=== PATIENT | male | born 1980 | race Caucasian/White ===

== ENCOUNTER → 2016-10-10 | Outpatient (CLI) | payer OTHER ==
--- NOTE | 2016-10-10 14:10 | MR ---
EXAMINATION TYPE: MR shoulder RT wo con DATE OF EXAM: 10/10/2016 COMPARISON: NONE HISTORY: Rt. Shoulder pain, numbness in hand TECHNIQUE: Multiplanar, multisequence imaging of the right shoulder is performed without contrast. FINDINGS: Rotator Cuff: There is abnormal thickening of the rotator cuff compatible with tendinosis, fluid sign al is present at the inferior margin anteriorly compatible with a partial-thickness tear. Acromioclavicular Joint: Intact, there is arthropathy change present, hypertrophic change causes some mild mass effect on the musculotendinous junction of supraspinatus. Some minimal fluid signal presen t in the subacromial subdeltoid bursa Glenohumeral Joint: Intact Labrum: The labrum appears grossly intact given limitation of non-arthrogram study. Biceps Tendon: Small amount of fluid is present along the long head of biceps tendon, the tendon show s a normal position. Bone marrow signal: No focal abnormal marrow signal is appreciated. Other: No sizable joint effusion. IMPRESSION: Tendinosis, small partial undersurface tear of the rotator cuff is suspected.
== END | disposition home or self-care (01) ==
LOC: RADMRIMAIN 09:39
PROVIDERS: ATTEND Internal Medicine
DX: M67.813 Other specified disorders of tendon, right shoulder (principal); M25.511 Pain in right shoulder

== ENCOUNTER 2019-03-29 11:20 | Inpatient (IN) | payer OTHER ==
[2019-03-29] MEDS ORDERED: LORazepam 2 MG/ML INJ IM STA (11:48)
[2019-03-29] MEDS ORDERED: NICOTINE 21MG/24HR PATCH TRANSDERM STA (11:49)
--- NOTE | 2019-03-29 11:59 | ED ---
Psych HPI - General Chief Complaint: Psychiatric Symptoms Stated Complaint: Suicidal Time Seen by Provider: 03/29/19 11:38 Source: patient, police Mode of arrival: ambulatory - History of Present Illness Initial Comments: patient is a 38-year-old malewith history of alcohol intoxication and depression is presenting to emergency by with a chief complaint abscess thoughts and idea tions. Patient reports he "can't shut his mind down." Patient reports yesterday drink in order for go to sleep and even then he only gets a few hours of sleep. Patient reports to drinking beer last night and this morning. Patient reports currently he has let on his mind as he is getting evicted. Patient states he cannot afford presents for [facility] for shoulder. Patient reports his but is on disability and he is only source of income and cannot cope with the situation. Patient would like to be evaluated by psychiatry. Patient reports she attempted suicide today by cutting his left forearm and wrist. Patient states his knife was too dull.patient is a smoker. Patient denies chest pain shortness of breath. - Related Data Home Medications Medication Instructions Recorded Confirmed Cyclobenzaprine [Flexeril] 10 mg PO TID PRN 03/29/19 03/29/19 Loratadine [Claritin] 10 mg PO DAILY 03/29/19 03/29/19 Pregabalin [Lyrica] 150 mg PO BID 03/29/19 03/29/19 Zolpidem [Ambien] 5 mg PO HS PRN 03/29/19 03/29/19 Allergies Allergy/AdvReac Type Severity Reaction Status Date / Time No Known Allergies Allergy Verified 03/29/19 12:07 Review of Systems ROS Statement: Those systems with pertinent positive or pertinent negative responses have been documented in the HPI. ROS Other: All systems not noted in ROS Statement are negative. Past Medical History Past Medical History: No Reported History History of Any Multi-Drug Resistant Organisms: None Reported Past Surgical History: Orthopedic Surgery Past Psychological History: Depression Smoking Status: Current every day smoker Past Alcohol Use History: Occasional Past Drug Use History: None Reported General Exam Limitations: no limitations General appearance: alert, in no apparent distress, appears intoxicated Head exam: Present: atraumatic, normocephalic, normal inspection Eye exam: Present: normal appearance, PERRL, EOMI, conjunctival injection (bilateral) Pupils: Present: normal accommodation ENT exam: Present: normal exam, normal oropharynx, mucous membranes dry Neck exam: Present: normal inspection, full ROM Respiratory exam: Present: normal lung sounds bilaterally, wheezes (right lung base) Cardiovascular Exam: Present: normal rhythm, tachycardia, normal heart sounds Extremities exam: Present: full ROM. Absent: normal inspection (multiple superficial lacerations on the left forearm.) Back exam: Present: normal inspection, full ROM Neurological exam: Present: alert, oriented X3 Psychiatric exam: Present: normal affect, normal mood Skin exam: Present: warm, dry, intact, normal color Course Vital Signs 03/29/19 11:32 Temperature 97.9 F Pulse Rate 113 H Respiratory 18 Rate Blood Pressure 146/109 O2 Sat by Pulse 96 Oximetry Medical Decision Making - Medical Decision Making patient is a 38-year-old male with history of alcohol intoxication and depression ispresenting to the emergency department with a chief complaint of suicidal thoughts and ideations.BAT is .293 and will be sober at 20/200. On exam patient appears dehydrated with dry mucous members. Patient was given 1 mg of Ativan.mild wheezing on the right lung base. Multiple superficial lacerations on the left forearm. Suturing not required. Laceration site will be cleaned. Patient will be admitted for further management. Case discussed with physician. Admitting physician is Dr. Harrison. Disposition Clinical Impression: Suicidal ideation, Depression Disposition: ADMITTED IP TO THIS HOSP Condition: Stable Instructions (If sedation given, give patient instructions): Depression (DC) Additional Instructions: Patient will be admitted Is patient prescribed a controlled substance at d/c from ED?: No Referrals: Anahi Ribera MD [Primary Care Provider] - 1-2 days Time of Disposition: 12:40
[2019-03-29] MEDS ORDERED: ONDANSETRON 4 MG/2 ML VIAL IVP PRN (12:41)
[2019-03-29] MEDS ORDERED: NALOXONE 0.4 MG/ML 1 ML VIAL IV PRN (12:41)
[2019-03-29] MEDS ORDERED: LORazepam 0.5 MG TAB PO PRN (12:41)
[2019-03-29] MEDS ORDERED: MORPHINE SULFATE 4 MG/ML SYRINGE IV PRN (12:41)
[2019-03-29 13:21] LABS: ALT 69 U/L (4-49); AST 73 U/L (17-59); African American GFR (CKD) >90 (>60 ml/min/1.73 sqM); Albumin 4.3 g/dL (3.5-5.0); Alkaline Phosphatase 65 U/L (38-126); Anion Gap 12 mmol/L; Blood Urea Nitrogen 8 mg/dL (9-20); Calcium 8.7 mg/dL (8.4-10.2); Carbon Dioxide 23 mmol/L (22-30); Chloride 107 mmol/L (98-107); Glucose 92 mg/dL (74-99); Non-African American GFR(CKD) >90 (>60 ml/min/1.73 sqM); Potassium 4.4 mmol/L (3.5-5.1); Sodium 142 mmol/L (137-145); Total Bilirubin 0.5 mg/dL (0.2-1.3); Total Protein 6.7 g/dL (6.3-8.2)
[2019-03-29 13:22] LABS: Basophils % (A) 1 %; Eosinophils % (A) 1 %; HCT 47.9 % (39.0-53.0); Lymphocytes # (A) 1.5 k/uL (1.0-4.8); Lymphocytes % (A) 22 %; MCH 36.2 pg (25.0-35.0); MCHC 35.5 g/dL (31.0-37.0); MCV 102.1 fL (80.0-100.0); Macrocytosis Slight; Mean Platelet Volume 6.9; Monocytes # (A) 0.3 k/uL (0-1.0); Monocytes % (A) 5 %; Neutrophils # (A) 4.7 k/uL (1.3-7.7); Neutrophils % (A) 70 %; Platelet Count 232 k/uL (150-450); RDW 12.5 % (11.5-15.5); WBC 6.7 k/uL (3.8-10.6)
--- NOTE | 2019-03-29 14:45 | P.HPIM ---
History of Present Illness this is a pleasant 58 years old male with past medical history of depression and cigarette smoker, presents with alcohol intoxication and suicidal ideation. Patient says that he came to the hospital because he was hurt himself and his left forearmwith Marlex in mentation to cut himself " he wanted to sleep for ever" he states that he has history of depression which is getting worse lately. He cannot sleep only for 2-3 hours each day so he drinks alcohol everyday trying to sleep. He drinks about 3 cans of beer of 24 hours, with some wind and last night he had little whiskey. 2 PACKS PER DAY AND HE SMOKES MARIJUANA He has cough with some clear to yellow phlegm with no chest pain or dyspnea. He has loose bowel movement for a while but no abdominal pain or nausea vomiting. No urinary complaints Vitas looks stable except for mild tachycardia, CBC and BMP are unremarkable. Liver enzymes are slightly elevated. in the emergency room patient started on CIWA Ativan and nicotine patch, Zofran and normal saline at 100 mL per hour Review of Systems CONSTITUTIONAL: No fever, no malaise, no fatigue. HEENT: No recent visual problems or hearing problems. Denied any sore throat. CARDIOVASCULAR: No orthopnea, PND, no palpitations, no syncope. PULMONARY: No shortness of breath, no hemoptysis. GASTROINTESTINAL: No diarrhea, no nausea, no vomiting, no abdominal pain. Normoactive bowel sounds. NEUROLOGICAL: No headaches, no weakness, no numbness. HEMATOLOGICAL: Denies any bleeding or petechiae. GENITOURINARY: Denies any burning micturition, frequency, or urgency. MUSCULOSKELETAL/RHEUMATOLOGICAL: Denies any joint pain, swelling, or any muscle pain. ENDOCRINE: Denies any polyuria or polydipsia. Past Medical History Past Medical History: No Reported History History of Any Multi-Drug Resistant Organisms: None Reported Past Surgical History: Orthopedic Surgery Past Psychological History: Depression Smoking Status: Current every day smoker Past Alcohol Use History: Occasional Past Drug Use History: None Reported Medications and Allergies Home Medications Medication Instructions Recorded Confirmed Type Cyclobenzaprine [Flexeril] 10 mg PO TID PRN 03/29/19 03/29/19 History Loratadine [Claritin] 10 mg PO DAILY 03/29/19 03/29/19 History Pregabalin [Lyrica] 150 mg PO BID 03/29/19 03/29/19 History Zolpidem [Ambien] 5 mg PO HS PRN 03/29/19 03/29/19 History Allergies Allergy/AdvReac Type Severity Reaction Status Date / Time No Known Allergies Allergy Verified 03/29/19 12:07 Physical Exam Vitals: Vital Signs Temp Pulse Resp BP Pulse Ox 03/29/19 11:32 97.9 F 113 H 18 146/109 96 Intake and Output 03/28/19 03/29/19 03/29/19 22:59 06:59 14:59 Other: Weight 69.853 kg GENERAL: The patient is alert and oriented x3, not in any acute distress. Well developed, well nourished. HEENT: Pupils are round and equally reacting to light. EOMI. No scleral icterus. No conjunctival pallor. Normocephalic, atraumatic. No pharyngeal erythema. No thyromegaly. CARDIOVASCULAR: S1 and S2 present. No murmurs, rubs, or gallops. PULMONARY: Chest is clear to auscultation, no wheezing or crackles. ABDOMEN: Soft, nontender, nondistended, normoactive bowel sounds. No palpable organomegaly. MUSCULOSKELETAL: No joint swelling or deformity. -EXTREMITIES: No cyanosis, clubbing, or pedal edema.superficial cut MAYO on his left forearm NEUROLOGICAL: Gross neurological examination did not reveal any focal deficits. SKIN: No rashes. No petechiae -psychiatrist: Looks withdrawn and depressed Results CBC & Chem 7: 03/29/19 12:45 03/29/19 12:45 Labs: Abnormal Lab Results - Last 24 Hours (Table) 03/29/19 03/29/19 Range/Units 12:45 12:45 MCV 102.1 H (80.0-100.0) fL MCH 36.2 H (25.0-35.0) pg BUN 8 L (9-20) mg/dL AST 73 H (17-59) U/L ALT 69 H (4-49) U/L Assessment and Plan Assessment: Alcohol intoxication, risk of local withdrawal Depressions with suicidal ideation Nicotine dependence substance abuse, including marijuana Superficial cut wounds in his left forearm Plan: this is a pleasant 38 years old male who presents with alcoholism and depression. Continue with CIWA protocol, continue with thiamine, continue with vitamins, continue with IV fluids and antiacids.Consult psych services, continue with product safety technician with 1:1 observation. Patient currently a.m. a totally cleared by psychiatrist. We'll order also chest x-ray and EKG. Labs and medication were reviewed.. Continue same treatment. Continue with symptomatic treatment. Resume home medication. Monitor lytes and vitals. DVT and GI prophylaxis. Further recommendations of the clinical course of the patient DVT prophylaxis: Subcutaneous heparin GI Prophylaxis: Pepcid Prognosis is guarded
--- NOTE | 2019-03-29 15:17 | XR ---
EXAMINATION TYPE: XR chest 1V DATE OF EXAM: 03/29/2019 COMPARISON: None INDICATION: Aspiration risk, EtOH TECHNIQUE: Single frontal view of the chest is obtained. FINDINGS: The heart size is normal. The pulmonary vasculature is normal. The lungs are clear. IMPRESSION: 1. No acute pulmonary process.
[2019-03-29] MEDS: THIAMINE 100 MG/ML 2 ML VIAL IVP SCH (15:36)
[2019-03-29] MEDS: HEPARIN SODIUM,PORCINE 5,000 UNIT/ML 1 ML VIAL SQ SCH ×2 (15:36→20:56)
[2019-03-29] MEDS: SODIUM CHLORIDE 0.9% 1,000 ML IV SCH (17:28)
[2019-03-29] MEDS: HYDROmorphone 0.5 MG/0.5 ML SYRINGE IVP PRN ×2 (19:18→22:53)
[2019-03-29 19:19] LABS: Appearance,Urine Clear (Clear); Bilirubin,Urine Negative (Negative); Blood,Urine Negative (Negative); Color,Urine Yellow; Glucose,Urine (UA) Negative (Negative); Ketones,Urine 1+ (Negative); Leukocyte Esterase,Urine Negative (Negative); Nitrite,Urine Negative (Negative); PH, Urine 5.5 (5.0-8.0); Protein,Urine Negative (Negative); Specific Gravity,Urine 1.016 (1.001-1.035); Urobilinogen,Urine <2.0 mg/dL (<2.0)
[2019-03-29 19:35] LABS: Amphetamine Screen,Urine Not Detected (NotDetected); Barbiturate Screen,Urine Not Detected (NotDetected); Benzodiazepines Screen,Urine Detected (NotDetected); Cocaine Screen,Urine Not Detected (NotDetected); Methadone Screen, Urine Not Detected (NotDetected); Opiate Screen,Urine Not Detected (NotDetected); Oxycodone Screen, Urine Not Detected (NotDetected); Phencyclidine Screen,Urine Not Detected (NotDetected); Tricyclic Antidepressant,Urine Not Detected (NotDetected); Urn Cannabinoid Scrn Detected (NotDetected)
[2019-03-29] MEDS: FAMOTIDINE 20 MG/2 ML VIAL IV SCH (20:55)
[2019-03-29] MEDS: CLOTRIMAZOLE 1% CREAM 15 GM TUBE TOPICAL SCH (20:56)
[2019-03-29] MEDS: LORazepam 2 MG/ML INJ IV PRN (20:56)
[2019-03-29] MEDS: NICOTINE 21MG/24HR PATCH TRANSDERM SCH (21:15)
[2019-03-30] MEDS: LORazepam 2 MG/ML INJ IV PRN ×6 (01:18→23:26)
[2019-03-30] MEDS: SODIUM CHLORIDE 0.9% 1,000 ML IV SCH ×3 (01:19→20:49)
[2019-03-30 07:29] LABS: Basophils % (A) 1 %; Eosinophils # (A) 0.1 k/uL (0-0.7); Eosinophils % (A) 2 %; HCT 45.6 % (39.0-53.0); Lymphocytes % (A) 26 %; MCH 34.1 pg (25.0-35.0); MCHC 32.9 g/dL (31.0-37.0); MCV 103.6 fL (80.0-100.0); Macrocytosis Slight; Mean Platelet Volume 7.1; Monocytes # (A) 0.5 k/uL (0-1.0); Monocytes % (A) 7 %; Neutrophils # (A) 4.9 k/uL (1.3-7.7); Neutrophils % (A) 64 %; Platelet Count 201 k/uL (150-450); RDW 12.3 % (11.5-15.5); WBC 7.6 k/uL (3.8-10.6)
[2019-03-30 07:40] LABS: ALT 50 U/L (4-49); AST 51 U/L (17-59); African American GFR (CKD) >90 (>60 ml/min/1.73 sqM); Albumin 3.4 g/dL (3.5-5.0); Alkaline Phosphatase 53 U/L (38-126); Anion Gap 5 mmol/L; Blood Urea Nitrogen 12 mg/dL (9-20); Calcium 8.8 mg/dL (8.4-10.2); Carbon Dioxide 28 mmol/L (22-30); Chloride 105 mmol/L (98-107); Glucose 85 mg/dL (74-99); Non-African American GFR(CKD) >90 (>60 ml/min/1.73 sqM); Potassium 4.6 mmol/L (3.5-5.1); Sodium 138 mmol/L (137-145); Total Bilirubin 1.3 mg/dL (0.2-1.3); Total Protein 5.8 g/dL (6.3-8.2)
[2019-03-30] MEDS: NICOTINE 21MG/24HR PATCH TRANSDERM SCH (09:24)
[2019-03-30] MEDS: HEPARIN SODIUM,PORCINE 5,000 UNIT/ML 1 ML VIAL SQ SCH ×2 (09:24→20:47)
[2019-03-30] MEDS: FAMOTIDINE 20 MG/2 ML VIAL IV SCH (09:24)
[2019-03-30] MEDS: CLOTRIMAZOLE 1% CREAM 15 GM TUBE TOPICAL SCH ×2 (09:25→20:47)
[2019-03-30] MEDS: THIAMINE 100 MG/ML 2 ML VIAL IVP SCH (09:35)
[2019-03-30] MEDS: HYDROmorphone 0.5 MG/0.5 ML SYRINGE IVP PRN ×3 (11:21→20:57)
--- NOTE | 2019-03-30 14:47 | P.PN ---
Subjective this is a pleasant 58 years old male with past medical history of depression and cigarette smoker, presents with alcohol intoxication and suicidal ideation. Patient says that he came to the hospital because he was hurt himself and his left forearmwith Marlex in mentation to cut himself " he wanted to sleep for ever" he states that he has history of depression which is getting worse lately. He cannot sleep only for 2-3 hours each day so he drinks alcohol everyday trying to sleep. He drinks about 3 cans of beer of 24 hours, with some wind and last night he had little whiskey. 2 PACKS PER DAY AND HE SMOKES MARIJUANA He has cough with some clear to yellow phlegm with no chest pain or dyspnea. He has loose bowel movement for a while but no abdominal pain or nausea vomiting. No urinary complaints Vitas looks stable except for mild tachycardia, CBC and BMP are unremarkable. Liver enzymes are slightly elevated. in the emergency room patient started on CIWA Ativan and nicotine patch, Zofran and normal saline at 100 mL per hour 03/30/2019 today patient remains depressed although his more awake and alert as he is more sober from his alcohol effect however he looks anxious and he has shakiness in his and part of his alcohol withdrawal. History of some cough but his chest x- ray was negative for an acute process.labs are reviewed and they looked unremarkable.sitter at bedside. Psych consult has been called and pending. Most likely patient will need inpatient mental health evaluation and treatment. Discussed with staff review of systems: CONSTITUTIONAL: No fever, no malaise, no fatigue. HEENT: No recent visual problems or hearing problems. Denied any sore throat. CARDIOVASCULAR: No orthopnea, PND, no palpitations, no syncope. PULMONARY: No shortness of breath, no hemoptysis. GASTROINTESTINAL: No diarrhea, no nausea, no vomiting, no abdominal pain. Normoactive bowel sounds. NEUROLOGICAL: No headaches, no weakness, no numbness. HEMATOLOGICAL: Denies any bleeding or petechiae. GENITOURINARY: Denies any burning micturition, frequency, or urgency. MUSCULOSKELETAL/RHEUMATOLOGICAL: Denies any joint pain, swelling, or any muscle pain. ENDOCRINE: Denies any polyuria or polydipsia. Active Medications Generic Name Dose Route Start Last Admin Trade Name Freq PRN Reason Stop Dose Admin Acetaminophen/Codeine Phosphate 1 each 03/29/19 12:41 Tylenol #3 PO Q4HR PRN Moderate Pain Clotrimazole 1 applic 03/29/19 21:00 03/30/19 09:25 Lotrimin Cream TOPICAL Not Given BID [facility] Famotidine 20 mg 03/30/19 21:00 Pepcid PO BID [facility] Heparin Sodium (Porcine) 5,000 unit 03/29/19 14:45 03/30/19 09:24 Heparin SQ 5,000 unit Q12HR CHIDI Administration Hydromorphone HCl 0.5 mg 03/29/19 12:41 03/30/19 11:21 Dilaudid IVP 0.5 mg Q3HR PRN Administration Moderate Pain Sodium Chloride 1,000 mls @ 100 mls/hr 03/29/19 12:45 03/30/19 11:21 Saline 0.9% IV 100 mls/hr .Q10H CHIDI Administration Lorazepam 0.5 mg 03/29/19 12:41 03/29/19 17:27 Ativan PO 0.5 mg Q6HR PRN Administration Anxiety Lorazepam 1 mg 03/29/19 20:35 03/30/19 14:43 Ativan IV 1 mg Q4HR PRN Administration Anxiety Morphine Sulfate 4 mg 03/29/19 12:41 03/30/19 02:48 Morphine Sulfate (Inj) IV 4 mg Q4HR PRN Administration Severe Pain Naloxone HCl 0.2 mg 03/29/19 12:41 Narcan IV Q2M PRN Opioid Reversal Nicotine 1 patch 03/29/19 21:15 03/30/19 09:24 Habitrol 21mg/24hr Patch TRANSDERM 1 patch DAILY [facility] Administration Ondansetron HCl 4 mg 03/29/19 12:41 Zofran IVP Q8HR PRN Nausea And Vomiting Thiamine HCl 100 mg 03/29/19 15:00 03/30/19 09:35 Vitamin B-1 IVP 100 mg DAILY [facility] Administration Objective - Vital Signs Vital signs: Vital Signs Temp 96.6 F L 03/30/19 12:02 Pulse 85 03/30/19 12:02 Resp 16 03/30/19 12:02 BP 141/84 03/30/19 12:02 Pulse Ox 98 03/30/19 12:02 Intake & Output 03/29/19 03/30/19 03/30/19 18:59 06:59 18:59 Intake Total 700 1200 Balance 700 1200 Weight 69.853 kg Intake: Amount of Fluid Infused ( 700 ml) Intake, IV Titration 1200 Amount Sodium Chloride 0.9% 1, 1200 000 ml @ 100 mls/hr IV . Q10H [facility] Rx#:[id number] Other: Voiding Method Toilet Toilet Toilet Urinal Urinal Urinal # Voids 3 - Exam GENERAL: The patient is alert and oriented x3, not in any acute distress. Well developed, well nourished. HEENT: Pupils are round and equally reacting to light. EOMI. No scleral icterus. No conjunctival pallor. Normocephalic, atraumatic. No pharyngeal erythema. No thyromegaly. CARDIOVASCULAR: S1 and S2 present. No murmurs, rubs, or gallops. PULMONARY: Chest is clear to auscultation, no wheezing or crackles. ABDOMEN: Soft, nontender, nondistended, normoactive bowel sounds. No palpable organomegaly. MUSCULOSKELETAL: No joint swelling or deformity. -EXTREMITIES: No cyanosis, clubbing, or pedal edema.superficial cut MAYO on his left forearm NEUROLOGICAL: Gross neurological examination did not reveal any focal deficits. SKIN: No rashes. No petechiae -psychiatrist: Looks withdrawn and depressed - Labs CBC & Chem 7: 03/30/19 06:56 03/30/19 06:56 Labs: Abnormal Lab Results - Last 24 Hours (Table) 03/29/19 03/29/19 03/30/19 Range/Units 17:05 17:05 06:56 MCV 103.6 H (80.0-100.0) fL ALT (4-49) U/L Total Protein (6.3-8.2) g/dL Albumin (3.5-5.0) g/dL Urine Ketones 1+ H (Negative) U Benzodiazepines Scrn Detected H (NotDetected) U Marijuana (THC) Screen Detected H (NotDetected) 03/30/19 Range/Units 06:56 MCV (80.0-100.0) fL ALT 50 H (4-49) U/L Total Protein 5.8 L (6.3-8.2) g/dL Albumin 3.4 L (3.5-5.0) g/dL Urine Ketones (Negative) U Benzodiazepines Scrn (NotDetected) U Marijuana (THC) Screen (NotDetected) Assessment and Plan Assessment: Alcohol intoxication, risk of local withdrawal Depressions with suicidal ideation Nicotine dependence substance abuse, including marijuana Superficial cut wounds in his left forearm Plan: this is a pleasant 38 years old male who presents with alcoholism and depression. Continue with CIWA protocol, continue with thiamine, continue with vitamins, continue with IV fluids and antiacids.Consult psych services, continue with safety aide with 1:1 observation. Patient currently a.m. a totally cleared by psychiatrist. We'll order also chest x-ray and EKG. Labs and medication were reviewed.. Continue same treatment. Continue with symptomatic treatment. Resume home medication. Monitor lytes and vitals. DVT and GI prophylaxis. Further recommendations of the clinical course of the patient DVT prophylaxis: Subcutaneous heparin GI Prophylaxis: Pepcid Prognosis is guarded
[2019-03-30] MEDS: FAMOTIDINE 20 MG TAB PO SCH (20:46)
[2019-03-31] MEDS: HYDROmorphone 0.5 MG/0.5 ML SYRINGE IVP PRN ×3 (02:30→10:05)
[2019-03-31] MEDS: LORazepam 2 MG/ML INJ IV PRN ×2 (03:27→09:07)
[2019-03-31 06:53] LABS: Basophils % (A) 0 %; Eosinophils # (A) 0.2 k/uL (0-0.7); Eosinophils % (A) 2 %; HCT 43.9 % (39.0-53.0); HGB 14.9 gm/dL (13.0-17.5); Lymphocytes # (A) 2.2 k/uL (1.0-4.8); Lymphocytes % (A) 28 %; MCH 35.4 pg (25.0-35.0); MCHC 33.9 g/dL (31.0-37.0); MCV 104.4 fL (80.0-100.0); Macrocytosis Slight; Mean Platelet Volume 7.5; Monocytes # (A) 0.6 k/uL (0-1.0); Monocytes % (A) 7 %; Neutrophils # (A) 4.8 k/uL (1.3-7.7); Neutrophils % (A) 61 %; Platelet Count 221 k/uL (150-450); RDW 12.2 % (11.5-15.5); WBC 7.8 k/uL (3.8-10.6)
[2019-03-31 07:07] LABS: ALT 48 U/L (4-49); AST 51 U/L (17-59); African American GFR (CKD) >90 (>60 ml/min/1.73 sqM); Albumin 3.8 g/dL (3.5-5.0); Alkaline Phosphatase 58 U/L (38-126); Anion Gap 7 mmol/L; Blood Urea Nitrogen 8 mg/dL (9-20); Carbon Dioxide 27 mmol/L (22-30); Chloride 103 mmol/L (98-107); Glucose 105 mg/dL (74-99); Magnesium 2.1 mg/dL (1.6-2.3); Non-African American GFR(CKD) >90 (>60 ml/min/1.73 sqM); Potassium 3.9 mmol/L (3.5-5.1); Sodium 137 mmol/L (137-145); Total Bilirubin 0.8 mg/dL (0.2-1.3); Total Protein 6.2 g/dL (6.3-8.2)
[2019-03-31] MEDS: CLOTRIMAZOLE 1% CREAM 15 GM TUBE TOPICAL SCH ×2 (08:58→19:50)
[2019-03-31] MEDS: FAMOTIDINE 20 MG TAB PO SCH ×2 (08:58→19:50)
[2019-03-31] MEDS: SODIUM CHLORIDE 0.9% 1,000 ML IV SCH ×2 (09:07→21:08)
[2019-03-31] MEDS: THIAMINE 100 MG/ML 2 ML VIAL IVP SCH (09:08)
[2019-03-31] MEDS: HEPARIN SODIUM,PORCINE 5,000 UNIT/ML 1 ML VIAL SQ SCH ×2 (09:08→19:51)
[2019-03-31] MEDS ORDERED: LORazepam 2 MG/ML INJ IV STA (12:25)
[2019-03-31] MEDS: NICOTINE 21MG/24HR PATCH TRANSDERM SCH (12:53)
--- NOTE | 2019-03-31 14:09 | P.CN ---
Psychiatric Consult - . Consult date: 03/31/19 Consult:: 03/31/19 14:00 IDENTIFYING DATA: This patient is a 38-year-old male who is currently unemployed and lives with his is and has 2 kids and collects Social Security disability HISTORY OF PRESENT ILLNESS: The patient presented to the ED with suicidal ideations and intoxicated with alcohol. Patient's blood alcohol level was 293. Patient was complaining of drinking to help him sleep and claiming that "can't shut my mind down". Patient also had a cut on his forearm in his wrist upon presentation. Patient was admitted to the medical floors for alcohol withdrawal in monitoring. Psychiatry was asked to see patient for suicidal thoughts. Highway Design Engineer saw patient at the bedside who currently has a sitter and patient was attending to cooperate with advertising copy writer and was directable. Patient appeared anxious and depressed and states that he feels that he has been letting his family down. He claims that he has not worked since January and his disability and social aide has decreased and claims that his financial burden has been overwhelming for him. He claims that he is worried about a and addiction on his house. Patient also claims that he's been "hiding my feelings". He described "being a rock" for his familyand feeling overwhelmed. he claims to have fleeting thoughts of suicide and stated several times "sometimes it be better if I wasn't here". She admits to poor sleep and poor concentration with fair appetite. At this time patient denies any homical ideations, intent or plan. Patient denies any auditory, visual hallucinations and denies any paranoia or delusions. he states that he drinks alcohol approximately 3 beers a day, smokes marijuana approximately one joint a week and smokes cigarettes 2 packs per day. PAST PSYCHIATRIC HISTORY: he states that he has not followed up with a psychiatrist in the past however has been on trazodone and Vistaril and Ativan. He claims that he was once admitted to [facility] when he is 10 years old. Denies any previous suicide attempts. PAST MEDICAL HISTORY: denies ALLERGIES: as per EMR CHEMICAL DEPENDENCY HISTORY: as per HPI FAMILY PSYCHIATRIC/SUBSTANCE USE HISTORY:claims that his uncles suffered from depression. SOCIAL HISTORY: he states that he was born in [facility] and moved to [place] was raised. He claims that he dropped out school in ninth grade and eventually obtained his GED. He claims that he was working in an [employer] recently and stopped working in January of this year. Patient has 2 kids is and lives with them in the house. Currently collecting Social Security disability. MENTAL STATUS EXAM: General Appearance: Patient appears to be stated age is alert, directable and attempts to cooperate.] patient has poor hygiene and grooming. Behavior: Patient is calmly lying in bed without any agitated behavior. Speech: Patient's speech is fluent and nonpressured. soft tone. Mood/Affect: Patient reports their mood is "depressed", affect is congruent Suicidality/Homicidality: Patient denies having any suicidal or homicidal ideation intent or plan. Perceptions: Patient denies any auditory or visual hallucinations. Though content/process: There is no evidence of any delusional thought content and thought process is linear and goal-directed. Memory and concentration: AOX3, grossly intact for the purposes of this session. Can spell "WORLD" backwards Judgment and insight: poor IMPRESSIONS: depressive disorder unspecified rule out alcohol induced depressive disorder anxiety disorder unspecified Alcohol abuse Cannabis use disorder Nicotine dependence. PLAN: -At this time patient does meet criteria for inpatient psychiatric admission. patient was offered voluntary admission and claims that she will sign for it. -Would recommend the following medication changes/additions: Cymbalta 30 mg d aily for mood/anxiety/pain. We'll also start Vistaril 25 mg every 6 hours when necessary for anxiety. We'll also start Remeron 50 mg daily at bedtime for mood/insomnia. -Continue 1:1 sitter for safety -continue with CIWA q4hr for etoh w/d. with Ativan PRN. -When medically stable, patient is eligible for transfer to a psych bed when available. -Psychiatry will sign off at this point
[2019-03-31] MEDS: DULoxetine HCL 30 MG CAPSULE.DR PO SCH (15:30)
--- NOTE | 2019-03-31 17:14 | P.PN ---
Subjective this is a pleasant 58 years old male with past medical history of depression and cigarette smoker, presents with alcohol intoxication and suicidal ideation. Patient says that he came to the hospital because he was hurt himself and his left forearmwith Marlex in mentation to cut himself " he wanted to sleep for ever" he states that he has history of depression which is getting worse lately. He cannot sleep only for 2-3 hours each day so he drinks alcohol everyday trying to sleep. He drinks about 3 cans of beer of 24 hours, with some wind and last night he had little whiskey. 2 PACKS PER DAY AND HE SMOKES MARIJUANA He has cough with some clear to yellow phlegm with no chest pain or dyspnea. He has loose bowel movement for a while but no abdominal pain or nausea vomiting. No urinary complaints Vitas looks stable except for mild tachycardia, CBC and BMP are unremarkable. Liver enzymes are slightly elevated. in the emergency room patient started on CIWA Ativan and nicotine patch, Zofran and normal saline at 100 mL per hour 03/30/2019 today patient remains depressed although his more awake and alert as he is more sober from his alcohol effect however he looks anxious and he has shakiness in his and part of his alcohol withdrawal. History of some cough but his chest x- ray was negative for an acute process.labs are reviewed and they looked unremarkable.sitter at bedside. Psych consult has been called and pending. Most likely patient will need inpatient mental health evaluation and treatment. Discussed with staff 03/31/2019 patient is depressed and agitated today. His CIWA's score is ranging between 3- 15. He got several doses of Ativan every 3-4 hours,he is fully awake and oriented but agitated. No hallucination.psychiatrist evaluated the patient today and found him need inpatient psychiatric admission once his medically cleared from his alcohol withdrawal. In the meantime there is a sitter at bedside. Objective - Vital Signs Vital signs: Vital Signs Temp 98.2 F 03/31/19 12:41 Pulse 90 03/31/19 12:41 Resp 17 03/31/19 12:41 BP 154/93 03/31/19 12:41 Pulse Ox 98 03/31/19 12:41 Intake & Output 03/30/19 03/31/19 03/31/19 18:59 06:59 18:59 Intake Total 360 240 Balance 360 240 Intake: Oral 360 240 Other: Voiding Method Toilet Toilet Urinal Urinal # Voids 4 3 3 # Bowel Movements 0 - Exam GENERAL: The patient is alert and oriented x3, not in any acute distress. Well developed, well nourished. HEENT: Pupils are round and equally reacting to light. EOMI. No scleral icterus. No conjunctival pallor. Normocephalic, atraumatic. No pharyngeal erythema. No thyromegaly. CARDIOVASCULAR: S1 and S2 present. No murmurs, rubs, or gallops. PULMONARY: Chest is clear to auscultation, no wheezing or crackles. ABDOMEN: Soft, nontender, nondistended, normoactive bowel sounds. No palpable organomegaly. MUSCULOSKELETAL: No joint swelling or deformity. -EXTREMITIES: No cyanosis, clubbing, or pedal edema.superficial cut MAYO on his left forearm NEUROLOGICAL: Gross neurological examination did not reveal any focal deficits. SKIN: No rashes. No petechiae -psychiatrist: Looks withdrawn and depressed - Labs CBC & Chem 7: 03/31/19 05:31 03/31/19 05:31 Labs: Abnormal Lab Results - Last 24 Hours (Table) 03/31/19 03/31/19 Range/Units 05:31 05:31 RBC 4.20 L (4.30-5.90) m/uL MCV 104.4 H (80.0-100.0) fL MCH 35.4 H (25.0-35.0) pg BUN 8 L (9-20) mg/dL Glucose 105 H (74-99) mg/dL Total Protein 6.2 L (6.3-8.2) g/dL Assessment and Plan Assessment: Alcohol intoxication, risk of local withdrawal Depressions with suicidal ideation Nicotine dependence substance abuse, including marijuana Superficial cut wounds in his left forearm Plan: this is a pleasant 38 years old male who presents with alcoholism and depression. Continue with CIWA protocol, continue with thiamine, continue with vitamins, continue with IV fluids and antiacids.Consult psych services, continue with safety technician with 1:1 observation. Patient currently a.m. a totally cleared by psychiatrist. We'll order also chest x-ray and EKG. Labs and medication were reviewed.. Continue same treatment. Continue with symptomatic treatment. Resume home medication. Monitor lytes and vitals. DVT and GI prophylaxis. Further recommendations of the clinical course of the patient DVT prophylaxis: Subcutaneous heparin GI Prophylaxis: Pepcid Prognosis is guarded
[2019-03-31] MEDS: MIRTAZAPINE 15 MG TAB PO SCH (19:50)
[2019-04-01 06:46] LABS: Basophils % (A) 1 %; Eosinophils # (A) 0.3 k/uL (0-0.7); Eosinophils % (A) 3 %; HCT 48.1 % (39.0-53.0); HGB 16.3 gm/dL (13.0-17.5); Lymphocytes # (A) 1.9 k/uL (1.0-4.8); Lymphocytes % (A) 25 %; MCHC 33.8 g/dL (31.0-37.0); MCV 103.6 fL (80.0-100.0); Macrocytosis Slight; Mean Platelet Volume 7.3; Monocytes # (A) 0.5 k/uL (0-1.0); Monocytes % (A) 7 %; Neutrophils # (A) 4.8 k/uL (1.3-7.7); Neutrophils % (A) 62 %; Platelet Count 211 k/uL (150-450); RBC 4.65 m/uL (4.30-5.90); RDW 12.1 % (11.5-15.5); WBC 7.7 k/uL (3.8-10.6)
[2019-04-01 07:02] LABS: ALT 108 U/L (4-49); AST 127 U/L (17-59); African American GFR (CKD) >90 (>60 ml/min/1.73 sqM); Albumin 3.7 g/dL (3.5-5.0); Alkaline Phosphatase 58 U/L (38-126); Anion Gap 4 mmol/L; Blood Urea Nitrogen 9 mg/dL (9-20); Calcium 9.4 mg/dL (8.4-10.2); Carbon Dioxide 31 mmol/L (22-30); Chloride 106 mmol/L (98-107); Glucose 103 mg/dL (74-99); Magnesium 2.3 mg/dL (1.6-2.3); Non-African American GFR(CKD) >90 (>60 ml/min/1.73 sqM); Potassium 4.3 mmol/L (3.5-5.1); Sodium 141 mmol/L (137-145); Total Bilirubin 0.8 mg/dL (0.2-1.3); Total Protein 6.2 g/dL (6.3-8.2)
[2019-04-01] MEDS: SODIUM CHLORIDE 0.9% 1,000 ML IV SCH ×2 (08:35→21:14)
[2019-04-01] MEDS: HEPARIN SODIUM,PORCINE 5,000 UNIT/ML 1 ML VIAL SQ SCH ×2 (08:37→21:14)
[2019-04-01] MEDS: FAMOTIDINE 20 MG TAB PO SCH ×2 (08:37→21:14)
[2019-04-01] MEDS: NICOTINE 21MG/24HR PATCH TRANSDERM SCH (08:38)
[2019-04-01] MEDS: CLOTRIMAZOLE 1% CREAM 15 GM TUBE TOPICAL SCH ×2 (08:38→21:14)
[2019-04-01] MEDS: DULoxetine HCL 30 MG CAPSULE.DR PO SCH (08:38)
[2019-04-01] MEDS: THIAMINE 100 MG/ML 2 ML VIAL IVP SCH (08:39)
[2019-04-01] MEDS: Acetaminophen-Codeine 300-30mg TAB PO PRN ×3 (08:51→19:13)
[2019-04-01] MEDS: hydrOXYzine PAMOATE 25 MG CAP PO PRN ×3 (08:51→21:14)
--- NOTE | 2019-04-01 12:40 | P.DS ---
Providers Date of admission: 03/30/19 14:09 Expected date of discharge: 04/01/19 Attending physician: Ashley Harrison Consults: 03/29/19 14:18 Consult Physician Stat Consulting Provider: Rey Xiao Reason/Comments: suicidal Do you want consulting provider notified?: Yes Primary care physician: Mounika Hernández [facility] Course: Final diagnosis Alcohol intoxication Depressions with suicidal ideation Nicotine dependence substance abuse, including marijuana Superficial cut wounds in his left forearm Discharge disposition Patient is being discharged in a stable condition with guarded prognosis to the inpatient psychiatric floor for continued therapy along with medication adjustments. Total time taken is 35 minutes. History of present illness This is a 38-year-old male with a past medical history of depression and was recently admitted for alcohol intoxication and acute suicidal ideation and is being closely monitored.psychiatry evaluated the patient and is recommending inpatient psychiatric admission. Currently patient's condition is stable and is not exhibiting any signs of alcohol withdrawal. There is a sitter at the bedside. patient does smoke approximately 2 packs of cigarettes per day and is currently maintained on the nicotine patch and will continue at this time. Chest x-ray was done during hospitalization showing no acute process and labs w ere within normal limits. Patient will be transferred to inpatient psychiatric floor once a bed becomes available. Guarded prognosis. On exam vital signs are stable. Temp is 97.2F, pulse is 85, respirations are 16, blood pressure is 157/92, oxygen saturation is 98% on room air. Cardio S1, S2 are present. Respiratory system shows clear to auscultation. Abdomen is soft and nontender. Nervous system shows no focal deficits. Please refer to medication reconciliation sheet for a list of medications. Patient Condition at Discharge: Stable Plan - Discharge Summary Discharge Rx Participant: No New Discharge Prescriptions: New DULoxetine HCL [Cymbalta] 30 mg PO DAILY capsule. Nicotine 21Mg/24Hr Patch [Habitrol] 1 patch TRANSDERM DAILY patch Clotrimazole Cream [Lotrimin Cream] 1 applic TOPICAL BID applic Multivitamins, Thera [Multivitamin] 1 tab PO DAILY #30 tablet Famotidine [Pepcid] 20 mg PO BID tab Mirtazapine [Remeron] 15 mg PO HS tab Acetaminophen-Codeine 300-30mg [Tylenol w/codeine #3] 1 each PO Q4HR PRN #3 tab PRN Reason: Moderate Pain hydrOXYzine PAMOATE [Vistaril] 25 mg PO Q6HR PRN cap PRN Reason: Anxiety Thiamine [Vitamin B-1] 100 mg PO DAILY #3 tablet Continue Loratadine [Claritin] 10 mg PO DAILY Discontinued Pregabalin [Lyrica] 150 mg PO BID Zolpidem [Ambien] 5 mg PO HS PRN PRN Reason: Insomnia Cyclobenzaprine [Flexeril] 10 mg PO TID PRN PRN Reason: Muscle Spasm Discharge Medication List Loratadine [Claritin] 10 mg PO DAILY 03/29/19 [History] Acetaminophen-Codeine 300-30mg [Tylenol w/codeine #3] 1 each PO Q4HR PRN #3 tab 04/01/19 [Rx] Clotrimazole Cream [Lotrimin Cream] 1 applic TOPICAL BID applic 04/01/19 [Rx] DULoxetine HCL [Cymbalta] 30 mg PO DAILY capsule. 04/01/19 [Rx] Famotidine [Pepcid] 20 mg PO BID tab 04/01/19 [Rx] Mirtazapine [Remeron] 15 mg PO HS tab 04/01/19 [Rx] Multivitamins, Thera [Multivitamin] 1 tab PO DAILY #30 tablet 04/01/19 [Rx] Nicotine 21Mg/24Hr Patch [Habitrol] 1 patch TRANSDERM DAILY patch 04/01/19 [Rx] Thiamine [Vitamin B-1] 100 mg PO DAILY #3 tablet 04/01/19 [Rx] hydrOXYzine PAMOATE [Vistaril] 25 mg PO Q6HR PRN cap 04/01/19 [Rx] Follow up Appointment(s)/Referral(s): Anahi Ribera MD [Primary Care Provider] - 1-2 days Patient Instructions/Handouts: Depression (DC) Activity/Diet/Wound Care/Special Instructions: Patient will be going to inpatient psychiatric Continue current diet Follow-up with primary care provider upon discharge Avoid all tobacco and alcohol use Discharge Disposition: TRANSFER TO PSYCH HOSP/UNIT
[2019-04-01] MEDS: MIRTAZAPINE 15 MG TAB PO SCH (21:14)
[2019-04-02 05:52] VITALS: BP 139/94; PULSE 88; RESP 16; TEMP 97.9
[2019-04-02] MEDS: NICOTINE 21MG/24HR PATCH TRANSDERM SCH (08:58)
[2019-04-02] MEDS: DULoxetine HCL 30 MG CAPSULE.DR PO SCH (08:59)
[2019-04-02] MEDS: HEPARIN SODIUM,PORCINE 5,000 UNIT/ML 1 ML VIAL SQ SCH (08:59)
[2019-04-02] MEDS: hydrOXYzine PAMOATE 25 MG CAP PO PRN (08:59)
[2019-04-02] MEDS: Acetaminophen-Codeine 300-30mg TAB PO PRN (09:00)
[2019-04-02] MEDS: FAMOTIDINE 20 MG TAB PO SCH (09:00)
[2019-04-02] MEDS: THIAMINE 100 MG/ML 2 ML VIAL IVP SCH (09:01)
[2019-04-02] MEDS: SODIUM CHLORIDE 0.9% 1,000 ML IV SCH (09:01)
[2019-04-02] MEDS: CLOTRIMAZOLE 1% CREAM 15 GM TUBE TOPICAL SCH (09:04)
--- NOTE | 2019-04-02 11:27 | PN ---
PROGRESS NOTE DATE OF SERVICE: 04/01/2019. This is a 38-year-old gentleman who was admitted with alcohol intoxication also depression, suicidal ideation. Patient is being closely monitored. No chest pain. No palpitations. No fever. PHYSICAL EXAMINATION: On exam, vitals are noted, stable. HEENT: Conjunctivae normal. Oral mucosa moist. NECK: No jugular veins distension. CARDIOVASCULAR SYSTEM: S1, S2, muffled. RESPIRATION: Breath sounds diminished at the bases, no rhonchi, no crackles. ABDOMEN: Soft, nontender. NERVOUS SYSTEM: Mild diffuse tremors present. LABS: At this time shows WBC 7.2, hemoglobin 14.9. Other labs are reviewed. ASSESSMENT: 1. Acute alcohol intoxication. 2. Depression and suicidal ideation. 3. History of nicotine dependence and substance abuse including marijuana. 4. Superficial cut wounds in the left forearm. RECOMMENDATION: Recommend to continue current medications, symptomatic treatment. Otherwise, closely follow with Psych and possible inpatient psych. Further recommendations to follow. MMODL / IJN: [id number] /
--- NOTE | 2019-04-02 11:36 | DS ---
DISCHARGE SUMMARY DISCHARGE ADDENDUM: DATE OF SERVICE: 04/02/2019 This 38-year-old gentleman was admitted with acute alcohol intoxication and multiple other medical problems. Will be discharged to inpatient psych today. Please refer to the previous dictated discharge summary for details. On exam, vitals are stable. CARDIOVASCULAR: S1, S2 muffled. ABDOMEN: Soft. NERVOUS SYSTEM: No focal deficit. Recommend to follow up with Dr. Ribera after discharge from inpatient psych. MMODL / IJN: [id number] /
== END 2019-04-02 11:35 | DRG 897 ==
LOC: EC 11:20 → 3SCARD 12:53 → 3NMEDONC 13:13 → OBSVTOIN 03-30 14:09 → 5NMEDONC 03-31 07:14
PROVIDERS: ADMIT Hospitalist; ATTEND Hospitalist
DX: F10.229 Alcohol dependence with intoxication, unspecified (principal); R45.851 Suicidal ideations; E86.0 Dehydration; F12.90 Cannabis use, unspecified, uncomplicated; F17.210 Nicotine dependence, cigarettes, uncomplicated; F32.9 Major depressive disorder, single episode, unspecified; S51.812A Laceration without foreign body of left forearm, initial encounter; R05 Cough; R06.2 Wheezing; S61.512A Laceration without foreign body of left wrist, initial encounter; Z79.899 Other long term (current) drug therapy; W26.9XXA Contact with unspecified sharp object(s), initial encounter
CPT/HCPCS: 36415; 71045; 80053; 80306; 81003; 82075; 83735; 85025; 93005; 96372; 99285

== ENCOUNTER 2019-03-31 16:06 | Inpatient (IN) | payer MEDICAID ==
[2019-04-02 12:00] VITALS: RESP 16
[2019-04-02] MEDS ORDERED: hydrOXYzine PAMOATE 25 MG CAP PO PRN (12:24)
[2019-04-02] MEDS ORDERED: PNEUMOCOCCAL VACC-PNEUMOVAX 23 25 MCG/0.5 ML VIAL IM ONE (12:33)
[2019-04-02] MEDS ORDERED: INFLUENZA VACCINE (6 MOS+) 60 MCG/0.5 ML SYRINGE IM ONE (12:33)
[2019-04-02] MEDS ORDERED: MAGNESIUM HYDROXIDE 2,400 MG/10 ML CUP PO PRN (12:35)
[2019-04-02] MEDS ORDERED: MAG HYDROX/AL HYDROX/SIMETH 30 ML CUP PO PRN (12:35)
[2019-04-02] MEDS ORDERED: ZIPRASIDONE 20 MG VIAL IM PRN (12:35)
[2019-04-02] MEDS ORDERED: DULoxetine HCL 30 MG CAPSULE.DR PO ONE (13:45)
[2019-04-02] MEDS: SERTRALINE 50 MG TAB PO SCH (13:51)
--- NOTE | 2019-04-02 13:59 | P.HP ---
Psychiatric H&P - . H&P Date: 04/02/19 History & Physical: Allergies Allergy/AdvReac Type Severity Reaction Status Date / Time No Known Allergies Allergy Verified 04/02/19 12:03 Vital Signs Temp 97.8 F 04/02/19 11:55 Pulse 101 H 04/02/19 11:55 Resp 16 04/02/19 11:55 BP 125/92 04/02/19 11:55 Pulse Ox 99 04/02/19 11:55 Intake & Output 04/01/19 04/02/19 04/02/19 18:59 06:59 18:59 Weight 68.4 kg 04/02/19 13:49 IDENTIFYING DATA: Patient is a 38-year-old male who is currently unemployed and lives with his is and has 2 kids and collects Social Security disability HISTORY OF PRESENT ILLNESS: The patient presented to the ED with suicidal ideations and intoxicated with alcohol. Patient had a blood alcohol level was 293. Patient was complaining of drinking to help him sleep and claiming that "can't shut my mind down". Patient also had a cut on his forearm in his wrist upon presentation. Patient was admitted to the medical floors for alcohol withdrawal in monitoring. Psychiatry CL consulted to see patient for suicidal thoughts. patient was seen by global technical writer and transferred to the mental health unit this morning after being medically stabilized and completing alcohol withdrawal on the medical floors. Patient today was directable and agreeable to seek to global technical writer in the office. Patient appeared anxious and depressed and stated that he feels that he has been letting his family down. He once again spoke about not working since January and his disability and social aide has decreased and claims that his financial burden has been overwhelming for him. patient spoke about nearly evading a eviction on his house recently. Patient also claims that he's been "hiding my feelings". patient states that today he feels mild improvement on the Cymbalta however was asking for it to be increased. He states that his anxiety has been mildly improved along with his depression. Patient continues to appear to have an anxious affect and hesitant in his voice. He admits to poor sleep and poor concentration with fair appetite. At this time patient denies any homical ideations, intent or plan. Patient denies any auditory, visual hallucinations and denies any paranoia or delusions. he states that he drinks alcohol approximately 3 beers a day, smokes marijuana approximately one joint a week and smokes cigarettes 2 packs per day. PAST PSYCHIATRIC HISTORY: he states that he has not followed up with a psychiatrist in the past however has been on trazodone and Vistaril and Ativan. He claims that he was once admitted to [facility] when he is 10 years old. Denies any previous suicide attempts. PAST MEDICAL HISTORY: denies ALLERGIES: as per EMR CHEMICAL DEPENDENCY HISTORY: as per HPI FAMILY PSYCHIATRIC/SUBSTANCE USE HISTORY:claims that his uncles suffered from depression. SOCIAL HISTORY: he states that he was born in [facility] and moved to [place] was raised. He claims that he dropped out school in ninth grade and eventually obtained his GED. He claims that he was working in an [employer] recently and stopped working in January of this year. Patient has 2 kids is and lives with them in the house. Currently collecting Social Security disability. MENTAL STATUS EXAM: General Appearance: Patient appears to be stated age is alert, directable and attempts to cooperate. patient has poor hygiene and grooming. patient is unshaven and has glasses & wearing a hospital gown. Behavior: Patient is anxiously sitting on the chair without any agitated behavior. Speech: Patient's speech is fluent and nonpressured. anxious tone. Mood/Affect: Patient reports their mood is "depressed and anxious", affect is congruent Suicidality/Homicidality: Patient denies having any suicidal or homicidal ideation intent or plan. Perceptions: Patient denies any auditory or visual hallucinations. Though content/process: There is no evidence of any delusional thought content and thought process is linear and goal-directed. Memory and concentration: AOX3, grossly intact for the purposes of this session. Can spell "WORLD" backwards Judgment and insight: poor, mildly improving IMPRESSIONS: depressive disorder unspecified rule out alcohol induced depressive disorder anxiety disorder unspecified Alcohol abuse Cannabis use disorder Nicotine dependence. PLAN: -At this time patient continues to meet criteria for inpatient psychiatric admission. patient signed for voluntary admission and also signed for medication consent which is placed in patient's chart. -Would recommend the following medication changes/additions: after reviewing patient's labs and persistently elevated LFTs, Will discontinue Cymbalta and switch patient onto Zoloft 50 mg daily for anxiety/mood. We'll increase Vistaril 50 mg every 8 hours when necessary for anxiety. We'll increase Remeron 30 mg daily at bedtime for mood/insomnia. added melatonin 6 mg daily at bedtime for sleep. -Ativan and Geodon PRN for agitation/aggression -Started thiamine, MVM for etoh use -Patient was counselled on substance abuse and desired to cut back on use -Patient was informed of the risks, benefits and side effects of the medication and patient verbally consented to taking the medications. Patient signed med consent form and was placed in chart. -NRT - nicotine patch -SW on board for discharge planning.
[2019-04-02] MEDS: Acetaminophen-Codeine 300-30mg TAB PO PRN ×2 (14:38→22:14)
[2019-04-02] MEDS: hydrOXYzine PAMOATE 25 MG CAP PO PRN ×2 (14:38→22:14)
[2019-04-02] MEDS: MULTIVITAMINS, THERA 1 EACH TAB PO SCH (14:39)
[2019-04-02] MEDS: THIAMINE 100 MG TAB PO SCH (14:39)
[2019-04-02] MEDS: FOLIC ACID 1 MG TAB PO SCH (14:39)
[2019-04-02] MEDS ORDERED: MIRTAZAPINE 15 MG TAB PO SCH ×2 (21:00)
[2019-04-02] MEDS ORDERED: MELATONIN 3 MG TABLET PO SCH (21:00)
[2019-04-02] MEDS: FAMOTIDINE 20 MG TAB PO SCH (22:14)
[2019-04-02] MEDS: CLOTRIMAZOLE 1% CREAM 15 GM TUBE TOPICAL SCH ×2 (22:16→23:47)
[2019-04-03] MEDS: MULTIVITAMINS, THERA 1 EACH TAB PO SCH (08:49)
[2019-04-03] MEDS: FAMOTIDINE 20 MG TAB PO SCH ×2 (08:49→22:12)
[2019-04-03] MEDS: CLOTRIMAZOLE 1% CREAM 15 GM TUBE TOPICAL SCH ×2 (08:49→22:35)
[2019-04-03] MEDS: NICOTINE 21MG/24HR PATCH TRANSDERM SCH (08:49)
[2019-04-03] MEDS: SERTRALINE 50 MG TAB PO SCH (08:49)
[2019-04-03] MEDS: FOLIC ACID 1 MG TAB PO SCH (08:49)
[2019-04-03] MEDS: THIAMINE 100 MG TAB PO SCH (08:49)
[2019-04-03] MEDS: Acetaminophen-Codeine 300-30mg TAB PO PRN ×4 (08:50→22:36)
[2019-04-03] MEDS: hydrOXYzine PAMOATE 25 MG CAP PO PRN ×2 (08:50→22:12)
[2019-04-03] MEDS ORDERED: DULoxetine HCL 60 MG CAPSULE.DR PO SCH (09:00)
--- NOTE | 2019-04-03 12:50 | P.PN ---
Progress Note - Text Progress Note Date: 04/03/19 Subjective: Patient was seen wandering the hallways and was directable and agreeable to speak with customs entry writer in the office. Patient appeared to be more cooperative and less tearful today. Patient also appeared to be less anxious and having an improved affect. Patient states that he's been speaking with his on the phone and claims to be having "good conversations with her". He states that they've been working through some issues at home and he is excited to see her for tonight during visitation. Patient claims that he has been going to groups and finding them helpful and also has been trying to interact with other patients on the unit. Patient states that she would like to have the Zoloft increased to help more with his depression. He states that he'll be excited to be home for [place] and spoke about his future plans with his family. Patient was thankful for customs entry writer for his medications. He states that he did not sleep well last night and requested to have his medications increased at nighttime. At this time patient denies any suicidal or homicidal ideations, intent or plan. Patient denies any auditory or visual hallucinations at this time and does not endorse any delusions or paranoia. Mental Status Examination: General Appearance: Patient appears to be stated age is alert, directable. Improving hygiene and grooming. Unshaven and has glasses & wearing a hospital gown. Behavior: Patient is calmly sitting on the chair without any agitated behavior. Speech: Patient's speech is fluent and nonpressured. anxious tone. Mood/Affect: Patient reports their mood is depressed and anxious, mildly improving, affect is congruent with improved range. Suicidality/Homicidality: Patient denies having any suicidal or homicidal ideation intent or plan. Perceptions: Patient denies any auditory or visual hallucinations. Though content/process: There is no evidence of any delusional thought content and thought process is linear and goal-directed. Memory and concentration: AOX3, grossly intact for the purposes of this session Judgment and insight: poor, mildly improving Assessment: depressive disorder unspecified rule out alcohol induced depressive disorder anxiety disorder unspecified Alcohol abuse Cannabis use disorder Nicotine dependence. PLAN: -At this time patient continues to meet criteria for inpatient psychiatric admission. patient has signed for voluntary admission and also signed for medication consent which is placed in patient's chart. -Medications: Will increase Zoloft 100 mg daily for anxiety/mood. We'll continue with Vistaril 50 mg every 8 hours when necessary for anxiety. We'll increase Remeron 45 mg daily at bedtime for mood/insomnia. Increased melatonin 10 mg daily at bedtime for sleep. -Ativan and Geodon PRN for agitation/aggression -continue with thiamine, MVM for etoh use -NRT - nicotine patch - on board for discharge planning. Likely discharge in 1-2 days. Patient will be following up with [facility] as an outpatient.
[2019-04-03] MEDS ORDERED: MIRTAZAPINE 15 MG TAB PO SCH (21:00)
[2019-04-03] MEDS: MELATONIN 5 MG TABLET PO SCH (22:12)
--- NOTE | 2019-04-03 22:15 | CONS ---
CONSULTATION DATE OF SERVICE: 04/03/2019 REASON FOR CONSULTATION: Advice regarding ETOH withdrawal and other medical issues, requested by Psychiatry. HISTORY OF PRESENT ILLNESS: This 38-year-old gentleman with a past medical history of multiple medical problems, including depression, nicotine dependence, substance abuse and alcohol intoxication has superficial cuts on the left forearm. The patient was admitted after alcohol intoxication. Patient is being monitored closely. Patient has been transferred to the inpatient psych unit at this time. The patient is slightly agitated, but there is no history of any active withdrawals. The patient reports that after discharge he is planning to follow up with [facility]. There is no history of any fever, rigor or chills. No history of headache, loss of consciousness, seizures. PAST MEDICAL HISTORY: 1. History of depression. 2. History of nicotine dependence. 3. Polysubstance abuse. 4. History of recent cuts. CURRENT MEDICATIONS: 1. Hydroxyzine 25 mg q.6. 2. Vitamin B1 100 mg p.o. daily. 3. Habitrol 14 daily. 4. Multivitamins 1 p.o. daily. 5. Remeron 15 mg at bedtime. 6. Claritin 10 mg p.o. daily. 7. Pepcid 20 mg p.o. b.i.d. 8. Cymbalta 30 mg p.o. daily. 9. Lotrimin cream 1 application b.i.d. 10.Tylenol No.3 one p.o. q.4 p.r.n. ALLERGIES: NONE. FAMILY HISTORY: No history of heart disease or strokes in the family. SOCIAL HISTORY: History of smoking. History of THC. History of alcohol, as mentioned. Polysubstance abuse. REVIEW OF SYSTEMS: ENT: No diminished hearing. No diminished vision. CARDIOVASCULAR SYSTEM: No angina, palpitations. RESPIRATORY SYSTEM: As mentioned earlier. GI: As mentioned earlier. : No dysuria or retention. NERVOUS SYSTEM: As mentioned earlier. ALLERGY/IMMUNOLOGY: No asthma, hayfever. MUSCULOSKELETAL: As mentioned earlier. HEMATOLOGY/ONCOLOGY: No history of anemia. ENDOCRINE: No history of diabetes, hypothyroidism. CONSTITUTIONAL: As mentioned earlier. DERMATOLOGY: Negative. RHEUMATOLOGY: Negative. PSYCHIATRY: As mentioned earlier. PHYSICAL EXAMINATION: Patient alert and oriented x3. Pulse 92, blood pressure 144/93, respiration 16, temperature 98.2, pulse ox 99% on room air. HEENT: Conjunctivae normal. Oral mucosa moist. NECK: No jugular venous distention. No carotid bruit. No lymph node enlargement. CARDIOVASCULAR SYSTEM: S1, S2 muffled. No S3. No S4. RESPIRATORY SYSTEM: Breath sounds diminished at the bases. A few scattered rhonchi and crackles. ABDOMEN: Soft, nontender. No mass palpable. LEGS: No edema. No swelling. NERVOUS SYSTEM: Higher functions as mentioned earlier. Moves all 4 limbs. No focal motor or sensory deficit. Otherwise, cranial nerves 2 through 12 grossly intact. Gait is normal. No signs of cerebellar dysfunction. No sensory abnormalities. SKIN: No ulcer, rash, bleeding. JOINTS: No active deforming arthropathy. LYMPHATICS: No lymph node palpable in neck, axillae or groin. LAB INVESTIGATIONS: Lab investigations at this time are pending. The previous labs are reviewed. MCV was 103.6. Otherwise, chemistry was showing AST and ALT elevated at 127 and 108. ASSESSMENT: 1. Depression with suicidal ideation. 2. History of recent alcohol intoxication. 3. History of recent alcoholic hepatitis. 4. History of polysubstance abuse. 5. Superficial cuts on the left forearm. RECOMMENDATIONS AND DISCUSSION: In this 38-year-old gentleman who presented with multiple complex medical issues, we will monitor the patient closely, continue the current medications, continue with symptomatic treatment. Otherwise at this time I would recommend continuing with current medications. Alcohol cessation. Repeat labs may be performed to ensure stability. I will order a CMP. Otherwise, the patient may be asked to follow up with a primary physician closely after discharge. The patient follows with Dr. Ribera. Thank you, Dr. Cash, for letting us participate in the care of this patient. MMODL / IJN: [id number] /
[2019-04-04] MEDS: FAMOTIDINE 20 MG TAB PO SCH ×2 (07:52→22:34)
[2019-04-04] MEDS: CLOTRIMAZOLE 1% CREAM 15 GM TUBE TOPICAL SCH ×2 (07:52→23:13)
[2019-04-04] MEDS: NICOTINE 21MG/24HR PATCH TRANSDERM SCH (07:52)
[2019-04-04] MEDS: hydrOXYzine PAMOATE 25 MG CAP PO PRN ×2 (07:53→22:34)
[2019-04-04] MEDS: SERTRALINE 100 MG TAB PO SCH (07:53)
[2019-04-04] MEDS: MULTIVITAMINS, THERA 1 EACH TAB PO SCH (07:53)
[2019-04-04] MEDS: FOLIC ACID 1 MG TAB PO SCH (07:53)
[2019-04-04] MEDS: THIAMINE 100 MG TAB PO SCH (07:53)
[2019-04-04] MEDS: Acetaminophen-Codeine 300-30mg TAB PO PRN ×2 (07:54→17:32)
[2019-04-04 09:53] LABS: ALT 259 U/L (4-49); AST 175 U/L (17-59); African American GFR (CKD) >90 (>60 ml/min/1.73 sqM); Albumin 4.3 g/dL (3.5-5.0); Alkaline Phosphatase 69 U/L (38-126); Anion Gap 8 mmol/L; Blood Urea Nitrogen 13 mg/dL (9-20); Calcium 9.3 mg/dL (8.4-10.2); Carbon Dioxide 28 mmol/L (22-30); Chloride 103 mmol/L (98-107); Glucose 155 mg/dL (74-99); Non-African American GFR(CKD) >90 (>60 ml/min/1.73 sqM); Potassium 4.6 mmol/L (3.5-5.1); Sodium 139 mmol/L (137-145); Total Bilirubin 0.5 mg/dL (0.2-1.3); Total Protein 6.9 g/dL (6.3-8.2)
--- NOTE | 2019-04-04 13:20 | P.PN ---
Progress Note - Text Progress Note Date: 04/04/19 Subjective: Patient was seen wandering the hallways and was directable and agreeable to speak with marketing writer in the office. Patient appeared to be more bright today and his affect and was more cooperative with the marketing writer. Patient states that he continues to be speaking with his and is trying to make plans for the future for his family. He also spoke about possibly filing for bankruptcy at this time. Patient was not tearful today. Patient also appeared to be less anxious and having an improved affect. Patient claims that he has been going to groups and finding them helpful and also has been trying to interact with other patients on the unit. Patient was speaking about possibly discharge and feeling almost ready to go home. Patient states that took the Zoloft 100 mg this morning and claims that he believes it's really helping him. Pug Mill Operator did speak with patient about his recent LFTs which were processed this morning. It appeared that the LFTs have been increasing since the March 31 and patient claims that he has never had liver problems in the past and was concerned. At this time patient denies any suicidal or homicidal ideations, intent or plan. Patient denies any auditory or visual hallucinations at this time and does not endorse any delusions or paranoia. He claims that he slept well last night and thanked marketing writer for his medications. Mental Status Examination: General Appearance: Patient appears to be stated age is alert, directable. Improving hygiene and grooming. Unshaven and has glasses & wearing a hospital gown. Behavior: Patient is calmly sitting on the chair without any agitated behavior. Speech: Patient's speech is fluent and nonpressured. Mood/Affect: Patient reports their mood is mildly improving, affect is congruent with improved range. Suicidality/Homicidality: Patient denies having any suicidal or homicidal ideation intent or plan. Perceptions: Patient denies any auditory or visual hallucinations. Though content/process: There is no evidence of any delusional thought content and thought process is linear and goal-directed. Focused on discharge and more future oriented. Memory and concentration: AOX3, grossly intact for the purposes of this session Judgment and insight: poor, mildly improving Assessment: depressive disorder unspecified rule out alcohol induced depressive disorder anxiety disorder unspecified Alcohol abuse Cannabis use disorder Nicotine dependence. PLAN: -At this time patient continues to meet criteria for inpatient psychiatric admission. patient has signed for voluntary admission and also signed for medication consent which is placed in patient's chart. -Medications: Will into a new with Zoloft 100 mg daily for anxiety/mood. We'll continue with Vistaril 50 mg every 8 hours when necessary for anxiety. Discontinued Remeron at this time as it is the most likely candidate for elevated AST/ALT.continue with melatonin 10 mg daily at bedtime for sleep. Added Ativan 1 mg daily at bedtime for insomnia which will be temporary. -Zoila PRN for agitation/aggression -Ordered a comprehensive metabolic panel on Monday morning. We'll continue monitoring LFTs. -Will ask internal medicine to see patient today for elevated LFTs. -continue with thiamine, MVM for etoh use -NRT - nicotine patch -SW on board for discharge planning. Likely discharge early next week once patient has improving liver function tests.
[2019-04-04] MEDS: MELATONIN 5 MG TABLET PO SCH (22:34)
[2019-04-04] MEDS: LORazepam 1 MG TAB PO SCH (22:34)
[2019-04-05] MEDS: NICOTINE 21MG/24HR PATCH TRANSDERM SCH (08:27)
[2019-04-05] MEDS: FOLIC ACID 1 MG TAB PO SCH (08:27)
[2019-04-05] MEDS: CLOTRIMAZOLE 1% CREAM 15 GM TUBE TOPICAL SCH ×2 (08:27→22:26)
[2019-04-05] MEDS: MULTIVITAMINS, THERA 1 EACH TAB PO SCH (08:27)
[2019-04-05] MEDS: FAMOTIDINE 20 MG TAB PO SCH ×2 (08:27→22:26)
[2019-04-05] MEDS: THIAMINE 100 MG TAB PO SCH (08:28)
[2019-04-05] MEDS: SERTRALINE 100 MG TAB PO SCH (08:28)
[2019-04-05] MEDS: hydrOXYzine PAMOATE 25 MG CAP PO PRN ×2 (08:29→22:59)
[2019-04-05] MEDS: Acetaminophen-Codeine 300-30mg TAB PO PRN ×3 (08:29→23:00)
--- NOTE | 2019-04-05 11:08 | P.PN ---
Progress Note - Text Progress Note Date: 04/05/19 Subjective: Patient was seen wandering the hallways and was directable and agreeable to speak with rfp writer in the office. patient claims that he did not sleep well last night due to the change in his medications. He also states that his roommate was difficult to sleep in the same room with an claims that "I was debating taking my mattress out in the hallway sleeping there". He states that he feels that the medication could still be improved to help his sleep and also for his anxiety/mood. He states that he is continuing to think about home and his as he talked to her yesterday. He states that his may need to be admitted to the hospital for her COPD. Patient claims that since being off the Remeron he is anxious about his liver and would like to have the medication replaced with something else. he states that he has been trying to go to some groups and also has had poor energy during the day today. At this time patient denies any suicidal or homicidal ideations, intent or plan. Patient denies any auditory or visual hallucinations at this time and does not endorse any delusions or paranoia. Mental Status Examination: General Appearance: Patient appears to be stated age is alert, directable. fair hygiene and grooming. Unshaven and has glasses & wearing a hospital gown. Behavior: Patient is anxiously sitting on the chair without any agitated behavior. Speech: Patient's speech is fluent and nonpressured. Mood/Affect: Patient reports their mood is mildly improving, continues to have anxiety, affect is congruent Suicidality/Homicidality: Patient denies having any suicidal or homicidal ideation intent or plan. Perceptions: Patient denies any auditory or visual hallucinations. Though content/process: There is no evidence of any delusional thought content and thought process is linear and goal-directed. Memory and concentration: AOX3, grossly intact for the purposes of this session Judgment and insight: poor, mildly improving Assessment: major depressive disorder, without psychotic features anxiety disorder unspecified Alcohol abuse Cannabis use disorder Nicotine dependence. PLAN: -At this time patient continues to meet criteria for inpatient psychiatric admission. patient has signed for voluntary admission and also signed for medication consent which is placed in patient's chart. -Medications: Will continue with with Zoloft 100 mg daily for anxiety/mood. We'll continue with Vistaril 50 mg every 8 hours when necessary for anxiety, patient was encouraged to take 50 mg when necessary prior to sleep.continue with melatonin 10 mg daily at bedtime for sleep. continue with Ativan 1 mg daily at bedtime for insomnia which will be temporary. we'll consider adding on doxepin tomorrow night if patient continues to have sleep disturbance and LFTs are improving. -it is believed that due to the timeline of starting Remeron at this is most meredith the culprit medication that is causing the increase in AST/ALTs and this will be needed to be closely followed in the next couple of days prior to discharge and patient will lead to have this medication replaced for insomnia. -Geodon PRN for agitation/aggression -Ordered a comprehensive metabolic panel on Monday and Monday morning. We'll continue monitoring LFTs. patient was encouraged to drink water. -Will ask internal medicine to see patient today for elevated LFTs. -continue with thiamine, MVM for etoh use -NRT - nicotine patch -SW on board for discharge planning. Likely discharge early next week back home.
[2019-04-05] MEDS: MELATONIN 5 MG TABLET PO SCH (22:57)
[2019-04-05] MEDS: LORazepam 1 MG TAB PO SCH (22:58)
[2019-04-06] MEDS: FOLIC ACID 1 MG TAB PO SCH (07:58)
[2019-04-06] MEDS: NICOTINE 21MG/24HR PATCH TRANSDERM SCH (07:58)
[2019-04-06] MEDS: MULTIVITAMINS, THERA 1 EACH TAB PO SCH (07:58)
[2019-04-06] MEDS: FAMOTIDINE 20 MG TAB PO SCH ×2 (07:58→22:35)
[2019-04-06] MEDS: CLOTRIMAZOLE 1% CREAM 15 GM TUBE TOPICAL SCH (07:58)
[2019-04-06] MEDS: SERTRALINE 100 MG TAB PO SCH (07:59)
[2019-04-06] MEDS: THIAMINE 100 MG TAB PO SCH (07:59)
[2019-04-06] MEDS: Acetaminophen-Codeine 300-30mg TAB PO PRN ×2 (08:00→22:36)
[2019-04-06] MEDS: hydrOXYzine PAMOATE 25 MG CAP PO PRN ×2 (08:00→22:36)
[2019-04-06 08:48] LABS: ALT 274 U/L (4-49); AST 105 U/L (17-59); African American GFR (CKD) >90 (>60 ml/min/1.73 sqM); Albumin 4.5 g/dL (3.5-5.0); Alkaline Phosphatase 65 U/L (38-126); Anion Gap 8 mmol/L; Blood Urea Nitrogen 15 mg/dL (9-20); Calcium 9.6 mg/dL (8.4-10.2); Carbon Dioxide 31 mmol/L (22-30); Chloride 100 mmol/L (98-107); Glucose 96 mg/dL (74-99); Non-African American GFR(CKD) >90 (>60 ml/min/1.73 sqM); Potassium 4.7 mmol/L (3.5-5.1); Sodium 139 mmol/L (137-145); Total Bilirubin 0.6 mg/dL (0.2-1.3); Total Protein 7.2 g/dL (6.3-8.2)
--- NOTE | 2019-04-06 11:50 | P.PN ---
Progress Note - Text Progress Note Date: 04/06/19 interval history: Patient seen in [facility] today. Says he slept about 3 hours last night. He says it's better than when he was sleeping at home. He feels little sleeping better and his own environment. She is eating well. He does discuss that he had been taken off Remeron recently due to concern of his liver enzymes. Checking his liver enzymes today AST is 105, ALT is 274. Liver enzymes are going to be redrawn on Monday. He reports that his mood is doing better and his anxiety level is manageable. Mental status exam: He is alert and cooperative with the interview.speech is fluent, not rapid or pressured. Thought processes organized. He denies any thoughts of harm to self or others. There is no agitation present. His mood is improved. Plan: Patient will be maintained on current psychotropic medication regimen. Liver enzymes were in reality redrawn on Monday. We'll follow up with the patient and continue to cover through the weekend.
[2019-04-06] MEDS: MELATONIN 5 MG TABLET PO SCH (22:35)
[2019-04-06] MEDS: LORazepam 1 MG TAB PO SCH (22:35)
[2019-04-07] MEDS: CLOTRIMAZOLE 1% CREAM 15 GM TUBE TOPICAL SCH ×3 (08:34→21:51)
[2019-04-07] MEDS: NICOTINE 21MG/24HR PATCH TRANSDERM SCH (08:34)
[2019-04-07] MEDS: FOLIC ACID 1 MG TAB PO SCH (08:35)
[2019-04-07] MEDS: FAMOTIDINE 20 MG TAB PO SCH ×2 (08:35→21:51)
[2019-04-07] MEDS: THIAMINE 100 MG TAB PO SCH (08:35)
[2019-04-07] MEDS: MULTIVITAMINS, THERA 1 EACH TAB PO SCH (08:35)
[2019-04-07] MEDS: SERTRALINE 100 MG TAB PO SCH (08:36)
[2019-04-07] MEDS: hydrOXYzine PAMOATE 25 MG CAP PO PRN ×2 (08:36→21:52)
[2019-04-07] MEDS: Acetaminophen-Codeine 300-30mg TAB PO PRN ×2 (08:36→21:51)
--- NOTE | 2019-04-07 16:39 | P.PN ---
Progress Note - Text Progress Note Date: 04/07/19 interval history: Patient is seen in [facility] again today. He slept better last night, about 6 hours. He does inquire regarding an adjustment in his pain medication, we discussed avoiding that related to his liver enzymes. He is due to have his liver enzymes repeated tomorrow. He denies any nausea or vomiting. He does talk about feeling ready for discharge. Mental status exam: He is alert and cooperative with the interview. His speech is fluent, not rapid or pressured. His thought processes are organized. His mood seems to be stable overall. He does not verbalize any thoughts of harm to self or others. No evidence of psychosis or agitation. Plan: Patient will be maintained on current psychotropic medication regimen. Liver enzymes are going to be repeated tomorrow. Continue to monitor for any medication side effects and monitor his ongoing response to treatment.
[2019-04-07] MEDS: MELATONIN 5 MG TABLET PO SCH (21:51)
[2019-04-07] MEDS: LORazepam 1 MG TAB PO SCH (21:51)
[2019-04-08 07:08] VITALS: TEMP 97.7
[2019-04-08 08:04] LABS: ALT 195 U/L (4-49); AST 66 U/L (17-59); African American GFR (CKD) >90 (>60 ml/min/1.73 sqM); Albumin 4.2 g/dL (3.5-5.0); Alkaline Phosphatase 63 U/L (38-126); Anion Gap 6 mmol/L; Blood Urea Nitrogen 15 mg/dL (9-20); Calcium 9.5 mg/dL (8.4-10.2); Carbon Dioxide 31 mmol/L (22-30); Chloride 104 mmol/L (98-107); Glucose 100 mg/dL (74-99); Non-African American GFR(CKD) >90 (>60 ml/min/1.73 sqM); Potassium 4.6 mmol/L (3.5-5.1); Sodium 141 mmol/L (137-145); Total Bilirubin 0.5 mg/dL (0.2-1.3); Total Protein 6.8 g/dL (6.3-8.2)
[2019-04-08] MEDS: MULTIVITAMINS, THERA 1 EACH TAB PO SCH (09:03)
[2019-04-08] MEDS: SERTRALINE 100 MG TAB PO SCH (09:03)
[2019-04-08] MEDS: Acetaminophen-Codeine 300-30mg TAB PO PRN ×3 (09:03→19:15)
[2019-04-08] MEDS: FAMOTIDINE 20 MG TAB PO SCH ×2 (09:03→21:06)
[2019-04-08] MEDS: hydrOXYzine PAMOATE 25 MG CAP PO PRN ×2 (09:03→21:06)
[2019-04-08] MEDS: THIAMINE 100 MG TAB PO SCH (09:03)
[2019-04-08] MEDS: NICOTINE 21MG/24HR PATCH TRANSDERM SCH (09:05)
[2019-04-08] MEDS: FOLIC ACID 1 MG TAB PO SCH (09:05)
[2019-04-08] MEDS: CLOTRIMAZOLE 1% CREAM 15 GM TUBE TOPICAL SCH ×2 (09:08→21:15)
[2019-04-08 15:54] LABS: ALT 195 U/L (4-49); AST 72 U/L (17-59)
--- NOTE | 2019-04-08 16:01 | P.PN ---
Subjective Progress Note Date: 04/08/19 Patient was seen and chart was reviewed. Case discussed with staff. The patient reports feeling better and reports fair sleep and appetite but stated that he has been asking for Ativan to help him sleep at night. The patient reports attending therapy. The patient reported that he wants to be discharged home as soon as possible. The patient also stated that he has been cooperative and compliant with the treatment. The patient reports improvement in depression and anxiety and denies any auditory or visual hallucinations. The patient denies any active suicidal homicidal or paranoid ideations at this time. Objective - Vital Signs Vital signs: Vital Signs Temp 97.7 F 04/08/19 05:00 Pulse 85 04/08/19 05:00 Resp 16 04/08/19 05:00 BP 137/95 04/08/19 05:00 Pulse Ox 97 04/05/19 06:23 Intake & Output 04/07/19 04/08/19 04/08/19 18:59 06:59 18:59 Weight 72.7 kg - Exam Mental Status Exam: General Appearance: Patient appears to be stated age is alert, directable. fair hygiene and grooming. Patient has improving eye contact. Behavior: Patient is seated without any agitated behavior. Appears to be less anxious Speech: Patient's speech is fluent and nonpressured. soft tone. Mood/Affect: Patient reports their mood/anxiety is improving, affect is congruent Suicidality/Homicidality: Patient denies having any suicidal or homicidal ideation intent or plan. Perceptions: Patient denies any auditory or visual hallucinations. Though content/process: There is no evidence of any delusional thought content and thought process is linear and goal-directed. Memory and concentration: AOX3, grossly intact for the purposes of this session. Judgment and insight: improving. - Labs CBC & Chem 7: 04/08/19 07:21 Labs: Abnormal Lab Results - Last 24 Hours (Table) 04/08/19 Range/Units 07:21 Carbon Dioxide 31 H (22-30) mmol/L Glucose 100 H (74-99) mg/dL AST 66 H (17-59) U/L ALT 195 H (4-49) U/L Assessment and Plan Assessment: major depressive disorder, without psychotic features anxiety disorder unspecified Alcohol abuse Cannabis use disorder Nicotine dependence. Plan: Plan: -Patient continues to meet criteria for inpatient psychiatric admission for symptom stabilization and safety. Patient has signed adult voluntary form and medication consent and was placed in patient's chart. -Medications: Continue to monitor for any medication side effects and monitor his ongoing response to treatment. Hold Ativan tonight. Liver enzymes are improving. Continue other meds. -NRT -not needed as patient does not smoke -SW on board for discharge planning.
[2019-04-08] MEDS: MELATONIN 5 MG TABLET PO SCH (21:06)
[2019-04-08] MEDS: LORazepam 1 MG TAB PO SCH (21:14)
[2019-04-09] MEDS: Acetaminophen-Codeine 300-30mg TAB PO PRN ×3 (05:51→14:29)
[2019-04-09 07:13] VITALS: BP 142/87; PULSE 92
[2019-04-09] MEDS: NICOTINE 21MG/24HR PATCH TRANSDERM SCH (07:59)
[2019-04-09] MEDS: FAMOTIDINE 20 MG TAB PO SCH (07:59)
[2019-04-09] MEDS: THIAMINE 100 MG TAB PO SCH (07:59)
[2019-04-09] MEDS: SERTRALINE 100 MG TAB PO SCH (08:00)
[2019-04-09] MEDS: FOLIC ACID 1 MG TAB PO SCH (08:00)
[2019-04-09] MEDS: hydrOXYzine PAMOATE 25 MG CAP PO PRN (08:00)
[2019-04-09] MEDS: MULTIVITAMINS, THERA 1 EACH TAB PO SCH (08:00)
[2019-04-09] MEDS: CLOTRIMAZOLE 1% CREAM 15 GM TUBE TOPICAL SCH (08:00)
--- NOTE | 2019-04-09 13:42 | P.DS ---
Providers Date of admission: 04/02/19 11:34 Attending physician: Clifford Cash MD Consults: 04/02/19 12:30 Consult Physician Routine Consulting Provider: Ashley Harrison Consult Reason/Comments: H&P Do you want consulting provider notified?: Yes Primary care physician: Mounika Hernández [facility] Hospital Course: DENTIFYING DATA: Patient is a 38-year-old male who is currently unemployed and lives with his is and has 2 kids and collects Social Security disability HISTORY OF PRESENT ILLNESS: The patient presented to the ED with suicidal ideations and intoxicated with alcohol. Patient had a blood alcohol level was 293. Patient was complaining of drinking to help him sleep and claiming that "can't shut my mind down". Patient also had a cut on his forearm in his wrist upon presentation. Patient was admitted to the medical floors for alcohol withdrawal in monitoring. Psychiatry CL consulted to see patient for suicidal thoughts. patient was seen by public relations writer and transferred to the mental health unit this morning after being medically stabilized and completing alcohol withdrawal on the medical floors. Patient today was directable and agreeable to seek to public relations writer in the office. Patient appeared anxious and depressed and stated that he feels that he has been letting his family down. He once again spoke about not working since January and his disability and social aide has decreased and claims that his financial burden has been overwhelming for him. patient spoke about nearly evading a eviction on his house recently. Patient also claims that he's been "hiding my feelings". patient states that today he feels mild improvement on the Cymbalta however was asking for it to be increased. He states that his anxiety has been mildly improved along with his depression. Patient continues to appear to have an anxious affect and hesitant in his voice. He admits to poor sleep and poor concentration with fair appetite. At this time patient denies any homical ideations, intent or plan. Patient denies any auditory, visual hallucinations and denies any paranoia or delusions. he states that he drinks alcohol approximately 3 beers a day, smokes marijuana approximately one joint a week and smokes cigarettes 2 packs per day. PAST PSYCHIATRIC HISTORY: he states that he has not followed up with a psychiatrist in the past however has been on trazodone and Vistaril and Ativan. He claims that he was once admitted to [facility] when he is 10 years old. Denies any previous suicide attempts. PAST MEDICAL HISTORY: denies ALLERGIES: as per EMR CHEMICAL DEPENDENCY HISTORY: as per HPI FAMILY PSYCHIATRIC/SUBSTANCE USE HISTORY:claims that his uncles suffered from depression. SOCIAL HISTORY: he states that he was born in [place] and moved to [place] was raised. He claims that he dropped out school in ninth grade and eventually obtained his GED. He claims that he was working in an [employer] company recently and stopped working in January of this year. Patient has 2 kids is and lives with them in the house. Currently collecting Social Security disability. MENTAL STATUS EXAM: General Appearance: Patient appears to be stated age is alert, directable and attempts to cooperate. patient has poor hygiene and grooming. patient is unshaven and has glasses & wearing a hospital gown. Behavior: Patient is anxiously sitting on the chair without any agitated behavior. Speech: Patient's speech is fluent and nonpressured. anxious tone. Mood/Affect: Patient reports their mood is "depressed and anxious", affect is congruent Suicidality/Homicidality: Patient denies having any suicidal or homicidal ideation intent or plan. Perceptions: Patient denies any auditory or visual hallucinations. Though content/process: There is no evidence of any delusional thought content and thought process is linear and goal-directed. Memory and concentration: AOX3, grossly intact for the purposes of this session. 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 Patient was also ordered routine laboratory studies, glucose checks with a sliding scale and a medical consultation was also ordered. Patient also was returned to his prior medications for his medical problems. Patient was also placed on Ativan for alcohol withdrawal symptoms, prescribed thiamine and folic acid. Discussed his response to medications, [The patient was cooperative and compliant with the treatment and requested his Zoloft to be increased to help him with his depression. The patient also continued to report poor sleep at night. The patient's Zoloft was then increased to 100 mg by mouth daily and his Vistaril was continued at 50 mg by mouth every 8 hours when necessary patient Remeron was increased to 45 mg at bedtime. His melatonin was increased to 10 mg daily for sleep at bedtime he was continued on thiamine and multivitamin and folic acid. Patient's lab results were monitored and his liver function tests were reviewed. He is ALT and AST was found to be elevated. Remeron was discontinued because all for a possible hepatotoxicity. Patient's other medications were continued and patient was followed. Patient's labs were repeated and was more followed for the liver enzymes. The patient's AST any ALT started coming down slowly. Patient was tolerating the medication without any side effects. The patient continued to report poor sleep at night and was given Ativan that helped him with his sleep.] Patient was attending groups and activities, sleeping and eating well and reported that his mood had improved. Patient reported no side effects from the medication. Patient will follow up at [facility]. Patient was agreeable with the plan for discharge. Discharge Mental Status: Appearance/Attitude: Patient is neatly and appropriately dressed, makes eye contact and was cooperative. Behavior: Patient did not display any psychomotor agitation or retardation. Speech/Language: Patient's speech was spontaneous of normal volume and rhythm and he was coherent Thought Process: Patient was goal-directed there is no evidence of loose association or flight of ideas Thought Content: Patient denied any auditory or visual hallucinations no delusions or paranoid ideation were elicited. Suicidal/Homicidal Ideation: Patient denies any current suicidal or homicidal ideation Sensorium/Cognition: Patient is alert and oriented to person, place, and time and his recent and remote memory were grossly intact Mood/Affect: Patient's mood is more positive and his affect is appropriate to his mood Insight/Judgment: Patient's insight and judgment are fair Risk Assessment: Patient's risk for readmission is moderate to the patient not be compliant with medications and follow-up care, use alcohol and/or drugs Discharge Plan: Patient will be discharged [] Patient [facility] and [facility]. Patient was encouraged to be compliant with medications and follow-up appointments and to avoid all alcohol and drugs. Patient Condition at Discharge: Stable Patient Condition at Discharge: Stable Plan - Discharge Summary Discharge Rx Participant: Yes New Discharge Prescriptions: New Folic Acid 1 mg PO DAILY 30 Days tab Melatonin 10 mg PO HS #30 tablet hydrOXYzine PAMOATE [Vistaril] 50 mg PO BID #30 cap Sertraline [Zoloft] 100 mg PO DAILY #30 tab Continue Loratadine [Claritin] 10 mg PO DAILY Clotrimazole Cream [Lotrimin Cream] 1 applic TOPICAL BID applic Famotidine [Pepcid] 20 mg PO BID tab Nicotine 21Mg/24Hr Patch [Habitrol] 1 patch TRANSDERM DAILY #7 patch Multivitamins, Thera [Multivitamin (formulary)] 1 tab PO DAILY #30 tablet Thiamine [Vitamin B-1] 100 mg PO DAILY #3 tablet Discontinued DULoxetine HCL [Cymbalta] 30 mg PO DAILY capsule. Mirtazapine [Remeron] 15 mg PO HS tab Acetaminophen-Codeine 300-30mg [Tylenol w/codeine #3] 1 each PO Q4HR PRN #3 tab PRN Reason: Moderate Pain hydrOXYzine PAMOATE [Vistaril] 25 mg PO Q6HR PRN cap PRN Reason: Anxiety Discharge Medication List Loratadine [Claritin] 10 mg PO DAILY 03/29/19 [History] Clotrimazole Cream [Lotrimin Cream] 1 applic TOPICAL BID applic 04/01/19 [Rx] Famotidine [Pepcid] 20 mg PO BID tab 04/01/19 [Rx] Folic Acid 1 mg PO DAILY 30 Days tab 04/09/19 [Rx] Melatonin 10 mg PO HS #30 tablet 04/09/19 [Rx] Multivitamins, Thera [Multivitamin (formulary)] 1 tab PO DAILY #30 tablet 04/09/19 [Rx] Nicotine 21Mg/24Hr Patch [Habitrol] 1 patch TRANSDERM DAILY #7 patch 04/09/19 [Rx] Sertraline [Zoloft] 100 mg PO DAILY #30 tab 04/09/19 [Rx] Thiamine [Vitamin B-1] 100 mg PO DAILY #3 tablet 04/09/19 [Rx] hydrOXYzine PAMOATE [Vistaril] 50 mg PO BID #30 cap 04/09/19 [Rx] Follow up Appointment(s)/Referral(s): [facility] [Outside] - 04/11/19 9:00 am (Walk In Intake) Anahi Ribera MD [Primary Care Provider] - 1 Week Patient Instructions/Handouts: Depression (DC), Anxiety (GEN), Suicide Prevention (DC) Activity/Diet/Wound Care/Special Instructions: Activity and diet as tolerated. Avoid the use of street drugs and alcohol. Take all medications as prescribed. When you are in need of refills on your medications please contact your medical provider and/or outpatient psychiatrist to have this done. Please go to scheduled outpatient appointment for aftercare treatment. If symptoms return or become worse, call the crisis line at and/or go to the nearest emergency room for evaluation. Discharge Disposition: HOME SELF-CARE
== END 2019-04-09 14:30 | disposition home or self-care (01) | DRG 897 ==
LOC: UNDOADMIN 16:06 → 3MHU 16:06
PROVIDERS: ADMIT Psychiatry & Neurology Psychiatry; ATTEND Psychiatry & Neurology Psychiatry
DX: F10.14 Alcohol abuse with alcohol-induced mood disorder (principal); F12.99 Cannabis use, unspecified with unspecified cannabis-induced disorder; Y90.8 Blood alcohol level of 240 mg/100 ml or more; F17.200 Nicotine dependence, unspecified, uncomplicated; F32.9 Major depressive disorder, single episode, unspecified; F41.9 Anxiety disorder, unspecified; G47.00 Insomnia, unspecified; S51.812A Laceration without foreign body of left forearm, initial encounter; Z79.899 Other long term (current) drug therapy; Z81.8 Family history of other mental and behavioral disorders
CPT/HCPCS: 80053; 84450; 84460; 90686; 90732

== ENCOUNTER 2019-04-19 01:54 | Inpatient (IN) | payer MEDICAID, OTHER ==
--- NOTE | 2019-04-19 02:05 | ED ---
Psych HPI - General Stated Complaint: Mental health Time Seen by Provider: 04/19/19 02:03 - History of Present Illness Initial Comments: Milan is a 38-year-old gentleman with extensive psychiatric history who was recently admitted to inpatient psychiatric care. Patient was discharged on [facility] and reports that since that time has not been eating or drinking well he has been hallucinating. He is aware times that he is hallucinating. Because of this he has taken extra Zoloft but hasn't improved. Today the patient realized she was hallucinating more than usual that he is not doing well so he decided to come to the ER as he feels he needs further psychiatric care. - Related Data Home Medications Medication Instructions Recorded Confirmed Loratadine [Claritin] 10 mg PO DAILY 03/29/19 04/02/19 Previous Rx's Medication Instructions Recorded Clotrimazole Cream [Lotrimin Cream] 1 applic TOPICAL BID applic 04/01/19 Famotidine [Pepcid] 20 mg PO BID tab 04/01/19 Folic Acid 1 mg PO DAILY 30 Days tab 04/09/19 Melatonin 10 mg PO HS #30 tablet 04/09/19 Multivitamins, Thera [Multivitamin 1 tab PO DAILY #30 tablet 04/09/19 (formulary)] Nicotine 21Mg/24Hr Patch [Habitrol] 1 patch TRANSDERM DAILY #7 patch 04/09/19 Sertraline [Zoloft] 100 mg PO DAILY #30 tab 04/09/19 Thiamine [Vitamin B-1] 100 mg PO DAILY #3 tablet 04/09/19 hydrOXYzine PAMOATE [Vistaril] 50 mg PO BID #30 cap 04/09/19 Allergies Allergy/AdvReac Type Severity Reaction Status Date / Time No Known Allergies Allergy Verified 04/02/19 12:03 Review of Systems ROS Statement: Those systems with pertinent positive or pertinent negative responses have been documented in the HPI. ROS Other: All systems not noted in ROS Statement are negative. Past Medical History Past Medical History: No Reported History History of Any Multi-Drug Resistant Organisms: None Reported Past Surgical History: Orthopedic Surgery Additional Past Surgical History / Comment(s): right knee 2014 Past Psychological History: Depression Smoking Status: Current every day smoker Past Alcohol Use History: Occasional Past Drug Use History: None Reported General Exam - General Exam Comments Initial Comments: Physical Exam GENERAL: Patient is well-developed and well-nourished. Patient is nontoxic and well-hydrated and is in no distress. HENT: Normocephalic, Atraumatic. EYES: PERRL, EOMI PULMONARY: Unlabored respirations. CARDIOVASCULAR: RRR Warm and well perfused extremities ABDOMEN: Non-distended SKIN: No rashes or bruising : Deferred NEUROLOGIC: Alert and oriented Normal speech Normal gait MUSCULOSKELETAL: Moving all extremities with no apparent injury PSYCHIATRIC: Hallucinating, somewhat manic Course Vital Signs 04/19/19 02:03 Temperature 98 F Pulse Rate 98 Respiratory 18 Rate Blood Pressure 141/97 Medical Decision Making - Medical Decision Making Patient was seen and evaluated history is obtained from the patient This is a 38-year-old male psychiatric history who was hospitalized last week, patient has chosen to take extra medications due to his hallucinating. Taking extra Zoloft an EKG was obtained from EKG obtained at 2:27 AM, rate is 93 rhythm is sinus normal axis, normal intervals, CA 158, curious E4, QTC is 442. There is no acute ST elevations or depressions is no evidence of acute ischemia, infarction or arrhythmia. There is no QT or QRS prolongation concerning for toxic ingestion. She was medically cleared for evaluation by EPS and was evaluated by EPS. Patient was willing to sign in voluntarily. [facility] - Lab Data Result diagrams: 04/19/19 02:40 04/19/19 02:40 Lab Results 04/19/19 04/19/19 04/19/19 Range/Units 02:16 02:16 02:40 WBC (3.8-10.6) k/uL RBC (4.30-5.90) m/uL Hgb (13.0-17.5) gm/dL Hct (39.0-53.0) % MCV (80.0-100.0) fL MCH (25.0-35.0) pg MCHC (31.0-37.0) g/dL RDW (11.5-15.5) % Plt Count (150-450) k/uL Neutrophils % % Lymphocytes % % Monocytes % % Eosinophils % % Basophils % % Neutrophils # (1.3-7.7) k/uL Lymphocytes # (1.0-4.8) k/uL Monocytes # (0-1.0) k/uL Eosinophils # (0-0.7) k/uL Basophils # (0-0.2) k/uL Sodium 139 (137-145) mmol/L Potassium 4.3 (3.5-5.1) mmol/L Chloride 106 (98-107) mmol/L Carbon Dioxide 27 (22-30) mmol/L Anion Gap 6 mmol/L BUN 15 (9-20) mg/dL Creatinine 0.86 (0.66-1.25) mg/dL Est GFR (CKD-EPI)AfAm >90 (>60 ml/min/1.73 sqM) Est GFR (CKD-EPI)NonAf >90 (>60 ml/min/1.73 sqM) Glucose 111 H (74-99) mg/dL Calcium 9.4 (8.4-10.2) mg/dL Total Bilirubin 0.3 (0.2-1.3) mg/dL AST 38 (17-59) U/L ALT 82 H (4-49) U/L Alkaline Phosphatase 79 (38-126) U/L Total Protein 6.7 (6.3-8.2) g/dL Albumin 4.0 (3.5-5.0) g/dL Urine Color Light Yellow Urine Appearance Clear (Clear) Urine pH 6.0 (5.0-8.0) Ur Specific [place] 1.007 (1.001-1.035) Urine Protein Negative (Negative) Urine Glucose (UA) Negative (Negative) Urine Ketones Negative (Negative) Urine Blood Negative (Negative) Urine Nitrite Negative (Negative) Urine Bilirubin Negative (Negative) Urine Urobilinogen <2.0 (<2.0) mg/dL Ur Leukocyte Esterase Negative (Negative) Salicylates <1.0 mg/dL Urine Opiates Screen Not Detected (NotDetected) Ur Oxycodone Screen Not Detected (NotDetected) Urine Methadone Screen Not Detected (NotDetected) Ur Propoxyphene Screen Not Detected (NotDetected) Acetaminophen <10.0 ug/mL Ur Barbiturates Screen Not Detected (NotDetected) U Tricyclic Antidepress Detected H (NotDetected) Ur Phencyclidine Scrn Not Detected (NotDetected) Ur Amphetamines Screen Not Detected (NotDetected) U Methamphetamines Scrn Not Detected (NotDetected) U Benzodiazepines Scrn Not Detected (NotDetected) Urine Cocaine Screen Not Detected (NotDetected) U Marijuana (THC) Screen Detected H (NotDetected) Serum Alcohol <10 mg/dL 04/19/19 Range/Units 02:40 WBC 10.0 (3.8-10.6) k/uL RBC 3.91 L (4.30-5.90) m/uL Hgb 13.7 (13.0-17.5) gm/dL Hct 40.0 (39.0-53.0) % MCV 102.1 H (80.0-100.0) fL MCH 35.0 (25.0-35.0) pg MCHC 34.2 (31.0-37.0) g/dL RDW 12.1 (11.5-15.5) % Plt Count 335 (150-450) k/uL Neutrophils % 62 % Lymphocytes % 24 % Monocytes % 7 % Eosinophils % 3 % Basophils % 2 % Neutrophils # 6.2 (1.3-7.7) k/uL Lymphocytes # 2.4 (1.0-4.8) k/uL Monocytes # 0.7 (0-1.0) k/uL Eosinophils # 0.3 (0-0.7) k/uL Basophils # 0.2 (0-0.2) k/uL Sodium (137-145) mmol/L Potassium (3.5-5.1) mmol/L Chloride (98-107) mmol/L Carbon Dioxide (22-30) mmol/L Anion Gap mmol/L BUN (9-20) mg/dL Creatinine (0.66-1.25) mg/dL Est GFR (CKD-EPI)AfAm (>60 ml/min/1.73 sqM) Est GFR (CKD-EPI)NonAf (>60 ml/min/1.73 sqM) Glucose (74-99) mg/dL Calcium (8.4-10.2) mg/dL Total Bilirubin (0.2-1.3) mg/dL AST (17-59) U/L ALT (4-49) U/L Alkaline Phosphatase (38-126) U/L Total Protein (6.3-8.2) g/dL Albumin (3.5-5.0) g/dL Urine Color Urine Appearance (Clear) Urine pH (5.0-8.0) Ur Specific [place] (1.001-1.035) Urine Protein (Negative) Urine Glucose (UA) (Negative) Urine Ketones (Negative) Urine Blood (Negative) Urine Nitrite (Negative) Urine Bilirubin (Negative) Urine Urobilinogen (<2.0) mg/dL Ur Leukocyte Esterase (Negative) Salicylates mg/dL Urine Opiates Screen (NotDetected) Ur Oxycodone Screen (NotDetected) Urine Methadone Screen (NotDetected) Ur Propoxyphene Screen (NotDetected) Acetaminophen ug/mL Ur Barbiturates Screen (NotDetected) U Tricyclic Antidepress (NotDetected) Ur Phencyclidine Scrn (NotDetected) Ur Amphetamines Screen (NotDetected) U Methamphetamines Scrn (NotDetected) U Benzodiazepines Scrn (NotDetected) Urine Cocaine Screen (NotDetected) U Marijuana (THC) Screen (NotDetected) Serum Alcohol mg/dL Disposition Clinical Impression: Psychosis Disposition: TRANSFER TO PSYCH HOSP/UNIT Condition: Stable Is patient prescribed a controlled substance at d/c from ED?: No Referrals: Anahi Ribera MD [Primary Care Provider] - 1-2 days
[2019-04-19 02:35] LABS: Cocaine Screen,Urine Not Detected (NotDetected); Opiate Screen,Urine Not Detected (NotDetected); Phencyclidine Screen,Urine Not Detected (NotDetected); Urn Cannabinoid Scrn Detected (NotDetected)
[2019-04-19 02:36] LABS: Amphetamine Screen,Urine Not Detected (NotDetected); Barbiturate Screen,Urine Not Detected (NotDetected); Benzodiazepines Screen,Urine Not Detected (NotDetected); Methadone Screen, Urine Not Detected (NotDetected); Oxycodone Screen, Urine Not Detected (NotDetected); Tricyclic Antidepressant,Urine Detected (NotDetected)
[2019-04-19 02:54] LABS: Basophils # (A) 0.2 k/uL (0-0.2); Basophils % (A) 2 %; Eosinophils # (A) 0.3 k/uL (0-0.7); Eosinophils % (A) 3 %; HGB 13.7 gm/dL (13.0-17.5); Lymphocytes # (A) 2.4 k/uL (1.0-4.8); Lymphocytes % (A) 24 %; MCHC 34.2 g/dL (31.0-37.0); MCV 102.1 fL (80.0-100.0); Monocytes # (A) 0.7 k/uL (0-1.0); Monocytes % (A) 7 %; Neutrophils # (A) 6.2 k/uL (1.3-7.7); Neutrophils % (A) 62 %; Platelet Count 335 k/uL (150-450); RBC 3.91 m/uL (4.30-5.90); RDW 12.1 % (11.5-15.5)
[2019-04-19 02:54] LABS: Appearance,Urine Clear (Clear); Bilirubin,Urine Negative (Negative); Blood,Urine Negative (Negative); Color,Urine Light Yellow; Glucose,Urine (UA) Negative (Negative); Ketones,Urine Negative (Negative); Leukocyte Esterase,Urine Negative (Negative); Nitrite,Urine Negative (Negative); Protein,Urine Negative (Negative); Specific Gravity,Urine 1.007 (1.001-1.035); Urobilinogen,Urine <2.0 mg/dL (<2.0)
[2019-04-19 03:04] LABS: ALT 82 U/L (4-49); AST 38 U/L (17-59); Acetaminophen <10.0 ug/mL; African American GFR (CKD) >90 (>60 ml/min/1.73 sqM); Alcohol <10 mg/dL; Alkaline Phosphatase 79 U/L (38-126); Anion Gap 6 mmol/L; Blood Urea Nitrogen 15 mg/dL (9-20); Calcium 9.4 mg/dL (8.4-10.2); Carbon Dioxide 27 mmol/L (22-30); Chloride 106 mmol/L (98-107); Glucose 111 mg/dL (74-99); Non-African American GFR(CKD) >90 (>60 ml/min/1.73 sqM); Potassium 4.3 mmol/L (3.5-5.1); Salicylate <1.0 mg/dL; Sodium 139 mmol/L (137-145); Total Bilirubin 0.3 mg/dL (0.2-1.3); Total Protein 6.7 g/dL (6.3-8.2)
[2019-04-19] MEDS ORDERED: ZIPRASIDONE 20 MG VIAL IM PRN (06:47)
[2019-04-19] MEDS ORDERED: MAG HYDROX/AL HYDROX/SIMETH 30 ML CUP PO PRN (06:47)
[2019-04-19] MEDS ORDERED: ACETAMINOPHEN TAB 325 MG TAB PO PRN (06:47)
[2019-04-19] MEDS ORDERED: MAGNESIUM HYDROXIDE 2,400 MG/10 ML CUP PO PRN (06:47)
--- NOTE | 2019-04-19 09:27 | P.HP ---
Psychiatric H&P - . H&P Date: 04/19/19 History & Physical: Allergies Allergy/AdvReac Type Severity Reaction Status Date / Time No Known Allergies Allergy Verified 04/19/19 06:50 Vital Signs Temp 97.1 F L 04/19/19 07:08 Pulse 95 04/19/19 07:08 Resp 16 04/19/19 07:08 BP 137/92 04/19/19 07:08 Pulse Ox 98 04/19/19 07:08 Intake & Output 04/18/19 04/19/19 04/19/19 18:59 06:59 18:59 Weight 77.111 kg 74.8 kg Laboratory Last Values WBC 10.0 k/uL (3.8-10.6) 04/19/19 02:40 RBC 3.91 m/uL (4.30-5.90) L 04/19/19 02:40 Hgb 13.7 gm/dL (13.0-17.5) 04/19/19 02:40 Hct 40.0 % (39.0-53.0) 04/19/19 02:40 MCV 102.1 fL (80.0-100.0) H 04/19/19 02:40 MCH 35.0 pg (25.0-35.0) 04/19/19 02:40 MCHC 34.2 g/dL (31.0-37.0) 04/19/19 02:40 RDW 12.1 % (11.5-15.5) 04/19/19 02:40 Plt Count 335 k/uL (150-450) 04/19/19 02:40 Neutrophils % 62 % 04/19/19 02:40 Lymphocytes % 24 % 04/19/19 02:40 Monocytes % 7 % 04/19/19 02:40 Eosinophils % 3 % 04/19/19 02:40 Basophils % 2 % 04/19/19 02:40 Neutrophils # 6.2 k/uL (1.3-7.7) 04/19/19 02:40 Lymphocytes # 2.4 k/uL (1.0-4.8) 04/19/19 02:40 Monocytes # 0.7 k/uL (0-1.0) 04/19/19 02:40 Eosinophils # 0.3 k/uL (0-0.7) 04/19/19 02:40 Basophils # 0.2 k/uL (0-0.2) 04/19/19 02:40 Sodium 139 mmol/L (137-145) 04/19/19 02:40 Potassium 4.3 mmol/L (3.5-5.1) 04/19/19 02:40 Chloride 106 mmol/L (98-107) 04/19/19 02:40 Carbon Dioxide 27 mmol/L (22-30) 04/19/19 02:40 Anion Gap 6 mmol/L 04/19/19 02:40 BUN 15 mg/dL (9-20) 04/19/19 02:40 Creatinine 0.86 mg/dL (0.66-1.25) 04/19/19 02:40 Est GFR (CKD-EPI)AfAm >90 (>60 ml/min/1.73 sqM) 04/19/19 02:40 Est GFR (CKD-EPI)NonAf >90 (>60 ml/min/1.73 sqM) 04/19/19 02:40 Glucose 111 mg/dL (74-99) H 04/19/19 02:40 Calcium 9.4 mg/dL (8.4-10.2) 04/19/19 02:40 Total Bilirubin 0.3 mg/dL (0.2-1.3) 04/19/19 02:40 AST 38 U/L (17-59) 04/19/19 02:40 ALT 82 U/L (4-49) H 04/19/19 02:40 Alkaline Phosphatase 79 U/L (38-126) 04/19/19 02:40 Total Protein 6.7 g/dL (6.3-8.2) 04/19/19 02:40 Albumin 4.0 g/dL (3.5-5.0) 04/19/19 02:40 Urine Color Light Yellow 04/19/19 02:16 Urine Appearance Clear (Clear) 04/19/19 02:16 Urine pH 6.0 (5.0-8.0) 04/19/19 02:16 Ur Specific [place] 1.007 (1.001-1.035) 04/19/19 02:16 Urine Protein Negative (Negative) 04/19/19 02:16 Urine Glucose (UA) Negative (Negative) 04/19/19 02:16 Urine Ketones Negative (Negative) 04/19/19 02:16 Urine Blood Negative (Negative) 04/19/19 02:16 Urine Nitrite Negative (Negative) 04/19/19 02:16 Urine Bilirubin Negative (Negative) 04/19/19 02:16 Urine Urobilinogen <2.0 mg/dL (<2.0) 04/19/19 02:16 Ur Leukocyte Esterase Negative (Negative) 04/19/19 02:16 Salicylates <1.0 mg/dL 04/19/19 02:40 Urine Opiates Screen Not Detected (NotDetected) 04/19/19 02:16 Ur Oxycodone Screen Not Detected (NotDetected) 04/19/19 02:16 Urine Methadone Screen Not Detected (NotDetected) 04/19/19 02:16 Ur Propoxyphene Screen Not Detected (NotDetected) 04/19/19 02:16 Acetaminophen <10.0 ug/mL 04/19/19 02:40 Ur Barbiturates Screen Not Detected (NotDetected) 04/19/19 02:16 U Tricyclic Antidepress Detected (NotDetected) H 04/19/19 02:16 Ur Phencyclidine Scrn Not Detected (NotDetected) 04/19/19 02:16 Ur Amphetamines Screen Not Detected (NotDetected) 04/19/19 02:16 U Methamphetamines Scrn Not Detected (NotDetected) 04/19/19 02:16 U Benzodiazepines Scrn Not Detected (NotDetected) 04/19/19 02:16 Urine Cocaine Screen Not Detected (NotDetected) 04/19/19 02:16 U Marijuana (THC) Screen Detected (NotDetected) H 04/19/19 02:16 Serum Alcohol <10 mg/dL 04/19/19 02:40 04/19/19 09:17 IDENTIFYING DATA: Mr. Woodard is a 38-year-old male, currently unemployed and lives with his is and has 2 kids and collects Social Security disability HISTORY OF PRESENT ILLNESS: The patient presented to the hospital with complaints of poor sleep, increase in his depression/anxiety and reports of sleepwalking. Patient states that since being discharged just over a week ago patient claims that he is not able to be placed on Ativan at nighttime for sleep and claims that he was discharged and went back to his home and started to feel more depressed. Patient claims that his anxiety and depression gradually increased as he went back into the same social triggers that he was dealing with prior to admission. He claims that "my fridge was empty and the same problems were still there" referring to financial problems. He states that his is not able to work as she is disabled and he is as well and they are going more into debt. Patient claims that his sleep has been poor as he has been having racing thoughts about not being able to see his family. Patient stated that he began doubling his Zoloft dose during the day and taking an extra 100 mg at night. Patient also states that he was doubling his Vistaril dose to help with his anxiety. Patient claims that [facility] canceled his therapist appointment and rescheduled him for this coming Monday. Patient states that his noticed he was sleepwalking and talking to things in his sleep. At this time patient denies any homical ideations, intent or plan. Patient denies any auditory, visual hallucinations and denies any paranoia or delusions. he has a history of drinking alcohol approximately 3 beers a day, smokes marijuana approximately one joint a week and smokes cigarettes 2 packs per day. PAST PSYCHIATRIC HISTORY: he states that he has not followed up with a psychiatrist in the past however has been on trazodone and Vistaril and Ativan. Patient was scheduled to go into [facility] for an initial evaluation however at his appointment moved and did not make it in. He was previously admitted to the mental health unit in March 2019 and discharged just over week ago. Denies any previous suicide attempts. PAST MEDICAL HISTORY: denies ALLERGIES: as per EMR CHEMICAL DEPENDENCY HISTORY: as per HPI FAMILY PSYCHIATRIC/SUBSTANCE USE HISTORY: Uncles suffered from depression. SOCIAL HISTORY: he states that he was born in [facility] and moved to [place] was raised. He claims that he dropped out school in ninth grade and eventually obtained his GED. He claims that he was working in an [employer] recently and stopped working in January of this year. Patient has 2 kids is and lives with them in the house. Currently collecting Social Security disability. MENTAL STATUS EXAM: General Appearance: Patient appears to be stated age is alert, directable and attempts to cooperate. patient has fair hygiene and grooming. Unshaven and has glasses & wearing a hospital gown. Behavior: Patient is anxiously sitting on the chair without any agitated behavior. Speech: Patient's speech is fluent and nonpressured. anxious tone. Mood/Affect: Patient reports their mood is "depressed and anxious", affect is congruent Suicidality/Homicidality: Patient denies having any suicidal or homicidal ideation intent or plan. Perceptions: Patient denies any auditory or visual hallucinations. Though content/process: There is no evidence of any delusional thought content and thought process is linear and goal-directed. Focused on his social stressors. Memory and concentration: AOX3, grossly intact for the purposes of this session. Can spell "WORLD" backwards Judgment and insight: poor, mildly improving IMPRESSIONS: Major depressive disorder, recurrent, severe anxiety disorder unspecified History of Alcohol abuse Cannabis use disorder Nicotine dependence. PLAN: -At this time patient continues to meet criteria for inpatient psychiatric admission. patient signed for voluntary admission and also signed for medication consent which is placed in patient's chart. -Would recommend the following medication changes/additions: Will continue Zoloft 50 mg daily for anxiety/mood with plan to increase as tolerated. Will start Seroquel 100 mg daily at bedtime for mood stabilization/insomnia. Contin ue with melatonin 10 mg daily at bedtime for sleep. We'll consider adding back either Vistaril or BuSpar as needed for anxiety. -Ativan and Geodon PRN for agitation/aggression -Started MVM for etoh use -Patient was counselled on substance abuse and desired to cut back on use -Patient was informed of the risks, benefits and side effects of the medication and patient verbally consented to taking the medications. Patient signed med consent form and was placed in chart. Discussed with patient the importance of following dosing instructions and the dangers of toxicity of his medications when he is managing the dosing of the medications himself. -NRT - nicotine patch -SW on board for discharge planning.
[2019-04-19] MEDS: NICOTINE 14MG/24HR PATCH TRANSDERM SCH (09:29)
[2019-04-19] MEDS: MULTIVITAMINS, THERA 1 EACH TAB PO SCH (09:29)
[2019-04-19] MEDS: SERTRALINE 50 MG TAB PO SCH (09:30)
[2019-04-19] MEDS: LORazepam 1 MG TAB PO PRN (16:28)
[2019-04-19] MEDS ORDERED: QUEtiapine 100 MG TAB PO SCH (21:00)
[2019-04-19] MEDS: MELATONIN 5 MG TABLET PO SCH (21:25)
[2019-04-20] MEDS: LORazepam 1 MG TAB PO PRN ×3 (01:46→21:28)
[2019-04-20] MEDS: NICOTINE 14MG/24HR PATCH TRANSDERM SCH (08:45)
[2019-04-20] MEDS: MULTIVITAMINS, THERA 1 EACH TAB PO SCH (08:45)
[2019-04-20] MEDS: SERTRALINE 50 MG TAB PO SCH (08:45)
[2019-04-20 09:13] LABS: Albumin 4.4 g/dL (3.5-5.0); Bilirubin, Delta 0.2 mg/dL (0.0-0.2); Bilirubin,Unconjugated 0.2 mg/dL (0.0-1.1); Total Bilirubin 0.4 mg/dL (0.2-1.3); Total Protein 7.4 g/dL (6.3-8.2)
--- NOTE | 2019-04-20 12:39 | P.PN ---
Subjective Progress Note Date: 04/20/19 The patient seen and chart reviewed. The case was reviewed with the staff on the unit. The patient continues to report feeling depressed and anxious. He reports poor sleep last night and complains of feeling tired during the day. The patient denies any auditory or visual hallucinations. He denies any active suicidal homicidal or paranoid ideations at this time. The patient reports fair appetite and has been cooperative and compliant with the treatment. He is pleasant and cooperative during the session. His speech was goal directed and logical. He was sitting comfortably and showed no psychomotor agitation or retardation. The patient is requesting changes in medications to help him sleep. He denies any side effects on the medications. Objective - Vital Signs Vital signs: Vital Signs Temp 97.7 F 04/20/19 01:49 Pulse 92 04/20/19 01:49 Resp 16 04/20/19 01:49 BP 113/66 04/20/19 01:49 Pulse Ox 98 04/19/19 07:08 Intake & Output 04/19/19 04/20/19 04/20/19 18:59 06:59 18:59 Weight 74.8 kg - Exam MENTAL STATUS EXAM: General Appearance: Patient appears to be stated age is alert, directable and attempts to cooperate. patient has fair hygiene and grooming. Unshaven and has glasses & wearing a hospital gown. Behavior: Patient is anxiously sitting on the chair without any agitated behavior. Speech: Patient's speech is fluent and nonpressured. anxious tone. Mood/Affect: Patient reports their mood is "depressed and anxious", affect is congruent Suicidality/Homicidality: Patient denies having any suicidal or homicidal ideation intent or plan. Perceptions: Patient denies any auditory or visual hallucinations. Though content/process: There is no evidence of any delusional thought content and thought process is linear and goal-directed. Focused on his social stressors. Memory and concentration: AOX3, grossly intact for the purposes of this session. Can spell "WORLD" backwards Judgment and insight: poor, mildly improving - Labs CBC & Chem 7: 04/19/19 02:40 04/19/19 02:40 Labs: Abnormal Lab Results - Last 24 Hours (Table) 04/20/19 Range/Units 08:25 ALT 93 H (4-49) U/L Cholesterol 255 H (<200) mg/dL LDL Cholesterol, Calc 156 H (0-99) mg/dL HDL Cholesterol 71 H (40-60) mg/dL Assessment and Plan Assessment: IMPRESSIONS: Major depressive disorder, recurrent, severe anxiety disorder unspecified History of Alcohol abuse Cannabis use disorder Nicotine dependence. Plan: PLAN: -At this time patient continues to meet criteria for inpatient psychiatric admission. patient signed for voluntary admission and also signed for medication consent which is placed in patient's chart. -Would recommend the following medication changes/additions: Will continue Zoloft 50 mg daily for anxiety/mood with plan to increase as tolerated. Will start Increase Seroquel 150 mg daily at bedtime for mood stabilization/insomnia. Continue with melatonin 10 mg daily at bedtime for sleep. We'll consider adding back either Vistaril or BuSpar as needed for anxiety. -Ativan and Geodon PRN for agitation/aggression -Started MVM for etoh use -Patient was counselled on substance abuse and desired to cut back on use -Patient was informed of the risks, benefits and side effects of the medication and patient verbally consented to taking the medications. Patient signed med consent form and was placed in chart. Discussed with patient the importance of following dosing instructions and the dangers of toxicity of his medications when he is managing the dosing of the medications himself. -NRT - nicotine patch -SW on board for discharge planning.
--- NOTE | 2019-04-20 17:29 | P.MDCNMH ---
History of Present Illness H&P Date: 04/19/19 Chief Complaint: Acute psychosis Patient is a 38-year-old male with a known history of anxiety/depression was brought to the hospital by his . Apparently patient has been sleepwalking and also talking to objects for the past 2-3 days.Patient was discharged on [facility] and reports that since that time has not been eating or drinking well he has been hallucinating. Patient was started on new medications including Zoloft and Vistaril, which patient says that he has been taking. Patient also takes Flexeril and Lyrica at home. Due to frequent hallucinations and psychosis patient was brought to the hospital for evaluation. Patient is awake that he is hallucinating. Patient says that he has history of smoking. Does use marijuana. Patient drinks 2-3 beers an daily basis. Laboratory data reviewed. MCV 102.2, TSH is within normal limits. LDL 156 Total cholesterol 255 UDS is positive for tricyclic antidepressants and marijuana. Review of Systems Constitutional: Patient denies any fever or chills . No generalized weakness or weight loss. Abdomen: Patient denied nausea vomiting and diarrhea and abdominal pain. Cardiovascular: Patient denies any chest pain or short of breath no palpitations. Respiratory: patient denied any cough is from production. No shortness of breath Neurologic: Patient denied any numbness or tingling headache. Musculoskeletal: Patient denies any complaints of joint swelling or deformity. Skin: Negative Psychiatric: Anxiety Endocrine: No heat or cold intolerance. No recent weight gain. Genitourinary: No dysuria or hematuria. All other 14 point ROS negative except the above Past Medical History Past Medical History: No Reported History History of Any Multi-Drug Resistant Organisms: None Reported Past Surgical History: Orthopedic Surgery Additional Past Surgical History / Comment(s): right knee 2014 Past Psychological History: Depression Smoking Status: Current every day smoker Past Alcohol Use History: Occasional Past Drug Use History: None Reported Medications and Allergies Home Medications Medication Instructions Recorded Confirmed Type Loratadine [Claritin] 10 mg PO DAILY 03/29/19 04/19/19 History Clotrimazole Cream [Lotrimin Cream] 1 applic TOPICAL BID applic 04/01/19 04/19/19 Rx Famotidine [Pepcid] 20 mg PO BID tab 04/01/19 04/19/19 Rx Folic Acid 1 mg PO DAILY 30 Days tab 04/09/19 04/19/19 Rx Melatonin 10 mg PO HS #30 tablet 04/09/19 04/19/19 Rx Multivitamins, Thera [Multivitamin 1 tab PO DAILY #30 tablet 04/09/19 04/19/19 Rx (formulary)] Nicotine 21Mg/24Hr Patch [Habitrol] 1 patch TRANSDERM DAILY #7 patch 04/09/19 04/19/19 Rx Sertraline [Zoloft] 100 mg PO DAILY #30 tab 04/09/19 04/19/19 Rx Thiamine [Vitamin B-1] 100 mg PO DAILY #3 tablet 04/09/19 04/19/19 Rx hydrOXYzine PAMOATE [Vistaril] 50 mg PO BID #30 cap 04/09/19 04/19/19 Rx Cyclobenzaprine [Flexeril] 10 mg PO TID 04/19/19 04/19/19 History Pregabalin 150 mg PO BID 04/19/19 04/19/19 History Zolpidem [Ambien] 10 mg PO HS PRN 04/19/19 04/19/19 History Allergies Allergy/AdvReac Type Severity Reaction Status Date / Time No Known Allergies Allergy Verified 04/19/19 06:50 Physical Exam Vitals: Vital Signs Temp Pulse Pulse Resp BP BP Pulse Ox 04/19/19 07:08 97.1 F L 95 16 137/92 98 04/19/19 06:43 97.1 F L 18 137/79 98 04/19/19 06:41 98 F 80 18 98 04/19/19 02:03 98 F 98 18 141/97 Intake and Output 04/19/19 04/19/19 04/19/19 06:59 14:59 22:59 Other: Weight 77.111 kg 74.8 kg PHYSICAL EXAMINATION: Patient is lying in the bed comfortably, no acute distress, awake alert and oriented.. HEENT: Normocephalic. Neck is supple. Pupils reactive. Nostrils clear. Oral cavity is moist. Ears reveal no drainage. Neck reveals no JVD, carotid bruits, or thyromegaly. CHEST EXAMINATION: Trachea is central. Symmetrical expansion. Lung nieves clear to auscultation and percussion. CARDIAC: Normal S1, S2 with no gallops. No murmurs ABDOMEN: Soft. Bowel sounds normal. No organomegaly. No abdominal bruits. Extremities: reveal no edema. No clubbing or cyanosis Neurologically awake, alert, oriented x3 with well-coordinated movements. No focal deficits noted Skin: No rash or skin lesions. Psychiatric: Coperative. Nonsuicidal. Anxious Musculoskeletal: No joint swelling or deformity. Normal range of motion. Cranial Nerve Examination - Cranial Nerves Cranial Nerve I- Olfactory: Intact Cranial Nerve II- Optic: Intact Cranial Nerve III- Oculomotor: Intact Cranial Nerve IV- Trochlear: Intact Cranial Nerve V- Trigeminal: Intact Cranial Nerve - Abducens: Intact Cranial Nerve VII- Facial: Intact Cranial Nerve VIII- Auditory: Intact Cranial Nerve IX- Glossopharyngeal: Intact Cranial Nerve X- Vagus: Intact Cranial Nerve XI- Accessory: Intact Cranial Nerve XII- Hypoglossal: Intact Results CBC & Chem 7: 04/19/19 02:40 04/19/19 02:40 Labs: Abnormal Lab Results - Last 24 Hours (Table) 04/19/19 04/19/19 04/19/19 Range/Units 02:16 02:40 02:40 RBC 3.91 L (4.30-5.90) m/uL MCV 102.1 H (80.0-100.0) fL Glucose 111 H (74-99) mg/dL ALT 82 H (4-49) U/L U Tricyclic Antidepress Detected H (NotDetected) U Marijuana (THC) Screen Detected H (NotDetected) Assessment and Plan Assessment: Major depression with hallucinations at home history of depression and recent psychiatric admission Marijuana use Macrocytosis secondary to alcohol use Hyperlipidemia with LDL 156 DVT prophylaxis. early ambulation. Plan: Patient will continue on current psychiatric medications and recommendations. Patient will be started on atorvastatin due to hyperlipidemia. Otherwise continue the current management and supportive care. Further recommendations based on the clinical course. We will continue to follow closely. Thank you for your consult. Time with Patient: Greater than 30
[2019-04-20 18:02] LABS: Hemoglobin A1C 5.3 % (4.0-6.0)
[2019-04-20] MEDS: PREGABALIN 75 MG CAP PO SCH (19:41)
[2019-04-20] MEDS: ATORVASTATIN 10 MG TAB PO SCH (21:27)
[2019-04-20] MEDS: MELATONIN 5 MG TABLET PO SCH (21:28)
[2019-04-20] MEDS: QUEtiapine 50 MG TAB PO SCH (21:28)
[2019-04-21] MEDS: NICOTINE 14MG/24HR PATCH TRANSDERM SCH (08:45)
[2019-04-21] MEDS: PREGABALIN 75 MG CAP PO SCH ×2 (08:46→20:34)
[2019-04-21] MEDS: MULTIVITAMINS, THERA 1 EACH TAB PO SCH (08:46)
[2019-04-21] MEDS: SERTRALINE 50 MG TAB PO SCH (08:46)
[2019-04-21] MEDS: LORazepam 1 MG TAB PO PRN ×2 (08:47→20:34)
--- NOTE | 2019-04-21 12:17 | P.PN ---
Subjective Progress Note Date: 04/21/19 The patient seen and chart reviewed. The patient reports feeling depressed and anxious. He reports multiple stressors and having racing thoughts. 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 The patient reports improved sleep last night and reports good appetite. The patient denies any auditory or visual hallucinations. He denies any active suicidal homicidal or paranoid ideations at this time. The patient has been tolerating medications without any side effects. Objective - Vital Signs Vital signs: Vital Signs Temp 97.7 F 04/21/19 02:42 Pulse 99 04/21/19 02:42 Resp 16 04/21/19 02:42 BP 118/70 04/21/19 02:42 Pulse Ox 98 04/19/19 07:08 Intake & Output 04/20/19 04/21/19 04/21/19 18:59 06:59 18:59 Weight 74.6 kg - Exam MENTAL STATUS EXAM: General Appearance: Patient appears to be stated age is alert, directable and attempts to cooperate. patient has fair hygiene and grooming. Unshaven and has glasses & wearing a hospital gown. Behavior: Patient is anxiously sitting on the chair without any agitated behavior. Speech: Patient's speech is fluent and nonpressured. anxious tone. Mood/Affect: Patient reports their mood is "depressed and anxious", affect is congruent Suicidality/Homicidality: Patient denies having any suicidal or homicidal idea tion intent or plan. Perceptions: Patient denies any auditory or visual hallucinations. Though content/process: There is no evidence of any delusional thought content and thought process is linear and goal-directed. Focused on his social stressors. Memory and concentration: AOX3, grossly intact for the purposes of this session. Can spell "WORLD" backwards Judgment and insight: poor, mildly improving - Labs CBC & Chem 7: 04/19/19 02:40 04/19/19 02:40 Assessment and Plan Assessment: IMPRESSIONS: Major depressive disorder, recurrent, severe anxiety disorder unspecified History of Alcohol abuse Cannabis use disorder Nicotine dependence. Plan: PLAN: -At this time patient continues to meet criteria for inpatient psychiatric admission. patient signed for voluntary admission and also signed for medication consent which is placed in patient's chart. -Would recommend the following medication changes/additions: Will continue Zoloft 50 mg daily for anxiety/mood with plan to increase as tolerated. Will start Continues Seroquel 150 mg daily at bedtime for mood stabilization /insomnia. Start Seroquel 25 mg PO tid PRN for anxiety. Continue with melatonin 10 mg daily at bedtime for sleep. We'll consider adding back either Vistaril or BuSpar as needed for anxiety. -Ativan and Geodon PRN for agitation/aggression -Patient was counselled on substance abuse and desired to cut back on use -Patient was informed of the risks, benefits and side effects of the medication and patient verbally consented to taking the medications. Patient signed med consent form and was placed in chart. Discussed with patient the importance of following dosing instructions and the dangers of toxicity of his medications when he is managing the dosing of the medications himself. -NRT - nicotine patch -SW on board for discharge planning.
[2019-04-21] MEDS: QUEtiapine 25 MG TAB PO PRN ×2 (12:25→17:18)
[2019-04-21] MEDS: ATORVASTATIN 10 MG TAB PO SCH (20:34)
[2019-04-21] MEDS: QUEtiapine 50 MG TAB PO SCH (21:49)
[2019-04-21] MEDS: MELATONIN 5 MG TABLET PO SCH (21:49)
[2019-04-22] MEDS: PREGABALIN 75 MG CAP PO SCH ×2 (08:40→21:09)
[2019-04-22] MEDS: NICOTINE 14MG/24HR PATCH TRANSDERM SCH (08:40)
[2019-04-22] MEDS: SERTRALINE 50 MG TAB PO SCH (08:40)
[2019-04-22] MEDS: MULTIVITAMINS, THERA 1 EACH TAB PO SCH (08:40)
[2019-04-22] MEDS: LORazepam 1 MG TAB PO PRN (08:41)
[2019-04-22] MEDS ORDERED: SERTRALINE 50 MG TAB PO STA (11:06)
[2019-04-22] MEDS ORDERED: hydrOXYzine PAMOATE 25 MG CAP PO ONE (11:07)
--- NOTE | 2019-04-22 11:18 | P.PN ---
Progress Note - Text Progress Note Date: 04/22/19 Interval History: Patient was seen pacing the hallways and appeared to be anxious however was di rectable and agreeable to speak to real estate underwriter in the office. Patient claims that he is having racing thoughts and feeling extremely guilty and "sad" this morning. He explains that he has been having thoughts about his who is struggling with her multiple medical comorbidities and also her breathing as she has COPD. Patient states that he is worried that if she goes back to the hospital the hot to place her on oxygen. Patient also states that he is eating well in the hospital and feels bad because his family is not eating as well as he is. Patient was preoccupied with discharge and getting a job. Patient states that his mood continues to be depressed and he feels anxious at this time and was shaking his legs with anxiety during the interview. Patient claims that he is sleeping well at night with the Seroquel on board and would like to remain at the same dose. He was agreeable to have his Zoloft titrated up and Vistaril added back on. Patient claims to have fair energy and has been going to groups try to participate. At this time patient denies any suicidal or homical ideations, intent or plan. Patient denies any auditory, visual hallucinations and denies any paranoia or delusions. Patient denies any side effects from the medications and has been compliant with meds. Mental Status Exam: General Appearance: Patient appears to be stated age is alert, directable, appears anxious and attempts to cooperate. Patient has fair hygiene and grooming. Unshaven and has glasses & wearing street clothing. Behavior: Patient is anxiously sitting on the chair without any agitated behavior. Patient is shaking his leg with anxiety. Speech: Patient's speech is fluent and nonpressured. Mood/Affect: Patient reports their mood is "depressed and anxious", affect is congruent Suicidality/Homicidality: Patient denies having any suicidal or homicidal ideation intent or plan. Perceptions: Patient denies any auditory or visual hallucinations. Though content/process: There is no evidence of any delusional thought content and thought process is linear and goal-directed. Focused on his social stressors and discharge. Memory and concentration: AOX3, grossly intact for the purposes of this session. Judgment and insight: poor, mildly improving Assessment Major depressive disorder, recurrent, severe Anxiety disorder unspecified History of Alcohol abuse Cannabis use disorder Nicotine dependence. Plan: -Patient continues to meet criteria for inpatient psychiatric admission for symptom stabilization and safety. Patient has signed adult voluntary form and medication consent and was placed in patient's chart. -Medications: Will increase Zoloft to 100 mg daily for anxiety/mood. Well continue with Seroquel 150 mg twice a day for mood stabilization/insomnia. Continue with melatonin 10 mg daily at bedtime for sleep. Restarted Vistaril 25 mg every 6 hours when necessary for anxiety with 50 mg 1 time dose now -When necessary Ativan and Geodon for agitation/aggression. -NRT - nicotine patch -SW on board for discharge planning. Likely discharge calm in 2-3 days.
[2019-04-22] MEDS: hydrOXYzine PAMOATE 25 MG CAP PO PRN ×2 (15:33→21:10)
[2019-04-22] MEDS: ATORVASTATIN 10 MG TAB PO SCH (21:09)
[2019-04-22] MEDS: MELATONIN 5 MG TABLET PO SCH (21:10)
[2019-04-22] MEDS: QUEtiapine 50 MG TAB PO SCH (21:10)
[2019-04-23 06:44] VITALS: BP 108/71; PULSE 99; RESP 17; TEMP 97.9
[2019-04-23] MEDS: NICOTINE 14MG/24HR PATCH TRANSDERM SCH (08:48)
[2019-04-23] MEDS: PREGABALIN 75 MG CAP PO SCH (08:48)
[2019-04-23] MEDS: MULTIVITAMINS, THERA 1 EACH TAB PO SCH (08:48)
[2019-04-23] MEDS: hydrOXYzine PAMOATE 25 MG CAP PO PRN (08:49)
[2019-04-23] MEDS ORDERED: SERTRALINE 100 MG TAB PO SCH (09:00)
--- NOTE | 2019-04-23 10:45 | P.DS ---
Providers Date of admission: 04/19/19 06:41 Expected date of discharge: 04/23/19 Attending physician: Clifford Cash MD Consults: 04/19/19 06:47 Consult Physician Routine Consulting Provider: Ashley Harrison Consult Reason/Comments: H and P Do you want consulting provider notified?: Yes, Notify in am Primary care physician: Mounika Christian - Discharge Diagnosis(es) (1) Major depressive disorder, recurrent episode Current Visit: Yes Status: Acute Priority: High (2) Anxiety disorder Current Visit: Yes Status: Acute Priority: Medium (3) History of alcohol abuse Current Visit: Yes Status: Acute Priority: Low (4) Cannabis abuse Current Visit: Yes Status: Acute Priority: Medium (5) Nicotine dependence Current Visit: Yes Status: Acute Priority: Low Hospital Course: Admission HPI: Mr. Woodard is a 38-year-old male, currently unemployed and lives with his is and has 2 kids and collects Social Security disability. The patient presented to the hospital with complaints of poor sleep, increase in his depression/anxiety and reports of sleepwalking. Patient states that since being discharged just over a week ago patient claims that he is not able to be placed on Ativan at nighttime for sleep and claims that he was discharged and went back to his home and started to feel more depressed. Patient claims that his anxiety and depression gradually increased as he went back into the same social triggers that he was dealing with prior to admission. He claims that "my fridge was empty and the same problems were still there" referring to financial problems. He states that his is not able to work as she is disabled and he is as well and they are going more into debt. Patient claims that his sleep has been poor as he has been having racing thoughts about not being able to see his family. Patient stated that he began doubling his Zoloft dose during the day and taking an extra 100 mg at night. Patient also states that he was doubling his Vistaril dose to help with his anxiety. Patient claims that [facility] canceled his therapist appointment and rescheduled him for this coming Monday. Patient states that his noticed he was sleepwalking and talking to things in his sleep. At this time patient denies any homical ideations, intent or plan. Patient denies any auditory, visual hallucinations and denies any paranoia or delusions. he has a history of drinking alcohol approximately 3 beers a day, smokes marijuana approximately one joint a week and smokes cigarettes 2 packs per day. Hospital course: Upon admission to the unit patient was initially depressed and anxious. Patient was however directable and agreeable to commence treatment. Patient got along well with other patients on the unit and followed unit protocol. Patient was compliant with the medications and denied any side effects throughout hospital course. Patient was started on Zoloft and titrated up to a dose of 150 mg daily for mood/anxiety. Patient was also started on Seroquel and titrated up to dose of 150 mg nightly for mood stabilization/insomnia. Patient was also started on melatonin 10 mg nightly for sleep and Vistaril 25 mg when necessary for anxiety. Patient spoke of his stressors and engaged in therapy both group and individual. Patient was also seen by medical team for history and physical exam. Throughout the course of the hospitalization patient gradually improved with regards to mood, guilt, anxiety, sleep and became future oriented with improved insight and judgment. On the day of discharge patient denied any suicidal or homicidal ideations intent or plan denied any auditory or visual hallucinations. Patient endorsed wanting to live for his health and family. The patient denied any access to guns or weapons. Patient denied any paranoia and did not endorse any delusions. Patient does have a significant history of substance abuse and was counseled on abstaining from all substances including alcohol and marijuana. At this time patient declined any inpatient substance abuse rehab. Patient was also counseled on the medications and need for regular compliance and was encouraged to follow-up with their outpatient appointment for mental health and also for primary care. Mental status exam: General Appearance: Patient appears to be stated age is alert, pleasant, and cooperative. Patient is in no acute distress and has fair hygiene and grooming Behavior: Patient is calmly seated without any agitated behavior. Speech: Patient's speech is fluent and nonpressured. Mood/Affect: Patient reports their mood is "better", affect is congruent and euthymic. Suicidality/Homicidality: Patient denies having any suicidal or homicidal id eation intent or plan. Perceptions: Patient denies any auditory or visual hallucinations. Though content/process: There is no evidence of any delusional thought content and thought process is linear and goal-directed. More future oriented. Memory and concentration: AOX3, grossly intact for the purposes of this session. Can spell "WORLD" backwards correctly. Judgment and insight: fair, improved Impression: Major depressive disorder, recurrent, severe Anxiety disorder unspecified History of alcohol use Cannabis abuse Nicotine dependence Plan: -Continue with discharge today as patient has improved and stabilized psychiatrically and is not currently an imminent threat to himself and/or others. -Continue medications: Seroquel 150 mg daily at bedtime for mood stabilization/insomnia, Zoloft 150 mg daily for anxiety/mood, melatonin 10 mg nightly for sleep, Vistaril 25 mg every 8 hours when necessary for anxiety. -Patient was counseled on the need for medication compliance and appropriate follow-up at mental health and also primary care for medical issues. Patient verbalized understanding and agreed. -Patient states that his does not have adequate access to a phone or can come to the hospital for a family meeting prior to discharge. Social work also to arrange for patients follow up appointments with [facility] for psychiatric care along with follow up with primary care provider. -Discussed with patient in great detail about the importance of medication compliance and taking medications as prescribed and also the dangers of taking too much medications/self dosing, patient verbally understood and agreed. -Patient counseled on abstaining from recreational drugs and marijuana and alcohol. Was informed/educated on the adverse effects on their physical and mental health. Patient verbally agreed and understood. Patient declined any inpatient substance use rehab at this time. -Patient was instructed to return to the hospital or seek immediate medical care if their psychiatric or medical symptoms do worsen or reoccur. Allergies Allergy/AdvReac Type Severity Reaction Status Date / Time No Known Allergies Allergy Verified 04/19/19 06:50 Laboratory Results WBC 10.0 k/uL (3.8-10.6) 04/19/19 02:40 RBC 3.91 m/uL (4.30-5.90) L 04/19/19 02:40 Hgb 13.7 gm/dL (13.0-17.5) 04/19/19 02:40 Hct 40.0 % (39.0-53.0) 04/19/19 02:40 MCV 102.1 fL (80.0-100.0) H 04/19/19 02:40 MCH 35.0 pg (25.0-35.0) 04/19/19 02:40 MCHC 34.2 g/dL (31.0-37.0) 04/19/19 02:40 RDW 12.1 % (11.5-15.5) 04/19/19 02:40 Plt Count 335 k/uL (150-450) 04/19/19 02:40 Neutrophils % 62 % 04/19/19 02:40 Lymphocytes % 24 % 04/19/19 02:40 Monocytes % 7 % 04/19/19 02:40 Eosinophils % 3 % 04/19/19 02:40 Basophils % 2 % 04/19/19 02:40 Neutrophils # 6.2 k/uL (1.3-7.7) 04/19/19 02:40 Lymphocytes # 2.4 k/uL (1.0-4.8) 04/19/19 02:40 Monocytes # 0.7 k/uL (0-1.0) 04/19/19 02:40 Eosinophils # 0.3 k/uL (0-0.7) 04/19/19 02:40 Basophils # 0.2 k/uL (0-0.2) 04/19/19 02:40 Sodium 139 mmol/L (137-145) 04/19/19 02:40 Potassium 4.3 mmol/L (3.5-5.1) 04/19/19 02:40 Chloride 106 mmol/L (98-107) 04/19/19 02:40 Carbon Dioxide 27 mmol/L (22-30) 04/19/19 02:40 Anion Gap 6 mmol/L 04/19/19 02:40 BUN 15 mg/dL (9-20) 04/19/19 02:40 Creatinine 0.86 mg/dL (0.66-1.25) 04/19/19 02:40 Est GFR (CKD-EPI)AfAm >90 (>60 ml/min/1.73 sqM) 04/19/19 02:40 Est GFR (CKD-EPI)NonAf >90 (>60 ml/min/1.73 sqM) 04/19/19 02:40 Glucose 111 mg/dL (74-99) H 04/19/19 02:[address] Glu mg/dL 105 04/20/19 08:25 Hemoglobin A1c 5.3 % (4.0-6.0) 04/20/19 08:25 Calcium 9.4 mg/dL (8.4-10.2) 04/19/19 02:40 Total Bilirubin 0.4 mg/dL (0.2-1.3) 04/20/19 08:25 Conjugated Bilirubin 0.0 mg/dL (0.0-0.3) 04/20/19 08:25 Unconjugated Bilirubin 0.2 mg/dL (0.0-1.1) 04/20/19 08:25 Delta Bilirubin 0.2 mg/dL (0.0-0.2) 04/20/19 08:25 AST 44 U/L (17-59) 04/20/19 08:25 ALT 93 U/L (4-49) H 04/20/19 08:25 Alkaline Phosphatase 93 U/L (38-126) 04/20/19 08:25 Total Protein 7.4 g/dL (6.3-8.2) 04/20/19 08:25 Albumin 4.4 g/dL (3.5-5.0) 04/20/19 08:25 Triglycerides 138 mg/dL (<150) 04/20/19 08:25 Cholesterol 255 mg/dL (<200) H 04/20/19 08:25 LDL Cholesterol, Calc 156 mg/dL (0-99) H 04/20/19 08:25 HDL Cholesterol 71 mg/dL (40-60) H 04/20/19 08:25 TSH 2.440 mIU/L (0.465-4.680) 04/20/19 08:25 Urine Color Light Yellow 04/19/19 02:16 Urine Appearance Clear (Clear) 04/19/19 02:16 Urine pH 6.0 (5.0-8.0) 04/19/19 02:16 Ur Specific [place] 1.007 (1.001-1.035) 04/19/19 02:16 Urine Protein Negative (Negative) 04/19/19 02:16 Urine Glucose (UA) Negative (Negative) 04/19/19 02:16 Urine Ketones Negative (Negative) 04/19/19 02:16 Urine Blood Negative (Negative) 04/19/19 02:16 Urine Nitrite Negative (Negative) 04/19/19 02:16 Urine Bilirubin Negative (Negative) 04/19/19 02:16 Urine Urobilinogen <2.0 mg/dL (<2.0) 04/19/19 02:16 Ur Leukocyte Esterase Negative (Negative) 04/19/19 02:16 Salicylates <1.0 mg/dL 04/19/19 02:40 Urine Opiates Screen Not Detected (NotDetected) 04/19/19 02:16 Ur Oxycodone Screen Not Detected (NotDetected) 04/19/19 02:16 Urine Methadone Screen Not Detected (NotDetected) 04/19/19 02:16 Ur Propoxyphene Screen Not Detected (NotDetected) 04/19/19 02:16 Acetaminophen <10.0 ug/mL 04/19/19 02:40 Ur Barbiturates Screen Not Detected (NotDetected) 04/19/19 02:16 U Tricyclic Antidepress Detected (NotDetected) H 04/19/19 02:16 Ur Phencyclidine Scrn Not Detected (NotDetected) 04/19/19 02:16 Ur Amphetamines Screen Not Detected (NotDetected) 04/19/19 02:16 U Methamphetamines Scrn Not Detected (NotDetected) 04/19/19 02:16 U Benzodiazepines Scrn Not Detected (NotDetected) 04/19/19 02:16 Urine Cocaine Screen Not Detected (NotDetected) 04/19/19 02:16 U Marijuana (THC) Screen Detected (NotDetected) H 04/19/19 02:16 Serum Alcohol <10 mg/dL 04/19/19 02:40 Vital Signs Temp 97.9 F 04/23/19 06:43 Pulse 99 04/23/19 06:43 Resp 17 04/23/19 06:43 BP 108/71 04/23/19 06:43 Pulse Ox 99 04/23/19 06:43 Patient Condition at Discharge: Stable Plan - Discharge Summary New Discharge Prescriptions: New Nicotine 14Mg/24Hr Patch [Habitrol] 1 patch TRANSDERM DAILY #14 patch Atorvastatin [Lipitor] 10 mg PO HS 28 Days tab Melatonin 10 mg PO HS 28 Days tablet QUEtiapine [SEROquel] 150 mg PO HS 28 Days tab hydrOXYzine PAMOATE [Vistaril] 25 mg PO Q8HR PRN 28 Days cap PRN Reason: Anxiety Sertraline [Zoloft] 150 mg PO DAILY 28 Days tab Continue Loratadine [Claritin] 10 mg PO DAILY Clotrimazole Cream [Lotrimin Cream] 1 applic TOPICAL BID applic Famotidine [Pepcid] 20 mg PO BID tab Folic Acid 1 mg PO DAILY 30 Days tab Multivitamins, Thera [Multivitamin (formulary)] 1 tab PO DAILY #30 tablet Thiamine [Vitamin B-1] 100 mg PO DAILY #3 tablet Cyclobenzaprine [Flexeril] 10 mg PO TID Pregabalin 150 mg PO BID Discontinued Melatonin 10 mg PO HS #30 tablet hydrOXYzine PAMOATE [Vistaril] 50 mg PO BID #30 cap Sertraline [Zoloft] 100 mg PO DAILY #30 tab Nicotine 21Mg/24Hr Patch [Habitrol] 1 patch TRANSDERM DAILY #7 patch Zolpidem [Ambien] 10 mg PO HS PRN PRN Reason: Insomnia Discharge Medication List Loratadine [Claritin] 10 mg PO DAILY 03/29/19 [History] Clotrimazole Cream [Lotrimin Cream] 1 applic TOPICAL BID applic 04/01/19 [Rx] Famotidine [Pepcid] 20 mg PO BID tab 04/01/19 [Rx] Folic Acid 1 mg PO DAILY 30 Days tab 04/09/19 [Rx] Multivitamins, Thera [Multivitamin (formulary)] 1 tab PO DAILY #30 tablet 04/09/19 [Rx] Thiamine [Vitamin B-1] 100 mg PO DAILY #3 tablet 04/09/19 [Rx] Cyclobenzaprine [Flexeril] 10 mg PO TID 04/19/19 [History] Pregabalin 150 mg PO BID 04/19/19 [History] Atorvastatin [Lipitor] 10 mg PO HS 28 Days tab 04/23/19 [Rx] Melatonin 10 mg PO HS 28 Days tablet 04/23/19 [Rx] Nicotine 14Mg/24Hr Patch [Habitrol] 1 patch TRANSDERM DAILY #14 patch 04/23/19 [Rx] QUEtiapine [SEROquel] 150 mg PO HS 28 Days tab 04/23/19 [Rx] Sertraline [Zoloft] 150 mg PO DAILY 28 Days tab 04/23/19 [Rx] hydrOXYzine PAMOATE [Vistaril] 25 mg PO Q8HR PRN 28 Days cap 01/07/20 [Rx] Follow up Appointment(s)/Referral(s): Anahi Ribera MD [Primary Care Provider] - 1-2 days Patient Instructions/Handouts: How to Stop Smoking (DC), Depression (DC), Alcohol Intoxication (DC) Activity/Diet/Wound Care/Special Instructions: Activity and diet as tolerated. Avoid the use of street drugs and alcohol. Take all medications as prescribed. When you are in need of refills on your medications please contact your medical provider and/or outpatient psychiatrist to have this done. Please go to scheduled outpatient appointment for aftercare treatment. If symptoms return or become worse, call the crisis line at and/or go to the nearest emergency room for evaluation. Discharge Disposition: HOME SELF-CARE
[2019-04-24] MEDS ORDERED: SERTRALINE 100 MG TAB PO SCH (09:00)
== END 2019-04-23 07:00 | disposition home or self-care (01) | DRG 885 ==
LOC: EC 01:54 → 3MHU 06:41
PROVIDERS: ADMIT Psychiatry & Neurology Psychiatry; ATTEND Psychiatry & Neurology Psychiatry
DX: F33.2 Major depressive disorder, recurrent severe without psychotic features (principal); F41.9 Anxiety disorder, unspecified; F51.3 Sleepwalking [somnambulism]; G47.00 Insomnia, unspecified; F12.90 Cannabis use, unspecified, uncomplicated; F10.10 Alcohol abuse, uncomplicated; F17.210 Nicotine dependence, cigarettes, uncomplicated; Z79.899 Other long term (current) drug therapy; Z81.8 Family history of other mental and behavioral disorders
CPT/HCPCS: 36415; 80053; 80061; 80076; 80306; 80320; 80329; 81003; 82075; 83036; 83520; 84443; 85025; 93005; 99285

== ENCOUNTER 2019-05-11 18:34 | Emergency (ER) | payer OTHER ==
[2019-05-11 18:44] VITALS: RESP 18
[2019-05-11] MEDS ORDERED: LORazepam 2 MG/ML INJ IV STA (18:51)
[2019-05-11] MEDS ORDERED: SODIUM CHLORIDE 0.9% 1,000 ML IV STA (18:51)
--- NOTE | 2019-05-11 18:55 | ED ---
General Adult HPI - General Chief complaint: Syncope Stated complaint: Shakes Time Seen by Provider: 05/11/19 18:36 Source: patient Mode of arrival: ambulatory Limitations: no limitations - History of Present Illness Initial comments: Dictation was produced using [employer] dictation software. please excuse any grammatical, word or spelling errors. Chief Complaint: 39 y Old male takes multiple psychoactive medications presents with tremulousness. History of Present Illness: 39-year-old male he takes multiple psychiatric medications. Patient states he takes Flexeril, Claritin, Lyrica, Seroquel Vistaril and sertraline. Patient states today he was feeling well when he got up to get his Dr. Go outside using bathroom. Patient then felt an acute overwhelming surge of tremulousness. He states that he had difficulty walking. He reports that his thought that he looked like he was having a seizure however he was alert the whole time. Patient is a history of seizures. Patient states he took 2 of his Lyrica pills because he forgot his dose earlier today. The ROS documented in this emergency department record has been reviewed and confirmed by me. Those systems with pertinent positive or negative responses have been documented in the HPI. All other systems are other negative and/or noncontributory. PHYSICAL EXAM: General Impression: Alert and oriented x3, tremulousness of all extremities HEENT: Normocephalic atraumatic, extra-ocular movements intact, pupils equal and reactive to light bilaterally, mucous membranes moist. No mydriasis or pinpoint pupils Cardiovascular: Heart regular rate and rhythm, S1&S2 audible, no murmurs, rubs or gallops Chest: Lungs clear to auscultation bilaterally, no rhonchi, no wheeze, no rales Abdomen: Bowel sounds present, abdomen soft, non-tender, non-distended, no organomegaly Musculoskeletal: Pulses present and equal in all extremities, no peripheral edema Motor: no focal deficits noted Neurological: CN II-XII grossly intact, no focal motor or sensory deficits noted, no clonus to the lower extremities Skin: Intact with no visualized rashes ED course: 39-year-old male with chief complaint of tremulousness. Vital Signs upon arrival shows temperature 100.1, heart rate of 112, rest of vital signs within acceptable limits. Laboratory evaluation obtained. Leukocytosis 13.0, metabolic panel is unremarkable. Patient given intravenous fluids is given some Ativan. Patient likely experiencing some mild anticholinergic symptoms versus extrapyramidal effects. Patient observed in emergency department for several hours with stable medical condition. He was reevaluated with stable medical condition. Ambulatory baseline. Patient states he feels well. Repeat vitals are improved is no longer tachycardic or febrile. Patient requests that he wants to be discharge. He is given the recommendation of being admitted to the hospital. He states he feels well and can follow up with his psychiatrist for management of his second medications. Patient given strict return parameters. He is understandable and agreeable. Patient be discharged. EKG interpretation: Ventricular rate 106, sinus tachycardia,. Interval 160, Q 76, QTC 464. No [place] prolongation, no QTC prolongation, no ST or T-wave changes noted. . Overall, this EKG is unremarkable - Related Data Home Medications Medication Instructions Recorded Confirmed Loratadine [Claritin] 10 mg PO DAILY 03/29/19 04/19/19 Cyclobenzaprine [Flexeril] 10 mg PO TID 04/19/19 04/19/19 Pregabalin 150 mg PO BID 04/19/19 04/19/19 Previous Rx's Medication Instructions Recorded Clotrimazole Cream [Lotrimin Cream] 1 applic TOPICAL BID applic 04/01/19 Famotidine [Pepcid] 20 mg PO BID tab 04/01/19 Folic Acid 1 mg PO DAILY 30 Days tab 04/09/19 Multivitamins, Thera [Multivitamin 1 tab PO DAILY #30 tablet 04/09/19 (formulary)] Thiamine [Vitamin B-1] 100 mg PO DAILY #3 tablet 04/09/19 Atorvastatin [Lipitor] 10 mg PO HS 28 Days tab 04/23/19 Melatonin 10 mg PO HS 28 Days tablet 04/23/19 Nicotine 14Mg/24Hr Patch [Habitrol] 1 patch TRANSDERM DAILY #14 patch 04/23/19 QUEtiapine [SEROquel] 150 mg PO HS 28 Days tab 04/23/19 Sertraline [Zoloft] 150 mg PO DAILY 28 Days tab 04/23/19 hydrOXYzine PAMOATE [Vistaril] 25 mg PO Q8HR PRN 28 Days cap 04/23/19 Allergies Allergy/AdvReac Type Severity Reaction Status Date / Time No Known Allergies Allergy Verified 05/11/19 18:44 Review of Systems ROS Statement: Those systems with pertinent positive or pertinent negative responses have been documented in the HPI. ROS Other: All systems not noted in ROS Statement are negative. Past Medical History Past Medical History: No Reported History, Seizure Disorder Additional Past Medical History / Comment(s): seizure free since he was 12- not on medication History of Any Multi-Drug Resistant Organisms: None Reported Past Surgical History: Orthopedic Surgery Additional Past Surgical History / Comment(s): right knee 2014 Past Psychological History: Depression Smoking Status: Current every day smoker Past Alcohol Use History: Occasional Past Drug Use History: Marijuana General Exam Limitations: no limitations Course Vital Signs 05/11/19 05/11/19 05/11/19 18:36 19:27 20:00 Temperature 100.1 F H 98.1 F Pulse Rate 112 H 100 Respiratory 18 18 Rate Blood Pressure 166/101 133/87 O2 Sat by Pulse 98 98 Oximetry 05/11/19 20:46 Temperature 98.5 F Pulse Rate 100 Respiratory 18 Rate Blood Pressure 127/96 O2 Sat by Pulse 98 Oximetry Medical Decision Making - Lab Data Result diagrams: 05/11/19 18:54 05/11/19 18:54 Lab Results 05/11/19 05/11/19 Range/Units 18:54 18:54 WBC 13.0 H (3.8-10.6) k/uL RBC 4.40 (4.30-5.90) m/uL Hgb 14.7 (13.0-17.5) gm/dL Hct 44.3 (39.0-53.0) % MCV 100.7 H (80.0-100.0) fL MCH 33.3 (25.0-35.0) pg MCHC 33.1 (31.0-37.0) g/dL RDW 11.7 (11.5-15.5) % Plt Count 307 (150-450) k/uL Neutrophils % 78 % Lymphocytes % 14 % Monocytes % 5 % Eosinophils % 2 % Basophils % 1 % Neutrophils # 10.1 H (1.3-7.7) k/uL Lymphocytes # 1.8 (1.0-4.8) k/uL Monocytes # 0.6 (0-1.0) k/uL Eosinophils # 0.3 (0-0.7) k/uL Basophils # 0.1 (0-0.2) k/uL Sodium 136 L (137-145) mmol/L Potassium 4.3 (3.5-5.1) mmol/L Chloride 100 (98-107) mmol/L Carbon Dioxide 31 H (22-30) mmol/L Anion Gap 5 mmol/L BUN 9 (9-20) mg/dL Creatinine 0.87 (0.66-1.25) mg/dL Est GFR (CKD-EPI)AfAm >90 (>60 ml/min/1.73 sqM) Est GFR (CKD-EPI)NonAf >90 (>60 ml/min/1.73 sqM) Glucose 86 (74-99) mg/dL Calcium 8.7 (8.4-10.2) mg/dL Magnesium 1.8 (1.6-2.3) mg/dL Total Bilirubin 0.3 (0.2-1.3) mg/dL AST 39 (17-59) U/L ALT 37 (4-49) U/L Alkaline Phosphatase 88 (38-126) U/L Total Protein 6.4 (6.3-8.2) g/dL Albumin 3.9 (3.5-5.0) g/dL Disposition Clinical Impression: Coarse tremors Disposition: HOME SELF-CARE Condition: Good Instructions (If sedation given, give patient instructions): Extrapyramidal Symptoms (ED) Is patient prescribed a controlled substance at d/c from ED?: No Referrals: Anahi Ribera MD [Primary Care Provider] - 1-2 days Time of Disposition: 20:52
[2019-05-11 19:08] LABS: Basophils # (A) 0.1 k/uL (0-0.2); Basophils % (A) 1 %; Eosinophils # (A) 0.3 k/uL (0-0.7); Eosinophils % (A) 2 %; HCT 44.3 % (39.0-53.0); HGB 14.7 gm/dL (13.0-17.5); Lymphocytes # (A) 1.8 k/uL (1.0-4.8); Lymphocytes % (A) 14 %; MCH 33.3 pg (25.0-35.0); MCHC 33.1 g/dL (31.0-37.0); MCV 100.7 fL (80.0-100.0); Mean Platelet Volume 6.8; Monocytes # (A) 0.6 k/uL (0-1.0); Monocytes % (A) 5 %; Neutrophils # (A) 10.1 k/uL (1.3-7.7); Neutrophils % (A) 78 %; Platelet Count 307 k/uL (150-450); RDW 11.7 % (11.5-15.5)
[2019-05-11 19:14] LABS: ALT 37 U/L (4-49); AST 39 U/L (17-59); African American GFR (CKD) >90 (>60 ml/min/1.73 sqM); Albumin 3.9 g/dL (3.5-5.0); Alkaline Phosphatase 88 U/L (38-126); Anion Gap 5 mmol/L; Blood Urea Nitrogen 9 mg/dL (9-20); Calcium 8.7 mg/dL (8.4-10.2); Carbon Dioxide 31 mmol/L (22-30); Chloride 100 mmol/L (98-107); Glucose 86 mg/dL (74-99); Magnesium 1.8 mg/dL (1.6-2.3); Non-African American GFR(CKD) >90 (>60 ml/min/1.73 sqM); Potassium 4.3 mmol/L (3.5-5.1); Sodium 136 mmol/L (137-145); Total Bilirubin 0.3 mg/dL (0.2-1.3); Total Protein 6.4 g/dL (6.3-8.2)
[2019-05-11 19:28] VITALS: PULSE 100
[2019-05-11 20:47] VITALS: BP 127/96; TEMP 98.5
== END 2019-05-11 21:12 | disposition home or self-care (01) ==
LOC: EC 18:34
DX: G25.2 Other specified forms of tremor (principal); R00.0 Tachycardia, unspecified; D72.829 Elevated white blood cell count, unspecified; G40.909 Epilepsy, unspecified, not intractable, without status epilepticus; F17.200 Nicotine dependence, unspecified, uncomplicated; Z79.899 Other long term (current) drug therapy; Z53.20 Procedure and treatment not carried out because of patient's decision for unspecified reasons
CPT/HCPCS: 36415; 93005; 80053; 83735; 85025; 99284; 96374; 96361; J2060

== ENCOUNTER 2022-07-13 00:13 | Inpatient (IN) | payer OTHER ==
[2022-07-13] MEDS ORDERED: DIPH,PERTUS(ACELL)TETVAC-LF 0.5 ML VIAL IM ONE (00:14)
[2022-07-13] MEDS ORDERED: SODIUM CHLORIDE 0.9% 1,000 ML IV ONE (00:14)
--- NOTE | 2022-07-13 00:43 | ED ---
General Adult HPI - General Source: patient, EMS, RN notes reviewed, old records reviewed Mode of arrival: EMS Limitations: altered mental status <Tim Al - Last Filed: 07/15/22 04:45> <Geovani Rosado - Last Filed: 07/15/22 04:59> - General Chief complaint: Alcohol Stated complaint: Fall, Head Injury Time Seen by Provider: 07/13/22 00:13 - History of Present Illness Initial comments: 42-year-old male presenting with alcohol intoxication, fall and head injury. The exact mechanism of the fall is not known. He was transported by EMS. He was placed in a c-collar during transport. Vital signs are stable. Apparently the patient had made suicidal comments earlier in the day. The exact details of this are not known. (Tim Al) - Related Data Home Medications Medication Instructions Recorded Confirmed Amoxicillin 500 mg PO TID 07/13/22 07/13/22 predniSONE 10 mg PO BID 07/13/22 07/13/22 Allergies Allergy/AdvReac Type Severity Reaction Status Date / Time No Known Allergies Allergy Verified 07/13/22 09:21 Review of Systems ROS Other: All systems not noted in ROS Statement are negative. <Tim Al - Last Filed: 07/15/22 04:45> ROS Other: All systems not noted in ROS Statement are negative. <Geovani Rosado - Last Filed: 07/15/22 04:59> ROS Statement: Those systems with pertinent positive or pertinent negative responses have been documented in the HPI. Past Medical History Past Medical History: No Reported History, Seizure Disorder Additional Past Medical History / Comment(s): seizure free since he was 12- not on medication History of Any Multi-Drug Resistant Organisms: None Reported Past Surgical History: Orthopedic Surgery Additional Past Surgical History / Comment(s): right knee 2014 Past Psychological History: Depression Past Alcohol Use History: Occasional Past Drug Use History: Marijuana <Tim Al - Last Filed: 07/15/22 04:45> - Past Family History Mother Additional Family Medical History / Comment(s): brain aneurysm Father Family Medical History: Diabetes Mellitus <Geovani Rosado - Last Filed: 07/15/22 04:59> General Exam Limitations: altered mental status General appearance: in no apparent distress, appears intoxicated, lethargic Head exam: Present: other (Large frontal hematoma with 2 cm laceration) Neck exam: Present: other (C-collar) Respiratory exam: Present: normal lung sounds bilaterally. Absent: respiratory distress, wheezes Cardiovascular Exam: Present: regular rate, normal rhythm GI/Abdominal exam: Present: soft. Absent: distended, tenderness, guarding Extremities exam: Present: normal inspection, normal capillary refill. Absent: pedal edema, calf tenderness Neurological exam: Present: alert, oriented X3 (Slow to respond), CN II-XII intact, other (GCS 15). Absent: motor sensory deficit Skin exam: Present: warm, dry <Tim Al - Last Filed: 07/15/22 04:45> Course <Tim Al - Last Filed: 07/15/22 04:45> Vital Signs 07/13/22 07/13/22 07/13/22 00:28 01:52 04:25 Temperature 98.8 F 98.7 F Pulse Rate 71 100 86 Respiratory 22 12 18 Rate Blood Pressure 142/94 131/89 126/81 O2 Sat by Pulse 95 94 L 96 Oximetry 07/13/22 07/13/22 07/13/22 07:21 13:43 17:12 Temperature 98.5 F Pulse Rate 109 H 93 96 Respiratory 18 18 18 Rate Blood Pressure 137/86 135/82 150/96 O2 Sat by Pulse 94 L 96 97 Oximetry - Reevaluation(s) Reevaluation #1: 07/13/22 02:16 Did reevaluate the patient, he states that he has had suicidal thoughts and had a suicide attempt several days ago where he attempted to place a hose in the exhaust of his vehicle. He states this did not work. (Tim Al) Reevaluation #2: 07/13/22 02:17 Patient will require sobriety and EPS evaluation for suicidal ideation and suicide attempt. (Tim Al) Medical Decision Making - Lab Data Result diagrams: 07/13/22 00:14 07/14/22 13:28 <Tim Al - Last Filed: 07/15/22 04:45> - Lab Data Result diagrams: 07/13/22 00:14 07/14/22 13:28 <Geovani Rosado - Last Filed: 07/15/22 04:59> - Medical Decision Making I receive this patient has a sign out pending the results of the studies. The patient's covid test is positive. Patient therefore cannot go to the behavioral health unit. He has been seen by EPS and they would like to keep him for psychiatric treatment. Patient will therefore be admitted under medicine service with psychiatric consult. The patient is covered with the Ativan protocol for withdrawal as a daily drinker. Was pt. sent in by a medical professional or institution (, PA, BUSINESS SYSTEMS TECHNICIAN, urgent care, hospital, or senior care...) When possible be specific @ -[No] Did you speak to anyone other than the patient for history (EMS, parent, family, police, friend...)? What history was obtained from this source @ -[No] Did you review nursing and triage notes (agree or disagree)? Why? @ -[I reviewed and agree with nursing and triage notes] Were old charts reviewed (outside hosp., previous admission, EMS record, old EKG, old radiological studies, urgent care reports/EKG's, senior care records)? Report findings @ -[No old charts were reviewed] Differential Diagnosis (chest pain, altered mental status, abdominal pain women, abdominal pain men, vaginal bleeding, weakness, fever, dyspnea, syncope, headache, dizziness, GI bleed, back pain, seizure, CVA, palpatations, mental health, musculoskeletal)? @ -[Differential Mental Health Depression, anxiety, bipolar, psychosis, schizophrenia, borderline personality, situational depression, adjustment disorder, behavioral disorder, brain tumor, malingering, substance abuse, encephalopathy, medication reaction, dementia, hypothyroidism, degenerative neurologic disorder, lupus.... This is not meant to be all-inclusive list EKG interpreted by me (3pts min.). @ -[ X-rays interpreted by me (1pt min.). @ -[None done] CT interpreted by me (1pt min.). @ -[None done] U/S interpreted by me (1pt. min.). @ -[None done] What testing was considered but not performed or refused? (CT, X-rays, U/S, labs)? Why? @ -[None] What meds were considered but not given or refused? Why? @ -[None] Did you discuss the management of the patient with other professionals (professionals i.e. , PA, BUSINESS SYSTEMS TECHNICIAN, lab, RT, psych nurse, criminal justice social worker, fire engine operator, teacher, chief sales officer, director case management)? Give summary @ -[Yes admitting physician Was smoking cessation discussed for >3mins.? @ -[No] Was critical care preformed (if so, how long)? @ -[No] Were there social determinants of health that impacted care today? How? (Homelessness, low income, unemployed, alcoholism, drug addiction, transportation, low edu. Level, literacy, decrease access to med. care, skilled nursing, rehab)? @ -[Alcohol abuse Was there de-escalation of care discussed even if they declined (Discuss DNR or withdrawal of care, Hospice)? DNR status @ -[No] What co-morbidities impacted this encounter? (DM, HTN, Smoking, COPD, CAD, Cancer, CVA, ARF, Chemo, Hep., AIDS, mental health diagnosis, sleep apnea, morb id obesity)? @ -[Alcohol abuse Was patient admitted / discharged? Hospital course, mention meds given and route, prescriptions, significant lab abnormalities, going to OR and other pertinent info. @ -[Admitted as above Undiagnosed new problem with uncertain prognosis? @ -[No] Drug Therapy requiring intensive monitoring for toxicity (Heparin, Nitro, Insulin, Cardizem)? @ -[No] Were any procedures done? @ -[No] Diagnosis/symptom? @ -[Acute alcohol intoxication Mood disorder, suspected acute Acute Covid 19 infection Acute, or Chronic, or Acute on Chronic? @ -[default] Uncomplicated (without systemic symptoms) or Complicated (systemic symptoms)? @ -[Complicated Side effects of treatment? @ -[No] Exacerbation, Progression, or Severe Exacerbation? @ -[No] Poses a threat to life or bodily function? How? (Chest pain, USA, NH, pneumonia, PE, COPD, DKA, ARF, appy, cholecystitis, CVA, Diverticulitis, Homicidal, Suici ibeth, threat to staff... and all critical care pts) @ -[Yes (Geovani Rosado) - Lab Data Lab Results 07/13/22 07/13/22 07/13/22 Range/Units 00:14 00:14 00:29 WBC 13.2 H (3.8-10.6) k/uL RBC 4.59 (4.30-5.90) m/uL Hgb 16.9 (13.0-17.5) gm/dL Hct 47.1 (39.0-53.0) % MCV 102.7 H (80.0-100.0) fL MCH 36.8 H (25.0-35.0) pg MCHC 35.8 (31.0-37.0) g/dL RDW 13.7 (11.5-15.5) % Plt Count 255 (150-450) k/uL MPV 7.1 Neutrophils % 81 % Lymphocytes % 11 % Monocytes % 5 % Eosinophils % 0 % Basophils % 1 % Neutrophils # 10.7 H (1.3-7.7) k/uL Lymphocytes # 1.5 (1.0-4.8) k/uL Monocytes # 0.7 (0-1.0) k/uL Eosinophils # 0.0 (0-0.7) k/uL Basophils # 0.1 (0-0.2) k/uL Macrocytosis Slight PT 9.7 (9.0-12.0) sec INR 0.9 (<1.2) APTT 23.7 (22.0-30.0) sec Sodium 137 (137-145) mmol/L Potassium 4.5 (3.5-5.1) mmol/L Chloride 102 (98-107) mmol/L Carbon Dioxide 19 L (22-30) mmol/L Anion Gap 16 mmol/L BUN 12 (9-20) mg/dL Creatinine 0.70 (0.66-1.25) mg/dL Est GFR (CKD-EPI)AfAm >90 (>60 ml/min/1.73 sqM) Est GFR (CKD-EPI)NonAf >90 (>60 ml/min/1.73 sqM) Glucose 173 H (74-99) mg/dL Calcium 8.6 (8.4-10.2) mg/dL Urine Color Urine Appearance (Clear) Urine pH (5.0-8.0) Ur Specific Perry (1.001-1.035) Urine Protein (Negative) Urine Glucose (UA) (Negative) Urine Ketones (Negative) Urine Blood (Negative) Urine Nitrite (Negative) Urine Bilirubin (Negative) Urine Urobilinogen (<2.0) mg/dL Ur Leukocyte Esterase (Negative) Salicylates mg/dL Urine Opiates Screen (NotDetected) Ur Oxycodone Screen (NotDetected) Urine Methadone Screen (NotDetected) Ur Propoxyphene Screen (NotDetected) Acetaminophen ug/mL Ur Barbiturates Screen (NotDetected) U Tricyclic Antidepress (NotDetected) Ur Phencyclidine Scrn (NotDetected) Ur Amphetamines Screen (NotDetected) U Methamphetamines Scrn (NotDetected) U Benzodiazepines Scrn (NotDetected) Urine Cocaine Screen (NotDetected) U Marijuana (THC) Screen (NotDetected) Serum Alcohol 277 H* mg/dL Coronavirus (PCR) (Not Detectd) 07/13/22 07/13/22 07/13/22 Range/Units 11:22 14:36 14:36 WBC (3.8-10.6) k/uL RBC (4.30-5.90) m/uL Hgb (13.0-17.5) gm/dL Hct (39.0-53.0) % MCV (80.0-100.0) fL MCH (25.0-35.0) pg MCHC (31.0-37.0) g/dL RDW (11.5-15.5) % Plt Count (150-450) k/uL MPV Neutrophils % % Lymphocytes % % Monocytes % % Eosinophils % % Basophils % % Neutrophils # (1.3-7.7) k/uL Lymphocytes # (1.0-4.8) k/uL Monocytes # (0-1.0) k/uL Eosinophils # (0-0.7) k/uL Basophils # (0-0.2) k/uL Macrocytosis PT (9.0-12.0) sec INR (<1.2) APTT (22.0-30.0) sec Sodium (137-145) mmol/L Potassium (3.5-5.1) mmol/L Chloride (98-107) mmol/L Carbon Dioxide (22-30) mmol/L Anion Gap mmol/L BUN (9-20) mg/dL Creatinine (0.66-1.25) mg/dL Est GFR (CKD-EPI)AfAm (>60 ml/min/1.73 sqM) Est GFR (CKD-EPI)NonAf (>60 ml/min/1.73 sqM) Glucose (74-99) mg/dL Calcium (8.4-10.2) mg/dL Urine Color Yellow Urine Appearance Clear (Clear) Urine pH 6.0 (5.0-8.0) Ur Specific Perry 1.035 (1.001-1.035) Urine Protein Trace H (Negative) Urine Glucose (UA) Negative (Negative) Urine Ketones Trace H (Negative) Urine Blood Negative (Negative) Urine Nitrite Negative (Negative) Urine Bilirubin Negative (Negative) Urine Urobilinogen <2.0 (<2.0) mg/dL Ur Leukocyte Esterase Negative (Negative) Salicylates <1.0 mg/dL Urine Opiates Screen Not Detected (NotDetected) Ur Oxycodone Screen Not Detected (NotDetected) Urine Methadone Screen Not Detected (NotDetected) Ur Propoxyphene Screen Not Detected (NotDetected) Acetaminophen <10.0 ug/mL Ur Barbiturates Screen Not Detected (NotDetected) U Tricyclic Antidepress Not Detected (NotDetected) Ur Phencyclidine Scrn Not Detected (NotDetected) Ur Amphetamines Screen Not Detected (NotDetected) U Methamphetamines Scrn Not Detected (NotDetected) U Benzodiazepines Scrn Not Detected (NotDetected) Urine Cocaine Screen Not Detected (NotDetected) U Marijuana (THC) Screen Detected H (NotDetected) Serum Alcohol mg/dL Coronavirus (PCR) Detected A (Not Detectd) Disposition Is patient prescribed a controlled substance at d/c from ED?: No <Tim Al - Last Filed: 07/15/22 04:45> <Geovani Rosado - Last Filed: 07/15/22 04:59> Clinical Impression: Depression, Suicidal ideation, Alcohol withdrawal Disposition: ADMITTED IP TO THIS HOSP Condition: Stable
[2022-07-13] MEDS ORDERED: LORazepam 2 MG/ML INJ IV STA ×2 (01:06→04:58)
[2022-07-13 01:25] LABS: African American GFR (CKD) >90 (>60 ml/min/1.73 sqM); Anion Gap 16 mmol/L; Blood Urea Nitrogen 12 mg/dL (9-20); Calcium 8.6 mg/dL (8.4-10.2); Carbon Dioxide 19 mmol/L (22-30); Chloride 102 mmol/L (98-107); Glucose 173 mg/dL (74-99); Non-African American GFR(CKD) >90 (>60 ml/min/1.73 sqM); Potassium 4.5 mmol/L (3.5-5.1); Sodium 137 mmol/L (137-145)
--- NOTE | 2022-07-13 01:26 | CT ---
EXAMINATION TYPE: CT brain marc leslie con DATE OF EXAM: 07/13/2022 COMPARISON: None HISTORY: FALL CT DLP: 1426 mGycm Automated exposure control for dose reduction was used. Images of the brain and cervical spine obtained with no contrast. Ventricles have normal size. There is no mass effect or midline shift. No sign of intracranial hemorr robert. There is right frontal scalp hematoma that measures 12 mm in thickness. There is also some occi pital scalp soft tissue swelling. Skull base is intact. There is normal aeration of the mastoid sinus es. The cervical vertebra have normal alignment. Posterior elements are intact. There is hypertrophic spu rring of the endplates at C5-6. Facet joints are intact. No compression fracture. No focal bone destr uction. Prevertebral soft tissues are intact. IMPRESSION: Frontal scalp hematoma. Occipital scalp swelling. No acute intracranial abnormality. Mild spondylosis at C5-6. No cervical spine fracture.
[2022-07-13 01:27] LABS: Basophils # (A) 0.1 k/uL (0-0.2); Basophils % (A) 1 %; Eosinophils % (A) 0 %; HCT 47.1 % (39.0-53.0); HGB 16.9 gm/dL (13.0-17.5); Lymphocytes # (A) 1.5 k/uL (1.0-4.8); Lymphocytes % (A) 11 %; MCH 36.8 pg (25.0-35.0); MCHC 35.8 g/dL (31.0-37.0); MCV 102.7 fL (80.0-100.0); Macrocytosis Slight; Mean Platelet Volume 7.1; Monocytes # (A) 0.7 k/uL (0-1.0); Monocytes % (A) 5 %; Neutrophils # (A) 10.7 k/uL (1.3-7.7); Neutrophils % (A) 81 %; Platelet Count 255 k/uL (150-450); RBC 4.59 m/uL (4.30-5.90); RDW 13.7 % (11.5-15.5); WBC 13.2 k/uL (3.8-10.6)
[2022-07-13 01:31] LABS: Alcohol 277 mg/dL
[2022-07-13 01:31] LABS: INR 0.9 (<1.2); Partial Thromboplastin Time 23.7 sec (22.0-30.0); Prothrombin Time 9.7 sec (9.0-12.0)
--- NOTE | 2022-07-13 01:40 | CT ---
EXAMINATION TYPE: CT ChestAbdPelvis w con DATE OF EXAM: 07/13/2022 COMPARISON: None HISTORY: FALL CT DLP: 1038 mGycm Automated exposure control for dose reduction was used. CONTRAST: Performed with IV Contrast, patient injected with 100 mL of Isovue 300. Images obtained from the thoracic inlet to the floor of the pelvis with the IV contrast. The lungs are clear of infiltrate. No pleural effusion or pneumothorax. Heart is normal. No mediastin al adenopathy. There are no hilar masses. Thoracic aorta is intact. Pulmonary arteries appear normal. Liver spleen and stomach pancreas appear intact. There is a single 3 mm calcified gallstone. There is no adrenal mass. Kidneys show satisfactory contrast opacification. No hydronephrosis. Ureter s are not dilated. No retroperitoneal adenopathy. There is Prostatic calcification. No inguinal herni a. No free fluid in the pelvis. Appendix is medial and appears normal. Bladder distends smoothly. There are some sigmoid diverticula. There is mild wall thickening of the sigmoid colon. No ascites or free air. No sign of a bowel obstruction. Delayed images show normal renal excretion. The thoracic a nd lumbar vertebra show normal alignment. Posterior elements are intact. No paraspinal mass. Sternum is intact. The bony pelvis appears intact. Hip joints are intact. Sacroiliac joints are intact. There is 1 cm cortical cyst lower pole left kidney. No evidence of rib fracture. IMPRESSION: No evidence of traumatic injury. Wall thickening of the sigmoid colon with multiple diverticula. This could relate to diverticulitis o r colitis. No free air. Single small gallstone.
[2022-07-13] MEDS ORDERED: THIAMINE 100 MG/ML 2 ML VIAL IM STA (04:59)
[2022-07-13] MEDS ORDERED: ONDANSETRON 4 MG/2 ML VIAL IVP STA (09:50)
[2022-07-13 11:36] LABS: Appearance,Urine Clear (Clear); Bilirubin,Urine Negative (Negative); Blood,Urine Negative (Negative); Color,Urine Yellow; Glucose,Urine (UA) Negative (Negative); Ketones,Urine Trace (Negative); Leukocyte Esterase,Urine Negative (Negative); Nitrite,Urine Negative (Negative); Protein,Urine Trace (Negative); Specific Gravity,Urine 1.035 (1.001-1.035); Urobilinogen,Urine <2.0 mg/dL (<2.0)
[2022-07-13 12:04] LABS: Amphetamine Screen,Urine Not Detected (NotDetected); Barbiturate Screen,Urine Not Detected (NotDetected); Benzodiazepines Screen,Urine Not Detected (NotDetected); Cocaine Screen,Urine Not Detected (NotDetected); Methadone Screen, Urine Not Detected (NotDetected); Opiate Screen,Urine Not Detected (NotDetected); Oxycodone Screen, Urine Not Detected (NotDetected); Phencyclidine Screen,Urine Not Detected (NotDetected); Tricyclic Antidepressant,Urine Not Detected (NotDetected); Urn Cannabinoid Scrn Detected (NotDetected)
[2022-07-13] MEDS ORDERED: ACETAMINOPHEN TAB 500 MG TAB PO STA (13:08)
[2022-07-13 15:08] LABS: Acetaminophen <10.0 ug/mL; Salicylate <1.0 mg/dL
[2022-07-13] MEDS ORDERED: NALOXONE 0.4 MG/ML 1 ML VIAL IV PRN (15:56)
[2022-07-13] MEDS ORDERED: LORazepam 2 MG/ML INJ IV PRN (15:59)
[2022-07-13] MEDS: LORazepam 2 MG/ML INJ IV PRN ×3 (18:18→23:01)
[2022-07-13] MEDS: IBUPROFEN 400 MG TAB PO PRN ×2 (18:18→22:59)
[2022-07-13] MEDS: NICOTINE 21MG/24HR PATCH TRANSDERM SCH (23:00)
[2022-07-14] MEDS: LORazepam 2 MG/ML INJ IV PRN ×5 (02:01→22:05)
[2022-07-14] MEDS: IBUPROFEN 400 MG TAB PO PRN (04:36)
[2022-07-14] MEDS: chlordiazePOXIDE 25 MG CAP PO PRN ×2 (04:41→09:59)
[2022-07-14] MEDS: NICOTINE 21MG/24HR PATCH TRANSDERM SCH (09:59)
[2022-07-14] MEDS: THIAMINE 100 MG TAB PO SCH (09:59)
--- NOTE | 2022-07-14 15:31 | P.CN ---
Psychiatric Consult - . Consult date: 07/14/22 Consult:: 07/14/22 13:12 IDENTIFYING DATA: Mr. Woodard is a 42-year-old male, currently unemployed and lives with his is and has 2 kids, lives in a trailer. reason for consultation: "mood disorder, suicidal ideations and etoh" HISTORY OF PRESENT ILLNESS: The patient presented to the hospital with complaints of alcohol abuse and a recent fall. patient apparently had a hematoma over his R eye. Patient was endorsing several stressors at home and stated in the ER that he was suicidal, stated that he attempted suicide twice within the past few days. he claimed that he tried to set up mechanic coil winding machines the hose of the car tothe exhaust and it failed and also tried to OD on medications and drank etoh. patient had also mentioned to EPS nurse that "its not going to be good if leave here". patient tested positive for covid and was admitted medically. he had BAL of 277, UDS was positive for THC. he was seen today by video game script writer and was minimizng what had occured. he beleives that he does not need to be in the hspitali. he was focused on gettign back to work. he was also minimizing his depression and states that he does have high levels of anxiety. claims that his had recent knee surgery at home, trying to care for her and also his mother in law recently which has made them feel more depressed. he states that his sleep was poor, appetite was poor. claims that he has not been taking his antidepresant meds sine may 2019. At this time patient denies any homical ideations, intent or plan. denies any current SI. Patient denies any auditory, visual hallucinations and denies any paranoia or delusions. he has a history of drinking alcohol approximately 3 beers a day, smokes marijuana daily, cigarettes 1/2 packs per day. PAST PSYCHIATRIC HISTORY: he states that he has not followed up with a psychiatrist in the past however has been on trazodone and Vistaril and Ativan, seroquel and zoloft. Patient was scheduled to go into [facility] in the past but has not gone. He was previously admitted to the mental health unit in MarchApril 2019. Denies any previous suicide attempts. has a Hx of depression and anxiety along with etoh abuse. PAST MEDICAL HISTORY: as per medicine note. ALLERGIES: as per EMR CHEMICAL DEPENDENCY HISTORY: as per HPI FAMILY PSYCHIATRIC/SUBSTANCE USE HISTORY: Uncles suffered from depression. SOCIAL HISTORY: he states that he was born in [facility] and moved to [place] was raised. He claims that he dropped out school in ninth grade and eventually obtained his GED. He claims that he was working in an [employer] company, has changed jobs now. Patient has 2 kids is and lives with them in a trailer. MENTAL STATUS EXAM: General Appearance: Patient appears to be stated age is alert, superficial, appears upset. evasive. patient has fair hygiene and grooming. Unshaven Behavior: Patient is anxiously sitting on the bed, without any agitated behavior. upset and tearful. demanding. Speech: Patient's speech is fluent and nonpressured. anxious tone. Mood/Affect: Patient reports their mood is "depressed and anxious", affect is congruent Suicidality/Homicidality: Patient denies having any suicidal or homicidal ideation intent or plan. Perceptions: Patient denies any auditory or visual hallucinations. Though content/process: There is no evidence of any delusional thought content and thought process is linear and goal-directed. Focused on his social stressors and also discharge. minimizng need for hospitalization Memory and concentration: AOX3, grossly intact for the purposes of this session. Can spell "WORLD" backwards Judgment and insight: poor IMPRESSIONS: Major depressive disorder, recurrent, severe anxiety disorder unspecified Alcohol use disorder currenty in w/d Cannabis use disorder Nicotine dependence PLAN: -At this time patient DOES meet criteria for inpatient psychiatric admission however due to patient testing positive for covid, will conitnue to be seen and treated by psychiatry. -Would recommend the following medication changes/additions: []librium 10 mg qid for etoh withdrawal. seroquel 50 mg qhs for sleep/mood stabilization. cymbalta 30 mg daily for mood/anxiety. naltrexone 50 mg daily for etoh cravings. [-CIWA protocol with PRN Ativan for alcohol withdrawal. Continue to monitor vital signs.] [-Continue 1:1 sitter for safety] [-Cannot leave AMA at this time. Patient will need a petition and certification if attempting to leave AMA.] [-breaker table worker to provide patient with outpatient mental health/psychiatry resources for appropriate follow up upon discharge] [-Briquette Machine Operator spoke with patient about substance abuse and the harmful effects on medical and mental health, patient verbally understood and agreed.] [-breaker table worker to provide patient substance use treatment resources including AA/NA meetings in the community.] [-breaker table worker to provide patient with access line number to call for inpatient substance rehab] [-Communicated plan to patient's nurse] -Will continue to follow along -Please contact with any questions. 07/14/22 15:17
[2022-07-14] MEDS: DULoxetine HCL 30 MG CAPSULE.DR PO SCH (17:32)
[2022-07-14] MEDS: QUEtiapine 50 MG TAB PO SCH (22:01)
[2022-07-15 00:22] LABS: African American GFR (CKD) 127.7 (60.0-200.0); Albumin 3.9 g/dL (3.8-4.9); Albumin/Globulin Ratio 1.95 (1.60-3.17); Anion Gap 7.6 mmol/L (10.00-18.00); BUN/Creat Ratio 11.38 Ratio (12.00-20.00); Blood Urea Nitrogen 9.1 mg/dL (9.0-27.0); Calcium 9.2 mg/dL (8.7-10.3); Carbon Dioxide 31.4 mmol/L (20.0-27.5); Non-African American GFR(CKD) 110.2 (60.0-200.0); Potassium 4.3 mmol/L (3.5-5.5); Total Bilirubin 0.3 mg/dL (0.30-1.20); Total Protein 5.9 g/dL (6.2-8.2)
--- NOTE | 2022-07-15 01:08 | P.HPIM ---
History of Present Illness H&P Date: 07/14/22 Chief Complaint: Alcohol intoxication Patient is a 42-year-old male with a known history of seizure disorder and seizure-free since age 12 currently not on any medications, depression, PTSD and currently everyday smoker and heavy alcohol use and marijuana use presents to ER due to alcohol intoxication, fall and head injury. Patient was brought to the hospital by EMS. He was placed on c-collar during transport. Apparently patient had mid suicidal comments earlier in the day. Patient is somewhat poor historian. CT head and cervical spine showed frontal scalp hematoma. Occipital scalp swelling. No acute intracranial abnormality. Mild spondylosis at C5-6 and no cervical spine fracture. CT of the abdomen pelvis showed no evidence of traumatic injury. Wall thicken ing of the sigmoid colon with multiple diverticula. This could be related to diverticulitis or colitis. No free air. Single small gallstone. Laboratory data showed WBC 13.2, MCV 102.3 hemoglobin 16.9 and platelets 255 Sodium 137 potassium 4.5 chloride 102 bicarb is 19 BUN 12 and creatinine 0.7 and blood sugar is 173 Urinalysis showed no evidence of infection. UDS is positive for marijuana and serum alcohol level was 277. Coronavirus PCR detected. Acute alcohol intoxication Major depressive disorder with suicidal ideation Acute COVID-19 infection. Patient is not hypoxic. Anxiety disorder Cannabis use disorder Ongoing nicotine addiction DVT prophylaxis with Lovenox subcu Plan: Patient will be continued on alcohol withdrawal protocol. Thiamine and multivitamins ordered. Continue with Cymbalta and Seroquel as per psychiatry recommendations. Patient does meet inpatient psychiatric admission but due to COVID-19 positive status patient is currently on medical floor. Continue with one-to-one sitter and cannot leave AMA. Follow-up closely. Review of Systems ROS unobtainable: due to mental status Past Medical History Past Medical History: Seizure Disorder Additional Past Medical History / Comment(s): seizure free since he was 12- not on medication History of Any Multi-Drug Resistant Organisms: None Reported Past Surgical History: Orthopedic Surgery Additional Past Surgical History / Comment(s): right knee 2014 Past Anesthesia/Blood Transfusion Reactions: No Reported Reaction Past Psychological History: Depression, PTSD Smoking Status: Current every day smoker Past Alcohol Use History: Heavy Past Drug Use History: Marijuana - Past Family History Mother Additional Family Medical History / Comment(s): brain aneurysm Father Family Medical History: Diabetes Mellitus Medications and Allergies Home Medications Medication Instructions Recorded Confirmed Type Amoxicillin 500 mg PO TID 07/13/22 07/13/22 History predniSONE 10 mg PO BID 07/13/22 07/13/22 History Allergies Allergy/AdvReac Type Severity Reaction Status Date / Time No Known Allergies Allergy Verified 07/13/22 09:21 Physical Exam Vitals: Vital Signs Temp Pulse Pulse Resp BP BP Pulse Ox 07/14/22 07:36 97.8 F 85 18 160/94 97 07/14/22 01:47 98.3 F 97 18 159/96 95 07/13/22 19:37 98.7 F 96 18 143/84 96 07/13/22 17:54 98.1 F 94 17 124/78 98 07/13/22 17:12 98.5 F 96 18 150/96 97 07/13/22 13:43 93 18 135/82 96 Intake and Output 07/13/22 07/14/22 07/14/22 22:59 06:59 14:59 Intake Total 840 Balance 840 Intake: Oral 840 Other: Voiding Method Toilet # Voids 4 Weight 79.379 kg PHYSICAL EXAMINATION: Patient is lying in the bed , no acute distress, awake alert but lethargic and drowsy. Could not provide any history. HEENT: Normocephalic. Neck is supple. Pupils reactive. Nostrils clear. Oral cavity is moist. Neck reveals no JVD, carotid bruits, or thyromegaly. CHEST EXAMINATION: Trachea is central. Symmetrical expansion. Lung nieves clear to auscultation and percussion. CARDIAC: Normal S1, S2 with no gallops. No murmurs ABDOMEN: Soft. Bowel sounds present. Nontender. No organomegaly. No abdominal bruits. Extremities: reveal no edema. No clubbing or cyanosis Neurologically awake, alert,. No gross focal deficits noted Skin: No rash or skin lesions. Psychiatric: Could not be assessed at this time., Musculoskeletal: No joint swelling or deformity. Results CBC & Chem 7: 07/13/22 00:14 07/14/22 13:28 Labs: Abnormal Lab Results - Last 24 Hours (Table) 07/13/22 Range/Units 14:36 Coronavirus (PCR) Detected A (Not Detectd) Thrombosis Risk Factor Assmnt - DVT/VTE Prophylaxis DVT/VTE Prophylaxis: Pharmacologic Prophylaxis ordered - Choose All That Apply Any of the Below Risk Factors Present?: Yes Each Factor Represents 1 point: Age 41-60 years, Obesity (BMI >25) Other Risk Factors: No Thrombosis Risk Factor Assessment Total Risk Factor Score: 2 Thrombosis Risk Factor Assessment Level: Low Risk Assessment and Plan Time with Patient: Greater than 30
[2022-07-15] MEDS: LORazepam 2 MG/ML INJ IV PRN ×2 (03:38→19:53)
[2022-07-15] MEDS: ENOXAPARIN 40 MG/0.4 ML SYRINGE SQ SCH (08:34)
[2022-07-15] MEDS: THIAMINE 100 MG TAB PO SCH (08:35)
[2022-07-15] MEDS: ASCORBIC ACID 500 MG TAB PO SCH (08:35)
[2022-07-15] MEDS: CHOLECALCIFEROL 25 MCG (1000 IU) TABLET PO SCH (08:35)
[2022-07-15] MEDS: DULoxetine HCL 30 MG CAPSULE.DR PO SCH (08:35)
[2022-07-15] MEDS: NICOTINE 21MG/24HR PATCH TRANSDERM SCH (08:35)
[2022-07-15] MEDS: ZINC SULFATE 220 MG CAP PO SCH (08:35)
[2022-07-15] MEDS: NALTREXONE HCL 50 MG TAB PO SCH (08:35)
[2022-07-15 14:52] LABS: Basophils # (A) 0.08 X 10*3/uL (0.00-0.10); Basophils % (A) 0.9 %; Eosinophils % (A) 1.1 %; HCT 43.7 % (39.6-50.0); HGB 15.6 g/dL (13.0-17.0); Immature Grans, Automated 0.2 %; Lymphocytes # (A) 2.17 X 10*3/uL (0.90-5.00); Lymphocytes % (A) 23.6 %; MCH 34.9 pg (27.0-32.0); MCHC 35.7 g/dL (32.0-37.0); MCV 97.8 fL (80.0-97.0); Mean Platelet Volume 9.4 fL (9.5-12.2); Monocytes # (A) 0.84 X 10*3/uL (0.20-1.00); Monocytes % (A) 9.2 %; NRBC Per 100 WBC 0 /100 WBCS (0.0-0.0); Neutrophils # (A) 5.97 X 10*3/uL (1.80-7.70); Platelet Count 234 X 10*3/uL (140-440); RBC 4.47 X 10*6/uL (4.40-5.60); WBC 9.18 X 10*3/uL (4.50-10.00)
[2022-07-15 15:24] LABS: C Reactive Protein 1.2 mg/dL (0.00-0.80)
[2022-07-15 15:35] LABS: African American GFR (CKD) 121.7 (60.0-200.0); Anion Gap 14.6 mmol/L (10.00-18.00); BUN/Creat Ratio 6.89 Ratio (12.00-20.00); Blood Urea Nitrogen 6.2 mg/dL (9.0-27.0); Calcium 9.6 mg/dL (8.7-10.3); Carbon Dioxide 23.4 mmol/L (20.0-27.5); Potassium 4.2 mmol/L (3.5-5.5)
--- NOTE | 2022-07-15 19:33 | P.PN ---
Subjective Progress Note Date: 07/15/22 Patient is a 42-year-old male with a known history of seizure disorder and seizure-free since age 12 currently not on any medications, depression, PTSD and currently everyday smoker and heavy alcohol use and marijuana use presents to ER due to alcohol intoxication, fall and head injury. Patient was brought to the hospital by EMS. He was placed on c-collar during transport. Apparently patient had mid suicidal comments earlier in the day. Patient is somewhat poor historian. CT head and cervical spine showed frontal scalp hematoma. Occipital scalp swelling. No acute intracranial abnormality. Mild spondylosis at C5-6 and no cervical spine fracture. CT of the abdomen pelvis showed no evidence of traumatic injury. Wall thickening of the sigmoid colon with multiple diverticula. This could be re lated to diverticulitis or colitis. No free air. Single small gallstone. Laboratory data showed WBC 13.2, MCV 102.3 hemoglobin 16.9 and platelets 255 Sodium 137 potassium 4.5 chloride 102 bicarb is 19 BUN 12 and creatinine 0.7 and blood sugar is 173 Urinalysis showed no evidence of infection. UDS is positive for marijuana and serum alcohol level was 277. Coronavirus PCR detected. 07/15/2022 Patient is seen and evaluated and follow-up currently does have suicide sitter at the bedside and is on petition with psychiatry following closely. Patient was admitted with EtOH abuse and intoxication as well as suicidal ideation and attempted to take a bunch of pills prior to admission. Patient is continued on CIWA protocol and would recommend continued oral as well as Librium and Librium being titrated down. Patient reports to having no shortness of breath or chest pain noted. Patient was incidentally COVID-19 positive and denies any respiratory symptoms. Patient reports he was started on an antibiotic and prednisone at an urgent care for what he thought was an upper respiratory/sinus infection. Patient is afebrile denies chest pain or shortness of breath. Patient tolerating diet with no reports of nausea or vomiting noted. Patient denies suicidal ideation at bedside and awaiting clearance from psychiatry. Review of systems: Constitutional: No reports of fatigue, fever, or chills Cardiovascular: No reports of chest pain or palpitations Respiratory: No reports of shortness of breath or cough GI: No reports of nausea, vomiting, or diarrhea : No reports of dysuria or retention Neurovascular: No reports of weakness or numbness All medications have been reviewed Physical exam: Gen: This is a 42-year-old male who is awake, alert and oriented 3, well- developed, well-nourished HEENT: Head is atraumatic, normocephalic. Pupils equal, round. Sclerae is anicteric. NECK: Supple. No JVD. No lymphadenopathy. No thyromegaly. LUNGS: Clear to auscultation. No wheezes or rhonchi. No intercostal retractions. HEART: Regular rate and rhythm. No murmur. ABDOMEN: Soft. Bowel sounds are present. No masses. No tenderness. EXTREMITIES: No pedal edema. No calf tenderness. NEUROLOGICAL: Patient is awake, alert and oriented x3. Cranial nerves 2 through 12 are grossly intact. Assessment: Acute alcohol intoxication Major depressive disorder with suicidal ideation Acute COVID-19 infection. Patient is not hypoxic. Anxiety disorder Cannabis use disorder Ongoing nicotine addiction DVT prophylaxis with Lovenox subcu Plan: Patient will be continued on alcohol withdrawal protocol. Recommend and encouraged oral Ativan as needed and Librium taper per psychiatry Thiamine and multivitamins ordered. Continue with Cymbalta and Seroquel as per psychiatry recommendations. Patient does meet inpatient psychiatric admission but due to COVID-19 positive status patient is currently on medical floor. Continue with one-to-one sitter and cannot leave AMA. Patient be reevaluated by psychiatry in 24 hours and will consider possible discharge Will follow-up with repeat labs and continue suicide sitter for now. The impression and plan of care has been dictated by Kiara Ballesteros, Nurse Practitioner as directed. Dr. Ute MD I have performed a history and examination and MDM of this patient, discussed the same with the dictator, and agree with the dictator's assessment and plan as written ,documented as a scribe. Based on total visit time, I have performed more than 50% of the visit. Objective - Vital Signs Vital signs: Vital Signs Temp 98 F 07/15/22 10:55 Pulse 94 07/15/22 10:55 Resp 18 07/15/22 10:55 BP 151/85 07/15/22 10:55 Pulse Ox 96 07/15/22 10:55 FiO2 Intake & Output 07/14/22 07/15/22 07/15/22 18:59 06:59 18:59 Intake Total 330 Balance 330 Intake: Oral 330 Other: Voiding Method Toilet Toilet # Voids 2 4 - Labs CBC & Chem 7: 07/15/22 08:46 07/15/22 08:46 Labs: Abnormal Lab Results - Last 24 Hours (Table) 07/14/22 Range/Units 13:28 Carbon Dioxide 31.4 H (20.0-27.5) mmol/L Anion Gap 7.60 L (10.00-18.00) mmol/L BUN/Creatinine Ratio 11.38 L (12.00-20.00) Ratio Total Protein 5.9 L (6.2-8.2) g/dL
[2022-07-15] MEDS: QUEtiapine 50 MG TAB PO SCH (19:54)
--- NOTE | 2022-07-15 23:09 | PN ---
PROGRESS NOTE DATE OF SERVICE: 07/15/2022 INTERVAL HISTORY: The patient was seen today for psychiatric followup regarding the patient's depression, suicidal ideations, and alcohol use/withdrawal. The patient was seen sitting in the bed today and was agreeable to speak to filing writer. He was watching television calmly. He states that he is doing a bit better with regard to his withdrawal symptoms. He states that his mood is mildly improving along with his anxiety. He states that he was out pacing the hallways earlier today. He remains fairly focused on discharge. He was still fairly vague about what had occurred prior to coming into the hospital and minimizing his suicide attempts. He states that he wants to live more for his family. He claims that he is tolerating the medications fairly well, was able to sleep a bit better last night about 6 to 7 hours. He states that his appetite is improving. At this time, he is denying any suicidal or homicidal ideations, intent, or plan. He is denying any visual hallucinations or auditory hallucinations. MENTAL STATUS EXAMINATION: The patient was sitting on his bed, watching television, appears to be mildly more appropriate today, appears to be less depressed today. Affect is improving. He claims that his mood is also improving along with his anxiety. The patient is not displaying any agitative behavior, attempting to cooperate, continues to be fairly superficial. He is fairly focused on discharge and continues to minimize his need for hospitalization. He is denying any suicidal or homicidal ideations, intent, or plan. Denying any auditory or visual hallucinations. Judgment remains superficial. Insight also superficial/poor. This is improving, however. ASSESSMENT AND PLAN: Continue with current assessment. Continue to monitor for withdrawal. The patient's vital signs appear to be stabilizing. Continue with CIWA protocol with Ativan p.r.n. Decrease Librium to 10 mg t.i.d., for alcohol withdrawal and continue tapering off in the next day. Increase Cymbalta for 60 mg daily starting tomorrow for mood/anxiety. Continue with current dose of Seroquel 50 mg at bedtime for mood stabilization/insomnia. The patient will need to be connected and given [facility] followup appointment and intake prior to discharge. This can be given by clinical social work aide. Continue to discuss alcohol cessation. However, the patient does not want to get started on medication for cravings and does not want rehab at this time. Continue to monitor and please call with any questions. Continue to follow tomorrow and possibly sign off either tomorrow or over the weekend if the patient continues to improve and the patient has outpatient services arranged prior to the discharge from the hospital. MMODL / IJN: [id number] /
[2022-07-16] MEDS: ENOXAPARIN 40 MG/0.4 ML SYRINGE SQ SCH (08:18)
[2022-07-16] MEDS: NALTREXONE HCL 50 MG TAB PO SCH (08:18)
[2022-07-16] MEDS: THIAMINE 100 MG TAB PO SCH (08:18)
[2022-07-16] MEDS: ZINC SULFATE 220 MG CAP PO SCH (08:18)
[2022-07-16] MEDS: ASCORBIC ACID 500 MG TAB PO SCH (08:18)
[2022-07-16] MEDS: DULoxetine HCL 60 MG CAPSULE.DR PO SCH (08:18)
[2022-07-16] MEDS: CHOLECALCIFEROL 25 MCG (1000 IU) TABLET PO SCH (08:18)
[2022-07-16] MEDS: NICOTINE 21MG/24HR PATCH TRANSDERM SCH (10:22)
--- NOTE | 2022-07-16 17:10 | P.PN ---
Progress Note - Text Interval History: She states that he is doing "excellent" and denies any withdrawal symptoms. At this time patient denies any suicidal or homical ideations, intent or plan. Patient denies any auditory, visual hallucinations and denies any paranoia or delusions. Patient denies any side effects from the medications and has been co mpliant with meds. He repeatedly asks to be discharged home because he has to pay his bills, go back to his job, and take care of his family. He minimizes the suicidality MENTAL STATUS EXAM: General Appearance: Patient appears to be stated age is alert, superficial, appears upset. evasive. patient has fair hygiene and grooming. Unshaven Behavior: demanding. Speech: Patient's speech is fluent and nonpressured. Mood/Affect: Patient reports their mood is "excellent", affect is congruent Suicidality/Homicidality: Patient denies having any suicidal or homicidal ideation intent or plan. Perceptions: Patient denies any auditory or visual hallucinations. Though content/process: There is no evidence of any delusional thought content and thought process is linear and goal-directed. Focused on his social stressors and also discharge. minimizng need for hospitalization Memory and concentration: AOX3, grossly intact for the purposes of this session. Judgment and insight: poor IMPRESSIONS: Major depressive disorder, recurrent, severe anxiety disorder unspecified Alcohol use disorder currenty in w/d Cannabis use disorder Nicotine dependence PLAN: -At this time patient DOES meet criteria for inpatient psychiatric admission however due to patient testing positive for covid, will conitnue to be seen and treated by psychiatry. -decrese librium to 10 mg bid -continue seroquel 50 mg qhs for sleep/mood stabilization. cymbalta 30 mg daily for mood/anxiety. naltrexone 50 mg daily for etoh cravings. [-CIWA protocol with PRN Ativan for alcohol withdrawal. Continue to monitor vital signs.] [-Continue 1:1 sitter for safety] [-Cannot leave AMA at this time. Patient will need a petition and certification if attempting to leave AMA.] [-farmworker bulbs to provide patient with outpatient mental health/psychiatry resources for appropriate follow up upon discharge] [-farmworker bulbs to provide patient substance use treatment resources including AA/NA meetings in the community.] [-farmworker bulbs to provide patient with access line number to call for inpatient substance rehab] -Will continue to follow along -Please contact with any questions
[2022-07-16] MEDS: QUEtiapine 50 MG TAB PO SCH (21:37)
[2022-07-16] MEDS: LORazepam 2 MG/ML INJ IV PRN (21:45)
[2022-07-17] MEDS: NALTREXONE HCL 50 MG TAB PO SCH (09:57)
[2022-07-17] MEDS: ENOXAPARIN 40 MG/0.4 ML SYRINGE SQ SCH (09:57)
[2022-07-17] MEDS: DULoxetine HCL 60 MG CAPSULE.DR PO SCH (09:57)
[2022-07-17] MEDS: NICOTINE 21MG/24HR PATCH TRANSDERM SCH ×2 (09:57→09:58)
[2022-07-17] MEDS: ASCORBIC ACID 500 MG TAB PO SCH (09:57)
[2022-07-17] MEDS: ZINC SULFATE 220 MG CAP PO SCH (09:57)
[2022-07-17] MEDS: CHOLECALCIFEROL 25 MCG (1000 IU) TABLET PO SCH (09:57)
[2022-07-17] MEDS: THIAMINE 100 MG TAB PO SCH (09:57)
[2022-07-17] MEDS: LORazepam 2 MG/ML INJ IV PRN ×2 (15:27→21:23)
--- NOTE | 2022-07-17 17:28 | P.PN ---
Progress Note - Text Interval History: Patient is demanding discharge as soon as possible. Patient states that he has to go to work tonight, otherwise he will lose his job and his whole family will be homeless. Patient denies suicidal thoughts or homicidal thoughts. Patient denies psychosis. Patient continues to minimize the suicidality. When presented with the fact that he had attempted suicide 2 times over the past week, patient states that it was an accident. He states that he wants to live to see his family grow, to see his get better, tone see his daughter Sam, and to see his dad. With patient's consent, his was called at [phone]. His stated that she last spoke to Mr. Yates 2 days ago. She is concerned about him coming home and she states that patient will usually say what he needs to say in order to be discharged. She states that patient will probably drink alcohol when he comes home. MENTAL STATUS EXAM: General Appearance: Patient appears to be stated age is alert, superficial, appears upset. evasive. patient has fair hygiene and grooming. Unshaven Behavior: demanding. Speech: Patient's speech is fluent and nonpressured. Mood/Affect: Patient reports their mood is "ranked", affect is full range Suicidality/Homicidality: Patient denies having any suicidal or homicidal ideation intent or plan. Perceptions: Patient denies any auditory or visual hallucinations. Though content/process: There is no evidence of any delusional thought content and thought process is linear and goal-directed. Focused on his social stressors and also discharge. minimizng need for hospitalization Memory and concentration: AOX3, grossly intact for the purposes of this session. Judgment and insight: poor IMPRESSIONS: Major depressive disorder, recurrent, severe anxiety disorder unspecified Alcohol use disorder currenty in w/d Cannabis use disorder Nicotine dependence PLAN: -At this time patient DOES meet criteria for inpatient psychiatric admission however due to patient testing positive for covid, will conitnue to be seen and treated by psychiatry. -Continue Librium as patient has been refusing this medication -continue seroquel 50 mg qhs for sleep/mood stabilization. cymbalta 30 mg daily for mood/anxiety. naltrexone 50 mg daily for etoh cravings. [-CIWA protocol with PRN Ativan for alcohol withdrawal. Continue to monitor vital signs.] [-Continue 1:1 sitter for safety] [-Cannot leave AMA at this time. Patient will need a petition and certification if attempting to leave AMA.] [-washtub worker to provide patient with outpatient mental health/psychiatry resources for appropriate follow up upon discharge] [-washtub worker to provide patient substance use treatment resources including AA/NA meetings in the community.] [-washtub worker to provide patient with access line number to call for inpatient substance rehab] -Will continue to follow along -Please contact with any questions
[2022-07-17] MEDS: QUEtiapine 50 MG TAB PO SCH (21:23)
--- NOTE | 2022-07-18 01:09 | P.PN ---
Subjective Progress Note Date: 07/16/22 Patient is a 42-year-old male with a known history of seizure disorder and seizure-free since age 12 currently not on any medications, depression, PTSD and currently everyday smoker and heavy alcohol use and marijuana use presents to ER due to alcohol intoxication, fall and head injury. Patient was brought to the hospital by EMS. He was placed on c-collar during transport. Apparently patient had mid suicidal comments earlier in the day. Patient is somewhat poor historian. CT head and cervical spine showed frontal scalp hematoma. Occipital scalp swelling. No acute intracranial abnormality. Mild spondylosis at C5-6 and no cervical spine fracture. CT of the abdomen pelvis showed no evidence of traumatic injury. Wall thickening of the sigmoid colon with multiple diverticula. This could be re lated to diverticulitis or colitis. No free air. Single small gallstone. Laboratory data showed WBC 13.2, MCV 102.3 hemoglobin 16.9 and platelets 255 Sodium 137 potassium 4.5 chloride 102 bicarb is 19 BUN 12 and creatinine 0.7 and blood sugar is 173 Urinalysis showed no evidence of infection. UDS is positive for marijuana and serum alcohol level was 277. Coronavirus PCR detected. 07/15/2022 Patient is seen and evaluated and follow-up currently does have suicide sitter at the bedside and is on petition with psychiatry following closely. Patient was admitted with EtOH abuse and intoxication as well as suicidal ideation and attempted to take a bunch of pills prior to admission. Patient is continued on CIWA protocol and would recommend continued oral as well as Librium and Librium being titrated down. Patient reports to having no shortness of breath or chest pain noted. Patient was incidentally COVID-19 positive and denies any respiratory symptoms. Patient reports he was started on an antibiotic and prednisone at an urgent care for what he thought was an upper respiratory/sinus infection. Patient is afebrile denies chest pain or shortness of breath. Patient tolerating diet with no reports of nausea or vomiting noted. Patient denies suicidal ideation at bedside and awaiting clearance from psychiatry. 07/16/2022 Patient is currently sitting on side of the bed. No complaints of chest pain or shortness of breath. Wants to be discharged home. Patient is also refusing Kathryn rium. Continues to have withdrawal symptoms. Otherwise patient is on room air. Denies any suicidal ideation. Psychiatry is following. Laboratory data reviewed. Review of systems: Constitutional: No reports of fatigue, fever, or chills Cardiovascular: No reports of chest pain or palpitations Respiratory: No reports of shortness of breath or cough GI: No reports of nausea, vomiting, or diarrhea : No reports of dysuria or retention Neurovascular: No reports of weakness or numbness All medications have been reviewed Physical exam: Gen: This is a 42-year-old male who is awake, alert and oriented 3, well- developed, well-nourished HEENT: Head is atraumatic, normocephalic. Pupils equal, round. Sclerae is anicteric. NECK: Supple. No JVD. No lymphadenopathy. No thyromegaly. LUNGS: Clear to auscultation. No wheezes or rhonchi. No intercostal retractions. HEART: Regular rate and rhythm. No murmur. ABDOMEN: Soft. Bowel sounds are present. No masses. No tenderness. EXTREMITIES: No pedal edema. No calf tenderness. NEUROLOGICAL: Patient is awake, alert and oriented x3. Cranial nerves 2 through 12 are grossly intact. Assessment: Acute alcohol intoxication Major depressive disorder with suicidal ideation Acute COVID-19 infection. Patient is not hypoxic. Anxiety disorder Cannabis use disorder Ongoing nicotine addiction DVT prophylaxis with Lovenox subcu Plan: Patient will be continued on alcohol withdrawal protocol. Recommend and encouraged oral Ativan as needed and Librium taper per psychiatry Thiamine and multivitamins ordered. Continue with Cymbalta and Seroquel as per psychiatry recommendations. Patient does meet inpatient psychiatric admission but due to COVID-19 positive status patient is currently on medical floor. Continue with one-to-one sitter and cannot leave AMA. Patient be reevaluated by psychiatry in 24 hours and will consider possible discharge Will follow-up with repeat labs and continue suicide sitter for now. Objective - Vital Signs Vital signs: Vital Signs Temp 98 F 07/16/22 20:00 Pulse 68 07/16/22 20:00 Resp 18 07/16/22 20:00 BP 144/94 07/16/22 20:00 Pulse Ox 96 07/16/22 20:00 FiO2 Intake & Output 07/16/22 07/16/22 07/17/22 06:59 18:59 06:59 Intake Total 118 Balance 118 Intake: Oral 118 Other: Voiding Method Toilet # Voids 2 - Labs CBC & Chem 7: 07/15/22 08:46 07/15/22 08:46
--- NOTE | 2022-07-18 01:11 | P.PN ---
Subjective Progress Note Date: 07/17/22 Patient is a 42-year-old male with a known history of seizure disorder and seizure-free since age 12 currently not on any medications, depression, PTSD and currently everyday smoker and heavy alcohol use and marijuana use presents to ER due to alcohol intoxication, fall and head injury. Patient was brought to the hospital by EMS. He was placed on c-collar during transport. Apparently patient had mid suicidal comments earlier in the day. Patient is somewhat poor historian. CT head and cervical spine showed frontal scalp hematoma. Occipital scalp swelling. No acute intracranial abnormality. Mild spondylosis at C5-6 and no cervical spine fracture. CT of the abdomen pelvis showed no evidence of traumatic injury. Wall thickening of the sigmoid colon with multiple diverticula. This could be re lated to diverticulitis or colitis. No free air. Single small gallstone. Laboratory data showed WBC 13.2, MCV 102.3 hemoglobin 16.9 and platelets 255 Sodium 137 potassium 4.5 chloride 102 bicarb is 19 BUN 12 and creatinine 0.7 and blood sugar is 173 Urinalysis showed no evidence of infection. UDS is positive for marijuana and serum alcohol level was 277. Coronavirus PCR detected. 07/15/2022 Patient is seen and evaluated and follow-up currently does have suicide sitter at the bedside and is on petition with psychiatry following closely. Patient was admitted with EtOH abuse and intoxication as well as suicidal ideation and attempted to take a bunch of pills prior to admission. Patient is continued on CIWA protocol and would recommend continued oral as well as Librium and Librium being titrated down. Patient reports to having no shortness of breath or chest pain noted. Patient was incidentally COVID-19 positive and denies any respiratory symptoms. Patient reports he was started on an antibiotic and prednisone at an urgent care for what he thought was an upper respiratory/sinus infection. Patient is afebrile denies chest pain or shortness of breath. Patient tolerating diet with no reports of nausea or vomiting noted. Patient denies suicidal ideation at bedside and awaiting clearance from psychiatry. 07/16/2022 Patient is currently sitting on side of the bed. No complaints of chest pain or shortness of breath. Wants to be discharged home. Patient is also refusing Kathryn rium. Continues to have withdrawal symptoms. Otherwise patient is on room air. Denies any suicidal ideation. Psychiatry is following. Laboratory data reviewed. 07/17/2022 Patient is currently resting in bed. Awake alert and oriented. Demanding to be discharged home. Denies any suicidal thoughts. Off note patient had attempted suicide twice over the past week. Psychiatry is on board. Recommending inpatient psychiatric admission. Review of systems: Constitutional: No reports of fatigue, fever, or chills Cardiovascular: No reports of chest pain or palpitations Respiratory: No reports of shortness of breath or cough GI: No reports of nausea, vomiting, or diarrhea : No reports of dysuria or retention Neurovascular: No reports of weakness or numbness All medications have been reviewed Physical exam: Gen: This is a 42-year-old male who is awake, alert and oriented 3, well-developed, well-nourished HEENT: Head is atraumatic, normocephalic. Pupils equal, round. Sclerae is anicteric. NECK: Supple. No JVD. No lymphadenopathy. No thyromegaly. LUNGS: Clear to auscultation. No wheezes or rhonchi. No intercostal retractions. HEART: Regular rate and rhythm. No murmur. ABDOMEN: Soft. Bowel sounds are present. No masses. No tenderness. EXTREMITIES: No pedal edema. No calf tenderness. NEUROLOGICAL: Patient is awake, alert and oriented x3. Cranial nerves 2 through 12 are grossly intact. Assessment: Acute alcohol intoxication Major depressive disorder with suicidal ideation Acute COVID-19 infection. Patient is not hypoxic. Anxiety disorder Cannabis use disorder Ongoing nicotine addiction DVT prophylaxis with Lovenox subcu Plan: Patient will be continued on alcohol withdrawal protocol. Recommend and encouraged oral Ativan as needed and Librium taper per psychiatry Thiamine and multivitamins ordered. Continue with Cymbalta and Seroquel as per psychiatry recommendations. Patient does meet inpatient psychiatric admission but due to COVID-19 positive status patient is currently on medical floor. Continue with one-to-one sitter and cannot leave AMA. Will follow-up with repeat labs and continue suicide sitter for now. Objective - Vital Signs Vital signs: Vital Signs Temp 98.5 F 07/17/22 13:25 Pulse 67 07/17/22 13:25 Resp 19 07/17/22 13:25 BP 149/99 07/17/22 13:25 Pulse Ox 96 07/17/22 13:25 FiO2 Intake & Output 07/17/22 07/17/2207/18/23 06:59 18:59 06:59 Intake Total 236 Balance 236 Intake: Oral 236 Other: Voiding Method Toilet # Voids 4 3 - Labs CBC & Chem 7: 07/15/22 08:46 07/15/22 08:46
[2022-07-18] MEDS: ZINC SULFATE 220 MG CAP PO SCH (10:52)
[2022-07-18] MEDS: CHOLECALCIFEROL 25 MCG (1000 IU) TABLET PO SCH (10:52)
[2022-07-18] MEDS: ASCORBIC ACID 500 MG TAB PO SCH (10:52)
[2022-07-18] MEDS: NICOTINE 21MG/24HR PATCH TRANSDERM SCH (10:52)
[2022-07-18] MEDS: ENOXAPARIN 40 MG/0.4 ML SYRINGE SQ SCH (10:52)
[2022-07-18] MEDS: THIAMINE 100 MG TAB PO SCH (10:52)
[2022-07-18] MEDS: NALTREXONE HCL 50 MG TAB PO SCH (10:52)
[2022-07-18] MEDS: DULoxetine HCL 60 MG CAPSULE.DR PO SCH (10:53)
[2022-07-18 15:30] VITALS: BMI 27.3
--- NOTE | 2022-07-18 15:59 | P.PN ---
Progress Note - Text Progress Note Date: 07/18/22 Interval history: Patient was seen today for psychiatric follow up. patient states that he is do ing much better today. he states that his depression is better and he is feeling more hopeful today. he states that his anxiety is under better control. he claims that he is able to sleep much better last night with the Seroquel. He is denying any withdrawal symptoms at this time from the alcohol. He continues to state that he is willing to do outpatient treatment and not go to rehab. We spoke again and got up about [place] and safety and if he needs to come back to the hospital for reevaluation and possibly psychiatric admission. Claims that he has a fair appetite. Not having any side effects from medications. He is denying any suicidal or homicidal ideations or plan. Denying any auditory visual hallucinations. He states that he wants to live for his family and also for his life. Mental status exam: General Appearance: Patient appears to be stated age is alert, more cooperative today. patient has fair hygiene and grooming. Unshaven Behavior: Patient is sitting on the bed, without any agitated behavior were cooperative today Speech: Patient's speech is fluent and nonpressured. anxious tone. Mood/Affect: Patient reports their mood is "better", affect is congruent Suicidality/Homicidality: Patient denies having any suicidal or homicidal ideation intent or plan. Perceptions: Patient denies any auditory or visual hallucinations. Though content/process: There is no evidence of any delusional thought content and thought process is linear and goal-directed. Focused on discharge. Memory and concentration: AOX3, grossly intact for the purposes of this session. Can spell "WORLD" backwards Judgment and insight: Improving IMPRESSIONS: Major depressive disorder, recurrent, severe anxiety disorder unspecified Alcohol use disorder Cannabis use disorder Nicotine dependence PLAN: -At this time patient DOES meet criteria for inpatient psychiatric admission however due to patient testing positive for covid, will conitnue to be seen and treated by psychiatry. -Would recommend the following medication changes/additions: continue with seroquel 50 mg qhs for sleep/mood stabilization. continue cymbalta 60 mg daily for mood/anxiety. naltrexone 50 mg daily for etoh cravings. -nurse or primary team to give resources for Mental follow up as an outpatient. he is refusing rehab at this time. -screenplay writer spoke with patients over the phone to discuss care and safety at home. she claims that there is no guns or weapons and will encourage him to seek outpt follow up. -Communicated plan to patient's nurse -at this time psych will sign off. -Please contact with any questions.
[2022-07-18 16:23] VITALS: BP 117/74; PULSE 85; RESP 17; TEMP 98.1
--- NOTE | 2022-07-20 06:47 | P.DS ---
Providers Date of admission: 07/13/22 15:59 Expected date of discharge: 07/18/22 Attending physician: Ashley Harrison Consults: 07/13/22 15:56 Consult Physician Routine Consulting Provider: Mazin Verdugo Consult Reason/Comments: Mood disorder with suicidal ideation. Alcohol use disorder. Do you want consulting provider notified?: Yes Primary care physician: Stated None Hospital Course: Final diagnosis Acute alcohol intoxication Major depressive disorder with suicidal ideation Acute COVID-19 infection. Patient is not hypoxic. Anxiety disorder Cannabis use disorder Ongoing nicotine addiction DVT prophylaxis Discharge disposition Patient is being discharged in a stable condition with guarded prognosis to home. Patient will follow-up with Dr. Ribera in the outpatient setting upon discharge. Patient is to follow-up with [facility] outpatient and continue to avoid alcohol use or exposure. Total time taken is greater than 35 minutes. Hospital course This is a 42-year-old male who was recently admitted alcohol intoxication with suicidal ideation and being closely monitored. Patient was scheduled for inpatient psychiatric evaluation although was incidentally found to be Kovic positive. Patient is not having any symptoms of Covid including no respiratory symptoms. Patient was continued on CIWA protocol along with Librium of which patient had been refusing. Patient being followed by psychiatry in the medical unit with medication adjustments being made and has cleared the patient for outpatient follow-up with [facility]. Patient strongly encouraged to avoid alcohol use or exposure. Patient denies any thoughts of suicidal ideation of harming himself or others. Discussed with "jesús" over the phone to ensure there are no firearms in the home. Currently no reports of chest pain, shortness of breath, or palpitations. Patient is afebrile. No reports of nausea or vomiting and patient is tolerating diet. Patient will be discharged home today. Guarded prognosis and high risk for readmission due to noncompliance and continued alcohol use Physical exam: Gen: This is a 42-year-old male who is awake, alert and oriented 3, well- developed, well-nourished HEENT: Head is atraumatic, normocephalic. Pupils equal, round. Sclerae is anicteric. NECK: Supple. No JVD. No lymphadenopathy. No thyromegaly. LUNGS: Clear to auscultation. No wheezes or rhonchi. No intercostal retractions. HEART: Regular rate and rhythm. No murmur. ABDOMEN: Soft. Bowel sounds are present. No masses. No tenderness. EXTREMITIES: No pedal edema. No calf tenderness. NEUROLOGICAL: Patient is awake, alert and oriented x3. Cranial nerves 2 through 12 are grossly intact. Please refer to medication reconciliation sheet for a list of medications. The impression and plan of care has been dictated by Kiara Ballesteros, Nurse Practitioner as directed. Dr. Isis MD I have performed a history and examination and MDM of this patient, discussed the same with the dictator, and agree with the dictator's assessment and plan as written ,documented as a scribe. Based on total visit time, I have performed more than 50% of the visit. Patient Condition at Discharge: Stable Plan - Discharge Summary Discharge Rx Participant: No New Discharge Prescriptions: New Zinc Sulfate [Orazinc] 220 mg PO DAILY #15 cap Naltrexone HCl [Revia] 50 mg PO DAILY #30 tab Thiamine [Vitamin B-1] 100 mg PO DAILY #30 tab Ascorbic Acid [Vitamin C] 500 mg PO DAILY #30 tab Cholecalciferol [Vitamin D3 (25 Mcg = 1000 Iu)] 25 mcg PO DAILY #30 tab DULoxetine HCL [Cymbalta] 60 mg PO DAILY #30 cap QUEtiapine [SEROquel] 50 mg PO HS #30 tab Continue predniSONE 10 mg PO BID Discontinued Amoxicillin 500 mg PO TID Discharge Medication List predniSONE 10 mg PO BID 07/13/22 [History] Ascorbic Acid [Vitamin C] 500 mg PO DAILY #30 tab 07/15/22 [Rx] Cholecalciferol [Vitamin D3 (25 Mcg = 1000 Iu)] 25 mcg PO DAILY #30 tab 07/15/22 [Rx] Thiamine [Vitamin B-1] 100 mg PO DAILY #30 tab 07/15/22 [Rx] Zinc Sulfate [Orazinc] 220 mg PO DAILY #15 cap 07/15/22 [Rx] DULoxetine HCL [Cymbalta] 60 mg PO DAILY #30 cap 07/18/22 [Rx] Naltrexone HCl [Revia] 50 mg PO DAILY #30 tab 07/18/22 [Rx] QUEtiapine [SEROquel] 50 mg PO HS #30 tab 07/18/22 [Rx] Follow up Appointment(s)/Referral(s): Anahi Ribera MD [REFERRING] - 1-2 days (Office closed at time of discharge. Please call for appointment.) Discharge/Stand Alone Forms: Community Resources, Outpatient Counseling, In Substance Abuse Facilities Discharge Disposition: HOME SELF-CARE
== END 2022-07-18 17:36 | disposition home or self-care (01) | DRG 775 ==
LOC: EC 00:13 → 4SSUR 15:59
PROVIDERS: ADMIT Hospitalist; ATTEND Hospitalist
DX: F10.129 Alcohol abuse with intoxication, unspecified (principal); U07.1 COVID-19; F10.139 Alcohol abuse with withdrawal, unspecified; F33.2 Major depressive disorder, recurrent severe without psychotic features; T14.91XA Suicide attempt, initial encounter; X83.8XXA Intentional self-harm by other specified means, initial encounter; G40.909 Epilepsy, unspecified, not intractable, without status epilepticus; Y90.8 Blood alcohol level of 240 mg/100 ml or more; S00.03XA Contusion of scalp, initial encounter; K80.20 Calculus of gallbladder without cholecystitis without obstruction; W19.XXXA Unspecified fall, initial encounter; K57.30 Diverticulosis of large intestine without perforation or abscess without bleeding; F41.9 Anxiety disorder, unspecified; M47.812 Spondylosis without myelopathy or radiculopathy, cervical region; F12.10 Cannabis abuse, uncomplicated; Z53.29 Procedure and treatment not carried out because of patient's decision for other reasons; E66.9 Obesity, unspecified; Z68.27 Body mass index [BMI] 27.0-27.9, adult; F43.10 Post-traumatic stress disorder, unspecified; Z79.899 Other long term (current) drug therapy; Z71.41 Alcohol abuse counseling and surveillance of alcoholic; Z91.148 Patient's other noncompliance with medication regimen for other reason
CPT/HCPCS: 36415; 70450; 71260; 72125; 74177; 80048; 80053; 80143; 80179; 80306; 80320; 81003; 82607; 83615; 85025; 85610; 85730; 86140; 87635; 90471; 90715; 96372; 96374; 96375; 96376; 99285

== ENCOUNTER 2022-07-24 21:02 | Inpatient (IN) | payer MEDICAID, OTHER ==
--- NOTE | 2022-07-24 21:37 | ED ---
General Adult HPI - General Chief complaint: Psychiatric Symptoms Stated complaint: Mental Health Time Seen by Provider: 07/24/22 21:06 Source: patient, RN notes reviewed, old records reviewed Mode of arrival: EMS Limitations: no limitations - History of Present Illness Initial comments: 42 yo male presents for suicide attempt, suicidal ideation. Patient took 8 150 mg Lyrica. Approximately 12-14 hours prior to presentation. He states he did consume alcohol as well. He states this was a suicide attempt. denies physical complaints at this time. - Related Data Previous Rx's Medication Instructions Recorded Ascorbic Acid [Vitamin C] 500 mg PO DAILY #30 tab 07/15/22 Cholecalciferol [Vitamin D3 (25 25 mcg PO DAILY #30 tab 07/15/22 Mcg = 1000 Iu)] Thiamine [Vitamin B-1] 100 mg PO DAILY #30 tab 07/15/22 Zinc Sulfate [Orazinc] 220 mg PO DAILY #15 cap 07/15/22 DULoxetine HCL [Cymbalta] 60 mg PO DAILY #30 cap 07/18/22 Naltrexone HCl [Revia] 50 mg PO DAILY #30 tab 07/18/22 QUEtiapine [SEROquel] 50 mg PO HS #30 tab 07/18/22 Allergies Allergy/AdvReac Type Severity Reaction Status Date / Time No Known Allergies Allergy Verified 07/24/22 21:43 Review of Systems ROS Statement: Those systems with pertinent positive or pertinent negative responses have been documented in the HPI. ROS Other: All systems not noted in ROS Statement are negative. Past Medical History Past Medical History: No Reported History, Seizure Disorder Additional Past Medical History / Comment(s): seizure free since he was 12- not on medication History of Any Multi-Drug Resistant Organisms: None Reported Past Surgical History: Orthopedic Surgery Additional Past Surgical History / Comment(s): right knee 2014 Past Anesthesia/Blood Transfusion Reactions: No Reported Reaction Past Psychological History: Depression Smoking Status: Former smoker Past Alcohol Use History: Occasional Past Drug Use History: Marijuana - Past Family History Mother Additional Family Medical History / Comment(s): brain aneurysm Father Family Medical History: Diabetes Mellitus General Exam Limitations: no limitations General appearance: alert, in no apparent distress Head exam: Present: atraumatic, normocephalic Eye exam: Present: normal appearance, PERRL ENT exam: Present: normal exam Neck exam: Present: normal inspection. Absent: tenderness Respiratory exam: Present: normal lung sounds bilaterally. Absent: respiratory distress, wheezes Cardiovascular Exam: Present: regular rate, normal rhythm GI/Abdominal exam: Present: soft. Absent: distended, tenderness, guarding Extremities exam: Present: normal inspection, normal capillary refill Neurological exam: Present: alert, oriented X3, CN II-XII intact. Absent: motor sensory deficit Psychiatric exam: Present: depressed, flat affect, suicidal ideation Skin exam: Present: warm, dry, intact. Absent: cyanosis, diaphoretic Course Vital Signs 07/24/22 21:07 Temperature 97.5 F L Pulse Rate 85 Respiratory 16 Rate Blood Pressure 104/64 O2 Sat by Pulse 98 Oximetry - Reevaluation(s) Reevaluation #1: 07/24/22 23:32 Poison control has cleared the patient, EPS to evaluate. EKG Findings - EKG Comments: EKG Findings:: ekg: sinus rhythm rate of 68, IL interval 139, QRS duration 92, QTC 386, no ST segment Medical Decision Making - Medical Decision Making Was pt. sent in by a medical professional or institution (, PA, JEWELRY CASTING MODEL MAKER, urgent care, hospital, or jail...) When possible be specific @ -No Did you speak to anyone other than the patient for history (EMS, parent, family, police, friend...)? What history was obtained from this source @ -Paramedics Did you review nursing and triage notes (agree or disagree)? Why? @ -I reviewed and agree with nursing and triage notes Were old charts reviewed (outside hosp., previous admission, EMS record, old EKG, old radiological studies, urgent care reports/EKG's, jail records)? Report findings @ -[Reviewed previous mental health evaluation Differential Diagnosis (chest pain, altered mental status, abdominal pain women, abdominal pain men, vaginal bleeding, weakness, fever, dyspnea, syncope, headache, dizziness, GI bleed, back pain, seizure, CVA, palpatations, mental health, musculoskeletal)? @ -Differential Mental Health Depression, anxiety, bipolar, psychosis, schizophrenia, borderline personality, situational depression, adjustment disorder, behavioral disorder, brain tumor, malingering, substance abuse, encephalopathy, medication reaction, dementia, hypothyroidism, degenerative neurologic disorder, lupus.... This is not meant to be all-inclusive list EKG interpreted by me (3pts min.). @ -As above X-rays interpreted by me (1pt min.). @ -None done CT interpreted by me (1pt min.). @ -None done U/S interpreted by me (1pt. min.). @ -None done What testing was considered but not performed or refused? (CT, X-rays, U/S, labs)? Why? @ -None What meds were considered but not given or refused? Why? @ -None Did you discuss the management of the patient with other professionals (professionals i.e. , PA, JEWELRY CASTING MODEL MAKER, lab, RT, psych nurse, 7th grade social studies teacher, connie cleaner, teacher, staff antisubmarine officer, family preservation caseworker)? Give summary @ -[EPS nurse Was smoking cessation discussed for >3mins.? @ -No Was critical care preformed (if so, how long)? @ -No Were there social determinants of health that impacted care today? How? (H omelessness, low income, unemployed, alcoholism, drug addiction, transportation, low edu. Level, literacy, decrease access to med. care, [facility], rehab)? @ -No Was there de-escalation of care discussed even if they declined (Discuss DNR or withdrawal of care, Hospice)? DNR status @ -No What co-morbidities impacted this encounter? (DM, HTN, Smoking, COPD, CAD, Cancer, CVA, ARF, Chemo, Hep., AIDS, mental health diagnosis, sleep apnea, morbid obesity)? @ -None Was patient admitted / discharged? Hospital course, mention meds given and route, prescriptions, significant lab abnormalities, going to OR and other pertinent info. @ -[42-year-old male with suicide attempt. Patient medically cleared after ingestion of both alcohol and Lyrica. He was evaluated by EPS and felt to require inpatient psychiatric evaluation treatment. I agree with this assessment. Undiagnosed new problem with uncertain prognosis? @ -No Drug Therapy requiring intensive monitoring for toxicity (Heparin, Nitro, Insulin, Cardizem)? @ -No Were any procedures done? @ -No Diagnosis/symptom? @ -Depression, suicide attempt Acute, or Chronic, or Acute on Chronic? @ -[Acute Uncomplicated (without systemic symptoms) or Complicated (systemic symptoms)? @ -[Complicated Side effects of treatment? @ -No Exacerbation, Progression, or Severe Exacerbation? @ -No Poses a threat to life or bodily function? How? (Chest pain, USA, CO, pneumonia, PE, COPD, DKA, ARF, appy, cholecystitis, CVA, Diverticulitis, Homicidal, Suicidal, threat to staff... and all critical care pts) @ -[Yes, suicidal attempt and risk of self-harm - Lab Data Result diagrams: 07/24/22 21:37 07/24/22 21:37 Lab Results 07/24/22 07/24/22 07/24/22 Range/Units 21:37 21:37 21:37 WBC 7.9 (3.8-10.6) k/uL RBC 4.60 (4.30-5.90) m/uL Hgb 16.0 (13.0-17.5) gm/dL Hct 46.7 (39.0-53.0) % MCV 101.4 H (80.0-100.0) fL MCH 34.8 (25.0-35.0) pg MCHC 34.3 (31.0-37.0) g/dL RDW 12.4 (11.5-15.5) % Plt Count 326 (150-450) k/uL MPV 6.6 Neutrophils % 57 % Lymphocytes % 32 % Monocytes % 6 % Eosinophils % 2 % Basophils % 1 % Neutrophils # 4.5 (1.3-7.7) k/uL Lymphocytes # 2.5 (1.0-4.8) k/uL Monocytes # 0.4 (0-1.0) k/uL Eosinophils # 0.1 (0-0.7) k/uL Basophils # 0.1 (0-0.2) k/uL PT 11.0 (9.0-12.0) sec INR 1.1 (<1.2) Sodium 146 H (137-145) mmol/L Potassium 4.2 (3.5-5.1) mmol/L Chloride 108 H (98-107) mmol/L Carbon Dioxide 29 (22-30) mmol/L Anion Gap 9 mmol/L BUN 13 (9-20) mg/dL Creatinine 0.96 (0.66-1.25) mg/dL Est GFR (CKD-EPI)AfAm >90 (>60 ml/min/1.73 sqM) Est GFR (CKD-EPI)NonAf >90 (>60 ml/min/1.73 sqM) Glucose 82 (74-99) mg/dL Plasma Lactic Acid Harvey (0.7-2.0) mmol/L Calcium 8.7 (8.4-10.2) mg/dL Magnesium 2.5 H (1.6-2.3) mg/dL Total Bilirubin 0.3 (0.2-1.3) mg/dL AST 28 (17-59) U/L ALT 27 (4-49) U/L Alkaline Phosphatase 70 (38-126) U/L Total Protein 7.3 (6.3-8.2) g/dL Albumin 4.3 (3.5-5.0) g/dL Salicylates <1.0 mg/dL Acetaminophen <10.0 ug/mL Serum Alcohol 138 mg/dL Coronavirus (PCR) (Not Detectd) 07/24/22 07/24/22 Range/Units 21:37 22:32 WBC (3.8-10.6) k/uL RBC (4.30-5.90) m/uL Hgb (13.0-17.5) gm/dL Hct (39.0-53.0) % MCV (80.0-100.0) fL MCH (25.0-35.0) pg MCHC (31.0-37.0) g/dL RDW (11.5-15.5) % Plt Count (150-450) k/uL MPV Neutrophils % % Lymphocytes % % Monocytes % % Eosinophils % % Basophils % % Neutrophils # (1.3-7.7) k/uL Lymphocytes # (1.0-4.8) k/uL Monocytes # (0-1.0) k/uL Eosinophils # (0-0.7) k/uL Basophils # (0-0.2) k/uL PT (9.0-12.0) sec INR (<1.2) Sodium (137-145) mmol/L Potassium (3.5-5.1) mmol/L Chloride (98-107) mmol/L Carbon Dioxide (22-30) mmol/L Anion Gap mmol/L BUN (9-20) mg/dL Creatinine (0.66-1.25) mg/dL Est GFR (CKD-EPI)AfAm (>60 ml/min/1.73 sqM) Est GFR (CKD-EPI)NonAf (>60 ml/min/1.73 sqM) Glucose (74-99) mg/dL Plasma Lactic Acid Harvey 1.7 (0.7-2.0) mmol/L Calcium (8.4-10.2) mg/dL Magnesium (1.6-2.3) mg/dL Total Bilirubin (0.2-1.3) mg/dL AST (17-59) U/L ALT (4-49) U/L Alkaline Phosphatase (38-126) U/L Total Protein (6.3-8.2) g/dL Albumin (3.5-5.0) g/dL Salicylates mg/dL Acetaminophen ug/mL Serum Alcohol mg/dL Coronavirus (PCR) Not Detected (Not Detectd) Disposition Clinical Impression: Depression, Suicidal ideation, Attempted suicide [facility] Condition: Stable Is patient prescribed a controlled substance at d/c from ED?: No Time of Disposition: 01:17
[2022-07-24 22:20] LABS: Basophils # (A) 0.1 k/uL (0-0.2); Basophils % (A) 1 %; Eosinophils # (A) 0.1 k/uL (0-0.7); Eosinophils % (A) 2 %; HCT 46.7 % (39.0-53.0); Lymphocytes # (A) 2.5 k/uL (1.0-4.8); Lymphocytes % (A) 32 %; MCH 34.8 pg (25.0-35.0); MCHC 34.3 g/dL (31.0-37.0); MCV 101.4 fL (80.0-100.0); Mean Platelet Volume 6.6; Monocytes # (A) 0.4 k/uL (0-1.0); Monocytes % (A) 6 %; Neutrophils # (A) 4.5 k/uL (1.3-7.7); Neutrophils % (A) 57 %; Platelet Count 326 k/uL (150-450); RDW 12.4 % (11.5-15.5); WBC 7.9 k/uL (3.8-10.6)
[2022-07-24 22:40] LABS: INR 1.1 (<1.2)
[2022-07-24 22:58] LABS: ALT 27 U/L (4-49); AST 28 U/L (17-59); Acetaminophen <10.0 ug/mL; African American GFR (CKD) >90 (>60 ml/min/1.73 sqM); Albumin 4.3 g/dL (3.5-5.0); Alkaline Phosphatase 70 U/L (38-126); Anion Gap 9 mmol/L; Blood Urea Nitrogen 13 mg/dL (9-20); Calcium 8.7 mg/dL (8.4-10.2); Carbon Dioxide 29 mmol/L (22-30); Chloride 108 mmol/L (98-107); Glucose 82 mg/dL (74-99); Magnesium 2.5 mg/dL (1.6-2.3); Non-African American GFR(CKD) >90 (>60 ml/min/1.73 sqM); Potassium 4.2 mmol/L (3.5-5.1); Salicylate <1.0 mg/dL; Sodium 146 mmol/L (137-145); Total Bilirubin 0.3 mg/dL (0.2-1.3); Total Protein 7.3 g/dL (6.3-8.2)
[2022-07-24 23:00] LABS: Alcohol 138 mg/dL
[2022-07-25] MEDS ORDERED: MAG HYDROX/AL HYDROX/SIMETH 30 ML CUP PO PRN (01:28)
[2022-07-25] MEDS ORDERED: HALOPERIDOL LACTATE 5 MG/ML 1 ML VIAL IM PRN (01:28)
[2022-07-25] MEDS ORDERED: ACETAMINOPHEN TAB 325 MG TAB PO PRN (01:28)
[2022-07-25] MEDS ORDERED: LORazepam 2 MG/ML INJ IM PRN (01:37)
[2022-07-25] MEDS ORDERED: haloperidoL 5 MG TAB PO PRN (01:38)
[2022-07-25] MEDS ORDERED: traZODone HCL 100 MG TAB PO PRN (01:39)
[2022-07-25] MEDS: LORazepam 1 MG TAB PO PRN ×4 (02:07→20:41)
[2022-07-25 03:53] LABS: Amphetamine Screen,Urine Not Detected (NotDetected); Barbiturate Screen,Urine Not Detected (NotDetected); Benzodiazepines Screen,Urine Detected (NotDetected); Cocaine Screen,Urine Not Detected (NotDetected); Methadone Screen, Urine Not Detected (NotDetected); Opiate Screen,Urine Not Detected (NotDetected); Oxycodone Screen, Urine Not Detected (NotDetected); Phencyclidine Screen,Urine Not Detected (NotDetected); Tricyclic Antidepressant,Urine Not Detected (NotDetected); Urn Cannabinoid Scrn Detected (NotDetected)
[2022-07-25] MEDS ORDERED: ARIPiprazole 5 MG TAB PO STA (10:18)
--- NOTE | 2022-07-25 12:04 | P.HP ---
Psychiatric H&P - . H&P Date: 07/25/22 History & Physical: Allergies Allergy/AdvReac Type Severity Reaction Status Date / Time No Known Allergies Allergy Verified 07/24/22 21:43 Vital Signs Temp 98 F 07/25/22 02:15 Pulse 83 07/25/22 02:15 Resp 18 07/25/22 02:15 BP 133/78 07/25/22 02:15 Pulse Ox 99 07/25/22 02:15 FiO2 Intake & Output 07/24/22 07/25/22 07/25/22 18:59 06:59 18:59 Weight 61.944 kg Laboratory Last Values WBC 7.9 k/uL (3.8-10.6) 07/24/22 21:37 RBC 4.60 m/uL (4.30-5.90) 07/24/22 21:37 Hgb 16.0 gm/dL (13.0-17.5) 07/24/22 21:37 Hct 46.7 % (39.0-53.0) 07/24/22 21:37 MCV 101.4 fL (80.0-100.0) H 07/24/22 21:37 MCH 34.8 pg (25.0-35.0) 07/24/22 21:37 MCHC 34.3 g/dL (31.0-37.0) 07/24/22 21:37 RDW 12.4 % (11.5-15.5) 07/24/22 21:37 Plt Count 326 k/uL (150-450) 07/24/22 21:37 MPV 6.6 07/24/22 21:37 Neutrophils % 57 % 07/24/22 21:37 Lymphocytes % 32 % 07/24/22 21:37 Monocytes % 6 % 07/24/22 21:37 Eosinophils % 2 % 07/24/22 21:37 Basophils % 1 % 07/24/22 21:37 Neutrophils # 4.5 k/uL (1.3-7.7) 07/24/22 21:37 Lymphocytes # 2.5 k/uL (1.0-4.8) 07/24/22 21:37 Monocytes # 0.4 k/uL (0-1.0) 07/24/22 21:37 Eosinophils # 0.1 k/uL (0-0.7) 07/24/22 21:37 Basophils # 0.1 k/uL (0-0.2) 07/24/22 21:37 PT 11.0 sec (9.0-12.0) 07/24/22 21:37 INR 1.1 (<1.2) 07/24/22 21:37 Sodium 146 mmol/L (137-145) H 07/24/22 21:37 Potassium 4.2 mmol/L (3.5-5.1) 07/24/22 21:37 Chloride 108 mmol/L (98-107) H 07/24/22 21:37 Carbon Dioxide 29 mmol/L (22-30) 07/24/22 21:37 Anion Gap 9 mmol/L 07/24/22 21:37 BUN 13 mg/dL (9-20) 07/24/22 21:37 Creatinine 0.96 mg/dL (0.66-1.25) 07/24/22 21:37 Est GFR (CKD-EPI)AfAm >90 (>60 ml/min/1.73 sqM) 07/24/22 21:37 Est GFR (CKD-EPI)NonAf >90 (>60 ml/min/1.73 sqM) 07/24/22 21:37 Glucose 82 mg/dL (74-99) 07/24/22 21:37 Plasma Lactic Acid Harvey 1.7 mmol/L (0.7-2.0) 07/24/22 21:37 Calcium 8.7 mg/dL (8.4-10.2) 07/24/22 21:37 Magnesium 2.5 mg/dL (1.6-2.3) H 07/24/22 21:37 Total Bilirubin 0.3 mg/dL (0.2-1.3) 07/24/22 21:37 AST 28 U/L (17-59) 07/24/22 21:37 ALT 27 U/L (4-49) 07/24/22 21:37 Alkaline Phosphatase 70 U/L (38-126) 07/24/22 21:37 Total Protein 7.3 g/dL (6.3-8.2) 07/24/22 21:37 Albumin 4.3 g/dL (3.5-5.0) 07/24/22 21:37 Salicylates <1.0 mg/dL 07/24/22 21:37 Urine Opiates Screen Not Detected (NotDetected) 07/25/22 03:22 Ur Oxycodone Screen Not Detected (NotDetected) 07/25/22 03:22 Urine Methadone Screen Not Detected (NotDetected) 07/25/22 03:22 Ur Propoxyphene Screen Not Detected (NotDetected) 07/25/22 03:22 Acetaminophen <10.0 ug/mL 07/24/22 21:37 Ur Barbiturates Screen Not Detected (NotDetected) 07/25/22 03:22 U Tricyclic Antidepress Not Detected (NotDetected) 07/25/22 03:22 Ur Phencyclidine Scrn Not Detected (NotDetected) 07/25/22 03:22 Ur Amphetamines Screen Not Detected (NotDetected) 07/25/22 03:22 U Methamphetamines Scrn Not Detected (NotDetected) 07/25/22 03:22 U Benzodiazepines Scrn Detected (NotDetected) H 07/25/22 03:22 Urine Cocaine Screen Not Detected (NotDetected) 07/25/22 03:22 U Marijuana (THC) Screen Detected (NotDetected) H 07/25/22 03:22 Serum Alcohol 138 mg/dL 07/24/22 21:37 Coronavirus (PCR) Not Detected (Not Detectd) 07/24/22 22:32 07/25/22 12:04 IDENTIFYING DATA: Patient is a , employed, 42-year-old male with significant history of depression and alcohol use disorder presents to our hospital on 07/24/2022 after an intentional overdose. HPI: Patient presented to the hospital on 07/24/2022, brought into the hospital after intentionally overdosing on Lyrica and alcohol. Reportedly, the patient took 8 of his 's 150 mg strength Lyrica along with heavy alcohol use with the intention to kill himself by overdosing. The patient reports that he has been increasingly depressed and suicidal for months. He states that last week he also attempted to kill himself by carbon monoxide poisoning. The patient reports that he feels like he is in a constant threat. He reports that he has been feeling hopeless, worthless, having very poor sleep and has been experiencing anhedonia. He attributes his biggest stressor to bring his relationship with his and children. He reports that he is constantly working and when he returns home, nothing in the home is taken care of. He expresses that he has been having arguments with his and is requesting a divorce. He reports that he has been feeling this way for the past 3-6 months. In regards to other mood disorder, the patient is not endorsing any significant symptoms of jose david however he does report having occasional episodes of excessive energy. He describes going 3 days with no sleep at least once a month. He states that during this time he has increased focus and engages in a lot of cleaning. The patient does not endorse any significant history of auditory or visual hallucinations. He denies any history of paranoia or other delusions. The patient does report a significant history of alcohol use. The patient states that he drinks approximately 2-3 24 ounce beers before bedtime every day. He states that prior to this admission, he drank 4 beers and 3 shots of liquor. He denies any history of withdrawal seizures. He reports no history of rehab or detoxification. The patient states that he does not think that his alcohol use is the problem. The patient signed himself voluntarily on to the psychiatric unit. PAST PSYCHIATRIC HISTORY: Patient states that he has been diagnosed with depression all use disorder. The patient recalls being previously prescribed Cymbalta, Seroquel, Remeron and naltrexone. He was last hospitalized on our psychiatric unit in April 2019. He reports one prior inpatient psychiatric admission. Patient denies any psychiatric outpatient follow-up. Aside from these 2 suicide attempts, the patient denies any prior suicide attempts. PMH: Past Medical History: No Reported History, Seizure Disorder Additional Past Medical History / Comment(s): seizure free since he was 12- not on medication History of Any Multi-Drug Resistant Organisms: None Reported Past Surgical History: Orthopedic Surgery Additional Past Surgical History / Comment(s): right knee 2014 Past Anesthesia/Blood Transfusion Reactions: No Reported Reaction Past Psychological History: Depression Smoking Status: Former smoker Past Alcohol Use History: Occasional Past Drug Use History: Marijuana ALLERGIES: NO KNOWN DRUG ALLERGIES CHEMICAL DEPENDENCY HISTORY: The patient denies any tobacco use. He reports that he drinks 2-3 24 ounce beers daily. He reports daily marijuana use. He denies any illicit drug use. He reports no history of rehab. He reports no history detoxification. He denies any withdrawal seizures. He reports no current withdrawal symptoms. FAMILY PSYCHIATRIC/SUBSTANCE USE HISTORY: The patient reports that his mother has depression. He states that numerous family members on his mother's side including maternal uncles have been diagnosed with bipolar disorder, depression, and alcohol use disorder. He reports maternal uncle committed suicide. SOCIAL HISTORY: Patient was born in [place] and raised in [place]. He is currently on his second marriage. He is to his current for 7 years. Also present in the home are his 14-year-old and 17-year-old stepdaughters. 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 He reports having his GED. He denies any amish affiliation. He reports no legal history. He denies any service. MENTAL STATUS EXAM: General Appearance: Patient appears to be stated age is alert, directable, and attempts to cooperate. Patient appears to have fair hygiene and grooming. Behavior: Patient is seated without any agitated behavior. Eye contact is appropriate Speech: Patient's speech is fluent and nonpressured. Mood/Affect: Patient reports their mood is depressed, affect is congruent and constricted. Suicidality/Homicidality: Patient denies having any homicidal ideation intent or plan. Patient is currently denying any suicidal ideation. Perceptions: Patient denies any visual hallucinations and denies any auditory hallucinations Though content/process: There is no evidence of any delusional thought content and thought process is linear and goal-directed. Memory and concentration: AOX3, grossly intact for the purposes of this session. Can spell "WORLD" backwards Judgment and insight: Fair STRENGTHS/WEAKNESSES: Strength is that patient is future oriented and is desiring treatment. Weakness that the patient engage in heavy alcohol use. He is pre-contemplative regarding his alcohol use. INTELLECT: average IMPRESSIONS: Major depressive disorder, recurrent, severe Alcohol use disorder Cannabis abuse PLAN: -Patient is admitted under voluntary status to MHU for stabilization of psychiatric symptoms and safety. Patient signed adult voluntary form and medication consent and is placed in patient's chart. -Medications : Will start patient on Doxepin 10 mg by mouth at bedtime for depression/anxiety/insomnia Abilify 5 mg daily for mood augmentation Gabapentin 200 mg by mouth 3 times a day for off label use for anxiety -Ativan and Haldol PRN for agitation/aggression -Started thiamine, MVM for etoh use -Patient was counselled on substance abuse and desired to cut back on use however does not acknowledge an alcohol problem -Patient was informed of the risks, benefits and side effects of the medication and patient verbally consented to taking the medications. Patient signed med consent form and was placed in chart. -Internal Medicine consult to perform medical evaluation and physical. -SW on board for discharge planning. Encourage patient to participate in groups to work on coping skills. 07/25/22 12:04
[2022-07-25] MEDS: GABAPENTIN 100 MG CAP PO SCH ×2 (15:22→20:41)
[2022-07-25] MEDS ORDERED: DOXEPIN 10 MG CAP PO SCH (21:00)
--- NOTE | 2022-07-26 00:18 | P.CONS ---
History of Present Illness - Reason for Consult Consult date: 07/26/22 - History of Present Illness The patient is a 42 -year-old male with a PMH of EtOH abuse and marijuana abuse who presented to the emergency room with complaints of depression and suicidal ideation. Patient was admitted to the mental health unit when he was seen and evaluated. The patient reports that his life has been difficult in general as his is disabled and he is having to manage everything on his own. He reports attempting to harm himself by taking 8 tabs of Lyrica. She denied any physical complaints at the time of interview. He reports drinking 2-3 24 ounce cans of beer nightly as well as recreational marijuana use. He denied history of alcohol withdrawal seizures or DTs. Denied any physical complaints at the time of interview. Denied experiencing chest discomfort, shortness of breath, fever, chills, cough, nausea, vomiting, abdominal pain, diarrhea. ED documentation reviewed. EKG in the emergency room revealed sinus rhythm at [address]/T-wave to noted as reviewed by me. Laboratory evaluation was remarkable for macrocytosis of 11.4, WBC count 7.9, hemoglobin 11.0, sodium 146, chloride 108, BUN 13, creatinine 0.96, with urine toxicology positive for benzodiazepines and marijuana. Review of systems: Pertinent positives and negatives as discussed in HPI, a complete review of systems was performed and all other systems are negative. Physical examination: General: non toxic, no distress, appears at stated age, normal weight Derm: no unusual rashes/lesions, no unusual ecchymoses, warm, dry Head: atraumatic, normocephalic, symmetric Eyes: EOMI, no lid lag, anicteric sclera ENT: Nose and ears atraumatic, no thrush, no pharyngeal erythema Neck: trachea midline, supple Mouth: no lip lesion, mucus membranes moist Cardiovascular: S1S2 reg, no murmur, no edema Lungs: CTA bilateral, no rhonchi, no rales , no accessory muscle use Abdominal: soft, nontender to palpation, no guarding Ext: no gross muscle atrophy, no contractures, Neuro: No gross focal neuro deficits noted Psych: Alert, oriented, appropriate affect Assessment: Alcohol abuse with impending withdrawal Marijuana abuse Macrocytosis Hypernatremia Imaging: EKG in the emergency room revealed sinus rhythm at [address]/T-wave to noted as reviewed by me. Data Review: Laboratory evaluation was remarkable for macrocytosis of 11.4, WBC count 7.9, hemoglobin 11.0, sodium 146, chloride 108, BUN 13, creatinine 0.96, with urine toxicology positive for benzodiazepines and marijuana. Plan: Strongly advised on importance of cessation Continue with thiamine and multivitamin Check B12 and folate levels Hypernatremia likely due to ongoing EtOH abuse Monitor for now Defer management of depression and suicidal ideation to primary psychiatry service Thank you for allowing us to participate in the care of this patient. We will follow peripherally. Do not hesitate to contact us with questions. Someone can be reached from the [facility] hospitalist group at all hours of the day at [phone]. Past Medical History Past Medical History: No Reported History, Seizure Disorder Additional Past Medical History / Comment(s): seizure free since he was 12- not on medication History of Any Multi-Drug Resistant Organisms: None Reported Past Surgical History: Orthopedic Surgery Additional Past Surgical History / Comment(s): right knee 2014 Past Anesthesia/Blood Transfusion Reactions: No Reported Reaction Past Psychological History: Depression Smoking Status: Former smoker Past Alcohol Use History: Occasional Past Drug Use History: Marijuana - Past Family History Mother Additional Family Medical History / Comment(s): brain aneurysm Father Family Medical History: Diabetes Mellitus Medications and Allergies Home Medications Medication Instructions Recorded Confirmed Type Ascorbic Acid [Vitamin C] 500 mg PO DAILY #30 tab 07/15/22 07/24/22 Rx Cholecalciferol [Vitamin D3 (25 25 mcg PO DAILY #30 tab 07/15/22 07/24/22 Rx Mcg = 1000 Iu)] Thiamine [Vitamin B-1] 100 mg PO DAILY #30 tab 07/15/22 07/24/22 Rx Zinc Sulfate [Orazinc] 220 mg PO DAILY #15 cap 07/15/22 07/24/22 Rx DULoxetine HCL [Cymbalta] 60 mg PO DAILY #30 cap 07/18/22 07/24/22 Rx Naltrexone HCl [Revia] 50 mg PO DAILY #30 tab 07/18/22 07/24/22 Rx QUEtiapine [SEROquel] 50 mg PO HS #30 tab 07/18/22 07/24/22 Rx Allergies Allergy/AdvReac Type Severity Reaction Status Date / Time No Known Allergies Allergy Verified 07/24/22 21:43 Physical Exam Vitals: Vital Signs Temp Pulse Resp BP Pulse Ox 07/25/22 02:15 98 F 83 18 133/78 99 Results CBC & Chem 7: 07/24/22 21:37 07/24/22 21:37 Labs: Abnormal Lab Results - Last 24 Hours (Table) 07/25/22 Range/Units 03:22 U Benzodiazepines Scrn Detected H (NotDetected) U Marijuana (THC) Screen Detected H (NotDetected)
[2022-07-26] MEDS: LORazepam 1 MG TAB PO PRN (02:53)
[2022-07-26 03:27] VITALS: BP 133/92; PULSE 76; RESP 17; TEMP 97.8
[2022-07-26] MEDS: GABAPENTIN 100 MG CAP PO SCH (08:23)
[2022-07-26] MEDS ORDERED: MULTIVITAMINS, THERA 1 EACH TAB PO SCH (09:00)
[2022-07-26] MEDS ORDERED: THIAMINE 100 MG TAB PO SCH (09:00)
[2022-07-26] MEDS ORDERED: ARIPiprazole 10 MG TAB PO SCH (09:00)
--- NOTE | 2022-07-26 11:16 | P.PN ---
Progress Note - Text Progress Note Date: 07/26/22 Interval History: Patient was seen wandering the hallways and was directable and agreeable to speak with senior grant writer in the office. The patient reports that he feels "very happy." He is currently denying any suicidal or homicidal ideation, intention, and/or plan. He is not reporting any auditory or visual hallucinations. He denies any paranoia or other delusions. The patient is requesting to be discharged today. He has been adherent with his medications and is not endors ing any significant side effects. He was informed that due to severity of his suicide attempts, we will continue to monitor. He is reluctantly in agreement. Mental Status Exam: General Appearance: Patient appears to be stated age is alert, directable, and cooperative. Behavior: Patient is calmly seated without any agitated behavior. Speech: Patient's speech is fluent and nonpressured. Mood/Affect: Mood is improving mildly, affect is congruent and constricted. Suicidality/Homicidality: Patient denies having any suicidal or homicidal ideation intent or plan. Perceptions: Patient denies any visual hallucinations and denies any auditory hallucinations Though content/process: There is no evidence of any delusional thought content and thought process is linear and goal-directed. Memory and concentration: AOX3, grossly intact for the purposes of this session Judgment and insight: Improving mildly Vital Signs Temp 97.8 F 07/26/22 03:26 Pulse 76 07/26/22 03:26 Resp 17 07/26/22 03:26 BP 133/92 07/26/22 03:26 Pulse Ox 96 07/26/22 03:26 FiO2 Assessment Major depressive disorder, recurrent, severe Alcohol use disorder Cannabis abuse Plan: -Patient continues to meet criteria for inpatient psychiatric admission for symptom stabilization and safety. Patient has signed adult voluntary form and medication consent and was placed in patient's chart. -Medications: Doxepin 10 mg by mouth at bedtime for depression/anxiety/insomnia Abilify 10 mg daily for mood augmentation Gabapentin 200 mg by mouth 3 times a day for off label use for anxiety -When necessary Ativan and Haldol for agitation/aggression. -SW on board for discharge planning. Encouraged the patient to participate in milieu.
[2022-07-26 12:01] LABS: ALT 28 U/L (4-49); AST 32 U/L (17-59); African American GFR (CKD) >90 (>60 ml/min/1.73 sqM); Albumin 4.4 g/dL (3.5-5.0); Alkaline Phosphatase 62 U/L (38-126); Anion Gap 6 mmol/L; Bilirubin, Delta 0.1 mg/dL (0.0-0.2); Bilirubin,Unconjugated 0.4 mg/dL (0.0-1.1); Blood Urea Nitrogen 18 mg/dL (9-20); Calcium 9.3 mg/dL (8.4-10.2); Carbon Dioxide 33 mmol/L (22-30); Chloride 99 mmol/L (98-107); Glucose 97 mg/dL (74-99); Non-African American GFR(CKD) >90 (>60 ml/min/1.73 sqM); Potassium 4.4 mmol/L (3.5-5.1); Sodium 138 mmol/L (137-145); Total Bilirubin 0.5 mg/dL (0.2-1.3); Total Protein 7.4 g/dL (6.3-8.2)
[2022-07-26 12:07] LABS: Basophils % (A) 1 %; Eosinophils # (A) 0.1 k/uL (0-0.7); Eosinophils % (A) 1 %; Lymphocytes # (A) 1.8 k/uL (1.0-4.8); Lymphocytes % (A) 22 %; MCH 34.9 pg (25.0-35.0); MCHC 35.1 g/dL (31.0-37.0); MCV 99.5 fL (80.0-100.0); Mean Platelet Volume 7.3; Monocytes # (A) 0.5 k/uL (0-1.0); Monocytes % (A) 6 %; Neutrophils # (A) 5.8 k/uL (1.3-7.7); Neutrophils % (A) 70 %; Platelet Count 306 k/uL (150-450); RBC 4.02 m/uL (4.30-5.90); RDW 12.7 % (11.5-15.5); WBC 8.3 k/uL (3.8-10.6)
--- NOTE | 2022-07-26 13:16 | P.DS ---
Providers Date of admission: 07/25/22 01:10 Expected date of discharge: 07/26/22 Attending physician: Mazin Verdugo MD Consults: 07/25/22 01:28 Consult Physician Routine Consulting Provider: Claudia Osborn Consult Reason/Comments: History and Physical Do you want consulting provider notified?: Yes, Notify in am Primary care physician: Stated None - Discharge Diagnosis(es) (1) Major depressive disorder, recurrent episode Current Visit: Yes Status: Acute Priority: High (2) Alcohol use disorder Current Visit: Yes Status: Chronic Priority: Medium (3) Cannabis abuse Current Visit: Yes Status: Chronic Priority: Medium Hospital Course: Admission HPI: Patient is a , employed, 42-year-old male with significant history of depression and alcohol use disorder presents to our hospital on 07/24/2022 after an intentional overdose. Patient presented to the hospital on 07/24/2022, brought into the hospital after intentionally overdosing on Lyrica and alcohol. Reportedly, the patient took 8 of his 's 150 mg strength Lyrica along with heavy alcohol use with the intention to kill himself by overdosing. The patient reports that he has been increasingly depressed and suicidal for months. He states that last week he also attempted to kill himself by carbon monoxide poisoning. The patient reports that he feels like he is in a constant threat. He reports that he has been feeling hopeless, worthless, having very poor sleep and has been experiencing anhedonia. He attributes his biggest stressor to bring his relationship with his and children. He reports that he is constantly working and when he returns home, nothing in the home is taken care of. He expresses that he has been having arguments with his and is requesting a divorce. He reports that he has been feeling this way for the past 3-6 months. In regards to other mood disorder, the patient is not endorsing any significant symptoms of jose david however he does report having occasional episodes of excessive energy. He describes going 3 days with no sleep at least once a month. He states that during this time he has increased focus and engages in a lot of cleaning. The patient does not endorse any significant history of auditory or visual hallucinations. He denies any history of paranoia or other delusions. The patient does report a significant history of alcohol use. The patient states that he drinks approximately 2-3 24 ounce beers before bedtime every day. He states that prior to this admission, he drank 4 beers and 3 shots of liquor. He denies any history of withdrawal seizures. He reports no history of rehab or detoxification. The patient states that he does not think that his alcohol use is the problem. The patient signed himself voluntarily on to the psychiatric unit. PAST PSYCHIATRIC HISTORY: Patient states that he has been diagnosed with depression all use disorder. The patient recalls being previously prescribed Cymbalta, Seroquel, Remeron and naltrexone. He was last hospitalized on our psychiatric unit in April 2019. He reports one prior inpatient psychiatric admission. Patient denies any psychiatric outpatient follow-up. Aside from these 2 suicide attempts, the patient denies any prior suicide attempts. Hospital course: Upon admission to the unit patient was initially presenting as depressed and constricted in affect. Patient was however directable and agreeable to commence treatment. Patient got along well with other patients on the unit and followed unit protocol. Patient was compliant with the medications and denied any side effects throughout hospital course. Patient was started on doxepin for depression/anxiety/insomnia, Abilify for mood augmentation, gabapentin prophylactically use for anxiety and alcohol use disorder. Patient spoke of his stressors and engaged in therapy both group and individual. Patient was also seen by medical team for history and physical exam. Throughout the course of the hospitalization, the patient displayed significant improvement in regards to his target symptoms depression. He can more future and goal oriented and expressed a strong desire to live for himself and his family. He reports that he has been on the phone with his and they have been working things out. He is future and goal oriented and states that he has financial issues to deal with. He is requesting discharge early in order to address these things. He is able to appropriately safety plan stating that his will be monitoring his medications, will be in charge of the car keys, and we'll be monitoring him for any concerns or suicidal behavior. The patient also reports that if he was to be suicidal he would come back to the hospital. He denies any access to firearms or other weapons. On the day of discharge, the patient is not reporting any suicidal or homicidal ideation, intention, and/or plan. He is not reporting any auditory or visual hallucinations. He is denying any paranoia or other delusions. He has been adherent with his medications and reports no side effects at this time. He denies any medical issues or concerns. He reports no chest pain, palpitations, or involuntary muscle movements. He does have a significant history of substance use and was counseled at great length on abstaining from all substances including tobacco, alcohol, marijuana, and illicit drug use. He states he would be going to in the near future and continue outpatient alcohol abuse therapy. He was counseled on the importance of medication adherence and appropriate outpatient follow-up. As the patient no longer met criteria for inpatient psychiatric admission and appropriately safety planned, he was subsequently discharged. Mental status exam: General Appearance: Patient appears to be stated age is alert, pleasant, and cooperative. Patient is in no acute distress and has fair hygiene and grooming Behavior: Patient is calmly seated without any agitated behavior. Speech: Patient's speech is fluent and nonpressured. Mood/Affect: Patient reports their mood is "much better", affect is congruent and euthymic. Suicidality/Homicidality: Patient denies having any suicidal or homicidal ideation intent or plan. Perceptions: Patient denies any auditory or visual hallucinations. Though content/process: There is no evidence of any delusional thought content and thought process is linear and goal-directed. Future and goal oriented. Memory and concentration: AOX3, grossly intact for the purposes of this session. Can spell "WORLD" backwards correctly. Judgment and insight: Improved with guarded prognosis Impression: Major depressive disorder, recurrent, severe Alcohol use disorder Cannabis abuse Plan: -Continue with discharge today as patient has improved and stabilized psychiatrically and is not currently an imminent threat to himself and/or others. Patient will remain at chronically elevated risk for harm to self and/or others due to his alcohol abuse and prior attempts at suicide. -Continue medications: Doxepin 10 mg by mouth at bedtime for depression/anxiety/insomnia Abilify 10 mg daily for mood augmentation Gabapentin 200 mg by mouth 3 times a day for off label use for anxiety -Patient was counseled on the need for medication compliance and appropriate follow-up at mental health and also primary care for medical issues. Patient verbalized understanding and agreed. -Social work to arrange for and conduct family meeting to ensure safety upon discharge and answer any questions/concerns. Social work also to arrange for patients follow up appointments with [facility] for psychiatric care along with follow up with primary care provider. -Patient counseled on abstaining from recreational drugs and marijuana and alcohol. Was informed/educated on the adverse effects on their physical and mental health. Patient verbally agreed and understood. Patient was offered inpatient substance abuse treatment however declined at this time. -Patient was instructed to return to the hospital or seek immediate medical care if their psychiatric or medical symptoms do worsen or reoccur. -Psychoeducation and supportive therapy provided to patient. Risks and benefits of pharmacological treatment versus the risks and benefits of nontreatment weight and discussed. Informed consent discussion held. Common side effects of psychotropics discussed such as, but not limited to headache, GI disturbance, sexual dysfunction, movement disorders, sedation, and orthostatic hypotension. Life threatening and blackbox warnings of prescribed medications also discussed. Potential risks of operating a vehicle or heavy machinery discussed with rafael coffman at length. Advised on importance of compliance and a reliable and responsible manner. Patient advised to review FDA consumer labeling of all medications prior to taking. Patient verbalized understanding of potential risks, and agrees with current treatment plan. Patient advised to medically contact physician/emergency personnel if any acute changes in condition occur. Vital Signs Temp 97.8 F 07/26/22 03:26 Pulse 76 07/26/22 03:26 Resp 17 07/26/22 03:26 BP 133/92 07/26/22 03:26 Pulse Ox 96 07/26/22 03:26 FiO2 Laboratory Results WBC 8.3 k/uL (3.8-10.6) 07/26/22 10:50 RBC 4.02 m/uL (4.30-5.90) L 07/26/22 10:50 Hgb 14.0 gm/dL (13.0-17.5) 07/26/22 10:50 Hct 40.0 % (39.0-53.0) 07/26/22 10:50 MCV 99.5 fL (80.0-100.0) 07/26/22 10:50 MCH 34.9 pg (25.0-35.0) 07/26/22 10:50 MCHC 35.1 g/dL (31.0-37.0) 07/26/22 10:50 RDW 12.7 % (11.5-15.5) 07/26/22 10:50 Plt Count 306 k/uL (150-450) 07/26/22 10:50 MPV 7.3 07/26/22 10:50 Neutrophils % 70 % 07/26/22 10:50 Lymphocytes % 22 % 07/26/22 10:50 Monocytes % 6 % 07/26/22 10:50 Eosinophils % 1 % 07/26/22 10:50 Basophils % 1 % 07/26/22 10:50 Neutrophils # 5.8 k/uL (1.3-7.7) 07/26/22 10:50 Lymphocytes # 1.8 k/uL (1.0-4.8) 07/26/22 10:50 Monocytes # 0.5 k/uL (0-1.0) 07/26/22 10:50 Eosinophils # 0.1 k/uL (0-0.7) 07/26/22 10:50 Basophils # 0.0 k/uL (0-0.2) 07/26/22 10:50 PT 11.0 sec (9.0-12.0) 07/24/22 21:37 INR 1.1 (<1.2) 07/24/22 21:37 Sodium 138 mmol/L (137-145) 07/26/22 10:50 Potassium 4.4 mmol/L (3.5-5.1) 07/26/22 10:50 Chloride 99 mmol/L (98-107) 07/26/22 10:50 Carbon Dioxide 33 mmol/L (22-30) H 07/26/22 10:50 Anion Gap 6 mmol/L 07/26/22 10:50 BUN 18 mg/dL (9-20) 07/26/22 10:50 Creatinine 0.91 mg/dL (0.66-1.25) 07/26/22 10:50 Est GFR (CKD-EPI)AfAm >90 (>60 ml/min/1.73 sqM) 07/26/22 10:50 Est GFR (CKD-EPI)NonAf >90 (>60 ml/min/1.73 sqM) 07/26/22 10:50 Glucose 97 mg/dL (74-99) 07/26/22 10:50 Plasma Lactic Acid Harvey 1.7 mmol/L (0.7-2.0) 07/24/22 21:37 Calcium 9.3 mg/dL (8.4-10.2) 07/26/22 10:50 Magnesium 2.5 mg/dL (1.6-2.3) H 07/24/22 21:37 Total Bilirubin 0.5 mg/dL (0.2-1.3) 07/26/22 10:50 Conjugated Bilirubin 0.0 mg/dL (0.0-0.3) 07/26/22 10:50 Unconjugated Bilirubin 0.4 mg/dL (0.0-1.1) 07/26/22 10:50 Delta Bilirubin 0.1 mg/dL (0.0-0.2) 07/26/22 10:50 AST 32 U/L (17-59) 07/26/22 10:50 ALT 28 U/L (4-49) 07/26/22 10:50 Alkaline Phosphatase 62 U/L (38-126) 07/26/22 10:50 Total Protein 7.4 g/dL (6.3-8.2) 07/26/22 10:50 Albumin 4.4 g/dL (3.5-5.0) 07/26/22 10:50 TSH 2.560 mIU/L (0.465-4.680) 07/26/22 10:50 Salicylates <1.0 mg/dL 07/24/22 21:37 Urine Opiates Screen Not Detected (NotDetected) 07/25/22 03:22 Ur Oxycodone Screen Not Detected (NotDetected) 07/25/22 03:22 Urine Methadone Screen Not Detected (NotDetected) 07/25/22 03:22 Ur Propoxyphene Screen Not Detected (NotDetected) 07/25/22 03:22 Acetaminophen <10.0 ug/mL 07/24/22 21:37 Ur Barbiturates Screen Not Detected (NotDetected) 07/25/22 03:22 U Tricyclic Antidepress Not Detected (NotDetected) 07/25/22 03:22 Ur Phencyclidine Scrn Not Detected (NotDetected) 07/25/22 03:22 Ur Amphetamines Screen Not Detected (NotDetected) 07/25/22 03:22 U Methamphetamines Scrn Not Detected (NotDetected) 07/25/22 03:22 U Benzodiazepines Scrn Detected (NotDetected) H 07/25/22 03:22 Urine Cocaine Screen Not Detected (NotDetected) 07/25/22 03:22 U Marijuana (THC) Screen Detected (NotDetected) H 07/25/22 03:22 Serum Alcohol 138 mg/dL 07/24/22 21:37 Coronavirus (PCR) Not Detected (Not Detectd) 07/24/22 22:32 Allergies Allergy/AdvReac Type Severity Reaction Status Date / Time No Known Allergies Allergy Verified 07/24/22 21:43 Patient Condition at Discharge: Stable Plan - Discharge Summary New Discharge Prescriptions: New Multivitamins, Thera [Multivitamin (formulary)] 1 each PO DAILY 30 Days #30 tab Gabapentin [Neurontin] 200 mg PO TID 30 Days #180 cap Doxepin [SINEquan] 10 mg PO HS 30 Days #30 cap Thiamine [Vitamin B-1] 100 mg PO DAILY 30 Days #30 tab Continue Zinc Sulfate [Orazinc] 220 mg PO DAILY #15 cap Ascorbic Acid [Vitamin C] 500 mg PO DAILY #30 tab Cholecalciferol [Vitamin D3 (25 Mcg = 1000 Iu)] 25 mcg PO DAILY #30 tab Discontinued Naltrexone HCl [Revia] 50 mg PO DAILY #30 tab Thiamine [Vitamin B-1] 100 mg PO DAILY #30 tab DULoxetine HCL [Cymbalta] 60 mg PO DAILY #30 cap QUEtiapine [SEROquel] 50 mg PO HS #30 tab Discharge Medication List Ascorbic Acid [Vitamin C] 500 mg PO DAILY #30 tab 07/15/22 [Rx] Cholecalciferol [Vitamin D3 (25 Mcg = 1000 Iu)] 25 mcg PO DAILY #30 tab 07/15/22 [Rx] Zinc Sulfate [Orazinc] 220 mg PO DAILY #15 cap 07/15/22 [Rx] Doxepin [SINEquan] 10 mg PO HS 30 Days #30 cap 07/26/22 [Rx] Gabapentin [Neurontin] 200 mg PO TID 30 Days #180 cap 07/26/22 [Rx] Multivitamins, Thera [Multivitamin (formulary)] 1 each PO DAILY 30 Days #30 tab 07/26/22 [Rx] Thiamine [Vitamin B-1] 100 mg PO DAILY 30 Days #30 tab 07/26/22 [Rx] Follow up Appointment(s)/Referral(s): None,Stated [Primary Care Provider] - 1-2 days Activity/Diet/Wound Care/Special Instructions: Avoid the use of street drugs and alcohol. Take all medications as prescribed. When you are in need of refills on your medications, please contact your medical provider and/or outpatient psychiatrist to have this done. Please go to scheduled outpatient appointments for aftercare treatment. If symptoms return or become worse, call the crisis line at and/or go to the nearest emergency room for evaluation. Discharge Disposition: HOME SELF-CARE
[2022-07-26 16:04] LABS: Chol/HDL Ratio 1.98 Ratio; LDL Cholesterol,Calculated 67.3 mg/dL (0.0-131.0); VLDL Calculation 16.42 mg/dL (5.00-40.00)
== END 2022-07-26 15:40 | disposition home or self-care (01) | DRG 817 ==
LOC: EC 21:02 → 3MHU 07-25 01:10
PROVIDERS: ADMIT Psychiatry & Neurology Psychiatry; ATTEND Psychiatry & Neurology Psychiatry
DX: T42.6X2A Poisoning by other antiepileptic and sedative-hypnotic drugs, intentional self-harm, initial encounter (principal); G47.00 Insomnia, unspecified; Z79.899 Other long term (current) drug therapy; D75.89 Other specified diseases of blood and blood-forming organs; F10.139 Alcohol abuse with withdrawal, unspecified; F12.10 Cannabis abuse, uncomplicated; E87.0 Hyperosmolality and hypernatremia; F03.918 Unspecified dementia, unspecified severity, with other behavioral disturbance; R45.851 Suicidal ideations; Z20.822 Contact with and (suspected) exposure to COVID-19; Y90.6 Blood alcohol level of 120-199 mg/100 ml; Z71.41 Alcohol abuse counseling and surveillance of alcoholic; Z71.51 Drug abuse counseling and surveillance of drug abuser
CPT/HCPCS: 36415; 80053; 80061; 80143; 80179; 80306; 80320; 82075; 82248; 82607; 82747; 83036; 83605; 83735; 84443; 85025; 85610; 87635; 93005; 99285

== ENCOUNTER 2023-05-06 10:42 | Emergency (ER) | payer OTHER ==
[2023-05-06 13:05] LABS: Basophils # (A) 0.1 k/uL (0-0.2); Basophils % (A) 1 %; Eosinophils # (A) 0.1 k/uL (0-0.7); Eosinophils % (A) 1 %; HCT 45.4 % (39.0-53.0); HGB 15.6 gm/dL (13.0-17.5); Lymphocytes # (A) 1.6 k/uL (1.0-4.8); Lymphocytes % (A) 16 %; MCH 34.8 pg (25.0-35.0); MCHC 34.4 g/dL (31.0-37.0); MCV 101.2 fL (80.0-100.0); Mean Platelet Volume 7.7; Monocytes # (A) 0.6 k/uL (0-1.0); Monocytes % (A) 6 %; Neutrophils # (A) 7.3 k/uL (1.3-7.7); Neutrophils % (A) 74 %; Platelet Count 259 k/uL (150-450); RBC 4.48 m/uL (4.30-5.90); RDW 11.9 % (11.5-15.5); WBC 9.9 k/uL (3.8-10.6)
[2023-05-06 13:17] LABS: ALT 36 U/L (4-49); AST 41 U/L (17-59); African American GFR (CKD) >90 (>60 ml/min/1.73 sqM); Albumin 4.7 g/dL (3.5-5.0); Alcohol <10 mg/dL; Alkaline Phosphatase 94 U/L (38-126); Anion Gap 7 mmol/L; Blood Urea Nitrogen 10 mg/dL (9-20); Calcium 9.7 mg/dL (8.4-10.2); Carbon Dioxide 29 mmol/L (22-30); Chloride 105 mmol/L (98-107); Glucose 96 mg/dL (74-99); Magnesium 2.2 mg/dL (1.6-2.3); Non-African American GFR(CKD) >90 (>60 ml/min/1.73 sqM); Potassium 4.8 mmol/L (3.5-5.1); Sodium 141 mmol/L (137-145); Total Bilirubin 0.7 mg/dL (0.2-1.3); Total Protein 7.5 g/dL (6.3-8.2)
[2023-05-06 13:44] LABS: Appearance,Urine Clear (Clear); Bilirubin,Urine Negative (Negative); Blood,Urine Negative (Negative); Color,Urine Yellow; Glucose,Urine (UA) Negative (Negative); Ketones,Urine Negative (Negative); Leukocyte Esterase,Urine Negative (Negative); Nitrite,Urine Negative (Negative); PH, Urine 5.5 (5.0-8.0); Protein,Urine Negative (Negative); Specific Gravity,Urine 1.018 (1.001-1.035); Urobilinogen,Urine <2.0 mg/dL (<2.0)
[2023-05-06 13:56] LABS: Urn Cannabinoid Scrn Detected (NotDetected)
[2023-05-06 13:57] LABS: Amphetamine Screen,Urine Not Detected (NotDetected); Barbiturate Screen,Urine Not Detected (NotDetected); Benzodiazepines Screen,Urine Not Detected (NotDetected); Cocaine Screen,Urine Not Detected (NotDetected); Methadone Screen, Urine Not Detected (NotDetected); Opiate Screen,Urine Not Detected (NotDetected); Oxycodone Screen, Urine Not Detected (NotDetected); Phencyclidine Screen,Urine Not Detected (NotDetected); Tricyclic Antidepressant,Urine Not Detected (NotDetected)
--- NOTE | 2023-05-06 15:02 | ED ---
Psych HPI - General Chief Complaint: Psychiatric Symptoms Stated Complaint: Alcohol Withdrawals, Hallucinations Time Seen by Provider: 05/06/23 11:40 Source: patient, police, RN notes reviewed Mode of arrival: ambulatory Limitations: no limitations - History of Present Illness Initial Comments: 42-year-old male presents emergency Department with police for evaluation. Patient reported that he had some hallucinations several days ago. He states he does not have these locations now. He states it was after he was started on Remeron. Patient denies any suicidal or homicidal. Patient reportedly drank alcohol daily 6 appears entirely he was incarcerated for 9 days ago. He states he's never had any significant withdrawal symptoms. He states he had seizures when he was a kid last one was at age 12. Denies any chest pain shortness breath denies any head injury no loss conscious denies any focal weakness. He does have a history anxiety states he uses marijuana she does get very anxious about the situation. He denies any auditory hallucinations denies any tactile hallucinations - Related Data Previous Rx's Medication Instructions Recorded Ascorbic Acid [Vitamin C] 500 mg PO DAILY #30 tab 07/15/22 Cholecalciferol [Vitamin D3 (25 25 mcg PO DAILY #30 tab 07/15/22 Mcg = 1000 Iu)] Zinc Sulfate [Orazinc] 220 mg PO DAILY #15 cap 07/15/22 Doxepin [SINEquan] 10 mg PO HS 30 Days #30 cap 07/26/22 Gabapentin [Neurontin] 200 mg PO TID 30 Days #180 cap 07/26/22 Multivitamins, Thera [Multivitamin 1 each PO DAILY 30 Days #30 tab 07/26/22 (formulary)] Thiamine [Vitamin B-1] 100 mg PO DAILY 30 Days #30 tab 07/26/22 Allergies Allergy/AdvReac Type Severity Reaction Status Date / Time No Known Allergies Allergy Verified 05/06/23 11:38 Review of Systems ROS Statement: Those systems with pertinent positive or pertinent negative responses have been documented in the HPI. ROS Other: All systems not noted in ROS Statement are negative. Past Medical History Past Medical History: No Reported History, Seizure Disorder Additional Past Medical History / Comment(s): seizure free since he was 12- not on medication History of Any Multi-Drug Resistant Organisms: None Reported Past Surgical History: Orthopedic Surgery Additional Past Surgical History / Comment(s): right knee 2014 Past Anesthesia/Blood Transfusion Reactions: No Reported Reaction Past Psychological History: Depression Smoking Status: Current every day smoker Past Alcohol Use History: Occasional Past Drug Use History: Marijuana - Past Family History Mother Additional Family Medical History / Comment(s): brain aneurysm Father Family Medical History: Diabetes Mellitus General Exam Limitations: no limitations General appearance: alert, in no apparent distress, other (Patient awake alert and orientated times 4) Head exam: Present: atraumatic, normocephalic, normal inspection Eye exam: Present: normal appearance, PERRL, EOMI. Absent: scleral icterus, conjunctival injection, periorbital swelling ENT exam: Present: normal exam, mucous membranes moist Neck exam: Present: normal inspection, full ROM. Absent: tenderness, meningismus, lymphadenopathy Respiratory exam: Present: normal lung sounds bilaterally. Absent: respiratory distress, wheezes, rales, rhonchi, stridor Cardiovascular Exam: Present: regular rate, normal rhythm, normal heart sounds. Absent: systolic murmur, diastolic murmur, rubs, gallop, clicks GI/Abdominal exam: Present: soft, normal bowel sounds. Absent: distended, tenderness, guarding, rebound, rigid Neurological exam: Present: alert, oriented X3, CN II-XII intact, reflexes normal, other (Finger to nose intact bilaterally without shooting). Absent: motor sensory deficit Psychiatric exam: Present: anxious Skin exam: Present: warm, dry, intact, normal color. Absent: rash Course Vital Signs 05/06/23 05/06/23 11:32 15:22 Temperature 98.7 F 98.1 F Pulse Rate 79 83 Respiratory 20 18 Rate Blood Pressure 146/92 153/97 O2 Sat by Pulse 100 97 Oximetry Medical Decision Making - Medical Decision Making Was pt. sent in by a medical professional or institution (, PA, PHOTOENGRAVING PRINTER, urgent care, hospital, or skilled nursing...) When possible be specific @ -No Did you speak to anyone other than the patient for history (EMS, parent, family, police, friend...)? What history was obtained from this source @ -No Did you review nursing and triage notes (agree or disagree)? Why? @ -I reviewed and agree with nursing and triage notes Were old charts reviewed (outside hosp., previous admission, EMS record, old EKG, old radiological studies, urgent care reports/EKG's, skilled nursing records)? Report findings @ -Review prior psychiatric evaluations, admissions and prior laboratory studies Differential Diagnosis (chest pain, altered mental status, abdominal pain women, abdominal pain men, vaginal bleeding, weakness, fever, dyspnea, syncope, headache, dizziness, GI bleed, back pain, seizure, CVA, palpatations, mental health, musculoskeletal)? @ -Differential Mental Health Depression, anxiety, bipolar, psychosis, schizophrenia, borderline personality, situational depression, adjustment disorder, behavioral disorder, brain tumor, malingering, substance abuse, encephalopathy, medication reaction, dementia, hypothyroidism, degenerative neurologic disorder, lupus.... This is not meant to be all-inclusive list EKG interpreted by me (3pts min.). @ -[None X-rays interpreted by me (1pt min.). @ -None done CT interpreted by me (1pt min.). @ -None done U/S interpreted by me (1pt. min.). @ -None done What testing was considered but not performed or refused? (CT, X-rays, U/S, labs)? Why? @ -None What meds were considered but not given or refused? Why? @ -None Did you discuss the management of the patient with other professionals (professionals i.e. , PA, PHOTOENGRAVING PRINTER, lab, RT, psych nurse, social service worker, hand etcher helper, teacher, tax revenue officer, bilingual case manager)? Give summary @ -EPS evaluated the patient and fell the patient does not meet inpatient criteria patient does have history significant disorders Was smoking cessation discussed for >3mins.? @ -No Was critical care preformed (if so, how long)? @ -No Were there social determinants of health that impacted care today? How? (Homelessness, low income, unemployed, alcoholism, drug addiction, transportation, low edu. Level, literacy, decrease access to med. care, skilled nursing, rehab)? @ -No Was there de-escalation of care discussed even if they declined (Discuss DNR or withdrawal of care, Hospice)? DNR status @ -No What co-morbidities impacted this encounter? (DM, HTN, Smoking, COPD, CAD, Cancer, CVA, ARF, Chemo, Hep., AIDS, mental health diagnosis, sleep apnea, morbid obesity)? @ -Alcohol use, marijuana use, psych history Was patient admitted / discharged? Hospital course, mention meds given and ro vickie, prescriptions, significant lab abnormalities, going to OR and other pertinent info. @ -Discharge patient with head. Laboratory studies urinalysis no acute abnormality's. Patient did have some delusional thoughts or hallucinations that have resolved. Patient does have a history of psychosis. Patient does have positive marijuana on urinalysis. Patient was evaluated by EPS felt that there is no need for psychiatric treatment at this time. There was some discussion of possible medication reaction secondary to Remeron Undiagnosed new problem with uncertain prognosis? @ -No Drug Therapy requiring intensive monitoring for toxicity (Heparin, Nitro, Insulin, Cardizem)? @ -No Were any procedures done? @ -No Diagnosis/symptom? @ -Marijuana abuse, psychosis Acute, or Chronic, or Acute on Chronic? @ -Acute Uncomplicated (without systemic symptoms) or Complicated (systemic symptoms)? @ -Uncomplicated Side effects of treatment? @ -No Exacerbation, Progression, or Severe Exacerbation? @ -No Poses a threat to life or bodily function? How? (Chest pain, [place], HI, pneumonia, PE, COPD, DKA, ARF, appy, cholecystitis, CVA, Diverticulitis, Homicidal, Guy icidal, threat to staff... and all critical care pts) @ -No - Lab Data Result diagrams: 05/06/23 12:50 05/06/23 12:50 Lab Results 05/06/23 05/06/23 05/06/23 Range/Units 12:50 12:50 13:25 WBC 9.9 (3.8-10.6) k/uL RBC 4.48 (4.30-5.90) m/uL Hgb 15.6 (13.0-17.5) gm/dL Hct 45.4 (39.0-53.0) % MCV 101.2 H (80.0-100.0) fL MCH 34.8 (25.0-35.0) pg MCHC 34.4 (31.0-37.0) g/dL RDW 11.9 (11.5-15.5) % Plt Count 259 (150-450) k/uL MPV 7.7 Neutrophils % 74 % Lymphocytes % 16 % Monocytes % 6 % Eosinophils % 1 % Basophils % 1 % Neutrophils # 7.3 (1.3-7.7) k/uL Lymphocytes # 1.6 (1.0-4.8) k/uL Monocytes # 0.6 (0-1.0) k/uL Eosinophils # 0.1 (0-0.7) k/uL Basophils # 0.1 (0-0.2) k/uL Sodium 141 (137-145) mmol/L Potassium 4.8 (3.5-5.1) mmol/L Chloride 105 (98-107) mmol/L Carbon Dioxide 29 (22-30) mmol/L Anion Gap 7 mmol/L BUN 10 (9-20) mg/dL Creatinine 0.75 (0.66-1.25) mg/dL Est GFR (CKD-EPI)AfAm >90 (>60 ml/min/1.73 sqM) Est GFR (CKD-EPI)NonAf >90 (>60 ml/min/1.73 sqM) Glucose 96 (74-99) mg/dL Calcium 9.7 (8.4-10.2) mg/dL Magnesium 2.2 (1.6-2.3) mg/dL Total Bilirubin 0.7 (0.2-1.3) mg/dL AST 41 (17-59) U/L ALT 36 (4-49) U/L Alkaline Phosphatase 94 (38-126) U/L Total Protein 7.5 (6.3-8.2) g/dL Albumin 4.7 (3.5-5.0) g/dL Urine Color Yellow Urine Appearance Clear (Clear) Urine pH 5.5 (5.0-8.0) Ur Specific [place] 1.018 (1.001-1.035) Urine Protein Negative (Negative) Urine Glucose (UA) Negative (Negative) Urine Ketones Negative (Negative) Urine Blood Negative (Negative) Urine Nitrite Negative (Negative) Urine Bilirubin Negative (Negative) Urine Urobilinogen <2.0 (<2.0) mg/dL Ur Leukocyte Esterase Negative (Negative) Urine Opiates Screen Not Detected (NotDetected) Ur Oxycodone Screen Not Detected (NotDetected) Urine Methadone Screen Not Detected (NotDetected) Ur Barbiturates Screen Not Detected (NotDetected) U Tricyclic Antidepress Not Detected (NotDetected) Ur Phencyclidine Scrn Not Detected (NotDetected) Ur Amphetamines Screen Not Detected (NotDetected) U Methamphetamines Scrn Not Detected (NotDetected) U Benzodiazepines Scrn Not Detected (NotDetected) Urine Cocaine Screen Not Detected (NotDetected) U Marijuana (THC) Screen Detected H (NotDetected) Serum Alcohol <10 mg/dL Disposition Clinical Impression: Cannabis abuse, Psychosis Disposition: HOME SELF-CARE Condition: Stable Additional Instructions: Please return to the Emergency Department if symptoms worsen or any other concerns. Is patient prescribed a controlled substance at d/c from ED?: No Referrals: Brenda Montilla NPC [Primary Care Provider] - 1-2 days Time of Disposition: 15:01
[2023-05-06 15:45] VITALS: BP 153/97; PULSE 83; RESP 18; TEMP 98.1
== END 2023-05-06 15:28 | disposition home or self-care (01) ==
LOC: EC 10:42
DX: F29 Unspecified psychosis not due to a substance or known physiological condition (principal); F12.10 Cannabis abuse, uncomplicated; F17.200 Nicotine dependence, unspecified, uncomplicated; Z86.59 Personal history of other mental and behavioral disorders
CPT/HCPCS: 36415; 80053; 80306; 80320; 81003; 83735; 85025; 99285

== ENCOUNTER 2023-05-14 05:58 | Inpatient (IN) | payer OTHER ==
[2023-05-14 06:22] LABS: Basophils % (A) 1 %; Eosinophils # (A) 0.2 k/uL (0-0.7); Eosinophils % (A) 2 %; HCT 38.5 % (39.0-53.0); HGB 13.7 gm/dL (13.0-17.5); Lymphocytes # (A) 1.6 k/uL (1.0-4.8); Lymphocytes % (A) 16 %; MCH 35.6 pg (25.0-35.0); MCHC 35.6 g/dL (31.0-37.0); Mean Platelet Volume 7.4; Monocytes # (A) 0.6 k/uL (0-1.0); Monocytes % (A) 6 %; Neutrophils # (A) 7.3 k/uL (1.3-7.7); Neutrophils % (A) 74 %; Platelet Count 249 k/uL (150-450); RBC 3.85 m/uL (4.30-5.90); RDW 11.4 % (11.5-15.5); WBC 9.9 k/uL (3.8-10.6)
[2023-05-14 06:30] LABS: ALT 35 U/L (4-49); AST 61 U/L (17-59); African American GFR (CKD) >90 (>60 ml/min/1.73 sqM); Albumin 4.3 g/dL (3.5-5.0); Alkaline Phosphatase 96 U/L (38-126); Anion Gap 7 mmol/L; Blood Urea Nitrogen 16 mg/dL (9-20); Calcium 9.3 mg/dL (8.4-10.2); Carbon Dioxide 25 mmol/L (22-30); Chloride 109 mmol/L (98-107); Glucose 96 mg/dL (74-99); Non-African American GFR(CKD) >90 (>60 ml/min/1.73 sqM); Potassium 4.1 mmol/L (3.5-5.1); Sodium 141 mmol/L (137-145); Total Bilirubin 0.6 mg/dL (0.2-1.3)
--- NOTE | 2023-05-14 07:02 | ED ---
Psych HPI <Isra Escalante - Last Filed: 05/14/23 14:09> - General Source: patient, police, RN notes reviewed Mode of arrival: ambulatory Limitations: no limitations <Annia White - Last Filed: 05/14/23 14:47> - General Chief Complaint: Psychiatric Symptoms Stated Complaint: Head injury Time Seen by Provider: 05/14/23 06:03 - History of Present Illness Initial Comments: This is a 43 year old male who presents to the emergency department for a head injury and psychiatric evaluation. Patient comes from [facility], and per the correction's officer, he has been there for several days and ex hibiting manic behavior. Patient states that he has not slept in 4 days. The [employer] staff officer states that he has been banging his head into garcia and either last night or early this morning, he stood on a table and dove off of it, landing headfirst onto the floor. States that he thought that he saw his daughter there eating a peanut butter and jelly sandwich. The [employer] staff officer is unsure if there was any loss of consciousness. Patient is not taking any blood thinners. He has not been harming any other inmates, and is only causing self harming behavior. He does have a significant mental health history requiring psychiatric hospitalizations. He is currently taking olanzapine and mirtazapine and has been compliant with medications. (Annia White) - Related Data Home Medications Medication Instructions Recorded Confirmed Ibuprofen [Motrin Ib] 400 mg PO BID 05/14/23 05/14/23 Mirtazapine [Remeron] 30 mg PO HS 05/14/23 05/14/23 OLANZapine 7.5 mg PO HS 05/14/23 05/14/23 Allergies Allergy/AdvReac Type Severity Reaction Status Date / Time No Known Allergies Allergy Verified 05/14/23 13:53 Review of Systems ROS Other: All systems not noted in ROS Statement are negative. <Isra Escalante - Last Filed: 05/14/23 14:09> ROS Other: All systems not noted in ROS Statement are negative. <Annia White - Last Filed: 05/14/23 14:47> ROS Statement: Those systems with pertinent positive or pertinent negative responses have been documented in the HPI. Past Medical History Past Medical History: No Reported History, Seizure Disorder Additional Past Medical History / Comment(s): seizure free since he was 12- not on medication History of Any Multi-Drug Resistant Organisms: None Reported Past Surgical History: Orthopedic Surgery Additional Past Surgical History / Comment(s): right knee 2014 Past Anesthesia/Blood Transfusion Reactions: No Reported Reaction Past Psychological History: Anxiety, Depression Smoking Status: Current every day smoker Past Alcohol Use History: Occasional Past Drug Use History: Marijuana - Past Family History Mother Additional Family Medical History / Comment(s): brain aneurysm Father Family Medical History: Diabetes Mellitus <Annia White - Last Filed: 05/14/23 14:47> General Exam Limitations: no limitations General appearance: alert, in no apparent distress Head exam: Present: other (Multiple hematomas to the forehead with ecchymosis.) Eye exam: Present: normal appearance, PERRL, EOMI. Absent: scleral icterus, conjunctival injection, periorbital swelling Respiratory exam: Present: normal lung sounds bilaterally. Absent: respiratory distress, wheezes, rales, rhonchi, stridor Cardiovascular Exam: Present: regular rate, normal rhythm, normal heart sounds. Absent: systolic murmur, diastolic murmur, rubs, gallop, clicks Neurological exam: Present: alert, oriented X3, CN II-XII intact Psychiatric exam: Present: manic. Absent: homicidal ideation, suicidal ideation Expanded Focused psych exam: Present: psychomotor agitation, delusional, restlessness, flight of ideas <Annia White - Last Filed: 05/14/23 14:47> Course Vital Signs 05/14/23 05/14/23 05:59 08:01 Temperature 97.6 F Pulse Rate 101 H 97 Respiratory 20 18 Rate Blood Pressure 157/114 148/93 O2 Sat by Pulse 99 96 Oximetry Medical Decision Making - Lab Data Result diagrams: 05/14/23 06:15 05/14/23 06:15 <Isra Escalante - Last Filed: 05/14/23 14:09> - Lab Data Result diagrams: 05/14/23 06:15 05/14/23 06:15 - Radiology Data Radiology results: report reviewed, image reviewed <Annia White - Last Filed: 05/14/23 14:47> - Medical Decision Making Patient reevaluated by myself, Dr. Escalante. I did speak with psychiatric nurse with plans for admission. Patient will not speak to me at this time. Positive clinical certificate is completed. (Isra Escalante) This is a 43-year-old male who presents to the emergency department for a head injury and psychiatric evaluation. Was pt. sent in by a medical professional or institution? @ -No Did you speak to anyone other than the patient for history? @ -Yes, the [employer] staff officer provided the majority of the history. Did you review nursing and triage notes? @ -Yes, and I agree, it is accurate with regards to the patient's symptoms. Were old charts reviewed? @ -No Differential Diagnosis? @ -Differential Mental Health: Depression, anxiety, bipolar, psychosis, schizophrenia, borderline personality, situational depression, adjustment disorder, behavioral disorder, brain tumor, malingering, substance abuse, encephalopathy, medication reaction, dementia, hypothyroidism, degenerative neurologic disorder, lupus.... This is not meant to be all-inclusive list EKG interpreted by me (3pts min.)? @ -Not obtained X-rays interpreted by me (1pt min.)? @ -Not obtained CT interpreted by me (1pt min.)? @ -Computed tomography scan of the brain and c-spine obtained. My interpretation identifies no evidence of an acute intracranial hemorrhage, skull fracture, or cervical spine fracture. U/S interpreted by me (1pt. min.)? @ -Not obtained What testing was considered but not performed? (CT, X-rays, U/S, labs)? Why? @ -None What meds were considered but not given? Why? @ -None Did you discuss the management of the patient with other professionals? @ -Yes, Angelito with EPS, who advised that the patient meets criteria for inpatient psychiatric treatment and will be admitted to this facility on an involuntary basis. Did you reconcile home meds? @ -No Was smoking cessation discussed for >3mins.? @ -I discussed smoking cessation for greater than 3 minutes. The risk of smoking were discussed with the patient including but not limited to risks of cancer, stroke, coronary artery disease and COPD. Also discussed with patient were multiple methods of quitting smoking. Lastly we discussed the financial cost of smoking. Was critical care preformed (if so, how long)? @ -No Were there social determinants of health that impacted care today? How? (Homelessness, low income, unemployed, alcoholism, drug addiction, transportation, low edu. Level, literacy, decrease access to med. care, senior care, rehab)? @ -No Was there de-escalation of care discussed even if they declined? (Discuss DNR or withdrawal of care, Hospice)? @ -No What co-morbidities impacted this encounter? (DM, HTN, Smoking, COPD, CAD, Cancer, CVA, Hep., AIDS, mental health diagnosis, sleep apnea, morbid obesity)? @ -Major depressive disorder with psychotic features Was patient admitted / discharged? @ -Admitted. Lab work obtained and found to be unremarkable. Urine drug screen positive for marijuana. Computed tomography scan of the brain and C-spine obtained revealing no acute process. Patient had a BAT of 0.0 and was cleared for EPS evaluation. EPS found the patient to meet criteria for inpatient psychiatric treatment. Patient has major depressive disorder with psychotic features and is displaying signs of acute psychosis. He was exhibiting self harming behaviors at the senior care by banging his head into objects multiple times a day. He was found to be actively hallucinating in his room, speaking to people who are not there, and acting out. He was also thrashing around in his bed and required a total of 4mg of Ativan, 50mg of Benadryl, and 5mg of Haldol in order to settle down. He will be admitted to at this facility on an involuntary basis. Clinical certification filled out by ED attending Dr. Escalante. Undiagnosed new problem with uncertain prognosis? @ -None Drug Therapy requiring intensive monitoring for toxicity (Heparin, Nitro, Insulin, Cardizem)? @ -None Were any procedures done? @ -None Diagnosis/symptom? @ -Acute psychosis Acute, or Chronic, or Acute on Chronic? @ -Acute Uncomplicated (without systemic symptoms) or Complicated (systemic symptoms)? @ -Complicated Side effects of treatment? @ -None Exacerbation, Progression, or Severe Exacerbation] @ -Not applicable Poses a threat to life or bodily function? @ -Yes Diagnosis/symptom? @ -Major depressive disorder with psychotic features Acute, or Chronic, or Acute on Chronic? @ -Chronic Uncomplicated (without systemic symptoms) or Complicated (systemic symptoms)? @ -Complicated Side effects of treatment? @ -None Exacerbation, Progression, or Severe Exacerbation] @ -Exacerbation Poses a threat to life or bodily function? @ -Yes This case was discussed in detail with the attending ED physician, Dr. Escalante. Presentation, findings, and treatment plan discussed in detail as well. (Annia White) - Lab Data Lab Results 05/14/23 05/14/23 05/14/23 Range/Units 06:15 06:15 10:26 WBC 9.9 (3.8-10.6) k/uL RBC 3.85 L (4.30-5.90) m/uL Hgb 13.7 (13.0-17.5) gm/dL Hct 38.5 L (39.0-53.0) % MCV 100.0 (80.0-100.0) fL MCH 35.6 H (25.0-35.0) pg MCHC 35.6 (31.0-37.0) g/dL RDW 11.4 L (11.5-15.5) % Plt Count 249 (150-450) k/uL MPV 7.4 Neutrophils % 74 % Lymphocytes % 16 % Monocytes % 6 % Eosinophils % 2 % Basophils % 1 % Neutrophils # 7.3 (1.3-7.7) k/uL Lymphocytes # 1.6 (1.0-4.8) k/uL Monocytes # 0.6 (0-1.0) k/uL Eosinophils # 0.2 (0-0.7) k/uL Basophils # 0.0 (0-0.2) k/uL Sodium 141 (137-145) mmol/L Potassium 4.1 (3.5-5.1) mmol/L Chloride 109 H (98-107) mmol/L Carbon Dioxide 25 (22-30) mmol/L Anion Gap 7 mmol/L BUN 16 (9-20) mg/dL Creatinine 0.91 (0.66-1.25) mg/dL Est GFR (CKD-EPI)AfAm >90 (>60 ml/min/1.73 sqM) Est GFR (CKD-EPI)NonAf >90 (>60 ml/min/1.73 sqM) Glucose 96 (74-99) mg/dL Plasma Lactic Acid [place] (0.7-2.0) mmol/L Calcium 9.3 (8.4-10.2) mg/dL Total Bilirubin 0.6 (0.2-1.3) mg/dL AST 61 H (17-59) U/L ALT 35 (4-49) U/L Alkaline Phosphatase 96 (38-126) U/L Total Protein 7.0 (6.3-8.2) g/dL Albumin 4.3 (3.5-5.0) g/dL Urine Opiates Screen Not Detected (NotDetected) Ur Oxycodone Screen Not Detected (NotDetected) Urine Methadone Screen Not Detected (NotDetected) Ur Barbiturates Screen Not Detected (NotDetected) U Tricyclic Antidepress Not Detected (NotDetected) Ur Phencyclidine Scrn Not Detected (NotDetected) Ur Amphetamines Screen Not Detected (NotDetected) U Methamphetamines Scrn Not Detected (NotDetected) U Benzodiazepines Scrn Not Detected (NotDetected) Urine Cocaine Screen Not Detected (NotDetected) U Marijuana (THC) Screen Detected H (NotDetected) 05/14/23 Range/Units 14:00 WBC (3.8-10.6) k/uL RBC (4.30-5.90) m/uL Hgb (13.0-17.5) gm/dL Hct (39.0-53.0) % MCV (80.0-100.0) fL MCH (25.0-35.0) pg MCHC (31.0-37.0) g/dL RDW (11.5-15.5) % Plt Count (150-450) k/uL MPV Neutrophils % % Lymphocytes % % Monocytes % % Eosinophils % % Basophils % % Neutrophils # (1.3-7.7) k/uL Lymphocytes # (1.0-4.8) k/uL Monocytes # (0-1.0) k/uL Eosinophils # (0-0.7) k/uL Basophils # (0-0.2) k/uL Sodium (137-145) mmol/L Potassium (3.5-5.1) mmol/L Chloride (98-107) mmol/L Carbon Dioxide (22-30) mmol/L Anion Gap mmol/L BUN (9-20) mg/dL Creatinine (0.66-1.25) mg/dL Est GFR (CKD-EPI)AfAm (>60 ml/min/1.73 sqM) Est GFR (CKD-EPI)NonAf (>60 ml/min/1.73 sqM) Glucose (74-99) mg/dL Plasma Lactic Acid [place] 1.2 (0.7-2.0) mmol/L Calcium (8.4-10.2) mg/dL Total Bilirubin (0.2-1.3) mg/dL AST (17-59) U/L ALT (4-49) U/L Alkaline Phosphatase (38-126) U/L Total Protein (6.3-8.2) g/dL Albumin (3.5-5.0) g/dL Urine Opiates Screen (NotDetected) Ur Oxycodone Screen (NotDetected) Urine Methadone Screen (NotDetected) Ur Barbiturates Screen (NotDetected) U Tricyclic Antidepress (NotDetected) Ur Phencyclidine Scrn (NotDetected) Ur Amphetamines Screen (NotDetected) U Methamphetamines Scrn (NotDetected) U Benzodiazepines Scrn (NotDetected) Urine Cocaine Screen (NotDetected) U Marijuana (THC) Screen (NotDetected) Disposition <Isra Escalante - Last Filed: 05/14/23 14:09> Time of Disposition: 14:44 <Annia White - Last Filed: 05/14/23 14:47> Clinical Impression: Nicotine dependence, Major depressive disorder with psychotic features, Acute psychosis Disposition: ADMITTED IP TO THIS HOSP Referrals: Brenda Montilla, [facility] [Primary Care Provider] - 1-2 days
--- NOTE | 2023-05-14 07:41 | CT ---
EXAMINATION TYPE: CT brain marc ware DATE OF EXAM: 05/14/2023 COMPARISON: HISTORY: Patient is an inmate at the [facility]. PD states that patient has been manic and has not slept in 4 days. States patient dove off table because he thought his daughter was there eating a pbj. Bump t o head. CT DLP: 1453.9 mGycm, Automated exposure control for dose reduction was used. CONTRAST: Patient injected with 0 mL of Isovue 300. CT of the brain is performed utilizing 3 mm thick sections through the posterior fossa and 3 mm thick sections through the remaining calvarium. There is some motion artifact causes limitation for fine detail. Study is performed within 24 hours of arrival to the hospital. No abnormal hyperdensity is present to suggest an acute intracranial hemorrhage. No mass lesion is evident. No acute infarcts are evident. Ventricles and sulci are appropriate for the patient age. Paranasal sinuses and mastoid air cells within the [id number] are clear. IMPRESSIONS: 1. No acute intracranial process is radiographically apparent. Follow-up MRI can be performed as clin ically indicated. 2. Exam is limited with some motion artifact. CT cervical spine. COMPARISON: None CT of the cervical spine is performed in the axial plane at 2 mm thick sections. Reconstructed image s in the coronal, and sagittal plane are reviewed on the computer. No acute fractures are evident. Vertebral body alignment is normal. Degenerative disc changes present at C4-5 C5-C6 C6-7. Some anterior vertebral body spurring is presen t C4-C7. Small amount of posterior vertebral bodies. Present C4-5 and C5-6. No spinal canal stenosis is present. Right foraminal stenosis is present at C5-6 from uncovertebral joint hypertrophy Vertebral body heights are preserved. No spinal canal stenosis is evident. IMPRESSION: 1. No acute osseous abnormality cervical spine.
[2023-05-14 10:57] LABS: Amphetamine Screen,Urine Not Detected (NotDetected); Barbiturate Screen,Urine Not Detected (NotDetected); Benzodiazepines Screen,Urine Not Detected (NotDetected); Cocaine Screen,Urine Not Detected (NotDetected); Methadone Screen, Urine Not Detected (NotDetected); Opiate Screen,Urine Not Detected (NotDetected); Oxycodone Screen, Urine Not Detected (NotDetected); Phencyclidine Screen,Urine Not Detected (NotDetected); Tricyclic Antidepressant,Urine Not Detected (NotDetected); Urn Cannabinoid Scrn Detected (NotDetected)
[2023-05-14] MEDS: ACETAMINOPHEN TAB 500 MG TAB PO STA (11:00)
[2023-05-14] MEDS: IBUPROFEN 600 MG TAB PO STA (11:01)
[2023-05-14] MEDS: LORazepam 2 MG/ML INJ IV STA ×2 (12:55→13:45)
[2023-05-14] MEDS: diphenhydrAMINE 50 MG/ML 1 ML VIAL IVP STA (13:45)
[2023-05-14] MEDS: HALOPERIDOL LACTATE 5 MG/ML 1 ML VIAL IM STA (13:45)
[2023-05-14] MEDS ORDERED: LORazepam 2 MG/ML INJ IV PRN (17:34)
[2023-05-14] MEDS ORDERED: HALOPERIDOL LACTATE 5 MG/ML 1 ML VIAL IM PRN (17:34)
[2023-05-14] MEDS ORDERED: ACETAMINOPHEN TAB 325 MG TAB PO PRN (17:35)
[2023-05-14] MEDS: MIRTAZAPINE 15 MG TAB PO SCH (20:52)
[2023-05-14] MEDS: OLANZapine 7.5 MG TAB PO SCH (20:52)
[2023-05-14] MEDS: IBUPROFEN 400 MG TAB PO SCH (20:52)
[2023-05-15] MEDS ORDERED: LORazepam 2 MG/ML INJ IM PRN (15:20)
[2023-05-15] MEDS ORDERED: haloperidoL 5 MG TAB PO PRN (15:20)
[2023-05-15] MEDS ORDERED: HALOPERIDOL LACTATE 5 MG/ML 1 ML VIAL IM PRN (15:20)
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
[2023-05-16] MEDS: ACETAMINOPHEN TAB 325 MG TAB PO PRN (06:14)
[2023-05-16] MEDS: NICOTINE 14MG/24HR PATCH TRANSDERM SCH (08:58)
[2023-05-16] MEDS: INFLUENZA VACC (6 MOS-64 YRS) 60 MCG/0.5 ML SYRINGE IM ONE (09:20)
[2023-05-16] MEDS ORDERED: traZODone HCL 100 MG TAB PO PRN (14:19)
--- NOTE | 2023-05-16 14:31 | P.HP ---
Psychiatric H&P - . H&P Date: 05/16/23 History & Physical: Allergies Allergy/AdvReac Type Severity Reaction Status Date / Time No Known Allergies Allergy Verified 05/14/23 13:53 Vital Signs Temp 97.8 F 05/16/23 06:14 Pulse 110 H 05/16/23 06:14 Resp 14 05/16/23 06:14 BP 144/93 05/16/23 06:14 Pulse Ox 100 05/16/23 08:59 FiO2 Intake & Output 05/15/23 05/16/23 05/16/23 18:59 06:59 18:59 Weight 59.4 kg Laboratory Last Values WBC 9.9 k/uL (3.8-10.6) 05/14/23 06:15 RBC 3.85 m/uL (4.30-5.90) L 05/14/23 06:15 Hgb 13.7 gm/dL (13.0-17.5) 05/14/23 06:15 Hct 38.5 % (39.0-53.0) L 05/14/23 06:15 MCV 100.0 fL (80.0-100.0) 05/14/23 06:15 MCH 35.6 pg (25.0-35.0) H 05/14/23 06:15 MCHC 35.6 g/dL (31.0-37.0) 05/14/23 06:15 RDW 11.4 % (11.5-15.5) L 05/14/23 06:15 Plt Count 249 k/uL (150-450) 05/14/23 06:15 MPV 7.4 05/14/23 06:15 Neutrophils % 74 % 05/14/23 06:15 Lymphocytes % 16 % 05/14/23 06:15 Monocytes % 6 % 05/14/23 06:15 Eosinophils % 2 % 05/14/23 06:15 Basophils % 1 % 05/14/23 06:15 Neutrophils # 7.3 k/uL (1.3-7.7) 05/14/23 06:15 Lymphocytes # 1.6 k/uL (1.0-4.8) 05/14/23 06:15 Monocytes # 0.6 k/uL (0-1.0) 05/14/23 06:15 Eosinophils # 0.2 k/uL (0-0.7) 05/14/23 06:15 Basophils # 0.0 k/uL (0-0.2) 05/14/23 06:15 Sodium 141 mmol/L (137-145) 05/14/23 06:15 Potassium 4.1 mmol/L (3.5-5.1) 05/14/23 06:15 Chloride 109 mmol/L (98-107) H 05/14/23 06:15 Carbon Dioxide 25 mmol/L (22-30) 05/14/23 06:15 Anion Gap 7 mmol/L 05/14/23 06:15 BUN 16 mg/dL (9-20) 05/14/23 06:15 Creatinine 0.91 mg/dL (0.66-1.25) 05/14/23 06:15 Est GFR (CKD-EPI)AfAm >90 (>60 ml/min/1.73 sqM) 05/14/23 06:15 Est GFR (CKD-EPI)NonAf >90 (>60 ml/min/1.73 sqM) 05/14/23 06:15 Glucose 96 mg/dL (74-99) 05/14/23 06:15 Plasma Lactic Acid Harvey 1.2 mmol/L (0.7-2.0) 05/14/23 14:00 Calcium 9.3 mg/dL (8.4-10.2) 05/14/23 06:15 Total Bilirubin 0.6 mg/dL (0.2-1.3) 05/14/23 06:15 AST 61 U/L (17-59) H 05/14/23 06:15 ALT 35 U/L (4-49) 05/14/23 06:15 Alkaline Phosphatase 96 U/L (38-126) 05/14/23 06:15 Total Protein 7.0 g/dL (6.3-8.2) 05/14/23 06:15 Albumin 4.3 g/dL (3.5-5.0) 05/14/23 06:15 Urine Opiates Screen Not Detected (NotDetected) 05/14/23 10:26 Ur Oxycodone Screen Not Detected (NotDetected) 05/14/23 10:26 Urine Methadone Screen Not Detected (NotDetected) 05/14/23 10:26 Ur Barbiturates Screen Not Detected (NotDetected) 05/14/23 10:26 U Tricyclic Antidepress Not Detected (NotDetected) 05/14/23 10:26 Ur Phencyclidine Scrn Not Detected (NotDetected) 05/14/23 10:26 Ur Amphetamines Screen Not Detected (NotDetected) 05/14/23 10:26 U Methamphetamines Scrn Not Detected (NotDetected) 05/14/23 10:26 U Benzodiazepines Scrn Not Detected (NotDetected) 05/14/23 10:26 Urine Cocaine Screen Not Detected (NotDetected) 05/14/23 10:26 U Marijuana (THC) Screen Detected (NotDetected) H 05/14/23 10:26 SARS-CoV-2 (PCR) Not Detected (Not Detectd) 05/15/23 12:37 05/16/23 13:36 IDENTIFYING DATA: Patient is a 43 yo male, who is currently unemployed, he lives in a trailer with his and 2 kids. HPI: Patient presented to the hospital on 05/14 coming from [facility]. Apparently patient has been there since April 27. Patient has a history of traumatic brain injury, alcohol abuse. Patient according to petition apparently was displaying manic behaviors in the [facility], he has not been sleeping for several days, apparently patient has been banging his head. Patient also apparently dove off a table because he thought he saw his daughter there. Patient was admitted to the unit involuntarily. He was agreeable to speak to sql report writer today in the office. He states that he is not sure what is real and what not. He endorses that he has been living in a "dreamlike state" for the past couple weeks. States that he was going [facility]. Claims that his memory is very poor from all of this. He states that he does have bruises over his head and his body and he does not know what it is for.. He claims that he has an "unsettled mood" and at this time is endorsing anxiety. States that he knows the correct location, knows the correct date and his name. He was tearful when talking about his situation, he states that he is willing to seek psychiatric help. Claims that his sleep has been fairly poor, appetite has been fair. States that he was having visual hallucinations however does not know what is real and what is not. Denies any auditory hallucinations. Patient denies any suicidal or homicidal ideations intent or plan. Patient denies any flight of ideas racing thoughts and increased in goal directed behavior. Patient admits to using alcohol, chronic use, states that his last drink was before going into [facility] April 27. Claims that he was also smoking marijuana before going to [facility] and also cigarettes. PAST PSYCHIATRIC HISTORY: Patient states that he has a history of alcohol use, marijuana use, history of traumatic brain injury. Patient has been on several different psychiatric medications in the past most recently was on Zyprexa and Remeron, has not been taking them consistently. Patient's last psychiatric admission to the mental health unit was in July 2022. Patient denies any psy chiatric outpatient follow-up. Patient denies any history of suicide attempts in the past. Past Medical History: No Reported History, Seizure Disorder Additional Past Medical History / Comment(s): seizure free since he was 12- not on medication History of Any Multi-Drug Resistant Organisms: None Reported Past Surgical History: Orthopedic Surgery Additional Past Surgical History / Comment(s): right knee 2014 Past Anesthesia/Blood Transfusion Reactions: No Reported Reaction Past Psychological History: Anxiety, Depression Smoking Status: Current every day smoker Past Alcohol Use History: Occasional Past Drug Use History: Marijuana ALLERGIES: as per EMR CHEMICAL DEPENDENCY HISTORY: as per HPI FAMILY PSYCHIATRIC/SUBSTANCE USE HISTORY: Claims that on his mother side there is a lot of mental illness, claims that 2 of his uncles had committed suicide in the past. SOCIAL HISTORY: Patient was born and raised in [place], states that he then moved to [place]. 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 Claims that he completed his GED. He states that he currently lives in a trailer with his , he has 2 kids. He states that [facility] however does not know the current charge has not had previous legal history prior to this. MENTAL STATUS EXAM: General Appearance: Patient appears to be short in stature, shaved head, stated age is alert, directable, and attempts to cooperate. Patient appears to have fair hygiene and grooming. Behavior: Patient is seated without any agitated behavior. Tearful at times Speech: Patient's speech is fluent and nonpressured. Mood/Affect: Patient reports their mood is "mainly anxious", affect is congruent and constricted. Suicidality/Homicidality: Patient denies having any homicidal ideation intent or plan. Denies any suicidal ideations intent or plan Perceptions: Patient admits to visual hallucinations, denies any auditory hallucinations at this time. Though content/process: There is no evidence of any delusional thought content and thought process is linear and goal-directed. Vague Memory and concentration: AOX3, grossly intact for the purposes of this session. Can spell "WORLD" backwards Judgment and insight: Poor STRENGTHS/WEAKNESSES: strength is that patient is resilient. Weakness is that patient has poor judgment and is impulsive INTELLECT: Average IMPRESSIONS: Psychosis unspecified History of depressive disorder Alcohol use disorder Cannabis use disorder Nicotine dependence Legal problems PLAN: -Patient is admitted under voluntary status to MHU for stabilization of psychiatric symptoms and safety. Patient has signed adult voluntary form and medication consent and is placed in patient's chart. -Medications : Will start patient on Invega p.o. 3 mg nightly for psychosis, continue with Remeron 30 mg nightly for insomnia/mood, Cymbalta 30 mg daily for mood/anxiety. -Ativan and Haldol PRN for agitation/aggression -Patient was counselled on substance abuse and desired to cut back on use -Patient was informed of the risks, benefits and side effects of the medication and patient verbally consented to taking the medications. Patient signed med consent form and was placed in chart. -Internal Medicine consult to perform medical evaluation and physical. -NRT -nicotine patch -SW on board for discharge planning. Encourage patient to participate in groups to work on coping skills. [facility] is currently a [facility] hold. 05/16/23 14:19 05/16/23 14:23 05/16/23 14:28
[2023-05-16 15:01] VITALS: BMI 20.5
[2023-05-16] MEDS: DULoxetine HCL 30 MG CAPSULE.DR PO SCH (16:13)
[2023-05-16] MEDS: MAG HYDROX/AL HYDROX/SIMETH 30 ML CUP PO PRN (19:47)
[2023-05-16] MEDS: PALIPERIDONE 3 MG TAB.ER.24 PO SCH (21:03)
--- NOTE | 2023-05-17 11:47 | P.PN ---
Progress Note - Text Progress Note Date: 05/17/23 Interval history: Patient was seen today taking part in group and was agreeable to speak to lyric writer in the office. Patient states that he is feeling in a "fog" and states that he is finding it difficult to concentrate. He states that it may be related to his lack of sleep. He states that he is not able to sleep much at all last night. He was requesting a different option to help him with sleep. We spoke about doxepin and he was agreeable to try that tonight. He claims that he has been t rying to socialize on the unit. He has been eating well. Claims that his anxiety and mood have been mildly improving. He is denying any auditory or visual hallucinations. Denying any suicidal homicidal ideation s intent or plan. Not reporting any side effects to his medications today. MENTAL STATUS EXAM: General Appearance: Patient appears to be short in stature, shaved head, stated age is alert, directable, and attempts to cooperate. Patient appears to have fair hygiene and grooming. Behavior: Patient is seated without any agitated behavior. Not tearful today. Speech: Patient's speech is fluent and nonpressured. Hesitant at times Mood/Affect: Patient reports their mood is "in a fog", affect is congruent and constricted, improving mildly. Suicidality/Homicidality: Patient denies having any homicidal ideation intent or plan. Denies any suicidal ideations intent or plan Perceptions: Patient admits to visual hallucinations, denies any auditory hallucinations at this time. Though content/process: There is no evidence of any delusional thought content and thought process is linear and goal-directed. Vague, focused on his symptoms Memory and concentration: AOX3, grossly intact for the purposes of this session Judgment and insight: Poor, improving mildly IMPRESSIONS: Psychosis unspecified History of depressive disorder Alcohol use disorder Cannabis use disorder Nicotine dependence Legal problems PLAN: -Patient is admitted under voluntary status to MHU for stabilization of psychiatric symptoms and safety. Patient has signed adult voluntary form and medication consent and is placed in patient's chart. -Medications : increase Invega p.o. 6 mg nightly for psychosis, changed remeron 30 mg nightly prn for insomnia/mood, Cymbalta 30 mg daily for mood/anxiety. added doxepin 10 mg qhs for sleep -Ativan and Haldol PRN for agitation/aggression -NRT -nicotine patch -SW on board for discharge planning. Encourage patient to participate in groups to work on coping skills. Patient is currently a penit[facility]iary hold.
[2023-05-17] MEDS: SENNOSIDES-DOCUSATE SODIUM 1 EACH TAB PO SCH (12:52)
[2023-05-17] MEDS: LORazepam 1 MG TAB PO PRN (16:52)
[2023-05-17] MEDS: MIRTAZAPINE 15 MG TAB PO PRN (22:19)
[2023-05-17] MEDS: DOXEPIN 10 MG CAP PO SCH (22:19)
[2023-05-17] MEDS: PALIPERIDONE 6 MG TAB.ER.24 PO SCH (22:20)
[2023-05-18] MEDS: QUEtiapine 25 MG TAB PO SCH (12:04)
[2023-05-18] MEDS: MAGNESIUM HYDROXIDE 2,400 MG/30 ML CUP PO PRN (12:05)
--- NOTE | 2023-05-18 13:23 | P.PN ---
Progress Note - Text Progress Note Date: 05/18/23 Interval history: Patient was seen today taking part in group and was agreeable to speak to teletypewriter operator in the office. Patient states that he is feeling still depressed today, reports anxiety. He is not claiming that he feels like he is in a "fog" today however does state that he had a difficult time sleeping last night once again. States that he only slept maybe a few minutes. He claims that he was lying awake with his eyes closed as it was documented that he slept several hours. He claims t hat he feels medications have not been helping him thus far. He did claim that he got better news about his court proceedings yesterday. Claims that he is trying to go to groups and participate as best as he can. He is showing an improvement in his irritability and is becoming more future oriented. Improving insight and judgment. Seems that he is eating well. He is denying any auditory or visual hallucinations. Denying any suicidal homicidal ideation s intent or plan. Not reporting any side effects to his medications today. MENTAL STATUS EXAM: General Appearance: Patient appears to be short in stature, shaved head, stated age is alert, directable, and attempts to cooperate. Patient appears to have fair hygiene and grooming. Behavior: Patient is seated without any agitated behavior. Not tearful today. Continues to be in distress Speech: Patient's speech is fluent and nonpressured. Hesitant at times Mood/Affect: Patient reports their mood is "not good", affect is congruent and constricted Suicidality/Homicidality: Patient denies having any homicidal ideation intent or plan. Denies any suicidal ideations intent or plan Perceptions: Patient admits to visual hallucinations, denies any auditory hallucinations at this time. Though content/process: There is no evidence of any delusional thought content and thought process is linear and goal-directed. Vague, focused on his symptoms and poor sleep Memory and concentration: AOX3, grossly intact for the purposes of this session Judgment and insight: Poor, improving mildly IMPRESSIONS: Psychosis unspecified History of depressive disorder Alcohol use disorder Cannabis use disorder Nicotine dependence Legal problems PLAN: -Patient is admitted under voluntary status to MHU for stabilization of psychiatric symptoms and safety. Patient has signed adult voluntary form and medication consent and is placed in patient's chart. -Medications : d/c Invega and replace with Seroquel 25 mg daily + 50 mg qhs for sleep/psychosis/mood stabilization, remeron 30 mg nightly prn for insomnia/mood, Cymbalta 30 mg daily for mood/anxiety. increase doxepin 25 mg qhs for sleep. -Ativan and Haldol PRN for agitation/aggression -NRT -nicotine patch -SW on board for discharge planning. Encourage patient to participate in groups to work on coping skills. Patient is currently a [facility] hold. likely discharge early next week if patient improves psychiatrically.
[2023-05-18] MEDS: QUEtiapine 50 MG TAB PO SCH (21:46)
[2023-05-18] MEDS: SENNOSIDES-DOCUSATE SODIUM 1 EACH TAB PO SCH (21:46)
[2023-05-18] MEDS: DOXEPIN 25 MG CAP PO SCH (21:47)
[2023-05-19] MEDS: DULoxetine HCL 30 MG CAPSULE.DR PO ONE (11:55)
--- NOTE | 2023-05-19 12:04 | P.PN ---
Progress Note - Text Progress Note Date: 05/19/23 Interval history: Patient was seen today taking part in group and was agreeable to speak to web content writer in the office. Patient states that he is feeling anxious today. Pt reports difficulty sleeping through the night.Pt states that when he wakes he feels as though he got little rest. Pt reports having a hard time "getting with it" and focusing through the AM hours. Claims that he is trying to go to groups and participate. He is showing an improvement in his irritability and is becoming more future oriented. He was agreeable to have his Seroquel increased for tonight. Pt also reports irregular bowel movement. Improving insight and judgment. Seems that he is eating well. He is denying any auditory or visual hallucinations. Denying any suicidal homicidal ideations intent or plan. Not reporting any side effects to his medications today. MENTAL STATUS EXAM: General Appearance: Patient appears to be short in stature, shaved head, stated age is alert, directable, and attempts to cooperate. Patient appears to have fair hygiene and grooming. Behavior: Patient is seated without any agitated behavior. Continues to be in distress, improving mildly. Poor eye contact. Speech: Patient's speech is fluent and nonpressured. Mood/Affect: Patient reports increased anxiety. Affect is constricted Suicidality/Homicidality: Patient denies having any homicidal ideation intent or plan. Denies any suicidal ideations intent or plan Perceptions: Patient admits to visual hallucinations, denies any auditory hallucinations at this time. Though content/process: There is no evidence of any delusional thought content and thought process is linear and goal-directed. Vague, continues to be focused on his symptoms and poor sleep Memory and concentration: AOX3, grossly intact for the purposes of this session Judgment and insight: Poor, improving mildly IMPRESSIONS: Psychosis unspecified History of depressive disorder Alcohol use disorder Cannabis use disorder Nicotine dependence Legal problems PLAN: -Patient is admitted under voluntary status to MHU for stabilization of psychiatric symptoms and safety. Patient has signed adult voluntary form and medication consent and is placed in patient's chart. -Medications : increase Seroquel 25 mg daily + 100 mg qhs for sleep/psychosis/mood stabilization, remeron 30 mg nightly prn for insomnia/mood, Increase Cymbalta 60 mg daily for mood/anxiety. doxepin 25 mg qhs for sleep. -Ativan and Haldol PRN for agitation/aggression -NRT -nicotine patch -SW on board for discharge planning. Encourage patient to participate in groups to work on coping skills. Patient is currently a custodial hold. likely discharge tues vs wed if patient improves psychiatrically.
[2023-05-19] MEDS: QUEtiapine 100 MG TAB PO SCH (20:46)
[2023-05-20] MEDS: DULoxetine HCL 60 MG CAPSULE.DR PO SCH (08:50)
[2023-05-20] MEDS: FLUTICASONE 50MCG/SPRAY NASAL 16GM EA NOSTRIL PRN (08:50)
--- NOTE | 2023-05-20 11:20 | P.PN ---
Progress Note - Text Progress Note Date: 05/20/23 Interval history: Patient was seen today taking part in group and was agreeable to speak to check writer in the office. Patient has been socializing and talking with other patients on the unit. He claims that overall he is doing a bit better today with regards to his mood and also anxiety. States that he took an Ativan early last night along with his sleep medications however did state that he got better sleep. We spoke about other options to help him sleep without the Ativan, he was open to discuss other medications. Claims that he is feeling fairly bored on the unit today. His appetite is fair. Pt also reports irregular bowel movement. Improving insight and judgment. Seems that he is eating well. He is denying any auditory or visual hallucinations. Denying any suicidal homicidal ideations intent or plan. Not reporting any side effects to his medications today. MENTAL STATUS EXAM: General Appearance: Patient appears to be short in stature, shaved head, stated age is alert, directable, and attempts to cooperate. Patient appears to have fair hygiene and grooming. Behavior: Patient is seated without any agitated behavior, improving mildly. Proving eye contact. Speech: Patient's speech is fluent and nonpressured. Mood/Affect: Patient reports improving mood. Affect is constricted, improving mildly Suicidality/Homicidality: Patient denies having any homicidal ideation intent or plan. Denies any suicidal ideations intent or plan Perceptions: Patient admits to visual hallucinations, denies any auditory hallucinations at this time. Though content/process: There is no evidence of any delusional thought content and thought process is linear and goal-directed. Vague, continues to be focused on his sleep. Memory and concentration: AOX3, grossly intact for the purposes of this session Judgment and insight: Poor, improving mildly IMPRESSIONS: Psychosis unspecified History of depressive disorder Alcohol use disorder Cannabis use disorder Nicotine dependence Legal problems PLAN: -Patient is admitted under voluntary status to MHU for stabilization of psychiatric symptoms and safety. Patient has signed adult voluntary form and medication consent and is placed in patient's chart. -Medications : increase Seroquel 25 mg daily + 150 mg qhs for sleep/psychosis/mo od stabilization, increase remeron 45 mg nightly for insomnia/mood, Cymbalta 60 mg daily for mood/anxiety. doxepin 25 mg qhs for sleep. -Ativan and Haldol PRN for agitation/aggression -NRT -nicotine patch -SW on board for discharge planning. Encourage patient to participate in groups to work on coping skills. Patient is currently a senior care hold. likely discharge tu vs mon if patient improves psychiatrically.
[2023-05-20] MEDS: LORazepam 0.5 MG TAB PO PRN (19:32)
[2023-05-20] MEDS: QUEtiapine 50 MG TAB PO SCH (21:07)
[2023-05-20] MEDS: MIRTAZAPINE 15 MG TAB PO SCH (21:08)
--- NOTE | 2023-05-21 11:48 | P.PN ---
Progress Note - Text Progress Note Date: 05/21/23 Interval history: Patient was seen today and agreeable to speak to designer writer for psychiatric follow- up. Patient states that he is feeling more anxious today and claims that is mainly because his is not returning his call. He states that last time we talked her was a couple days ago. He states that he does not know how long he will be needing to go to retirement. Claims that he is feeling fairly bored on the unit and does not know what to do. He states that he is still feeling depressed at this time, we spoke about increasing his medications. He also claims that he found it very difficult to sleep last night and only slept about 3 hours. He states that his insomnia is a chronic issue. Improving insight and judgment. Seems that he is eating well. He is denying any auditory or visual hallucinations. Denying any suicidal homicidal ideations intent or plan. Not reporting any side effects to his medications today. MENTAL STATUS EXAM: General Appearance: Patient appears to be short in stature, shaved head, stated age is alert, directable, and attempts to cooperate. Patient appears to have fair hygiene and grooming. Behavior: Patient is seated without any agitated behavior, improving mildly. improving eye contact. Speech: Patient's speech is fluent and nonpressured. Mood/Affect: Patient reports improving mood. Affect is constricted, improving mildly Suicidality/Homicidality: Patient denies having any homicidal ideation intent or plan. Denies any suicidal ideations intent or plan Perceptions: Patient admits to visual hallucinations, denies any auditory hallucinations at this time. Though content/process: There is no evidence of any delusional thought content and thought process is linear and goal-directed. Vague, continues to be focused on his sleep. Memory and concentration: AOX3, grossly intact for the purposes of this session Judgment and insight: Poor, improving mildly IMPRESSIONS: Psychosis unspecified History of depressive disorder Alcohol use disorder Cannabis use disorder Nicotine dependence Legal problems PLAN: -Patient is admitted under voluntary status to MHU for stabilization of psychiatric symptoms and safety. Patient has signed adult voluntary form and medication consent and is placed in patient's chart. -Medications : increase Seroquel 25 mg daily + 200 mg qhs for sleep/psychosis/mood stabilization,decrease remeron 30 mg nightly for insomnia/mood, increase Cymbalta 90 mg daily for mood/anxiety. increase doxepin 50 mg qhs for sleep. -Ativan and Haldol PRN for agitation/aggression -NRT -nicotine patch -SW on board for discharge planning. Encourage patient to participate in groups to work on coping skills. Patient is currently a retirement hold. likely discharge tu vs mon if patient improves psychiatrically.
[2023-05-21] MEDS: DULoxetine HCL 30 MG CAPSULE.DR PO ONE (12:40)
[2023-05-21] MEDS: MIRTAZAPINE 15 MG TAB PO SCH (20:51)
[2023-05-21] MEDS: QUEtiapine 200 MG TAB PO SCH (20:51)
[2023-05-21] MEDS: DOXEPIN 25 MG CAP PO SCH (20:52)
[2023-05-21] MEDS ORDERED: DULoxetine HCL 60 MG CAPSULE.DR PO SCH (21:00)
[2023-05-22] MEDS: DULoxetine HCL 30 MG CAPSULE.DR PO SCH (08:51)
--- NOTE | 2023-05-22 12:13 | P.PN ---
Progress Note - Text Progress Note Date: 05/22/23 Interval history: Patient was seen today and agreeable to speak to ad copy writer for psychiatric follow- up. he was seen earlier participating in groups. Patient states that he is feeling anxious again today. says his depression has been improving. He states that he does not know how long he will be needing to go to correction, claims that he does not know. states that he spoke with his last night and states that it went well over all. Improving insight and judgment. Seems that he is eating well. He is denying any auditory or visual hallucinations. Denying any suicidal homicidal ideations intent or plan. Not reporting any side effects to his medications today. MENTAL STATUS EXAM: General Appearance: Patient appears to be short in stature, shaved head, stated age is alert, directable, and attempts to cooperate. Patient appears to have fair hygiene and grooming. Behavior: Patient is seated without any agitated behavior, improving mildly. improving eye contact. Speech: Patient's speech is fluent and nonpressured. Mood/Affect: Patient reports improving mood, Affect is constricted, improving mildly Suicidality/Homicidality: Patient denies having any homicidal ideation intent or plan. Denies any suicidal ideations intent or plan Perceptions: Patient admits to visual hallucinations, denies any auditory hallucinations at this time. Though content/process: There is no evidence of any delusional thought content and thought process is linear and goal-directed. continues to be focused on his sleep. Memory and concentration: AOX3, grossly intact for the purposes of this session Judgment and insight: Poor, improving mildly IMPRESSIONS: Psychosis unspecified History of depressive disorder Alcohol use disorder Cannabis use disorder Nicotine dependence Legal problems PLAN: -Patient is admitted under voluntary status to MHU for stabilization of psychiatric symptoms and safety. Patient has signed adult voluntary form and medication consent and is placed in patient's chart. -Medications : increase Seroquel 50 mg daily + 200 mg qhs for sleep/psychosis/mood stabilization, remeron 30 mg nightly for insomnia/mood, Cymbalta 90 mg daily for mood/anxiety. doxepin 50 mg qhs for sleep. added trazodone 100 mg qhs for insomnia/mood. -Ativan and Haldol PRN for agitation/aggression -NRT -nicotine patch -SW on board for discharge planning. Encourage patient to participate in groups to work on coping skills. Patient is currently a correction hold. likely discharge mon- if patient improves psychiatrically.
[2023-05-22] MEDS: QUEtiapine 25 MG TAB PO STA (12:51)
[2023-05-22] MEDS: traZODone HCL 100 MG TAB PO SCH (21:47)
[2023-05-23] MEDS: QUEtiapine 50 MG TAB PO SCH (07:55)
--- NOTE | 2023-05-23 10:23 | P.PN ---
Progress Note - Text Progress Note Date: 05/23/23 Interval history: Patient was seen today and agreeable to speak to hand sign writer for psychiatric follow- up. Patient states that he is feeling pretty good today. States his depression has been improving. Patient says that his anxiety is up and down, just feeling like he's in the dark about what is happening with his life right now. States that he is not sleeping well at night, and has trouble falling asleep, and staying asleep. States his can't stay still at night. Spoke with patient about trying requip for RLS, patient agreeable. Improving insight and judgment. States that he is eating well. He is denying any auditory or visual hallucinations. Denying any suicidal homicidal ideations intent or plan. Not reporting any side effects to his medications today. MENTAL STATUS EXAM: General Appearance: Patient appears to be short in stature, shaved head, stated age is alert, directable, and attempts to cooperate. Patient appears to have fair hygiene and grooming. Behavior: Patient is seated without any agitated behavior, improving mildly. improving eye contact. Speech: Patient's speech is fluent and nonpressured. Mood/Affect: Patient reports improving mood, Affect is constricted, improving Suicidality/Homicidality: Patient denies having any homicidal ideation intent or plan. Denies any suicidal ideations intent or plan Perceptions: Patient denies visual hallucinations, denies any auditory hallucinations at this time. Though content/process: There is no evidence of any delusional thought content and thought process is linear and goal-directed. continues to be focused on his sleep. Memory and concentration: AOX3, grossly intact for the purposes of this session Judgment and insight: improving IMPRESSIONS: Psychosis unspecified History of depressive disorder Alcohol use disorder Cannabis use disorder Nicotine dependence Legal problems PLAN: -Patient is admitted under voluntary status to MHU for stabilization of psychiatric symptoms and safety. Patient has signed adult voluntary form and medication consent and is placed in patient's chart. -Medications : Seroquel 50 mg daily + 200 mg qhs for sleep/psychosis/mood stabilization, remeron 30 mg nightly for insomnia/mood, Cymbalta 90 mg daily for mood/anxiety. doxepin 50 mg qhs for sleep. discontinue trazodone, requip 0.5 mg qhs for RLS -Ativan and Haldol PRN for agitation/aggression -NRT -nicotine patch -SW on board for discharge planning. Encourage patient to participate in groups to work on coping skills. Patient is currently a nursing home hold. likely discharge tomorrow if patient continues to improve psychiatrically.
[2023-05-24 07:06] VITALS: BP 120/83; PULSE 104; RESP 16; TEMP 97.7
--- NOTE | 2023-05-24 10:20 | P.DS ---
Providers Date of admission: 05/15/23 14:33 Expected date of discharge: 05/24/23 Attending physician: Clifford Cash MD Consults: 05/15/23 15:20 Consult Physician Routine Consulting Provider: [facility] Consult Reason/Comments: H&P and medical Do you want consulting provider notified?: Yes Primary care physician: Addis Contreras, DO - Discharge Diagnosis(es) (1) Unspecified psychosis Current Visit: Yes Status: Acute Priority: High (2) History of depression Current Visit: Yes Status: Acute Priority: Medium (3) Alcohol use disorder Current Visit: Yes Status: Acute Priority: Medium (4) Cannabis use disorder Current Visit: Yes Status: Acute Priority: Medium (5) Nicotine dependence Current Visit: Yes Status: Acute Priority: Low (6) Legal problem Current Visit: Yes Status: Acute Priority: High Hospital Course: Admission HPI: Admission note was completed by creative writer "Patient presented to the hospital on 05/14 coming from [facility]. Apparently patient has been there since April 27. Patient has a history of traumatic brain injury, alcohol abuse. Patient according to petition apparently was displaying manic behaviors in the [facility], he has not been sleeping for several days, apparently patient has been banging his head. Patient also apparently dove off a table because he thought he saw his daughter there. Patient was admitted to the unit involuntarily. He was agreeable to speak to creative writer today in the office. He states that he is not sure what is real and what not. He endorses that he has been living in a "dreamlike state" for the past couple weeks. States that he was going through detox at the [facility]. Claims that his memory is very poor from all of this. He states that he does have bruises over his head and his body and he does not know what it is for.. He claims that he has an "unsettled mood" and at this time is endorsing anxiety. States that he knows the correct location, knows the correct date and his name. He was tearful when talking about his situation, he states that he is willing to seek psychiatric help. Claims that his sleep has been fairly poor, appetite has been fair. States that he was having visual hallucinations however does not know what is real and what is not. Denies any auditory hallucinations. Patient denies any suicidal or homicidal ideations intent or plan. Patient denies any flight of ideas racing thoughts and increased in goal directed behavior. Patient admits to using alcohol, chronic use, states that his last drink was before going into [facility] April 27. Claims that he was also smoking marijuana before going to [facility] and also cigarettes." Hospital course: Upon admission to the unit patient was directable and agreeable to commence treatment and signed adult voluntary form. Patient got along well with other patients on the unit and followed unit protocol. Patient was compliant with the medications and denied any side effects throughout hospital course. Patient was started on Seroquel increased to a dose of 50 mg daily +200 mg nightly for sleep/psychosis/mood stabilization, Remeron 30 mg nightly for insomnia/mood, Cymbalta 90 mg daily for mood/anxiety, doxepin increased to dose of 50 mg nightly for sleep/mood, Requip 0.5 mg nightly for restless leg symptoms. Patient spoke of his stressors and engaged in therapy both group and individual. Patient was also seen by medical team for history and physical exam. Throughout the course of the hospitalization patient gradually improved with regards to mood, anxiety, hallucinations, sleep and became more future oriented with improved insight and judgment. On the day of discharge patient denied any suicidal or homicidal ideations intent or plan denied any auditory or visual hallucinations. Patient endorsed wanting to live for his health and family. The patient denied any access to guns or weapons. Patient denied any paranoia and did not endorse any delusions. Patient does have a significant history of substance abuse and was counseled on abstaining from all substances including alcohol and marijuana. Patient was offered however declined inpatient substance-abuse rehab. Patient elected to do outpatient substance use treatment program through [facility]. Patient was also counseled on the medications and need for regular compliance and was encouraged to follow-up with their outpatient appointment for mental health and also for primary care. pony worker to help patient's discharge today with transfer back to [facility] as he is a [facility]. Mental status exam: General Appearance: Patient appears to be short in stature, short hair, stated age is alert, pleasant, and cooperative. Patient is in no acute distress and has improved hygiene and grooming Behavior: Patient is calmly seated without any agitated behavior. Speech: Patient's speech is fluent and nonpressured. Mood/Affect: Patient reports their mood is "better", affect is congruent and euthymic. Suicidality/Homicidality: Patient denies having any suicidal or homicidal ideation intent or plan. Perceptions: Patient denies any auditory or visual hallucinations. Though content/process: There is no evidence of any delusional thought content and thought process is linear and goal-directed. More future oriented Memory and concentration: AOX3, grossly intact for the purposes of this session. Can spell "WORLD" backwards correctly. Judgment and insight: Chronically poor, however has improved with guarded prognosis Impression: Psychosis unspecified History of depressive disorder Alcohol use disorder Cannabis use disorder Nicotine dependence Legal problems Plan: -Continue with discharge today as patient has improved and stabilized psychiatrically and is not currently an imminent threat to himself and/or others. Patient will remain at chronically elevated risk for harm to self and/or others due to his impulsivity and polysubstance abuse. -Continue medications: Seroquel 50 mg daily +200 mg nightly for sleep/psychosis/mood stabilization, Remeron 30 mg daily at nighttime for insomnia/mood, Cymbalta 90 mg daily for mood/anxiety, doxepin 50 mg nightly for sleep/mood, Requip 0.5 mg nightly for restless leg symptoms. -Patient was counseled on the need for medication compliance and appropriate follow-up at mental health and also primary care for medical issues. Patient verbalized understanding and agreed. -Social work to help coordinate patient's discharge today back to [facility]. Social work also to arrange for patients follow up appointments with [facility] for psychiatric care along with follow up with primary care provider. -Patient counseled on abstaining from recreational drugs and marijuana and alcohol. Was informed/educated on the adverse effects on their physical and mental health. Patient verbally agreed and understood. Patient was offered substance abuse treatment however declined at this time. -Patient was instructed to return to the hospital or seek immediate medical care if their psychiatric or medical symptoms do worsen or reoccur. Allergies Allergy/AdvReac Type Severity Reaction Status Date / Time No Known Allergies Allergy Verified 05/14/23 13:53 Laboratory Results WBC 9.9 k/uL (3.8-10.6) 05/14/23 06:15 RBC 3.85 m/uL (4.30-5.90) L 05/14/23 06:15 Hgb 13.7 gm/dL (13.0-17.5) 05/14/23 06:15 Hct 38.5 % (39.0-53.0) L 05/14/23 06:15 MCV 100.0 fL (80.0-100.0) 05/14/23 06:15 MCH 35.6 pg (25.0-35.0) H 05/14/23 06:15 MCHC 35.6 g/dL (31.0-37.0) 05/14/23 06:15 RDW 11.4 % (11.5-15.5) L 05/14/23 06:15 Plt Count 249 k/uL (150-450) 05/14/23 06:15 MPV 7.4 05/14/23 06:15 Neutrophils % 74 % 05/14/23 06:15 Lymphocytes % 16 % 05/14/23 06:15 Monocytes % 6 % 05/14/23 06:15 Eosinophils % 2 % 05/14/23 06:15 Basophils % 1 % 05/14/23 06:15 Neutrophils # 7.3 k/uL (1.3-7.7) 05/14/23 06:15 Lymphocytes # 1.6 k/uL (1.0-4.8) 05/14/23 06:15 Monocytes # 0.6 k/uL (0-1.0) 05/14/23 06:15 Eosinophils # 0.2 k/uL (0-0.7) 05/14/23 06:15 Basophils # 0.0 k/uL (0-0.2) 05/14/23 06:15 Sodium 141 mmol/L (137-145) 05/14/23 06:15 Potassium 4.1 mmol/L (3.5-5.1) 05/14/23 06:15 Chloride 109 mmol/L (98-107) H 05/14/23 06:15 Carbon Dioxide 25 mmol/L (22-30) 05/14/23 06:15 Anion Gap 7 mmol/L 05/14/23 06:15 BUN 16 mg/dL (9-20) 05/14/23 06:15 Creatinine 0.91 mg/dL (0.66-1.25) 05/14/23 06:15 Est GFR (CKD-EPI)AfAm >90 (>60 ml/min/1.73 sqM) 05/14/23 06:15 Est GFR (CKD-EPI)NonAf >90 (>60 ml/min/1.73 sqM) 05/14/23 06:15 Glucose 96 mg/dL (74-99) 05/14/23 06:15 Plasma Lactic Acid Harvey 1.2 mmol/L (0.7-2.0) 05/14/23 14:00 Calcium 9.3 mg/dL (8.4-10.2) 05/14/23 06:15 Total Bilirubin 0.6 mg/dL (0.2-1.3) 05/14/23 06:15 AST 61 U/L (17-59) H 05/14/23 06:15 ALT 35 U/L (4-49) 05/14/23 06:15 Alkaline Phosphatase 96 U/L (38-126) 05/14/23 06:15 Total Protein 7.0 g/dL (6.3-8.2) 05/14/23 06:15 Albumin 4.3 g/dL (3.5-5.0) 05/14/23 06:15 Vitamin B1 67 ug/L (38-122) 05/14/23 13:10 Urine Opiates Screen Not Detected (NotDetected) 05/14/23 10:26 Ur Oxycodone Screen Not Detected (NotDetected) 05/14/23 10:26 Urine Methadone Screen Not Detected (NotDetected) 05/14/23 10:26 Ur Barbiturates Screen Not Detected (NotDetected) 05/14/23 10:26 U Tricyclic Antidepress Not Detected (NotDetected) 05/14/23 10:26 Ur Phencyclidine Scrn Not Detected (NotDetected) 05/14/23 10:26 Ur Amphetamines Screen Not Detected (NotDetected) 05/14/23 10:26 U Methamphetamines Scrn Not Detected (NotDetected) 05/14/23 10:26 U Benzodiazepines Scrn Not Detected (NotDetected) 05/14/23 10:26 Urine Cocaine Screen Not Detected (NotDetected) 05/14/23 10:26 U Marijuana (THC) Screen Detected (NotDetected) H 05/14/23 10:26 SARS-CoV-2 (PCR) Not Detected (Not Detectd) 05/15/23 12:37 Vital Signs Temp 97.7 F 05/24/23 06:37 Pulse 104 H 05/24/23 06:37 Resp 16 05/24/23 06:37 BP 120/83 05/24/23 06:37 Pulse Ox 99 05/23/23 06:00 FiO2 Patient Condition at Discharge: Stable Plan - Discharge Summary New Discharge Prescriptions: New DULoxetine HCL [Cymbalta] 90 mg PO DAILY 30 Days #90 cap Ibuprofen [Motrin] 400 mg PO BID tab Mirtazapine [Remeron] 30 mg PO HS 30 Days #60 tab Sennosides-Docusate Sodium [Senokot-S] 1 each PO BID 30 Days #60 tab QUEtiapine [SEROquel] 50 mg PO DAILY 30 Days #30 tab QUEtiapine [SEROquel] 200 mg PO HS 30 Days #30 tab Doxepin [SINEquan] 50 mg PO HS 30 Days #60 cap Acetaminophen Tab [Tylenol] 650 mg PO Q4HR PRN tab PRN Reason: Mild Pain (Scale 1 To 3) Fluticasone Nasal [place] [Flonase Nasal [place]] 2 spray EA NOSTRIL DAILY PRN 30 Days #1 ml PRN Reason: Allergy Symptoms rOPINIRole HCL [Requip] 0.5 mg PO HS 30 Days #60 tab Continue Ibuprofen [Motrin Ib] 400 mg PO BID Discontinued OLANZapine 7.5 mg PO HS Mirtazapine [Remeron] 30 mg PO HS Discharge Medication List Ibuprofen [Motrin Ib] 400 mg PO BID 05/14/23 [History] Acetaminophen Tab [Tylenol] 650 mg PO Q4HR PRN tab 05/24/23 [Rx] DULoxetine HCL [Cymbalta] 90 mg PO DAILY 30 Days #90 cap 05/24/23 [Rx] Doxepin [SINEquan] 50 mg PO HS 30 Days #60 cap 05/24/23 [Rx] Fluticasone Nasal [place] [Flonase Nasal [place]] 2 spray EA NOSTRIL DAILY PRN 30 Days #1 ml 05/24/23 [Rx] Ibuprofen [Motrin] 400 mg PO BID tab 05/24/23 [Rx] Mirtazapine [Remeron] 30 mg PO HS 30 Days #60 tab 05/24/23 [Rx] QUEtiapine [SEROquel] 50 mg PO DAILY 30 Days #30 tab 05/24/23 [Rx] QUEtiapine [SEROquel] 200 mg PO HS 30 Days #30 tab 05/24/23 [Rx] Sennosides-Docusate Sodium [Senokot-S] 1 each PO BID 30 Days #60 tab 05/24/23 [Rx] rOPINIRole HCL [Requip] 0.5 mg PO HS 30 Days #60 tab 05/24/23 [Rx] Follow up Appointment(s)/Referral(s): Brenda Montilla NPC [REFERRING] - 1-2 days Activity/Diet/Wound Care/Special Instructions: Avoid the use of street drugs and alcohol. Take all medications as prescribed. When you are in need of refills on your medications, please contact your medical provider and/or outpatient psychiatrist/provider to have this done. Please go to your scheduled outpatient appointment for aftercare treatment. If symptoms return or become worse, call the crisis line at and/or go to the nearest emergency room for evaluation. National Suicide Hotline 163. Discharge Disposition: DC/TRANSFER COURT/LAW
== END 2023-05-24 15:00 | DRG 885 ==
LOC: EC 05:58 → 3MHU 05-15 14:33
PROVIDERS: ADMIT Psychiatry & Neurology Psychiatry; ATTEND Psychiatry & Neurology Psychiatry
DX: F29 Unspecified psychosis not due to a substance or known physiological condition (principal); F10.10 Alcohol abuse, uncomplicated; Z11.52 Encounter for screening for COVID-19; F12.10 Cannabis abuse, uncomplicated; G25.81 Restless legs syndrome; G47.00 Insomnia, unspecified; F41.9 Anxiety disorder, unspecified; F32.A Depression, unspecified; F17.200 Nicotine dependence, unspecified, uncomplicated; Z71.6 Tobacco abuse counseling; Z79.899 Other long term (current) drug therapy; Z56.0 Unemployment, unspecified; Z59.6 Low income; Z65.3 Problems related to other legal circumstances; Z87.820 Personal history of traumatic brain injury
CPT/HCPCS: 36415; 70450; 72125; 80053; 80306; 83605; 84425; 85025; 87635; 90686; 96372; 96374; 96375; 96376; 99285

== ENCOUNTER 2024-04-13 10:41 | Emergency (ER) | payer OTHER ==
--- NOTE | 2024-04-13 11:15 | ED ---
Seizure HPI - General Chief Complaint: Seizure Stated Complaint: seizure Time Seen by Provider: 04/13/24 11:00 Source: patient, EMS, RN notes reviewed Mode of arrival: EMS Limitations: no limitations - History of Present Illness Initial Comments: This is a 43-year-old male presenting via EMS for possible seizure at home this morning. Patient states he was washing his for a a phone game when he next remembers PD and EMS arriving his home to take him to the hospital. Patient states he has a gap in memory but states that he does not suspect that he had a seizure. Endorses last known seizure 12 years old and does not take antiseizure medication. Denies recent illness or injury. Denies fevers, chills, chest pain, dyspnea, abdominal pain, N/V/D, dizziness, urinary symptoms. MD Complaint: possible seizure Onset/Timin -: days(s) Description of Episode: loss of consciousness Witnessed: yes - by other () Trauma: No Seizure History: known seizure disorder (Last seizure at 12 years old) Place: home Possible Precipitating Event: none Associated Symptoms: denies other symptoms Treatments Prior to Arrival: none - Related Data Home Medications Medication Instructions Recorded Confirmed Ibuprofen [Motrin Ib] 400 mg PO BID 05/14/23 05/14/23 Previous Rx's Medication Instructions Recorded Acetaminophen Tab [Tylenol] 650 mg PO Q4HR PRN tab 05/24/23 DULoxetine HCL [Cymbalta] 90 mg PO DAILY 30 Days #90 cap 05/24/23 Doxepin [SINEquan] 50 mg PO HS 30 Days #60 cap 05/24/23 Fluticasone Nasal [place] [Flonase 2 spray EA NOSTRIL DAILY PRN 30 05/24/23 Nasal [place]] Days #1 ml Ibuprofen [Motrin] 400 mg PO BID tab 05/24/23 Mirtazapine [Remeron] 30 mg PO HS 30 Days #60 tab 05/24/23 QUEtiapine [SEROquel] 50 mg PO DAILY 30 Days #30 tab 05/24/23 QUEtiapine [SEROquel] 200 mg PO HS 30 Days #30 tab 05/24/23 Sennosides-Docusate Sodium 1 each PO BID 30 Days #60 tab 05/24/23 [Senokot-S] rOPINIRole HCL [Requip] 0.5 mg PO HS 30 Days #60 tab 05/24/23 Allergies Allergy/AdvReac Type Severity Reaction Status Date / Time No Known Allergies Allergy Verified 04/13/24 10:51 Review of Systems ROS Statement: Those systems with pertinent positive or pertinent negative responses have been documented in the HPI. ROS Other: All systems not noted in ROS Statement are negative. Past Medical History Past Medical History: No Reported History, Seizure Disorder Additional Past Medical History / Comment(s): seizure free since he was 12- not on medication History of Any Multi-Drug Resistant Organisms: None Reported Past Surgical History: Orthopedic Surgery Additional Past Surgical History / Comment(s): right knee 2014 Past Anesthesia/Blood Transfusion Reactions: No Reported Reaction Past Psychological History: Anxiety, Depression Smoking Status: Former smoker Past Alcohol Use History: Occasional Past Drug Use History: Marijuana - Past Family History Mother Additional Family Medical History / Comment(s): brain aneurysm Father Family Medical History: Diabetes Mellitus General Exam General appearance: alert, in no apparent distress Head exam: Present: atraumatic, normocephalic, normal inspection Eye exam: Present: normal appearance, PERRL, EOMI. Absent: scleral icterus, conjunctival injection, periorbital swelling ENT exam: Present: normal exam, mucous membranes moist Neck exam: Present: normal inspection. Absent: tenderness, meningismus, lymphadenopathy Respiratory exam: Present: normal lung sounds bilaterally. Absent: respiratory distress, wheezes, rales, rhonchi, stridor Cardiovascular Exam: Present: regular rate, normal rhythm, normal heart sounds. Absent: systolic murmur, diastolic murmur, rubs, gallop, clicks GI/Abdominal exam: Present: soft, normal bowel sounds. Absent: distended, te nderness, guarding, rebound, rigid Extremities exam: Present: normal inspection, full ROM, normal capillary refill. Absent: tenderness, pedal edema, joint swelling, calf tenderness Back exam: Present: normal inspection Neurological exam: Present: alert, oriented X3, CN II-XII intact Psychiatric exam: Present: normal affect, normal mood Skin exam: Present: warm, dry, intact, normal color. Absent: rash Course Vital Signs 04/13/24 10:43 Temperature 97.9 F Pulse Rate 71 Blood Pressure 123/84 O2 Sat by Pulse 95 Oximetry Medical Decision Making - Medical Decision Making Was pt. sent in by a medical professional or institution (NATIVIDAD Churchill, COFFEE [employer]ER, urgent care, hospital, or senior living...) When possible be specific @ -[No] Did you speak to anyone other than the patient for history (EMS, parent, family, police, friend...)? What history was obtained from this source @ -[No] Did you review nursing and triage notes (agree or disagree)? Why? @ -[I reviewed and agree with nursing and triage notes] Were old charts reviewed (outside hosp., previous admission, EMS record, old EKG, old radiological studies, urgent care reports/EKG's, senior living records)? Report findings @ -[No old charts were reviewed] Differential Diagnosis (chest pain, altered mental status, abdominal pain women, abdominal pain men, vaginal bleeding, weakness, fever, dyspnea, syncope, headache, dizziness, GI bleed, back pain, seizure, CVA, palpatations, mental health, musculoskeletal)? @ -Differential Seizure: Recurrent seizure disorder, febrile seizure, alcohol withdrawal, stimulants, meningitis, encephalitis, intercranial hemorrhage, intracranial tumor, stroke, eclampsia, thyrotoxicosis, hypocalcemia, hyponatremia, hypernatremia, hypomagnesemia, psychogenic, this is not meant to be an all-inclusive list. EKG interpreted by me (3pts min.). @ -Sinus rhythm without ST changes or T wave inversion. Ventricular rate 69 bpm, JOCELYN 160 ms, QRS duration 90 ms, QTc 404 ms. X-rays interpreted by me (1pt min.). @ -[None done] CT interpreted by me (1pt min.). @ -[None done] U/S interpreted by me (1pt. min.). @ -[None done] What testing was considered but not performed or refused? (CT, X-rays, U/S, labs)? Why? @ -[None] What meds were considered but not given or refused? Why? @ -[None] Did you discuss the management of the patient with other professionals (professionals i.e. NATIVIDAD Churchill, COFFEE MAKER, lab, RT, psych nurse, child welfare social worker, employee benefits specialist, teacher, information officer, oil field caser)? Give summary @ -[No] Was smoking cessation discussed for >3mins.? @ -[No] Was critical care preformed (if so, how long)? @ -[No] Were there social determinants of health that impacted care today? How? ( Homelessness, low income, unemployed, alcoholism, drug addiction, transportation, low edu. Level, literacy, decrease access to med. care, usp, rehab)? @ -[No] Was there de-escalation of care discussed even if they declined (Discuss DNR or withdrawal of care, Hospice)? DNR status @ -[No] What co-morbidities impacted this encounter? (DM, HTN, Smoking, COPD, CAD, Cancer, CVA, ARF, Chemo, Hep., AIDS, mental health diagnosis, sleep apnea, morbid obesity)? @ -[None] Was patient admitted / discharged? Hospital course, mention meds given and route, prescriptions, significant lab abnormalities, going to OR and other pertinent info. @ -[hospital course] Undiagnosed new problem with uncertain prognosis? @ -[No] Drug Therapy requiring intensive monitoring for toxicity (Heparin, Nitro, Insulin, Cardizem)? @ -[No] Were any procedures done? @ -[No] Diagnosis/symptom? @ -Potential tonic-clonic seizure Acute, or Chronic, or Acute on Chronic? @ -Acute Uncomplicated (without systemic symptoms) or Complicated (systemic symptoms)? @ -Uncomplicated Side effects of treatment? @ -[No] Exacerbation, Progression, or Severe Exacerbation? @ -[No] Poses a threat to life or bodily function? How? (Chest pain, [place], [place], pneumonia, PE, COPD, DKA, ARF, appy, cholecystitis, CVA, Diverticulitis, Homicidal, Suicidal, threat to staff... and all critical care pts) @ -[No] - Lab Data Result diagrams: 04/13/24 11:54 04/13/24 11:54 Lab Results 04/13/24 04/13/24 04/13/24 Range/Units 11:54 11:54 12:27 WBC 9.0 (3.8-10.6) k/uL RBC 4.38 (4.30-5.90) m/uL Hgb 14.6 (13.0-17.5) gm/dL Hct 43.0 (39.0-53.0) % MCV 98.0 (80.0-100.0) fL MCH 33.3 (25.0-35.0) pg MCHC 34.0 (31.0-37.0) g/dL RDW 12.5 (11.5-15.5) % Plt Count 292 (150-450) k/uL MPV 7.2 Neutrophils % 78 % Lymphocytes % 11 % Monocytes % 7 % Eosinophils % 2 % Basophils % 1 % Neutrophils # 7.0 (1.3-7.7) k/uL Lymphocytes # 1.0 (1.0-4.8) k/uL Monocytes # 0.6 (0-1.0) k/uL Eosinophils # 0.2 (0-0.7) k/uL Basophils # 0.1 (0-0.2) k/uL Sodium 137 (137-145) mmol/L Potassium 4.3 (3.5-5.1) mmol/L Chloride 103 (98-107) mmol/L Carbon Dioxide 26 (22-30) mmol/L Anion Gap 8 mmol/L BUN 11 (9-20) mg/dL Creatinine 0.95 (0.66-1.25) mg/dL Est GFR (CKD-EPI)AfAm >90 (>60 ml/min/1.73 sqM) Est GFR (CKD-EPI)NonAf >90 (>60 ml/min/1.73 sqM) Glucose 107 H (74-99) mg/dL Calcium 9.3 (8.4-10.2) mg/dL Magnesium 2.1 (1.6-2.3) mg/dL Total Bilirubin <0.1 L (0.2-1.3) mg/dL AST 29 (17-59) U/L ALT 36 (4-49) U/L Alkaline Phosphatase 100 (38-126) U/L Total Protein 7.2 (6.3-8.2) g/dL Albumin 4.7 (3.5-5.0) g/dL Urine Color Colorless Urine Appearance Clear (Clear) Urine pH 6.0 (5.0-8.0) Ur Specific [place] 1.007 (1.001-1.035) Urine Protein Negative (Negative) Urine Glucose (UA) Negative (Negative) Urine Ketones Negative (Negative) Urine Blood Negative (Negative) Urine Nitrite Negative (Negative) Urine Bilirubin Negative (Negative) Urine Urobilinogen <2.0 (<2.0) mg/dL Ur Leukocyte Esterase Negative (Negative) Urine Opiates Screen Not Detected (NotDetected) Ur Oxycodone Screen Not Detected (NotDetected) Urine Methadone Screen Not Detected (NotDetected) Ur Barbiturates Screen Not Detected (NotDetected) U Tricyclic Antidepress Not Detected (NotDetected) Ur Phencyclidine Scrn Not Detected (NotDetected) Ur Amphetamines Screen Not Detected (NotDetected) U Methamphetamines Scrn Not Detected (NotDetected) U Benzodiazepines Scrn Not Detected (NotDetected) Urine Cocaine Screen Not Detected (NotDetected) U Marijuana (THC) Screen Detected H (NotDetected) Serum Alcohol <10 mg/dL Disposition Clinical Impression: Generalized seizure Disposition: HOME SELF-CARE Condition: Good Instructions (If sedation given, give patient instructions): Seizure/Epilepsy Discharge Instructions & Follow-Up Is patient prescribed a controlled substance at d/c from ED?: No Referrals: None,Stated [Primary Care Provider] - 1-2 days Time of Disposition: 15:21
--- NOTE | 2024-04-13 11:47 | XR ---
EXAMINATION TYPE: XR chest 2V DATE OF EXAM: 04/13/2024 11:38 AM COMPARISON: Chest radiographs from 03/29/2018 CLINICAL INDICATION: Male, 43 years old with history of Possible seizure; [facility] TECHNIQUE: XR chest 2V Frontal and lateral views of the chest. FINDINGS: Lungs/Pleura: There is flattening of the diaphragm with increased lucency of the lungs. No evidence o f pneumothorax, pleural effusion or focal consolidation. Pulmonary vascularity: Unremarkable. Heart/mediastinum: Cardiomediastinal silhouette is unremarkable. Musculoskeletal: No acute osseous pathology. Other findings: None Lines/Tubes: IMPRESSION: 1. No acute cardiopulmonary disease process. 2. COPD changes. [facility], , 04/13/2024 11:45 AM
[2024-04-13 12:13] LABS: Basophils # (A) 0.1 k/uL (0-0.2); Basophils % (A) 1 %; Eosinophils # (A) 0.2 k/uL (0-0.7); Eosinophils % (A) 2 %; HGB 14.6 gm/dL (13.0-17.5); Lymphocytes % (A) 11 %; MCH 33.3 pg (25.0-35.0); Mean Platelet Volume 7.2; Monocytes # (A) 0.6 k/uL (0-1.0); Monocytes % (A) 7 %; Neutrophils % (A) 78 %; Platelet Count 292 k/uL (150-450); RBC 4.38 m/uL (4.30-5.90); RDW 12.5 % (11.5-15.5)
[2024-04-13 12:26] LABS: ALT 36 U/L (4-49); AST 29 U/L (17-59); African American GFR (CKD) >90 (>60 ml/min/1.73 sqM); Albumin 4.7 g/dL (3.5-5.0); Alcohol <10 mg/dL; Alkaline Phosphatase 100 U/L (38-126); Anion Gap 8 mmol/L; Blood Urea Nitrogen 11 mg/dL (9-20); Calcium 9.3 mg/dL (8.4-10.2); Carbon Dioxide 26 mmol/L (22-30); Chloride 103 mmol/L (98-107); Glucose 107 mg/dL (74-99); Magnesium 2.1 mg/dL (1.6-2.3); Non-African American GFR(CKD) >90 (>60 ml/min/1.73 sqM); Potassium 4.3 mmol/L (3.5-5.1); Sodium 137 mmol/L (137-145); Total Bilirubin <0.1 mg/dL (0.2-1.3); Total Protein 7.2 g/dL (6.3-8.2)
[2024-04-13 12:37] LABS: Appearance,Urine Clear (Clear); Bilirubin,Urine Negative (Negative); Blood,Urine Negative (Negative); Color,Urine Colorless; Glucose,Urine (UA) Negative (Negative); Ketones,Urine Negative (Negative); Leukocyte Esterase,Urine Negative (Negative); Nitrite,Urine Negative (Negative); Protein,Urine Negative (Negative); Specific Gravity,Urine 1.007 (1.001-1.035); Urobilinogen,Urine <2.0 mg/dL (<2.0)
[2024-04-13 12:51] LABS: Amphetamine Screen,Urine Not Detected (NotDetected); Barbiturate Screen,Urine Not Detected (NotDetected); Benzodiazepines Screen,Urine Not Detected (NotDetected); Cocaine Screen,Urine Not Detected (NotDetected); Methadone Screen, Urine Not Detected (NotDetected); Opiate Screen,Urine Not Detected (NotDetected); Oxycodone Screen, Urine Not Detected (NotDetected); Phencyclidine Screen,Urine Not Detected (NotDetected); Tricyclic Antidepressant,Urine Not Detected (NotDetected); Urn Cannabinoid Scrn Detected (NotDetected)
--- NOTE | 2024-04-13 14:52 | CT ---
EXAMINATION TYPE: CT brain wo con DATE OF EXAM: 04/13/2024 2:18 PM COMPARISON: 05/06/2023. CLINICAL INDICATION: Male, 43 years old with history of Seizure, Seizure. TECHNIQUE: Brain: Axial CT images of the brain were obtained with coronal and sagittal reformats created and rev iewed. Contrast used: None. Oral contrast used: None. CT DLP: 1096.4 mGycm, Automated exposure control for dose reduction was used. FINDINGS: Brain: Extra-axial spaces: No abnormal extra-axial fluid collections. Ventricular system: Within normal limits Cerebral parenchyma: No acute intraparenchymal hemorrhage or mass effect. The stock-white junction is well differentiated. Cerebellum: Unremarkable. Mass effect: No evidence of midline shift. Intracranial vasculature: unremarkable Soft tissues: Normal. Calvarium/osseous structures: No depressed skull fracture. Paranasal sinuses and mastoid air cells: Mild scattered paranasal sinus disease. Mild deviated nasal septum. Osteoma in the left anterior ethmoid air cells/frontal sinus. Visualized orbits: Orbital contents are intact. IMPRESSION: No acute intracranial process. [facility], , 04/13/2024 2:50 PM
[2024-04-13 15:47] VITALS: BP 143/95; PULSE 73; RESP 18; TEMP 98.9
== END 2024-04-13 15:47 | disposition home or self-care (01) ==
LOC: EC 10:41
DX: G40.909 Epilepsy, unspecified, not intractable, without status epilepticus (principal); Z87.891 Personal history of nicotine dependence
CPT/HCPCS: 36415; 70450; 71046; 80053; 80306; 80320; 81003; 83735; 85025; 93005; 99285

== ENCOUNTER 2024-10-29 09:12 | Inpatient (IN) | payer BC, MEDICAID, OTHER ==
--- NOTE | 2024-10-29 09:22 | ED ---
Nausea/Vomiting/Diarrhea HPI - General Stated complaint: failure to thrive - Related Data Home Medications Medication Instructions Recorded Confirmed Ibuprofen [Motrin Ib] 400 mg PO BID 05/14/23 05/14/23 Previous Rx's Medication Instructions Recorded Acetaminophen Tab [Tylenol] 650 mg PO Q4HR PRN tab 05/24/23 DULoxetine HCL [Cymbalta] 90 mg PO DAILY 30 Days #90 cap 05/24/23 Doxepin [SINEquan] 50 mg PO HS 30 Days #60 cap 05/24/23 Fluticasone Nasal [place] [Flonase 2 spray EA NOSTRIL DAILY PRN 30 05/24/23 Nasal [place]] Days #1 ml Ibuprofen [Motrin] 400 mg PO BID tab 05/24/23 Mirtazapine [Remeron] 30 mg PO HS 30 Days #60 tab 05/24/23 QUEtiapine [SEROquel] 50 mg PO DAILY 30 Days #30 tab 05/24/23 QUEtiapine [SEROquel] 200 mg PO HS 30 Days #30 tab 05/24/23 Sennosides-Docusate Sodium 1 each PO BID 30 Days #60 tab 05/24/23 [Senokot-S] rOPINIRole HCL [Requip] 0.5 mg PO HS 30 Days #60 tab 05/24/23 Allergies Allergy/AdvReac Type Severity Reaction Status Date / Time No Known Allergies Allergy Verified 04/13/24 10:51 Review of Systems ROS Statement: Those systems with pertinent positive or pertinent negative responses have been documented in the HPI. ROS Other: All systems not noted in ROS Statement are negative. Past Medical History Past Medical History: No Reported History, Seizure Disorder Additional Past Medical History / Comment(s): seizure free since he was 12- not on medication History of Any Multi-Drug Resistant Organisms: None Reported Past Surgical History: Orthopedic Surgery Additional Past Surgical History / Comment(s): right knee 2014 Past Anesthesia/Blood Transfusion Reactions: No Reported Reaction Past Psychological History: Anxiety, Depression Smoking Status: Former smoker Past Alcohol Use History: Occasional Past Drug Use History: Marijuana - Past Family History Mother Additional Family Medical History / Comment(s): brain aneurysm Father Family Medical History: Diabetes Mellitus Disposition Referrals: Bernice Claros MD [Primary Care Provider] - 1-2 days
--- NOTE | 2024-10-29 09:34 | ED ---
Psych HPI - General Source: patient Mode of arrival: ambulatory <Kiara Hernandes - Last Filed: 10/29/24 13:28> <Tim Al - Last Filed: 10/30/24 07:07> - General Chief Complaint: Psychiatric Symptoms Stated Complaint: failure to thrive - History of Present Illness Initial Comments: 44-year-old male with history of anxiety, depression, seizure disorder here for suicidal ideation. Patient reported that he has been able to sleep properly in the past months due to stress and work and is worsened in the past 2 days. brought him in to the ED due to the fact that she found him pacing around the house and he was sent home from work due to his uncontrolled anxiety. Patient admitted to suicidal ideation but has no plans. He reported that he has been out of psych meds for the past few months. Denied nausea, vomiting, chest pain, shortness of breath, palpitations, abdominal pain, headaches, focal weakness, speech changes, vision changes, recent trauma or fall. (Kiara Hernandes) - Related Data Home Medications Medication Instructions Recorded Confirmed No Known Home Medications 10/29/24 10/29/24 Allergies Allergy/AdvReac Type Severity Reaction Status Date / Time No Known Allergies Allergy Verified 10/29/24 12:49 Review of Systems ROS Other: All systems not noted in ROS Statement are negative. <Kiara Hernandes - Last Filed: 10/29/24 13:28> ROS Other: All systems not noted in ROS Statement are negative. <Tim Al - Last Filed: 10/30/24 07:07> ROS Statement: Those systems with pertinent positive or pertinent negative responses have been documented in the HPI. Past Medical History Past Medical History: No Reported History, Seizure Disorder Additional Past Medical History / Comment(s): seizure free since he was 12- not on medication History of Any Multi-Drug Resistant Organisms: None Reported Past Surgical History: Orthopedic Surgery Additional Past Surgical History / Comment(s): right knee 2014 Past Anesthesia/Blood Transfusion Reactions: No Reported Reaction Past Psychological History: Anxiety, Depression Smoking Status: Vaper Past Alcohol Use History: Occasional Past Drug Use History: Marijuana - Past Family History Mother Additional Family Medical History / Comment(s): brain aneurysm Father Family Medical History: Diabetes Mellitus <Kiara Hernandes - Last Filed: 10/29/24 13:28> General Exam Limitations: no limitations <Kiara Hernandes - Last Filed: 10/29/24 13:28> - General Exam Comments Initial Comments: Physical examination: Vital signs reviewed General: non toxic, no distress, appears at stated age Head: atraumatic, normocephalic, symmetric Mouth: no lip lesion, mucus membranes moist Cardiovascular: S1S2 reg, no murmur Lungs: CTA bilateral, no rhonchi, no rales, no accessory muscle use Abdominal: soft, nondistended, nontender to palpation, no guarding Ext: muscle strength 5 out of 5 in all 4 extremities grossly, no gross muscle atrophy, no contractures, positive dorsalis pedis pulse bilateral, no edema Neuro: no gross focal neuro deficits Psych: Alert and oriented x3, tearful and anxious affect and mood (Porsche Hernandesica) Course Vital Signs 10/29/24 10/29/24 10/29/24 09:16 13:10 14:23 Temperature 98.1 F Pulse Rate 88 88 92 Respiratory 18 20 20 Rate Blood Pressure 164/90 125/84 128/86 O2 Sat by Pulse 99 98 99 Oximetry Medical Decision Making <Porsche Hernandesica - Last Filed: 10/29/24 13:28> <Tim Al - Last Filed: 10/30/24 07:07> - Medical Decision Making Was pt. sent in by a medical professional or institution (Dr. PA, MACHINE LOAD CLERK, urgent care, hospital, or snf...) When possible be specific @ -[No] Did you speak to anyone other than the patient for history (EMS, parent, family, police, friend...)? What history was obtained from this source @ -No Did you review nursing and triage notes (agree or disagree)? Why? @ -[I reviewed and agree with nursing and triage notes] Were old charts reviewed (outside hosp., previous admission, EMS record, old EKG, old radiological studies, urgent care reports/EKG's, snf records)? Report findings @ -[No old charts were reviewed] Differential Diagnosis? @ -Differential Mental Health Depression, anxiety, bipolar, psychosis, schizophrenia, borderline personality, situational depression, adjustment disorder, behavioral disorder, brain tumor, malingering, substance abuse, encephalopathy, medication reaction, dementia, hypothyroidism, degenerative neurologic disorder, lupus.... This is not meant to be all-inclusive list EKG interpreted by me (3pts min.). @ -[As above] X-rays interpreted by me (1pt min.). @ -None done CT interpreted by me (1pt min.). @ -None done U/S interpreted by me (1pt. min.). @ -None done What testing was considered but not performed or refused? (CT, X-rays, U/S, labs)? Why? @ -None What meds were considered but not given or refused? Why? @ -None Did you discuss the management of the patient with other professionals (professionals i.e. , PA, MACHINE LOAD CLERK, lab, RT, psych nurse, high school social science teacher, flat optical element maker, teacher, digital controls technical officer, caser in)? Give summary @ -Spoke to Dr. Jean, supervising physician Was smoking cessation discussed for >3mins.? @ -No Was critical care preformed (if so, how long)? @ -No Were there social determinants of health that impacted care today? How? (Homelessness, low income, unemployed, alcoholism, drug addiction, transportation, low edu. Level, literacy, decrease access to med. care, senior care, rehab)? @ -Homelessness, low income, possible unemployment Was there de-escalation of care discussed even if they declined (Discuss DNR or withdrawal of care, Hospice)? DNR status @ -[No] What co-morbidities impacted this encounter? (DM, HTN, Smoking, COPD, CAD, Cancer, CVA, ARF, Chemo, Hep., AIDS, mental health diagnosis, sleep apnea, morbid obesity)? @ -None Was patient admitted / discharged? Hospital course, mention meds given and route, prescriptions, significant lab abnormalities, going to OR and other pertinent info. @ -Admission to U. EtOH and UDS negative. Patient evaluated by EPS and recommended admission to psych unit. Given 1 p.o. Ativan for anxiolysis. Undiagnosed new problem with uncertain prognosis? @ -[No] Drug Therapy requiring intensive monitoring for toxicity (Heparin, Nitro, Insulin, Cardizem)? @ -[No] Were any procedures done? @ -[No] Diagnosis/symptom? @ -[default] Acute, or Chronic, or Acute on Chronic? @ -Acute Uncomplicated (without systemic symptoms) or Complicated (systemic symptoms)? @ -[default] Side effects of treatment? @ -[No] Exacerbation, Progression, or Severe Exacerbation? @ -[No] Poses a threat to life or bodily function? How? (Chest pain, [place], [place], pneumonia, PE, COPD, DKA, ARF, appy, cholecystitis, CVA, Diverticulitis, Homicidal, Suicidal, threat to staff... and all critical care pts) @ -Yes (Kiara Hernandes) I personally saw the patient and performed the critical portion of the service. I discussed the patient care with the resident. I directed management, care planning and final disposition of the patient. This includes, but not limited to, review of all lab work, radiological studies, EKG's, consultations, vital signs, and nursing notes. EKG interpreted by me (3pts min.) @ [as above] X-Rays interpreted by me (1 pt min.) @ [none] CT interpreted by me ( 1pt min.) @ [none] U/S interpreted by me (1 pt min.) @ [none] Critical care time of [0] minutes excluding separately billable procedures was spent in conjunction with critical care activities provided by the Resident and Attending simultaneously. I was present during [no procedures] for all critical portions of the procedure and as immediately available to furnish service during the entire procedure. (Tim Al) - Lab Data Lab Results 10/29/24 10/29/24 Range/Units 10:41 12:43 Urine Opiates Screen Not Detected (NotDetected) Ur Oxycodone Screen Not Detected (NotDetected) Urine Methadone Screen Not Detected (NotDetected) Ur Barbiturates Screen Not Detected (NotDetected) U Tricyclic Antidepress Not Detected (NotDetected) Ur Phencyclidine Scrn Not Detected (NotDetected) Ur Amphetamines Screen Not Detected (NotDetected) U Methamphetamines Scrn Not Detected (NotDetected) U Benzodiazepines Scrn Not Detected (NotDetected) Urine Cocaine Screen Not Detected (NotDetected) U Marijuana (THC) Screen Detected H (NotDetected) Influenza Type A (PCR) Not Detected (Not Detectd) Influenza Type B (PCR) Not Detected (Not Detectd) RSV (PCR) Not Detected (Not Detectd) SARS-CoV-2 (PCR) Not Detected (Not Detectd) Disposition Time of Disposition: 12:31 <Kiara Hernandes - Last Filed: 10/29/24 13:28> Is patient prescribed a controlled substance at d/c from ED?: No <Tim Al - Last Filed: 10/30/24 07:07> Clinical Impression: Suicidal ideation Disposition: ADMITTED IP TO THIS HOSP Condition: Serious
[2024-10-29 11:12] LABS: Urn Cannabinoid Scrn Detected (NotDetected)
[2024-10-29 11:13] LABS: Barbiturate Screen,Urine Not Detected (NotDetected); Benzodiazepines Screen,Urine Not Detected (NotDetected); Opiate Screen,Urine Not Detected (NotDetected); Oxycodone Screen, Urine Not Detected (NotDetected); Phencyclidine Screen,Urine Not Detected (NotDetected); Tricyclic Antidepressant,Urine Not Detected (NotDetected)
[2024-10-29] MEDS: LORazepam 1 MG TAB PO STA (12:41)
[2024-10-29 13:30] LABS: RSV Not Detected (Not Detectd)
[2024-10-29] MEDS ORDERED: LORazepam 1 MG TAB PO PRN (14:10)
[2024-10-29] MEDS ORDERED: LORazepam 1 MG/0.5 ML VIAL IM PRN (14:10)
[2024-10-29] MEDS ORDERED: HALOPERIDOL LACTATE 5 MG/ML 1 ML VIAL IM PRN (14:10)
[2024-10-29] MEDS: LORazepam 1 MG TAB PO PRN (15:50)
[2024-10-30] MEDS: IBUPROFEN 600 MG TAB PO PRN (06:10)
[2024-10-30 08:47] LABS: Basophils # (A) 0.07 10*3/uL (0.00-0.10); Basophils % (A) 0.5 %; Eosinophils # (A) 0.09 10*3/uL (0.04-0.35); Eosinophils % (A) 0.7 %; HCT 43.5 % (39.6-50.0); HGB 14.8 g/dL (13.0-17.0); Lymphocytes # (A) 2.02 10*3/uL (0.90-5.00); Lymphocytes % (A) 15.4 %; MCH 32.5 pg (27.0-32.0); MCHC 34.0 g/dL (32.0-37.0); MCV 95.6 fL (80.0-97.0); Monocytes # (A) 0.86 10*3/uL (0.20-1.00); Monocytes % (A) 6.6 %; Neutrophils # (A) 10.02 10*3/uL (1.80-7.70); Neutrophils % (A) 76.5 %; Platelet Count 311 10*3/uL (140-440); RBC 4.55 10*6/uL (4.40-5.60); RDW 12.9 % (11.5-14.5); WBC 13.10 10*3/uL (4.50-10.00)
[2024-10-30 09:08] LABS: ALT 32 U/L (4-49); AST 29 U/L (17-59); African American GFR (CKD) >90 (>60 ml/min/1.73 sqM); Albumin 4.7 g/dL (3.5-5.0); Alkaline Phosphatase 93 U/L (38-126); Anion Gap 11 mmol/L; Blood Urea Nitrogen 10 mg/dL (9-20); Calcium 9.5 mg/dL (8.4-10.2); Carbon Dioxide 23 mmol/L (22-30); Chloride 104 mmol/L (98-107); Glucose 142 mg/dL (74-99); Non-African American GFR(CKD) 81 (>60 ml/min/1.73 sqM); Potassium 4.7 mmol/L (3.5-5.1); Sodium 138 mmol/L (137-145); Total Protein 7.1 g/dL (6.3-8.2)
[2024-10-30] MEDS: NICOTINE 14MG/24HR PATCH TRANSDERM SCH (09:11)
[2024-10-30] MEDS: MAG HYDROX/AL HYDROX/SIMETH 355 ML BOTTLE PO PRN (11:00)
[2024-10-30] MEDS: DIVALPROEX 500 MG TABLET.DR PO SCH (12:59)
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
--- NOTE | 2024-10-30 13:57 | P.MDCNMH ---
History of Present Illness H&P Date: 10/30/24 History of present illness; patient is a 44-year-old gentleman with past medical history significant for depression, anxiety who presented to the ER for psychiatric evaluation. Patient was brought in by his according to which patient has been very anxious at home, patient was he was sent home from work because of extreme anxiety. Patient had expressed to her thoughts of hurting himself but had no plans. There was no complaint of auditory or visual hallucination. Patient denies any homicidal thoughts. Patient has been off his psych medication for more than 2 months Initial lab work done in the ER showed WBC 13.1, hemoglobin 14.8, platelet count 311, sodium 139 potassium 4.7, BUN 10, creatinine 1.11, urine tox screen positive for marijuana Influenza A not detected Influenza B not detected RSV not detected COVID-19 not detected Patient admitted to psychiatry. REVIEW OF SYSTEMS: CONSTITUTIONAL: No fever, no malaise, no fatigue. HEENT: No recent visual problems or hearing problems. Denied any sore throat. CARDIOVASCULAR: No chest pain, orthopnea, PND, no palpitations, no syncope. PULMONARY: No shortness of breath, no cough, no hemoptysis. GASTROINTESTINAL: No diarrhea, no nausea, no vomiting, no abdominal pain. NEUROLOGICAL: No headaches, no weakness, no numbness. HEMATOLOGICAL: Denies any bleeding or petechiae. GENITOURINARY: Denies any burning micturition, frequency, or urgency. MUSCULOSKELETAL/RHEUMATOLOGICAL: Denies any joint pain, swelling, or any muscle pain. ENDOCRINE: Denies any polyuria or polydipsia. The rest of the 14-point review of systems is negative. PHYSICAL EXAMINATION: GENERAL: The patient is alert and oriented x3, not in any acute distress. Well developed, well nourished. HEENT: Pupils are round and equally reacting to light. EOMI. No scleral icterus. No conjunctival pallor. Normocephalic, atraumatic. No pharyngeal erythema. No thyromegaly. CARDIOVASCULAR: S1 and S2 present. No murmurs, rubs, or gallops. PULMONARY: Chest is clear to auscultation, no wheezing or crackles. ABDOMEN: Soft, nontender, nondistended, normoactive bowel sounds. No palpable organomegaly. MUSCULOSKELETAL: No joint swelling or deformity. EXTREMITIES: No cyanosis, clubbing, or pedal edema. NEUROLOGICAL: Gross neurological examination did not reveal any focal deficits. SKIN: No rashes. Assessment and plan Major depression Suicidal ideation Anxiety Cannabis use disorder Insomnia disorder Monitor vital signs Elopement precaution Suicide precaution Continue psych meds per psychiatry Labs and medication were reviewed.. Continue same treatment. Continue with symptomatic treatment. Resume home medication. Monitor labs and vitals. DVT and GI prophylaxis. Further recommendations as per clinical course of the patient Dictation was produced using [employer] dictation software. please excuse any grammatical, word or spelling errors. Past Medical History Past Medical History: No Reported History, Seizure Disorder Additional Past Medical History / Comment(s): seizure free since he was 12- not on medication History of Any Multi-Drug Resistant Organisms: None Reported Past Surgical History: Orthopedic Surgery Additional Past Surgical History / Comment(s): right knee 2014 Past Anesthesia/Blood Transfusion Reactions: No Reported Reaction Past Psychological History: Anxiety, Depression Smoking Status: Vaper Past Alcohol Use History: Occasional Past Drug Use History: Marijuana - Past Family History Mother Additional Family Medical History / Comment(s): brain aneurysm Father Family Medical History: Diabetes Mellitus Medications and Allergies Home Medications Medication Instructions Recorded Confirmed Type No Known Home Medications 10/29/24 10/29/24 History Allergies Allergy/AdvReac Type Severity Reaction Status Date / Time No Known Allergies Allergy Verified 10/29/24 12:49 Physical Exam Vitals: Vital Signs Temp Pulse Pulse Resp BP BP Pulse Ox 10/30/24 09:15 98.1 F 99 16 119/78 98 10/29/24 21:00 98.0 F 98 18 125/84 98 10/29/24 14:25 97.7 F 93 16 134/88 100 10/29/24 14:23 92 20 128/86 99 Intake and Output 10/29/24 10/30/24 10/30/24 22:59 06:59 14:59 Other: Weight 74.525 kg Cranial Nerve Examination - Cranial Nerves Cranial Nerve II- Optic: Intact (Cranial nerves II to XII intact) Cranial Nerve III- Oculomotor: Intact Cranial Nerve IV- Trochlear: Intact Cranial Nerve V- Trigeminal: Intact Cranial Nerve - Abducens: Intact Cranial Nerve VII- Facial: Intact Cranial Nerve VIII- Auditory: Intact Cranial Nerve IX- Glossopharyngeal: Intact Cranial Nerve X- Vagus: Intact Cranial Nerve XI- Accessory: Intact Cranial Nerve XII- Hypoglossal: Intact Results CBC & Chem 7: 10/30/24 08:35 10/30/24 08:35 Labs: Abnormal Lab Results - Last 24 Hours (Table) 10/30/24 10/30/24 Range/Units 08:35 08:35 WBC 13.10 H (4.50-10.00) 10*3/uL MCH 32.5 H (27.0-32.0) pg MPV 8.7 L (9.5-12.2) fL Neutrophils # 10.02 H (1.80-7.70) 10*3/uL Glucose 142 H (74-99) mg/dL
[2024-10-30 15:37] LABS: Cholesterol 210.00 mg/dL (0.00-200.00); HDL Cholesterol 56.00 mg/dL (40.00-60.00); LDL Cholesterol,Calculated 128.0 mg/dL (0.0-131.0); Triglycerides 130.00 mg/dL (0.00-149.00); VLDL Calculation 26.00 mg/dL (5.00-40.00)
[2024-10-30] MEDS: MAGNESIUM HYDROXIDE 2,400 MG/30 ML CUP PO PRN (16:59)
[2024-10-30] MEDS: MELATONIN 5 MG TABLET PO SCH (20:51)
[2024-10-30] MEDS: MIRTAZAPINE 15 MG TAB PO SCH (20:55)
[2024-10-31] MEDS: ACETAMINOPHEN TAB 325 MG TAB PO PRN (10:54)
--- NOTE | 2024-10-31 11:53 | P.PN ---
Progress Note - Text Progress Note Date: 10/31/24 Interval History: Patient was seen wandering the hallways and was directable and agreeable to sp italia with life underwriter in the office. Patient reports sleeping better last night however it was disrupted due to him having to use the bathroom. He reports feeling some lingering fatigue this morning with some "fogginess". Patient appears more calm and less elevated. He states his was able to pass her physical exam so that she can return to work as a labor union business representative at this summer which would help with their potential financial difficulties as patient does not plan on returning to his job. He is talked about a former employer being willing to rehire him and he was future oriented towards this goal. He reports a desire to become more social, start attending exercise classes at the [facility] which was encouraged. He felt as though the Haldol was helpful for his racing thoughts. At this time patient denies any suicidal or homicidal ideations, intent or plan. Patient denies any auditory, visual hallucinations and denies any paranoia or delusions. Patient denies any side effects from the medications and has been compliant with meds. Mental Status Exam: General Appearance: Patient appears to be stated age is alert, directable, and cooperative. He wears glasses, has fair grooming and hygiene Behavior: Patient is calmly seated without any agitated behavior. Psychomotor restlessness has lessened Speech: Patient's speech is fluent and nonpressured. Mood/Affect: Mood is improving mildly, affect is congruent and constricted. Suicidality/Homicidality: Patient denies having any suicidal or homicidal ideation intent or plan. Perceptions: Patient denies any visual hallucinations and denies any auditory hallucinations Though content/process: There is no evidence of any delusional thought content and thought process is linear and goal-directed. Memory and concentration: AOX3, grossly intact for the purposes of this session Judgment and insight: Improving mildly Assessment Bipolar 1 disorder, current episode mixed Generalized anxiety disorder Alcohol use disorder, in remission Cannabis use disorder Insomnia disorder Plan: -Patient continues to meet criteria for inpatient psychiatric admission for symptom stabilization and safety. Patient has signed adult voluntary form and m edication consent and was placed in patient's chart. -Medications: Start Haldol 5 mg daily for bipolar disorder, Remeron 7.5 mg at bedtime for mood/sleep, Depakote 500 mg twice daily for mood stabilization -When necessary Ativan and Haldol for agitation/aggression. -Labs: Reviewed -WA protocol with Ativan PRN for ETOH withdrawal. -SW on board for discharge planning. Encouraged the patient to participate in milieu. Anticipate discharge home with on Monday, will obtain a Depakote level over the weekend
--- NOTE | 2024-11-01 10:26 | P.PN ---
Progress Note - Text Progress Note Date: 11/01/24 Interval History: Patient was seen in group and was directable and agreeable to speak with speech writer in the office. He reports sleeping well last night, continues to wake up intermittently due to bed discomfort. He reports the environment being triggering for him and request to be put back on BuSpar as this was helpful before. He has been taking as needed Ativan intermittently as well for this. He states his racing thoughts comes and goes. He reports some anxiety related to financial difficulties as he plans on leaving his job however him and his still have bills to pay and she has yet to start her new job as a business management intern. He otherwise has been attending groups. At this time patient denies any suicidal or homicidal ideations, intent or plan. Patient denies any auditory, visual hallucinations and denies any paranoia or delusions. Patient denies any side effects from the medications and has been compliant with meds. Mental Status Exam: General Appearance: Patient appears to be stated age is alert, directable, and cooperative. He wears glasses, has fair grooming and hygiene Behavior: Patient is calmly seated without any agitated behavior. There is no evidence of psychomotor restlessness Speech: Patient's speech is fluent and nonpressured. Mood/Affect: Mood is improving mildly, affect is congruent and reactive. Suicidality/Homicidality: Patient denies having any suicidal or homicidal ideation intent or plan. Perceptions: Patient denies any visual hallucinations and denies any auditory hallucinations Though content/process: There is no evidence of any delusional thought content and thought process is linear and goal-directed. Memory and concentration: AOX3, grossly intact for the purposes of this session Judgment and insight: Improving mildly Assessment Bipolar 1 disorder, current episode mixed Generalized anxiety disorder Alcohol use disorder, in remission Cannabis use disorder Insomnia disorder Plan: -Patient continues to meet criteria for inpatient psychiatric admission for symptom stabilization and safety. Patient has signed adult voluntary form and medication consent and was placed in patient's chart. -Medications: Start BuSpar 7.5 mg 3 times daily for anxiety, continue Haldol 5 mg daily for bipolar disorder, Remeron 7.5 mg at bedtime for mood/sleep, Depakote 500 mg twice daily for mood stabilization -When necessary Ativan and Haldol for agitation/aggression. -Labs: Reviewed, will order a Depakote level to be completed over the weekend -CIWA protocol with Ativan PRN for ETOH withdrawal. -SW on board for discharge planning. Encouraged the patient to participate in milieu. Anticipate discharge home with on Monday
--- NOTE | 2024-11-02 14:00 | P.PN ---
Progress Note - Text Progress Note Date: 11/02/24 Dictation was produced using [employer] dictation software. Please excuse any grammatical, word or spelling errors. Interval history: Patient was seen in his room and was directable and agreeable to speak with the blurb writer in the office for psychiatric follow-up. 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 States that he is under financial stress and his was not able to work. States that his sleep was not that great last night, he states that he used the bathroom few times last night after using MOM, it is reported that he slept 6 hours, admitted to good appetite. States that depression and anxiety are at the moderate side, he rated depression at 5-6/10, and anxiety that can be fluctuate. He denied any current SI/HI or self harm, denied any current AVH, reported that he feels safe in the unit. He attended most of the groups. He states that he has been taking his medications, denied any current side effects, denied any muscle stiffness, rigidity, abnormal movement or drooling. Mental Status Exam: General Appearance: Patient appears to be stated age is alert, directable, and cooperative. He wears glasses, has fair grooming and hygiene Behavior: Patient is calmly seated without any agitated behavior. There is no evidence of psychomotor restlessness Speech: Patient's speech is fluent and nonpressured. Mood/Affect: Mood is improving mildly, affect is congruent and reactive. Suicidality/Homicidality: Patient denies having any suicidal or homicidal ideation intent or plan. Perceptions: Patient denies any visual hallucinations and denies any auditory hallucinations Though content/process: There is no evidence of any delusional thought content and thought process is linear and goal-directed. Memory and concentration: AOX3, grossly intact for the purposes of this session Judgment and insight: Improving mildly Assessment Bipolar 1 disorder, current episode mixed Generalized anxiety disorder Alcohol use disorder, in remission Cannabis use disorder Insomnia disorder Assessment/Plan: Continue with current diagnosis. Patient continues to meet criteria for inpatient psychiatric admission for symptom stabilization and safety. Patient will be maintained on current psychotropic medication regimen which include BuSpar 7.5 mg p.o. 3 times daily which was started yesterday, Haldol 5 mg p.o. daily, Remeron 7.5 mg p.o. at bedtime, Depakote 500 mg p.o. twice daily. Psychoeducation was provided, risk, benefit and side effect discussed, Depakote level ordered for tomorrow morning, brief psychotherapy was provided, we will continue to monitor for medication compliance and for any psychotropic medication side effects. Will continue to monitor ongoing response to treatment. Encouraged participation in milieu.
[2024-11-03] MEDS: LORazepam 1 MG TAB PO PRN (00:44)
--- NOTE | 2024-11-03 11:48 | P.PN ---
Progress Note - Text Progress Note Date: 11/03/24 Dictation was produced using [employer] dictation software. Please excuse any grammatical, word or spelling errors. Interval history: Patient was seen in the hallway and was directable and agreeable to speak with the underwriter in the office for psychiatric follow-up. The patient states that he is feeling anxious and overwhelmed. States that he is nervous about going home, states that there is uncertainty about his finances, providing food, and paying bills, states that he is worried about his and he does not want her to see him that way. States that he is still have his job and can go back on Monday. States that depression and anxiety are at the moderate to high, he rated depression at 7/10, and anxiety 9/10. He denied any current SI/HI or self harm. He denied any AVH. States that sleep was on and off last night, it is reported as 6 hours last night, states that the bed is not comfortable. Appetite is good. He has been compliant with his medications, denied any current side effects. Denied any muscle stiffness, rigidity, abnormal movement or drooling. States that he is feeling safe in the unit. Mental Status Exam: General Appearance: Patient appears to be stated age is alert, directable, and cooperative. He wears glasses, has fair grooming and hygiene Behavior: Patient is calmly seated without any agitated behavior. There is no evidence of psychomotor restlessness Speech: Patient's speech is fluent and nonpressured. Mood/Affect: Mood is improving mildly, affect is congruent and reactive. Suicidality/Homicidality: Patient denies having any suicidal or homicidal ideation intent or plan. Perceptions: Patient denies any visual hallucinations and denies any auditory hallucinations Though content/process: There is no evidence of any delusional thought content and thought process is linear and goal-directed. Memory and concentration: AOX3, grossly intact for the purposes of this session Judgment and insight: Improving mildly Assessment Bipolar 1 disorder, current episode mixed Generalized anxiety disorder Alcohol use disorder, in remission Cannabis use disorder Insomnia disorder Assessment/Plan: Continue with current diagnosis. Patient continues to meet criteria for inpatient psychiatric admission for symptom stabilization and safety. Patient will be maintained on current psychotropic medication regimen, we will increase BuSpar to 10 mg p.o. 3 times daily, and will keep his other medications at the same doses, Haldol 5 mg p.o. daily, Remeron 7.5 mg p.o. at bedtime, and Depakote 500 mg p.o. twice daily. Psychoeducation was provided, risk, benefit and side effect discussed, Depakote level was done, therapeutic at 57.9, may consider increasing Depakote dose on outpatient basis, brief psychotherapy was provided, we will continue to monitor for medication compliance and for any psychotropic medication side effects. Will continue to monitor ongoing response to treatment. Encouraged participation in milieu.
[2024-11-04 10:21] VITALS: BP 118/82; PULSE 100; RESP 16; TEMP 97.4
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
== END 2024-11-04 12:08 | disposition home or self-care (01) | DRG 753 ==
LOC: EC 09:12 → 3MHU 14:06
PROVIDERS: ADMIT Psychiatry & Neurology Psychiatry; ATTEND Psychiatry & Neurology Psychiatry
DX: F31.60 Bipolar disorder, current episode mixed, unspecified (principal); F12.10 Cannabis abuse, uncomplicated; F10.11 Alcohol abuse, in remission; F41.1 Generalized anxiety disorder; G40.909 Epilepsy, unspecified, not intractable, without status epilepticus; G47.00 Insomnia, unspecified; F17.290 Nicotine dependence, other tobacco product, uncomplicated; R45.851 Suicidal ideations; R62.7 Adult failure to thrive; Z59.86 Financial insecurity; Z79.899 Other long term (current) drug therapy; Z87.820 Personal history of traumatic brain injury; Z91.52 Personal history of nonsuicidal self-harm; Z11.52 Encounter for screening for COVID-19
CPT/HCPCS: 80053; 80061; 80164; 80306; 82075; 83036; 84443; 85025; 87636; 99285

== ENCOUNTER 2024-11-06 13:18 | Emergency (ER) | payer OTHER ==
[2024-11-06 16:26] VITALS: BP 148/90; PULSE 99; RESP 18; TEMP 98.7
--- NOTE | 2024-11-06 16:31 | ED ---
General Adult HPI - General Chief complaint: Psychiatric Symptoms Stated complaint: Mental health Time Seen by Provider: 11/06/24 13:25 Source: patient, EMS, RN notes reviewed, old records reviewed Mode of arrival: EMS - History of Present Illness Initial comments: This is a 44-year-old male who presents to the emergency department stating that he saw an addiction noticed on his door yesterday and that stressed him out so he has been depressed that he had some suicidal thoughts that were fleeting. Patient also states if he does not show up to work today he will lose his job. Patient has no plan for suicide. Patient denies any physical complaints today. Patient is just extremely stressed between possibly losing his his job and his place of living - Related Data Previous Rx's Medication Instructions Recorded Divalproex [Depakote] 500 mg PO BID 30 Days #60 tab 11/04/24 Melatonin 10 mg PO HS 30 Days #60 tab 11/04/24 Mirtazapine [Remeron] 7.5 mg PO HS 30 Days #15 tab 11/04/24 Nicotine 14Mg/24Hr Patch [Habitrol] 1 patch TRANSDERM DAILY patch 11/04/24 busPIRone HCl [Buspar] 10 mg PO TID 30 Days #90 tab 11/04/24 haloperidoL [Haldol] 5 mg PO DAILY #45 tab 11/04/24 Allergies Allergy/AdvReac Type Severity Reaction Status Date / Time No Known Allergies Allergy Verified 11/06/24 13:28 Review of Systems ROS Statement: Those systems with pertinent positive or pertinent negative responses have been documented in the HPI. ROS Other: All systems not noted in ROS Statement are negative. Past Medical History Past Medical History: No Reported History, Seizure Disorder Additional Past Medical History / Comment(s): seizure free since he was 12- not on medication History of Any Multi-Drug Resistant Organisms: None Reported Past Surgical History: Orthopedic Surgery Additional Past Surgical History / Comment(s): right knee 2014 Past Anesthesia/Blood Transfusion Reactions: No Reported Reaction Past Psychological History: Anxiety, Bipolar, Depression Smoking Status: Vaper Past Alcohol Use History: None Reported, Occasional Past Drug Use History: Marijuana - Past Family History Mother Additional Family Medical History / Comment(s): brain aneurysm Father Family Medical History: Diabetes Mellitus General Exam - General Exam Comments Initial Comments: GENERAL: Patient is well-developed and well-nourished. Patient is nontoxic and well- hydrated and is in no acute distress. ENT: Neck is soft and supple. No significant lymphadenopathy is noted. Oropharynx is clear. Moist mucous membranes. Neck has full range of motion without eliciting any pain. EYES: The sclera were anicteric and conjunctiva were pink and moist. Extraocular movements were intact and pupils were equal round and reactive to light. Eyelids were unremarkable. PULMONARY: Unlabored respirations. Good breath sounds bilaterally. No audible rales rhonchi or wheezing was noted. CARDIOVASCULAR: There is a regular rate and rhythm without any murmurs gallops or rubs. ABDOMEN: Soft and nontender with normal bowel sounds. SKIN: Skin is clear with no lesions or rashes and otherwise unremarkable. NEUROLOGIC: Patient is alert and oriented x3. Cranial nerves II through XII are grossly intact. Motor and sensory are also intact. Normal speech, volume and content. Symmetrical smile. MUSCULOSKELETAL: Normal extremities with adequate strength and full range of motion. LYMPHATICS: No significant lymphadenopathy is noted PSYCHIATRIC: Patient is worried about losing his job and his place to live Course Vital Signs 11/06/24 11/06/24 13:22 16:25 Temperature 98.6 F 98.7 F Pulse Rate 116 H 99 Respiratory 20 18 Rate Blood Pressure 140/94 148/90 O2 Sat by Pulse 97 97 Oximetry Medical Decision Making - Medical Decision Making Was pt. sent in by a medical professional or institution ([facility], OFFICE SUPPORT ASSOCIATE, urgent care, hospital, or half-way...) When possible be specific @ -No Did you speak to anyone other than the patient for history (EMS, parent, family, police, friend...)? What history was obtained from this source @ -No Did you review nursing and triage notes (agree or disagree)? Why? @ -I reviewed and agree with nursing and triage notes Were old charts reviewed (outside hosp., previous admission, EMS record, old EKG, old radiological studies, urgent care reports/EKG's, half-way records)? Report findings @ -No old charts were reviewed Differential Diagnosis? @ -Differential Mental Health Depression, anxiety, bipolar, psychosis, schizophrenia, borderline personality, situational depression, adjustment disorder, behavioral disorder, brain tumor, malingering, substance abuse, encephalopathy, medication reaction, dementia, hypothyroidism, degenerative neurologic disorder, lupus.... This is not meant to be all-inclusive list EKG interpreted by me (3pts min.). @ -As above X-rays interpreted by me (1pt min.). @ -None done CT interpreted by me (1pt min.). @ -None done U/S interpreted by me (1pt. min.). @ -None done What testing was considered but not performed or refused? (CT, X-rays, U/S, labs)? Why? @ -None What meds were considered but not given or refused? Why? @ -None Did you discuss the management of the patient with other professionals (professionals i.e. , PA, OFFICE SUPPORT ASSOCIATE, lab, RT, psych nurse, social media sr strategy manager, water well driller, teacher, general service officer, cyanide case hardener)? Give summary @ -EPS came down and spoke with the patient and determined the patient could be discharged home with a safety plan Was smoking cessation discussed for >3mins.? @ -No Was critical care preformed (if so, how long)? @ -No Were there social determinants of health that impacted care today? How? (Homelessness, low income, unemployed, alcoholism, drug addiction, tra nsportation, low edu. Level, literacy, decrease access to med. care, detention, rehab)? @ -No Was there de-escalation of care discussed even if they declined (Discuss DNR or withdrawal of care, Hospice)? DNR status @ -No What co-morbidities impacted this encounter? (DM, HTN, Smoking, COPD, CAD, Cancer, CVA, ARF, Chemo, Hep., AIDS, mental health diagnosis, sleep apnea, morbid obesity)? @ -None Was patient admitted / discharged? Hospital course, mention meds given and route, prescriptions, significant lab abnormalities, going to OR and other pertinent info. @ -Patient will be discharged home with his H&P. Patient did receive Ativan p.o. while here because he was Undiagnosed new problem with uncertain prognosis? @ -No Drug Therapy requiring intensive monitoring for toxicity (Heparin, Nitro, Insul in, Cardizem)? @ -No Were any procedures done? @ -No Diagnosis/symptom? @ -Social problems Acute, or Chronic, or Acute on Chronic? @ -Acute Uncomplicated (without systemic symptoms) or Complicated (systemic symptoms)? @ -Uncomplicated Side effects of treatment? @ -No Exacerbation, Progression, or Severe Exacerbation? @ -No Poses a threat to life or bodily function? How? (Chest pain, [place], [place], pneumonia, PE, COPD, DKA, ARF, appy, cholecystitis, CVA, Diverticulitis, Homicidal, Suicidal, threat to staff... and all critical care pts) @ -No Diagnosis/symptom? @ -Situational depression Acute, or Chronic, or Acute on Chronic? @ -Acute Uncomplicated (without systemic symptoms) or Complicated (systemic symptoms)? @ -Uncomplicated Side effects of treatment? @ -None Exacerbation, Progression, or Severe Exacerbation] @ -No Poses a threat to life or bodily function? @ -No Disposition Clinical Impression: Social problem, Situational depression, Anxiety disorder Disposition: HOME SELF-CARE Condition: Good Instructions (If sedation given, give patient instructions): Depression (ED), Anxiety (ED) Is patient prescribed a controlled substance at d/c from ED?: No Referrals: Bernice Claros MD [Primary Care Provider] - 1-2 days Time of Disposition: 16:31
[2024-11-06] MEDS: LORazepam 1 MG TAB PO STA (16:43)
== END 2024-11-06 16:44 | disposition home or self-care (01) ==
LOC: EC 13:18
DX: F43.21 Adjustment disorder with depressed mood (principal); F41.8 Other specified anxiety disorders; F17.290 Nicotine dependence, other tobacco product, uncomplicated; Z64.4 Discord with counselors
CPT/HCPCS: 82075; 99284